=== PATIENT | female | born 1930 ===

== ENCOUNTER 2018-04-17 15:47 | Inpatient (IN) | payer MEDICARE ==
[2018-04-17] MEDS ORDERED: Sodium Chloride 0.9% 1,000 ML IV ONE ×2 (16:04→16:35)
[2018-04-17 16:25] LABS: BASO # 0.1 K/uL (0.0-0.2); BASO % 0.5 % (0.0-2.0); EOS # 0.1 K/uL (0.0-0.7); EOS % 0.5 % (0.0-4.0); HEMOGLOBIN 12.3 g/dL (11.0-16.0); LYMPH # 2.2 K/uL (1.0-4.3); LYMPH % 17.9 % (20.0-40.0); MEAN CELL VOLUME 86.3 fL (81.0-99.0); MEAN CORPUSCULAR HEMOGLOBIN 27.7 pg (27.0-31.0); MEAN CORPUSCULAR HGB CONC 32.1 g/dL (33.0-37.0); MEAN PLATELET VOLUME 8.7 fL (7.2-11.7); MONO # 1.4 K/uL (0.0-0.8); NEUT # 8.8 K/uL (1.8-7.0); NEUT % 70.1 % (50.0-75.0); RBC 4.45 Mil/uL (3.80-5.20); RED CELL DISTRIBUTION WIDTH 15.6 % (11.5-14.5); WHITE BLOOD COUNT 12.6 K/uL (4.8-10.8)
--- NOTE | 2018-04-17 16:26 | RAD ---
Date of service: 04/17/2018 HISTORY: SOB COMPARISON: None available. FINDINGS: LUNGS: No alveolar infiltrates bilaterally. Limited reticular pattern increase questioned bilaterally.. PLEURA: No significant pleural effusion identified, no pneumothorax apparent. CARDIOVASCULAR: Calcific atherosclerotic changes are seen related to the thoracic aorta. Cardiomegaly noted. No pulmonary vascular congestion. OSSEOUS STRUCTURES: No significant abnormalities. VISUALIZED UPPER ABDOMEN: Normal. OTHER FINDINGS: None. IMPRESSION: Questionable increased reticular markings may reflect atypical pneumonitis or bronchitis however no alveolitis bilaterally. No pulmonary congestion or cardiomegaly noted.
[2018-04-17 16:31] LABS: ALB/GLOB RATIO 1.1 (1.0-2.1); ALBUMIN 4.4 g/dL (3.5-5.0); ALT/SGPT 14 U/L (9-52); AST/SGOT 51 U/L (14-36); BLOOD UREA NITROGEN 22 mg/dL (7-17); CALCIUM 9.3 mg/dl (8.6-10.4); GFR NON-AFRICAN AMERICAN > 60
[2018-04-17 16:46] LABS: INR 1.2; PARTIAL THROMBOPLASTIN TIME 24 SECONDS (21-34); PROTHROMBIN TIME 13.1 SECONDS (9.7-12.2)
[2018-04-17 16:49] LABS: B-TYPE NATRIURETIC PEPTIDE 314 pg/mL (0-900)
[2018-04-17 16:58] LABS: D DIMER > 5250 ng/mlDDU (0-243)
[2018-04-17 17:23] LABS: SQUAMOUS EPITHIAL 3 /hpf (0-5); URINE BACTERIA RARE (<OCC); URINE BILIRUBIN NEGATIVE (NEGATIVE); URINE BLOOD NEGATIVE (NEGATIVE); URINE CLARITY Hazy (Clear); URINE COLOR Amber (YELLOW); URINE GLUCOSE (UA) NORMAL (Normal); URINE LEUKOCYTE ESTERASE 1+ Leu/uL (Negative); URINE PROTEIN 2+ mg/dL (NEGATIVE); URINE UROBILINOGEN NORMAL mg/dL (0.2-1.0)
[2018-04-17 17:29] LABS: BARBITURATES, UR NEGATIVE (NEGATIVE); BENZODIAZEPINES, UR NEGATIVE (NEGATIVE); OPIATES, UR NEGATIVE (NEGATIVE); PHENCYCLIDINE, UR NEGATIVE (NEGATIVE)
--- NOTE | 2018-04-17 17:32 | C.PDOC ---
History Of Present Illness 88 year old female is brought to the ED via ambulance from home for lethargy and SOB x 2 days. Patient was noticed to be in rapid V-fib and V-tach during transport but was not captured on EKG. Patient has history of TIAs. Her daughter at bedside states patient had a large bowel movement last night, which usually precedes a TIA. Patient denies fever, chills. Anticoagulated w Plavix for h/o TIA with ? med compliance. Time Seen by Provider: 04/17/18 15:53 Chief Complaint (Nursing): Chest Pain History Per: Patient, EMS, Family (daughter ) History/Exam Limitations: no limitations Onset/Duration Of Symptoms: Hrs Past Medical History Reviewed: Historical Data, Nursing Documentation, Vital Signs Vital Signs: Last Vital Signs Temp 98.7 F 04/17/18 15:49 Pulse 89 04/17/18 16:20 Resp 25 H 04/17/18 16:20 BP 103/67 04/17/18 16:20 Pulse Ox 97 04/17/18 16:20 - Medical History PMH: COPD, Dementia, HTN Surgical History: No Surg Hx Family History: States: Unknown Family Hx - Social History Hx Alcohol Use: No Hx Substance Use: No - Immunization History Hx Tetanus Toxoid Vaccination: No Hx Influenza Vaccination: No Hx Pneumococcal Vaccination: No Review Of Systems Constitutional: Positive for: Other (lethargy ). Negative for: Fever, Chills Physical Exam - Physical Exam Appears: Non-toxic, No Acute Distress, Other (acutely ill ) Skin: Warm, Dry, Pale Head: Atraumatic, Normacephalic Eye(s): bilateral: Normal Inspection Oral Mucosa: Moist Neck: Supple Chest: Symmetrical, No Deformity, No Tenderness Cardiovascular: No Murmur, Other (tachycardic and irregular ) Respiratory: Normal Breath Sounds, No Rales, No Rhonchi, No Wheezing Gastrointestinal/Abdominal: Soft, No Tenderness, No Guarding, No Rebound Extremity: Normal ROM, Capillary Refill (less than 2 seconds ), No Other (clubbing, cyanosis, or edema ) Neurological/Psych: Oriented x3, Normal Speech, Normal Cognition ED Course And Treatment - Laboratory Results Result Diagrams: 04/17/18 16:00 04/17/18 16:00 Lab Interpretation: Abnormal (D Dimer 5200, Troop 0.330, BNP neg. ua neg.) ECG: Interpreted By Me ECG Rhythm: Atrial Fibrillation, L BBB ECG Interpretation: Abnormal Rate From EC O2 Sat by Pulse Oximetry: 97 (on RA) Pulse Ox Interpretation: Normal - Radiology CXR: Interpreted by Me CXR Interpretation: Yes: No Acute Disease Progress Note: Bloodwork, urinalysis, CT Angio Chest, CT Head, EKG, CXR, and flu swab ordered and reviewed. Patient given aggressive IV Fluids for hypertension and tachycardia with improvement of symptoms. On re-evaluation, patient is plump, pink, neurologically intact, and with improvement of tachycardia. Reevaluation Time: 19:33 Reassessment Condition: Improved - Physician Consult Information Outcome Of Conversation: 1929: d/w Dr. Ragland- Hospitalist, ok to admit to Service. 1929: d/w Dr. Worthington, ICU, ok to ICU Critical Care Time - Critical Care Note Total Time (in mins): 90 Documented critical care: time excludes all time spent performing seperately billable procedures. Medical Decision Making Medical Decision Making: acute PE over past 1-2 days with intermittent tachyarrhythmias ROSENDA vs VT w ROSENDA in ED on arrival. Anticoagulated w Heparin bolus/drip consider non-emergent IR evaluation for theraputic options as VSS and oxygenation good without sig RV dilation noted on CTA 2000: repeat EKG, now stabilized NSR @ 87, persistent LBBB, no ectopy. Disposition Doctor Will See Patient In The: Hospital Counseled Patient/Family Regarding: Studies Performed, Diagnosis - Disposition Disposition: HOSPITALIZED Disposition Time: 19:35 Condition: GOOD - Clinical Impression Clinical Impression: NSTEMI (non-ST elevated myocardial infarction), Pulmonary embolism - Scribe Statement The provider has reviewed the documentation as recorded by the Scribe (Viry Clark) Provider Attestation: All medical record entries made by the Scribe were at my direction and personally dictated by me. I have reviewed the chart and agree that the record accurately reflects my personal performance of the history, physical exam, medical decision making, and the department course for this patient. I have also personally directed, reviewed, and agree with the discharge instructions and disposition.
[2018-04-17] MEDS ORDERED: Iodixanol 320 MG/ML 100 ML BOTTLE IV ONE (17:33)
[2018-04-17] MEDS ORDERED: Heparin25000 units/250ml 1/2NS 25,000 UNITS/250 ML BAG IV ONE (19:35)
--- NOTE | 2018-04-17 20:33 | CP.PCM.CON ---
History of Present Illness - History of Present Illness History of Present Illness: CCM 88 yo female with hx HTN/HLD /COPD /TIA's/Dementia BIBEMS after daughter noted shaking and change in MS. Pt with SOB x 2 days. Nausea in AM. Had VT and rapid AF in EMS. In ED low BP improved after 2 L IV fluid. Found with PE and started on heparin. Pt denied pain or sob when seen. No fever/urinary sx./nausea. ROS- as noted All- PCN Social- no tob/ etoh/d rugs Meds- reviewed FH- [place] PE T-98.2 P-88 R-25 BP129/81 Sat-97% on NC Alert responsive elderly female, nad Neck- no jvdlungs- bilat bs Heawrt-rr aBd- bengin Ext- bipedal edema, some LLE tenderness Neuro- nonfocal Labs, EKG,[id number] A&P Pulmonary Emboli Arrythmias- s/p VT & A-fib LBBB +Trop Hx HTN HLD Dementia COPD Hx TIA's Admit to ICU monitor for arrythmia's cont heparin/ OPtimize PTT supplemental O2 ECHO PUlmonary eval Maintain optimal lytes f/u labs critical care time spent with patient 40 min. Past Patient History - Past Social History Smoking Status: Never Smoked - CARDIAC Hx Hypertension: Yes - PULMONARY Hx Chronic Obstructive Pulmonary Disease (COPD): Yes - NEUROLOGICAL Hx Dementia: Yes - PSYCHIATRIC Hx Substance Use: No - SURGICAL HISTORY Hx Surgeries: No Meds Allergies/Adverse Reactions: Allergies Allergy/AdvReac Type Severity Reaction Status Date / Time Penicillins Allergy Verified 04/17/18 15:59 - Medications Medications: Current Medications Heparin Sodium/Sodium Chloride (Heparin 05620 Units/250ml 1/2 Normal Saline) 25,000 units in 250 mls @ 10.8 mls/hr IV .[id number] ONE; Protocol Stop: 04/18/18 18:43 Last Admin: 04/17/18 19:48 Dose: 18 units/kg/hr, 10.8 mls/hr Results - Vital Signs Recent Vital Signs: Last Vital Signs Temp 98.2 F 04/17/18 20:07 Pulse 88 04/17/18 20:07 Resp 25 H 04/17/18 20:07 BP 129/81 04/17/18 20:07 Pulse Ox 97 04/17/18 20:16 - Labs Result Diagrams: 04/17/18 16:00 04/17/18 16:00 Labs: Laboratory Results - last 24 hr 04/17/18 04/17/18 04/17/18 16:00 16:00 16:13 WBC 12.6 H RBC 4.45 Hgb 12.3 Hct 38.4 MCV 86.3 MCH 27.7 MCHC 32.1 L RDW 15.6 H Plt Count 228 MPV 8.7 Neut % (Auto) 70.1 Lymph % (Auto) 17.9 L [place] % (Auto) 11.0 H Eos % (Auto) 0.5 Baso % (Auto) 0.5 Neut # (Auto) 8.8 H Lymph # (Auto) 2.2 [place] # (Auto) 1.4 H Eos # (Auto) 0.1 Baso # (Auto) 0.1 PT INR APTT D-Dimer, Quantitative Sodium 141 Potassium 5.2 Chloride 104 Carbon Dioxide 22 Anion Gap 20 BUN 22 H Creatinine 0.7 Est GFR ( Amer) > 60 Est GFR (Non-Af Amer) > 60 Random Glucose 187 H Calcium 9.3 Total Bilirubin 1.3 AST 51 H ALT 14 Alkaline Phosphatase 79 Troponin I 0.3300 H* NT-Pro-B Natriuret Pep 314 Total Protein 8.5 H Albumin 4.4 Globulin 4.1 H Albumin/Globulin Ratio 1.1 Urine Color Urine Clarity Urine pH Ur Specific [place] Urine Protein Urine Glucose (UA) Urine Ketones Urine Blood Urine Nitrate Urine Bilirubin Urine Urobilinogen Ur Leukocyte Esterase Urine WBC (Auto) Urine RBC (Auto) Ur Squamous Epith Cells Urine Bacteria Hyaline Casts Stool Occult Blood Urine Opiates Screen Urine Methadone Screen Ur Barbiturates Screen Ur Phencyclidine Scrn Ur Amphetamines Screen U Benzodiazepines Scrn U Oth Cocaine Metabols U Cannabinoids Screen Influenza Typ A,B (EIA) Negative for flu a/b Blood Type Antibody Screen 04/17/18 04/17/18 04/17/18 16:19 16:19 16:39 WBC RBC Hgb Hct MCV MCH MCHC RDW Plt Count MPV Neut % (Auto) Lymph % (Auto) [place] % (Auto) Eos % (Auto) Baso % (Auto) Neut # (Auto) Lymph # (Auto) [place] # (Auto) Eos # (Auto) Baso # (Auto) PT 13.1 H INR 1.2 APTT 24 D-Dimer, Quantitative > 5250 H Sodium Potassium Chloride Carbon Dioxide Anion Gap BUN Creatinine Est GFR ( Amer) Est GFR (Non-Af Amer) Random Glucose Calcium Total Bilirubin AST ALT Alkaline Phosphatase Troponin I NT-Pro-B Natriuret Pep Total Protein Albumin Globulin Albumin/Globulin Ratio Urine Color Urine Clarity Urine pH Ur Specific [place] Urine Protein Urine Glucose (UA) Urine Ketones Urine Blood Urine Nitrate Urine Bilirubin Urine Urobilinogen Ur Leukocyte Esterase Urine WBC (Auto) Urine RBC (Auto) Ur Squamous Epith Cells Urine Bacteria Hyaline Casts Stool Occult Blood Negative Urine Opiates Screen Urine Methadone Screen Ur Barbiturates Screen Ur Phencyclidine Scrn Ur Amphetamines Screen U Benzodiazepines Scrn U Oth Cocaine Metabols U Cannabinoids Screen Influenza Typ A,B (EIA) Blood Type O POSITIVE Antibody Screen Negative 04/17/18 04/17/18 17:09 17:09 WBC RBC Hgb Hct MCV MCH MCHC RDW Plt Count MPV Neut % (Auto) Lymph % (Auto) [place] % (Auto) Eos % (Auto) Baso % (Auto) Neut # (Auto) Lymph # (Auto) [place] # (Auto) Eos # (Auto) Baso # (Auto) PT INR APTT D-Dimer, Quantitative Sodium Potassium Chloride Carbon Dioxide Anion Gap BUN Creatinine Est GFR ( Amer) Est GFR (Non-Af Amer) Random Glucose Calcium Total Bilirubin AST ALT Alkaline Phosphatase Troponin I NT-Pro-B Natriuret Pep Total Protein Albumin Globulin Albumin/Globulin Ratio Urine Color Su Urine Clarity Hazy Urine pH 5.0 Ur Specific [place] 1.023 Urine Protein 2+ H Urine Glucose (UA) Normal Urine Ketones Trace Urine Blood Negative Urine Nitrate Negative Urine Bilirubin Negative Urine Urobilinogen Normal Ur Leukocyte Esterase 1+ H Urine WBC (Auto) 13 H Urine RBC (Auto) 3 Ur Squamous Epith Cells 3 Urine Bacteria Rare Hyaline Casts 11-20 H Stool Occult Blood Urine Opiates Screen Negative Urine Methadone Screen Negative Ur Barbiturates Screen Negative Ur Phencyclidine Scrn Negative Ur Amphetamines Screen Negative U Benzodiazepines Scrn Negative U Oth Cocaine Metabols Negative U Cannabinoids Screen Negative Influenza Typ A,B (EIA) Blood Type Antibody Screen Assessment & Plan (1) Pulmonary embolism Status: Acute (2) NSTEMI (non-ST elevated myocardial infarction) Status: Acute (3) COPD (chronic obstructive pulmonary disease) Status: Chronic (4) HTN (hypertension) Status: Chronic (5) HLD (hyperlipidemia) Status: Chronic (6) Dementia Status: Chronic (7) TIA (transient ischemic attack) Status: Chronic
--- NOTE | 2018-04-18 01:54 | CP.PCM.HP ---
<Missy Nettles P - Last Filed: 04/18/18 03:22> History of Present Illness - History of Present Illness History of Present Illness: 88 year old female with PMHx of COPD, HTN, HLD, dementia and previous CVA with L sided weakness presents to ED with complaint of shortness of breath worsening for the last 2 days. SOB worsens with talking. Treatment with home nebulizer provided no improvement. Associated symptoms include diaphoresis and lower extremity swelling. Patient noted to be in rapid Afib and v tach en route to ED. On arrival to ED, patient was noted to be hypotensive, which improved with 2L IV fluid. Patient denies chest pain, nausea, vomiting, palpitations, cough, fever, and chills. PMHx: COPD, HTN, HLD, dementia and previous CVA PSHx: appendectomy Meds: Plavix 75mg daily, montelukast 10mg HS, amlodipine 2.5mg daily, Simvastatin 20mg Hs, Rivastigmine 9.5mg transdermal daily, Brovana 15mcg INH BID Allergy: PCN Social: denies alcohol and drugs. Lives with 92 year old . Walks with a walker Code Status: full code Present on Admission - Present on Admission Any Indicators Present on Admission: No Review of Systems - Constitutional Constitutional: Lethargy. absent: Chills, Fever, Frequent Falls, Headache - Cardiovascular Cardiovascular: Irregular Heart Rhythm, Leg Edema. absent: Chest Pain, Lightheadedness, Palpitations - Respiratory Respiratory: Dyspnea. absent: Cough, Hemoptysis - Gastrointestinal Gastrointestinal: absent: Constipation, Diarrhea, Hematochezia, Loose Stools, Melena, Nausea, Vomiting - Genitourinary Genitourinary: absent: Flank Pain, Hematuria, Urinary Frequency - Neurological Neurological: absent: Abnormal Speech, Dizziness, Numbness, Headaches, Loss of Vision, Paresthesias, Syncope, Tremor Past Patient History - Past Medical History & Family History Past Medical History?: Yes - Past Social History Smoking Status: Never Smoked - CARDIAC Hx Hypertension: Yes - PULMONARY Hx Chronic Obstructive Pulmonary Disease (COPD): Yes - NEUROLOGICAL Hx Dementia: Yes - HEENT Hx HEENT Problems: Yes Other/Comment: FOR READING - RENAL Hx Chronic Kidney Disease: No - ENDOCRINE/METABOLIC Hx Endocrine Disorders: No - HEMATOLOGICAL/ONCOLOGICAL Hx Blood Disorders: No - INTEGUMENTARY Hx Dermatological Problems: No - MUSCULOSKELETAL/RHEUMATOLOGICAL Hx Musculoskeletal Disorders: Yes Hx Falls: Yes - GASTROINTESTINAL Hx Gastrointestinal Disorders: No - GENITOURINARY/GYNECOLOGICAL Hx Genitourinary Disorders: No - PSYCHIATRIC Hx Substance Use: No - SURGICAL HISTORY Hx Surgeries: No - ANESTHESIA Hx Anesthesia: No Meds Allergies/Adverse Reactions: Allergies Allergy/AdvReac Type Severity Reaction Status Date / Time Penicillins Allergy Verified 04/17/18 15:59 Physical Exam - Constitutional Appears: No Acute Distress - Head Exam Head Exam: ATRAUMATIC, NORMOCEPHALIC - Eye Exam Eye Exam: EOMI, PERRL - ENT Exam ENT Exam: Mucous Membranes Moist - Respiratory Exam Respiratory Exam: Wheezes. absent: Clear to Auscultation Bilateral, Rales, Rhonchi - Cardiovascular Exam Cardiovascular Exam: REGULAR RHYTHM, +S1, +S2 - GI/Abdominal Exam GI & Abdominal Exam: Distended, Normal Bowel Sounds. absent: Guarding, Rebound - Extremities Exam Extremities exam: Positive for: pedal edema (pitting, L>R) - Neurological Exam Neurological exam: Alert, CN II-XII Intact, Motor Sensory Deficit (Residual L sided weakness from previous stroke) - Psychiatric Exam Psychiatric exam: Normal Affect Results - Vital Signs Recent Vital Signs: Last Vital Signs Temp 98.5 F 04/18/18 00:00 Pulse 72 04/18/18 01:30 Resp 27 H 04/18/18 01:30 BP 115/66 04/18/18 01:30 Pulse Ox 93 L 04/18/18 01:30 - Labs Result Diagrams: 04/17/18 16:00 04/17/18 16:00 Labs: Laboratory Results - last 24 hr 04/17/18 04/17/18 04/17/18 16:00 16:00 16:13 WBC 12.6 H RBC 4.45 Hgb 12.3 Hct 38.4 MCV 86.3 MCH 27.7 MCHC 32.1 L RDW 15.6 H Plt Count 228 MPV 8.7 Neut % (Auto) 70.1 Lymph % (Auto) 17.9 L Walton % (Auto) 11.0 H Eos % (Auto) 0.5 Baso % (Auto) 0.5 Neut # (Auto) 8.8 H Lymph # (Auto) 2.2 Walton # (Auto) 1.4 H Eos # (Auto) 0.1 Baso # (Auto) 0.1 PT INR APTT D-Dimer, Quantitative Sodium 141 Potassium 5.2 Chloride 104 Carbon Dioxide 22 Anion Gap 20 BUN 22 H Creatinine 0.7 Est GFR ( Amer) > 60 Est GFR (Non-Af Amer) > 60 Random Glucose 187 H Calcium 9.3 Total Bilirubin 1.3 AST 51 H ALT 14 Alkaline Phosphatase 79 Troponin I 0.3300 H* NT-Pro-B Natriuret Pep 314 Total Protein 8.5 H Albumin 4.4 Globulin 4.1 H Albumin/Globulin Ratio 1.1 Urine Color Urine Clarity Urine pH Ur Specific Granger Urine Protein Urine Glucose (UA) Urine Ketones Urine Blood Urine Nitrate Urine Bilirubin Urine Urobilinogen Ur Leukocyte Esterase Urine WBC (Auto) Urine RBC (Auto) Ur Squamous Epith Cells Urine Bacteria Hyaline Casts Stool Occult Blood Urine Opiates Screen Urine Methadone Screen Ur Barbiturates Screen Ur Phencyclidine Scrn Ur Amphetamines Screen U Benzodiazepines Scrn U Oth Cocaine Metabols U Cannabinoids Screen Influenza Typ A,B (EIA) Negative for flu a/b Blood Type Antibody Screen 04/17/18 04/17/18 04/17/18 16:19 16:19 16:39 WBC RBC Hgb Hct MCV MCH MCHC RDW Plt Count MPV Neut % (Auto) Lymph % (Auto) Walton % (Auto) Eos % (Auto) Baso % (Auto) Neut # (Auto) Lymph # (Auto) Walton # (Auto) Eos # (Auto) Baso # (Auto) PT 13.1 H INR 1.2 APTT 24 D-Dimer, Quantitative > 5250 H Sodium Potassium Chloride Carbon Dioxide Anion Gap BUN Creatinine Est GFR ( Amer) Est GFR (Non-Af Amer) Random Glucose Calcium Total Bilirubin AST ALT Alkaline Phosphatase Troponin I NT-Pro-B Natriuret Pep Total Protein Albumin Globulin Albumin/Globulin Ratio Urine Color Urine Clarity Urine pH Ur Specific Granger Urine Protein Urine Glucose (UA) Urine Ketones Urine Blood Urine Nitrate Urine Bilirubin Urine Urobilinogen Ur Leukocyte Esterase Urine WBC (Auto) Urine RBC (Auto) Ur Squamous Epith Cells Urine Bacteria Hyaline Casts Stool Occult Blood Negative Urine Opiates Screen Urine Methadone Screen Ur Barbiturates Screen Ur Phencyclidine Scrn Ur Amphetamines Screen U Benzodiazepines Scrn U Oth Cocaine Metabols U Cannabinoids Screen Influenza Typ A,B (EIA) Blood Type O POSITIVE Antibody Screen Negative 04/17/18 04/17/18 17:09 17:09 WBC RBC Hgb Hct MCV MCH MCHC RDW Plt Count MPV Neut % (Auto) Lymph % (Auto) Walton % (Auto) Eos % (Auto) Baso % (Auto) Neut # (Auto) Lymph # (Auto) Walton # (Auto) Eos # (Auto) Baso # (Auto) PT INR APTT D-Dimer, Quantitative Sodium Potassium Chloride Carbon Dioxide Anion Gap BUN Creatinine Est GFR ( Amer) Est GFR (Non-Af Amer) Random Glucose Calcium Total Bilirubin AST ALT Alkaline Phosphatase Troponin I NT-Pro-B Natriuret Pep Total Protein Albumin Globulin Albumin/Globulin Ratio Urine Color Su Urine Clarity Hazy Urine pH 5.0 Ur Specific Granger 1.023 Urine Protein 2+ H Urine Glucose (UA) Normal Urine Ketones Trace Urine Blood Negative Urine Nitrate Negative Urine Bilirubin Negative Urine Urobilinogen Normal Ur Leukocyte Esterase 1+ H Urine WBC (Auto) 13 H Urine RBC (Auto) 3 Ur Squamous Epith Cells 3 Urine Bacteria Rare Hyaline Casts 11-20 H Stool Occult Blood Urine Opiates Screen Negative Urine Methadone Screen Negative Ur Barbiturates Screen Negative Ur Phencyclidine Scrn Negative Ur Amphetamines Screen Negative U Benzodiazepines Scrn Negative U Oth Cocaine Metabols Negative U Cannabinoids Screen Negative Influenza Typ A,B (EIA) Blood Type Antibody Screen Assessment & Plan - Assessment and Plan (Free Text) Plan: 88 year old female with PMHx of Pulmonary embolism Heparin Drip COPD Duoneb BID Montelukast 10mg daily HTN Amlodepine 2.5mg Hx of CVA Prophylaxis Heart healthy diet <Thierry Ragland P - Last Filed: 04/18/18 07:53> Results - Vital Signs Recent Vital Signs: Last Vital Signs Temp 98.0 F 04/18/18 04:00 Pulse 63 04/18/18 06:30 Resp 27 H 04/18/18 06:30 BP 114/76 04/18/18 06:30 Pulse Ox 97 04/18/18 06:30 - Labs Result Diagrams: 04/18/18 06:26 04/18/18 06:27 Labs: Laboratory Results - last 24 hr 04/17/18 04/17/18 04/17/18 16:00 16:00 16:13 WBC 12.6 H RBC 4.45 Hgb 12.3 Hct 38.4 MCV 86.3 MCH 27.7 MCHC 32.1 L RDW 15.6 H Plt Count 228 MPV 8.7 Neut % (Auto) 70.1 Lymph % (Auto) 17.9 L Walton % (Auto) 11.0 H Eos % (Auto) 0.5 Baso % (Auto) 0.5 Neut # (Auto) 8.8 H Lymph # (Auto) 2.2 Walton # (Auto) 1.4 H Eos # (Auto) 0.1 Baso # (Auto) 0.1 PT INR APTT D-Dimer, Quantitative Sodium 141 Potassium 5.2 Chloride 104 Carbon Dioxide 22 Anion Gap 20 BUN 22 H Creatinine 0.7 Est GFR ( Amer) > 60 Est GFR (Non-Af Amer) > 60 Random Glucose 187 H Calcium 9.3 Total Bilirubin 1.3 AST 51 H ALT 14 Alkaline Phosphatase 79 Troponin I 0.3300 H* NT-Pro-B Natriuret Pep 314 Total Protein 8.5 H Albumin 4.4 Globulin 4.1 H Albumin/Globulin Ratio 1.1 Urine Color Urine Clarity Urine pH Ur Specific Granger Urine Protein Urine Glucose (UA) Urine Ketones Urine Blood Urine Nitrate Urine Bilirubin Urine Urobilinogen Ur Leukocyte Esterase Urine WBC (Auto) Urine RBC (Auto) Ur Squamous Epith Cells Urine Bacteria Hyaline Casts Stool Occult Blood Urine Opiates Screen Urine Methadone Screen Ur Barbiturates Screen Ur Phencyclidine Scrn Ur Amphetamines Screen U Benzodiazepines Scrn U Oth Cocaine Metabols U Cannabinoids Screen Influenza Typ A,B (EIA) Negative for flu a/b Blood Type Antibody Screen 04/17/18 04/17/18 04/17/18 16:19 16:19 16:39 WBC RBC Hgb Hct MCV MCH MCHC RDW Plt Count MPV Neut % (Auto) Lymph % (Auto) Walton % (Auto) Eos % (Auto) Baso % (Auto) Neut # (Auto) Lymph # (Auto) Walton # (Auto) Eos # (Auto) Baso # (Auto) PT 13.1 H INR 1.2 APTT 24 D-Dimer, Quantitative > 5250 H Sodium Potassium Chloride Carbon Dioxide Anion Gap BUN Creatinine Est GFR ( Amer) Est GFR (Non-Af Amer) Random Glucose Calcium Total Bilirubin AST ALT Alkaline Phosphatase Troponin I NT-Pro-B Natriuret Pep Total Protein Albumin Globulin Albumin/Globulin Ratio Urine Color Urine Clarity Urine pH Ur Specific Granger Urine Protein Urine Glucose (UA) Urine Ketones Urine Blood Urine Nitrate Urine Bilirubin Urine Urobilinogen Ur Leukocyte Esterase Urine WBC (Auto) Urine RBC (Auto) Ur Squamous Epith Cells Urine Bacteria Hyaline Casts Stool Occult Blood Negative Urine Opiates Screen Urine Methadone Screen Ur Barbiturates Screen Ur Phencyclidine Scrn Ur Amphetamines Screen U Benzodiazepines Scrn U Oth Cocaine Metabols U Cannabinoids Screen Influenza Typ A,B (EIA) Blood Type O POSITIVE Antibody Screen Negative 04/17/18 04/17/18 04/18/18 17:09 17:09 02:08 WBC RBC Hgb Hct MCV MCH MCHC RDW Plt Count MPV Neut % (Auto) Lymph % (Auto) Walton % (Auto) Eos % (Auto) Baso % (Auto) Neut # (Auto) Lymph # (Auto) Walton # (Auto) Eos # (Auto) Baso # (Auto) PT INR APTT 119 H* D D-Dimer, Quantitative Sodium Potassium Chloride Carbon Dioxide Anion Gap BUN Creatinine Est GFR ( Amer) Est GFR (Non-Af Amer) Random Glucose Calcium Total Bilirubin AST ALT Alkaline Phosphatase Troponin I NT-Pro-B Natriuret Pep Total Protein Albumin Globulin Albumin/Globulin Ratio Urine Color Su Urine Clarity Hazy Urine pH 5.0 Ur Specific Granger 1.023 Urine Protein 2+ H Urine Glucose (UA) Normal Urine Ketones Trace Urine Blood Negative Urine Nitrate Negative Urine Bilirubin Negative Urine Urobilinogen Normal Ur Leukocyte Esterase 1+ H Urine WBC (Auto) 13 H Urine RBC (Auto) 3 Ur Squamous Epith Cells 3 Urine Bacteria Rare Hyaline Casts 11-20 H Stool Occult Blood Urine Opiates Screen Negative Urine Methadone Screen Negative Ur Barbiturates Screen Negative Ur Phencyclidine Scrn Negative Ur Amphetamines Screen Negative U Benzodiazepines Scrn Negative U Oth Cocaine Metabols Negative U Cannabinoids Screen Negative Influenza Typ A,B (EIA) Blood Type Antibody Screen 04/18/18 04/18/18 06:26 06:27 WBC 11.1 H RBC 3.91 Hgb 11.1 Hct 33.3 L MCV 85.1 MCH 28.3 MCHC 33.2 RDW 15.8 H Plt Count 216 MPV 8.9 Neut % (Auto) 67.1 Lymph % (Auto) 19.0 L Walton % (Auto) 11.0 H Eos % (Auto) 2.1 Baso % (Auto) 0.8 Neut # (Auto) 7.5 H Lymph # (Auto) 2.1 Walton # (Auto) 1.2 H Eos # (Auto) 0.2 Baso # (Auto) 0.1 PT INR APTT D-Dimer, Quantitative Sodium 139 Potassium 4.0 Chloride 108 H Carbon Dioxide 22 Anion Gap 13 BUN 21 H Creatinine 0.7 Est GFR ( Amer) > 60 Est GFR (Non-Af Amer) > 60 Random Glucose 150 H Calcium 8.8 Total Bilirubin 0.7 AST 24 ALT 27 Alkaline Phosphatase 72 Troponin I NT-Pro-B Natriuret Pep Total Protein 6.8 Albumin 3.5 D Globulin 3.3 Albumin/Globulin Ratio 1.0 Urine Color Urine Clarity Urine pH Ur Specific Granger Urine Protein Urine Glucose (UA) Urine Ketones Urine Blood Urine Nitrate Urine Bilirubin Urine Urobilinogen Ur Leukocyte Esterase Urine WBC (Auto) Urine RBC (Auto) Ur Squamous Epith Cells Urine Bacteria Hyaline Casts Stool Occult Blood Urine Opiates Screen Urine Methadone Screen Ur Barbiturates Screen Ur Phencyclidine Scrn Ur Amphetamines Screen U Benzodiazepines Scrn U Oth Cocaine Metabols U Cannabinoids Screen Influenza Typ A,B (EIA) Blood Type Antibody Screen Attending/Attestation - Attestation I have personally seen and examined this patient.: Yes I have fully participated in the care of the patient.: Yes I have reviewed all pertinent clinical information: Yes Notes (Text): Assessment * B/l PE, right pulm trunk, left distal segmental with initial hypotension, + troponin suggesting RV strain, but then clinical improvement. * H/o prior tia, strokes patient is high risk of bleeding in the prior stroked areas with even catheter directed trombolysis, also clinically patient improving suggesting clot might have displaced * B/l leg swelling left > right * abdominal distension chronic as per the daughter * Left leg weakness from prior strokes * ? copd as per the daughter from second hand smoking * Full code Plan * Heparin drip * Echo * Venous doppler b/l * Abdominal USG due to distension * Home meds * See orders for detail.
[2018-04-18 06:35] LABS: BASO # 0.1 K/uL (0.0-0.2); BASO % 0.8 % (0.0-2.0); EOS # 0.2 K/uL (0.0-0.7); EOS % 2.1 % (0.0-4.0); HEMOGLOBIN 11.1 g/dL (11.0-16.0); LYMPH # 2.1 K/uL (1.0-4.3); MEAN CELL VOLUME 85.1 fL (81.0-99.0); MEAN CORPUSCULAR HEMOGLOBIN 28.3 pg (27.0-31.0); MEAN CORPUSCULAR HGB CONC 33.2 g/dL (33.0-37.0); MEAN PLATELET VOLUME 8.9 fL (7.2-11.7); MONO # 1.2 K/uL (0.0-0.8); NEUT # 7.5 K/uL (1.8-7.0); NEUT % 67.1 % (50.0-75.0); RBC 3.91 Mil/uL (3.80-5.20); RED CELL DISTRIBUTION WIDTH 15.8 % (11.5-14.5); WHITE BLOOD COUNT 11.1 K/uL (4.8-10.8)
[2018-04-18 06:53] LABS: ALBUMIN 3.5 g/dL (3.5-5.0); ALT/SGPT 27 U/L (9-52); AST/SGOT 24 U/L (14-36); BLOOD UREA NITROGEN 21 mg/dL (7-17); CALCIUM 8.8 mg/dl (8.6-10.4); GFR NON-AFRICAN AMERICAN > 60
--- NOTE | 2018-04-18 08:28 | CT ---
Date of service: 04/17/2018 PROCEDURE: CT HEAD WITHOUT CONTRAST. HISTORY: ? change of MS, h/o TIA COMPARISON: None available. TECHNIQUE: Axial computed tomography images were obtained through the head/brain without intravenous contrast. Radiation dose: Total exam DLP = 1067.89 mGy-cm. This CT exam was performed using one or more of the following dose reduction techniques: Automated exposure control, adjustment of the mA and/or kV according to patient size, and/or use of iterative reconstruction technique. FINDINGS: HEMORRHAGE: No intracranial hemorrhage. BRAIN: There are severe chronic microangiopathic changes. There is no mass, mass effect or abnormal extra-axial fluid collection. There is no territorial infarction. The midline sagittal structures are normal. VENTRICLES: There is mild age-related global parenchymal volume loss and proportionate enlargement of the ventricles and cortical sulci. CALVARIUM: There is no calvarial fracture or extracranial soft tissue swelling. PARANASAL SINUSES: There is a retention cyst/polyp in the left maxillary sinus. The remaining included paranasal sinuses are clear. MASTOID AIR CELLS: Predominantly clear. OTHER FINDINGS: None. IMPRESSION: No acute intracranial abnormality. Severe chronic microangiopathic changes and mild age-related global parenchymal volume loss. A preliminary report was provided by [employer].
[2018-04-18] MEDS ORDERED: Albuterol-Ipratrop 3 mg / 0.5 (3 ml) UD INH SCH ×2 (10:00→20:00)
--- NOTE | 2018-04-18 11:08 | US ---
HISTORY: abdominal distention COMPARISON: None available. TECHNIQUE: Sonographic evaluation of the abdomen. FINDINGS: LIVER: Measures 19.5 cm in sagittal dimension. Echogenic liver may be seen in setting of hepatic parenchymal disease or fatty infiltration. No focal hepatic mass identified. The main portal vein appears patent with normal directional flow. No intrahepatic bile duct dilatation. GALLBLADDER: No gallstones. No gallbladder wall thickening. Negative sonographic Leon's sign as assessed by the pricing director. COMMON BILE DUCT: Measures 2 mm. PANCREAS: Not well visualized. RIGHT KIDNEY: Measures 11.9 x 4.1 x 5.7cm. No obstructing calculus or hydronephrosis identified. LEFT KIDNEY: Measures 12.9 x 5.1 x 5.7cm. No obstructing calculus or hydronephrosis identified. 2.0 x 2.2 x 2.2 cm anechoic lesion appears consistent with cyst. SPLEEN: Not visualized. AORTA: Limited views appear unremarkable. IVC: Limited views appear unremarkable. OTHER FINDINGS: None. IMPRESSION: Hepatomegaly. Echogenic liver may be seen in setting of hepatic parenchymal disease or fatty infiltration. The spleen is not visualized. 2.2 cm left midpole renal anechoic lesion appears consistent with cyst.
--- NOTE | 2018-04-18 11:30 | CT ---
Date of service: 04/17/2018 PROCEDURE: CT Chest with contrast (Pulmonary Angiogram) HISTORY: Tachyarrthmia, d-dimer >5000 COMPARISON: Comparison made with chest radiograph 04/17/2018. TECHNIQUE: Axial computed tomography images were obtained of the chest in the pulmonary arterial phase of enhancement. Coronal and sagittal reformatted images were created and reviewed. Intravenous contrast dose: 100 cc Visipaque 320 contrast material. Radiation dose: Total exam DLP = 495.95 mGy-cm. This CT exam was performed using one or more of the following dose reduction techniques: Automated exposure control, adjustment of the mA and/or kV according to patient size, and/or use of iterative reconstruction technique. FINDINGS: PULMONARY ARTERIES: Significant pulmonary emboli seen within the distal right proximal. Pulmonary emboli extend distally into segmental and subsegmental branches of the right upper, upper middle and lower lobes.. In addition, there are small pulmonary emboli within proximal segmental and subsegmental branches upper and left lower lobe pulmonary arteries right greater than left. Pulmonary trunk measures approximately 2.9 cm. AORTA: No acute findings. No thoracic aortic aneurysm. Ascending thoracic aorta measures approximately 3.4 cm and descending thoracic aorta measures approximately 3.0 cm. Mild the aortic atherosclerotic calcification or mural plaque present. LUNGS: Mild bibasilar atelectasis left greater than right. Small calcified granuloma abutting the pleural surface right anterolateral upper lobe PLEURAL SPACES: Unremarkable. No effusion or pneumothorax. HEART: Mild cardiomegaly. No significant pericardial effusion. Suspect right heart strain . LYMPH NODES: There are a few small nonspecific mediastinal lymph nodes. Small hiatal hernia. BONES, CHEST WALL: Mild multilevel degenerative spondylosis of the thoracic spine. There are no acute compression fractures nor retropulsed fragments. OTHER FINDINGS: Questionable exophytic hyperdense cyst anterolateral aspect midpole left kidney IMPRESSION: Extensive bilateral upper and lower lobe pulmonary arteries right greater than left. Suspect right heart strain Mild cardiomegaly. Mild bibasilar atelectasis left greater than right. Small calcified granuloma right upper lobe Note that these report was placed in [facility] review folder for followup.
--- NOTE | 2018-04-18 14:08 | CP.CCUPN ---
<Doris Hdez - Last Filed: 04/18/18 18:18> CCU Subjective - Physician Review Events Since Last Encounter (Free Text): 04/18/18 14:03 No acute events overnight Subjective (Free Text): 04/18/18 14:04 Patient was seen and evaluated at bedside this morning. Patient has not Patient able to tolerate diet without issue. Patient denies chest pain, shortness of breath, abdominal pain, fever, chills, nausea, vomiting and/or headache. Critical Care Time Spent (in minutes): 35 CCU Objective - Vital Signs / Intake & Output Vital Signs (Last 4 hours): Vital Signs Temp Pulse Resp BP Pulse Ox 04/18/18 13:00 69 26 H 97 04/18/18 12:33 67 25 H 141/78 96 04/18/18 12:00 98.1 F 64 23 97 04/18/18 11:31 64 27 H 130/81 97 04/18/18 11:00 69 30 H 96 04/18/18 10:31 64 27 H 135/78 97 Intake and Output (Last 8hrs): Intake & Output 04/17/18 04/18/18 04/18/18 22:59 06:59 14:59 Intake Total 21.6 386.55 622 Output Total 200 350 Balance 21.6 186.55 272 Weight 132 lb 4.438 oz 135 lb 3.2 oz Intake: IV 75 Intake, IV Amount 21.6 71.55 72 Left Wrist 0 Right Antecubital 21.6 71.55 72 Oral 240 550 Output: Urine 200 350 Urine, Voided 200 350 Other: # Voids Urine, Voided 1 - Physical Exam Head: Positive for: Atraumatic, Normocephalic Pupils: Positive for: PERRL Extroacular Muscles: Positive for: EOMI Conjunctiva: Positive for: Normal Mouth: Positive for: Moist Mucous Membranes Neck: Positive for: Normal Range of Motion. Negative for: JVD, Lymphadenopathy Respiratory/Chest: Positive for: Good Air Exchange. Negative for: Respiratory Distress, Accessory Muscle Use, Wheezes Cardiovascular: Positive for: Regular Rate and Rhythm, Normal S1, S2 Abdomen: Positive for: Normal Bowel Sounds. Negative for: Tenderness, Distention, Peritoneal Signs Back: Positive for: Normal Inspection Upper Extremity: Positive for: Normal Inspection. Negative for: Cyanosis, Edema Lower Extremity: Positive for: Edema (left lower extremity +1 edema ), Tenderness (left lower extremity ) Neurological: Positive for: GCS=15, CN II-XII Intact, Speech Normal Skin: Positive for: Warm, Dry, Normal Color Psychiatric: Positive for: Alert, Oriented x 3, Normal Insight, Normal Concentration - Medications Active Medications: Active Medications Generic Name Dose Route Start Last Admin Trade Name Freq PRN Reason Stop Dose Admin Acetaminophen 650 mg 04/17/18 20:35 Tylenol 325mg Tab PO Q4 PRN Fever >100.4 F Albuterol/Ipratropium 3 ml 04/18/18 10:00 Duoneb 3 Mg/0.5 Mg (3 Ml) Ud INH BID LINUS Amlodipine Besylate 2.5 mg 04/18/18 10:00 Norvasc PO DAILY LINUS Clopidogrel Bisulfate 75 mg 04/18/18 10:00 04/18/18 09:37 Plavix PO 75 mg DAILY LINUS Administration Heparin Sodium/Sodium Chloride 25,000 units in 250 mls @ 10.8 mls/hr 04/17/18 19:35 04/18/18 03:45 Heparin 76924 Units/250ml 1/2 Normal Saline IV 04/18/18 18:43 15 units/kg/hr .[id number] ONE 9 mls/hr Titration Protocol 18 UNITS/KG/HR Rivastigmine 1 patch 04/18/18 10:00 04/18/18 09:37 Exelon 9.5 Mg/24 Hr Patch TD 1 patch DAILY LINUS Administration - Patient Studies Lab Studies: Lab Studies 04/18/18 04/18/18 04/18/18 Range/Units 08:25 08:25 06:27 WBC (4.8-10.8) K/uL RBC (3.80-5.20) Mil/uL Hgb (11.0-16.0) g/dL Hct (34.0-47.0) % MCV (81.0-99.0) fL MCH (27.0-31.0) pg MCHC (33.0-37.0) g/dL RDW (11.5-14.5) % Plt Count (130-400) K/uL MPV (7.2-11.7) fL Neut % (Auto) (50.0-75.0) % Lymph % (Auto) (20.0-40.0) % [place] % (Auto) (0.0-10.0) % Eos % (Auto) (0.0-4.0) % Baso % (Auto) (0.0-2.0) % Neut # (Auto) (1.8-7.0) K/uL Lymph # (Auto) (1.0-4.3) K/uL [place] # (Auto) (0.0-0.8) K/uL Eos # (Auto) (0.0-0.7) K/uL Baso # (Auto) (0.0-0.2) K/uL PT (9.7-12.2) SECONDS INR APTT 68 H D (21-34) SECONDS D-Dimer, Quantitative (0-243) ng/mlDDU Sodium 139 (132-148) mmol/L Potassium 4.0 (3.6-5.2) mmol/L Chloride 108 H (98-107) mmol/L Carbon Dioxide 22 (22-30) mmol/L Anion Gap 13 (10-20) BUN 21 H (7-17) mg/dL Creatinine 0.7 (0.7-1.2) mg/dL Est GFR ( Amer) > 60 Est GFR (Non-Af Amer) > 60 Random Glucose 150 H (65-105) mg/dL Calcium 8.8 (8.6-10.4) mg/dl Total Bilirubin 0.7 (0.2-1.3) mg/dL AST 24 (14-36) U/L ALT 27 (9-52) U/L Alkaline Phosphatase 72 (38-126) U/L Troponin I 0.2860 H* (0.00-0.120) ng/mL NT-Pro-B Natriuret Pep (0-900) pg/mL Total Protein 6.8 (6.3-8.3) g/dL Albumin 3.5 D (3.5-5.0) g/dL Globulin 3.3 (2.2-3.9) gm/dL Albumin/Globulin Ratio 1.0 (1.0-2.1) Urine Color (YELLOW) Urine Clarity (Clear) Urine pH (5.0-8.0) Ur Specific [place] (1.003-1.030) Urine Protein (NEGATIVE) mg/dL Urine Glucose (UA) (Normal) mg/dL Urine Ketones (NEGATIVE) mg/dL Urine Blood (NEGATIVE) Urine Nitrate (NEGATIVE) Urine Bilirubin (NEGATIVE) Urine Urobilinogen (0.2-1.0) mg/dL Ur Leukocyte Esterase (Negative) Evelina/uL Urine WBC (Auto) (0-5) /hpf Urine RBC (Auto) (0-3) /hpf Ur Squamous Epith Cells (0-5) /hpf Urine Bacteria (<OCC) Hyaline Casts (0-2) /lpf Stool Occult Blood (NEGATIVE) Urine Opiates Screen (NEGATIVE) Urine Methadone Screen (NEGATIVE) Ur Barbiturates Screen (NEGATIVE) Ur Phencyclidine Scrn (NEGATIVE) Ur Amphetamines Screen (NEGATIVE) U Benzodiazepines Scrn (NEGATIVE) U Oth Cocaine Metabols (NEGATIVE) U Cannabinoids Screen (NEGATIVE) Influenza Typ A,B (EIA) (NEGATIVE) Blood Type Antibody Screen 04/18/18 04/18/18 04/17/18 Range/Units 06:26 02:08 17:09 WBC 11.1 H (4.8-10.8) K/uL RBC 3.91 (3.80-5.20) Mil/uL Hgb 11.1 (11.0-16.0) g/dL Hct 33.3 L (34.0-47.0) % MCV 85.1 (81.0-99.0) fL MCH 28.3 (27.0-31.0) pg MCHC 33.2 (33.0-37.0) g/dL RDW 15.8 H (11.5-14.5) % Plt Count 216 (130-400) K/uL MPV 8.9 (7.2-11.7) fL Neut % (Auto) 67.1 (50.0-75.0) % Lymph % (Auto) 19.0 L (20.0-40.0) % Trinity % (Auto) 11.0 H (0.0-10.0) % Eos % (Auto) 2.1 (0.0-4.0) % Baso % (Auto) 0.8 (0.0-2.0) % Neut # (Auto) 7.5 H (1.8-7.0) K/uL Lymph # (Auto) 2.1 (1.0-4.3) K/uL [place] # (Auto) 1.2 H (0.0-0.8) K/uL Eos # (Auto) 0.2 (0.0-0.7) K/uL Baso # (Auto) 0.1 (0.0-0.2) K/uL PT (9.7-12.2) SECONDS INR APTT 119 H* D (21-34) SECONDS D-Dimer, Quantitative (0-243) ng/mlDDU Sodium (132-148) mmol/L Potassium (3.6-5.2) mmol/L Chloride (98-107) mmol/L Carbon Dioxide (22-30) mmol/L Anion Gap (10-20) BUN (7-17) mg/dL Creatinine (0.7-1.2) mg/dL Est GFR ( Amer) Est GFR (Non-Af Amer) Random Glucose (65-105) mg/dL Calcium (8.6-10.4) mg/dl Total Bilirubin (0.2-1.3) mg/dL AST (14-36) U/L ALT (9-52) U/L Alkaline Phosphatase (38-126) U/L Troponin I (0.00-0.120) ng/mL NT-Pro-B Natriuret Pep (0-900) pg/mL Total Protein (6.3-8.3) g/dL Albumin (3.5-5.0) g/dL Globulin (2.2-3.9) gm/dL Albumin/Globulin Ratio (1.0-2.1) Urine Color (YELLOW) Urine Clarity (Clear) Urine pH (5.0-8.0) Ur Specific [place] (1.003-1.030) Urine Protein (NEGATIVE) mg/dL Urine Glucose (UA) (Normal) mg/dL Urine Ketones (NEGATIVE) mg/dL Urine Blood (NEGATIVE) Urine Nitrate (NEGATIVE) Urine Bilirubin (NEGATIVE) Urine Urobilinogen (0.2-1.0) mg/dL Ur Leukocyte Esterase (Negative) Evelina/uL Urine WBC (Auto) (0-5) /hpf Urine RBC (Auto) (0-3) /hpf Ur Squamous Epith Cells (0-5) /hpf Urine Bacteria (<OCC) Hyaline Casts (0-2) /lpf Stool Occult Blood (NEGATIVE) Urine Opiates Screen Negative (NEGATIVE) Urine Methadone Screen Negative (NEGATIVE) Ur Barbiturates Screen Negative (NEGATIVE) Ur Phencyclidine Scrn Negative (NEGATIVE) Ur Amphetamines Screen Negative (NEGATIVE) U Benzodiazepines Scrn Negative (NEGATIVE) U Oth Cocaine Metabols Negative (NEGATIVE) U Cannabinoids Screen Negative (NEGATIVE) Influenza Typ A,B (EIA) (NEGATIVE) Blood Type Antibody Screen 04/17/18 04/17/18 04/17/18 Range/Units 17:09 16:39 16:19 WBC (4.8-10.8) K/uL RBC (3.80-5.20) Mil/uL Hgb (11.0-16.0) g/dL Hct (34.0-47.0) % MCV (81.0-99.0) fL MCH (27.0-31.0) pg MCHC (33.0-37.0) g/dL RDW (11.5-14.5) % Plt Count (130-400) K/uL MPV (7.2-11.7) fL Neut % (Auto) (50.0-75.0) % Lymph % (Auto) (20.0-40.0) % Trinity % (Auto) (0.0-10.0) % Eos % (Auto) (0.0-4.0) % Baso % (Auto) (0.0-2.0) % Neut # (Auto) (1.8-7.0) K/uL Lymph # (Auto) (1.0-4.3) K/uL [place] # (Auto) (0.0-0.8) K/uL Eos # (Auto) (0.0-0.7) K/uL Baso # (Auto) (0.0-0.2) K/uL PT 13.1 H (9.7-12.2) SECONDS INR 1.2 APTT 24 (21-34) SECONDS D-Dimer, Quantitative > 5250 H (0-243) ng/mlDDU Sodium (132-148) mmol/L Potassium (3.6-5.2) mmol/L Chloride (98-107) mmol/L Carbon Dioxide (22-30) mmol/L Anion Gap (10-20) BUN (7-17) mg/dL Creatinine (0.7-1.2) mg/dL Est GFR ( Amer) Est GFR (Non-Af Amer) Random Glucose (65-105) mg/dL Calcium (8.6-10.4) mg/dl Total Bilirubin (0.2-1.3) mg/dL AST (14-36) U/L ALT (9-52) U/L Alkaline Phosphatase (38-126) U/L Troponin I (0.00-0.120) ng/mL NT-Pro-B Natriuret Pep (0-900) pg/mL Total Protein (6.3-8.3) g/dL Albumin (3.5-5.0) g/dL Globulin (2.2-3.9) gm/dL Albumin/Globulin Ratio (1.0-2.1) Urine Color Su (YELLOW) Urine Clarity Hazy (Clear) Urine pH 5.0 (5.0-8.0) Ur Specific [place] 1.023 (1.003-1.030) Urine Protein 2+ H (NEGATIVE) mg/dL Urine Glucose (UA) Normal (Normal) mg/dL Urine Ketones Trace (NEGATIVE) mg/dL Urine Blood Negative (NEGATIVE) Urine Nitrate Negative (NEGATIVE) Urine Bilirubin Negative (NEGATIVE) Urine Urobilinogen Normal (0.2-1.0) mg/dL Ur Leukocyte Esterase 1+ H (Negative) Evelina/uL Urine WBC (Auto) 13 H (0-5) /hpf Urine RBC (Auto) 3 (0-3) /hpf Ur Squamous Epith Cells 3 (0-5) /hpf Urine Bacteria Rare (<OCC) Hyaline Casts 11-20 H (0-2) /lpf Stool Occult Blood Negative (NEGATIVE) Urine Opiates Screen (NEGATIVE) Urine Methadone Screen (NEGATIVE) Ur Barbiturates Screen (NEGATIVE) Ur Phencyclidine Scrn (NEGATIVE) Ur Amphetamines Screen (NEGATIVE) U Benzodiazepines Scrn (NEGATIVE) U Oth Cocaine Metabols (NEGATIVE) U Cannabinoids Screen (NEGATIVE) Influenza Typ A,B (EIA) (NEGATIVE) Blood Type Antibody Screen 04/17/18 04/17/18 04/17/18 Range/Units 16:19 16:13 16:00 WBC (4.8-10.8) K/uL RBC (3.80-5.20) Mil/uL Hgb (11.0-16.0) g/dL Hct (34.0-47.0) % MCV (81.0-99.0) fL MCH (27.0-31.0) pg MCHC (33.0-37.0) g/dL RDW (11.5-14.5) % Plt Count (130-400) K/uL MPV (7.2-11.7) fL Neut % (Auto) (50.0-75.0) % Lymph % (Auto) (20.0-40.0) % [place] % (Auto) (0.0-10.0) % Eos % (Auto) (0.0-4.0) % Baso % (Auto) (0.0-2.0) % Neut # (Auto) (1.8-7.0) K/uL Lymph # (Auto) (1.0-4.3) K/uL [place] # (Auto) (0.0-0.8) K/uL Eos # (Auto) (0.0-0.7) K/uL Baso # (Auto) (0.0-0.2) K/uL PT (9.7-12.2) SECONDS INR APTT (21-34) SECONDS D-Dimer, Quantitative (0-243) ng/mlDDU Sodium 141 (132-148) mmol/L Potassium 5.2 (3.6-5.2) mmol/L Chloride 104 (98-107) mmol/L Carbon Dioxide 22 (22-30) mmol/L Anion Gap 20 (10-20) BUN 22 H (7-17) mg/dL Creatinine 0.7 (0.7-1.2) mg/dL Est GFR ( Amer) > 60 Est GFR (Non-Af Amer) > 60 Random Glucose 187 H (65-105) mg/dL Calcium 9.3 (8.6-10.4) mg/dl Total Bilirubin 1.3 (0.2-1.3) mg/dL AST 51 H (14-36) U/L ALT 14 (9-52) U/L Alkaline Phosphatase 79 (38-126) U/L Troponin I 0.3300 H* (0.00-0.120) ng/mL NT-Pro-B Natriuret Pep 314 (0-900) pg/mL Total Protein 8.5 H (6.3-8.3) g/dL Albumin 4.4 (3.5-5.0) g/dL Globulin 4.1 H (2.2-3.9) gm/dL Albumin/Globulin Ratio 1.1 (1.0-2.1) Urine Color (YELLOW) Urine Clarity (Clear) Urine pH (5.0-8.0) Ur Specific [place] (1.003-1.030) Urine Protein (NEGATIVE) mg/dL Urine Glucose (UA) (Normal) mg/dL Urine Ketones (NEGATIVE) mg/dL Urine Blood (NEGATIVE) Urine Nitrate (NEGATIVE) Urine Bilirubin (NEGATIVE) Urine Urobilinogen (0.2-1.0) mg/dL Ur Leukocyte Esterase (Negative) Evelina/uL Urine WBC (Auto) (0-5) /hpf Urine RBC (Auto) (0-3) /hpf Ur Squamous Epith Cells (0-5) /hpf Urine Bacteria (<OCC) Hyaline Casts (0-2) /lpf Stool Occult Blood (NEGATIVE) Urine Opiates Screen (NEGATIVE) Urine Methadone Screen (NEGATIVE) Ur Barbiturates Screen (NEGATIVE) Ur Phencyclidine Scrn (NEGATIVE) Ur Amphetamines Screen (NEGATIVE) U Benzodiazepines Scrn (NEGATIVE) U Oth Cocaine Metabols (NEGATIVE) U Cannabinoids Screen (NEGATIVE) Influenza Typ A,B (EIA) Negative for flu a/b (NEGATIVE) Blood Type O POSITIVE Antibody Screen Negative 04/17/18 Range/Units 16:00 WBC 12.6 H (4.8-10.8) K/uL RBC 4.45 (3.80-5.20) Mil/uL Hgb 12.3 (11.0-16.0) g/dL Hct 38.4 (34.0-47.0) % MCV 86.3 (81.0-99.0) fL MCH 27.7 (27.0-31.0) pg MCHC 32.1 L (33.0-37.0) g/dL RDW 15.6 H (11.5-14.5) % Plt Count 228 (130-400) K/uL MPV 8.7 (7.2-11.7) fL Neut % (Auto) 70.1 (50.0-75.0) % Lymph % (Auto) 17.9 L (20.0-40.0) % Trinity % (Auto) 11.0 H (0.0-10.0) % Eos % (Auto) 0.5 (0.0-4.0) % Baso % (Auto) 0.5 (0.0-2.0) % Neut # (Auto) 8.8 H (1.8-7.0) K/uL Lymph # (Auto) 2.2 (1.0-4.3) K/uL [place] # (Auto) 1.4 H (0.0-0.8) K/uL Eos # (Auto) 0.1 (0.0-0.7) K/uL Baso # (Auto) 0.1 (0.0-0.2) K/uL PT (9.7-12.2) SECONDS INR APTT (21-34) SECONDS D-Dimer, Quantitative (0-243) ng/mlDDU Sodium (132-148) mmol/L Potassium (3.6-5.2) mmol/L Chloride (98-107) mmol/L Carbon Dioxide (22-30) mmol/L Anion Gap (10-20) BUN (7-17) mg/dL Creatinine (0.7-1.2) mg/dL Est GFR ( Amer) Est GFR (Non-Af Amer) Random Glucose (65-105) mg/dL Calcium (8.6-10.4) mg/dl Total Bilirubin (0.2-1.3) mg/dL AST (14-36) U/L ALT (9-52) U/L Alkaline Phosphatase (38-126) U/L Troponin I (0.00-0.120) ng/mL NT-Pro-B Natriuret Pep (0-900) pg/mL Total Protein (6.3-8.3) g/dL Albumin (3.5-5.0) g/dL Globulin (2.2-3.9) gm/dL Albumin/Globulin Ratio (1.0-2.1) Urine Color (YELLOW) Urine Clarity (Clear) Urine pH (5.0-8.0) Ur Specific [place] (1.003-1.030) Urine Protein (NEGATIVE) mg/dL Urine Glucose (UA) (Normal) mg/dL Urine Ketones (NEGATIVE) mg/dL Urine Blood (NEGATIVE) Urine Nitrate (NEGATIVE) Urine Bilirubin (NEGATIVE) Urine Urobilinogen (0.2-1.0) mg/dL Ur Leukocyte Esterase (Negative) Evelina/uL Urine WBC (Auto) (0-5) /hpf Urine RBC (Auto) (0-3) /hpf Ur Squamous Epith Cells (0-5) /hpf Urine Bacteria (<OCC) Hyaline Casts (0-2) /lpf Stool Occult Blood (NEGATIVE) Urine Opiates Screen (NEGATIVE) Urine Methadone Screen (NEGATIVE) Ur Barbiturates Screen (NEGATIVE) Ur Phencyclidine Scrn (NEGATIVE) Ur Amphetamines Screen (NEGATIVE) U Benzodiazepines Scrn (NEGATIVE) U Oth Cocaine Metabols (NEGATIVE) U Cannabinoids Screen (NEGATIVE) Influenza Typ A,B (EIA) (NEGATIVE) Blood Type Antibody Screen Laboratory Results - last 24 hr 04/17/18 04/17/18 04/17/18 16:00 16:00 16:13 WBC 12.6 H RBC 4.45 Hgb 12.3 Hct 38.4 MCV 86.3 MCH 27.7 MCHC 32.1 L RDW 15.6 H Plt Count 228 MPV 8.7 Neut % (Auto) 70.1 Lymph % (Auto) 17.9 L [place] % (Auto) 11.0 H Eos % (Auto) 0.5 Baso % (Auto) 0.5 Neut # (Auto) 8.8 H Lymph # (Auto) 2.2 [place] # (Auto) 1.4 H Eos # (Auto) 0.1 Baso # (Auto) 0.1 PT INR APTT D-Dimer, Quantitative Sodium 141 Potassium 5.2 Chloride 104 Carbon Dioxide 22 Anion Gap 20 BUN 22 H Creatinine 0.7 Est GFR ( Amer) > 60 Est GFR (Non-Af Amer) > 60 Random Glucose 187 H Calcium 9.3 Total Bilirubin 1.3 AST 51 H ALT 14 Alkaline Phosphatase 79 Troponin I 0.3300 H* NT-Pro-B Natriuret Pep 314 Total Protein 8.5 H Albumin 4.4 Globulin 4.1 H Albumin/Globulin Ratio 1.1 Urine Color Urine Clarity Urine pH Ur Specific [place] Urine Protein Urine Glucose (UA) Urine Ketones Urine Blood Urine Nitrate Urine Bilirubin Urine Urobilinogen Ur Leukocyte Esterase Urine WBC (Auto) Urine RBC (Auto) Ur Squamous Epith Cells Urine Bacteria Hyaline Casts Stool Occult Blood Urine Opiates Screen Urine Methadone Screen Ur Barbiturates Screen Ur Phencyclidine Scrn Ur Amphetamines Screen U Benzodiazepines Scrn U Oth Cocaine Metabols U Cannabinoids Screen Influenza Typ A,B (EIA) Negative for flu a/b Blood Type Antibody Screen 04/17/18 04/17/18 04/17/18 16:19 16:19 16:39 WBC RBC Hgb Hct MCV MCH MCHC RDW Plt Count MPV Neut % (Auto) Lymph % (Auto) [place] % (Auto) Eos % (Auto) Baso % (Auto) Neut # (Auto) Lymph # (Auto) [place] # (Auto) Eos # (Auto) Baso # (Auto) PT 13.1 H INR 1.2 APTT 24 D-Dimer, Quantitative > 5250 H Sodium Potassium Chloride Carbon Dioxide Anion Gap BUN Creatinine Est GFR ( Amer) Est GFR (Non-Af Amer) Random Glucose Calcium Total Bilirubin AST ALT Alkaline Phosphatase Troponin I NT-Pro-B Natriuret Pep Total Protein Albumin Globulin Albumin/Globulin Ratio Urine Color Urine Clarity Urine pH Ur Specific [place] Urine Protein Urine Glucose (UA) Urine Ketones Urine Blood Urine Nitrate Urine Bilirubin Urine Urobilinogen Ur Leukocyte Esterase Urine WBC (Auto) Urine RBC (Auto) Ur Squamous Epith Cells Urine Bacteria Hyaline Casts Stool Occult Blood Negative Urine Opiates Screen Urine Methadone Screen Ur Barbiturates Screen Ur Phencyclidine Scrn Ur Amphetamines Screen U Benzodiazepines Scrn U Oth Cocaine Metabols U Cannabinoids Screen Influenza Typ A,B (EIA) Blood Type O POSITIVE Antibody Screen Negative 04/17/18 04/17/18 04/18/18 17:09 17:09 02:08 WBC RBC Hgb Hct MCV MCH MCHC RDW Plt Count MPV Neut % (Auto) Lymph % (Auto) [place] % (Auto) Eos % (Auto) Baso % (Auto) Neut # (Auto) Lymph # (Auto) [place] # (Auto) Eos # (Auto) Baso # (Auto) PT INR APTT 119 H* D D-Dimer, Quantitative Sodium Potassium Chloride Carbon Dioxide Anion Gap BUN Creatinine Est GFR ( Amer) Est GFR (Non-Af Amer) Random Glucose Calcium Total Bilirubin AST ALT Alkaline Phosphatase Troponin I NT-Pro-B Natriuret Pep Total Protein Albumin Globulin Albumin/Globulin Ratio Urine Color Su Urine Clarity Hazy Urine pH 5.0 Ur Specific [place] 1.023 Urine Protein 2+ H Urine Glucose (UA) Normal Urine Ketones Trace Urine Blood Negative Urine Nitrate Negative Urine Bilirubin Negative Urine Urobilinogen Normal Ur Leukocyte Esterase 1+ H Urine WBC (Auto) 13 H Urine RBC (Auto) 3 Ur Squamous Epith Cells 3 Urine Bacteria Rare Hyaline Casts 11-20 H Stool Occult Blood Urine Opiates Screen Negative Urine Methadone Screen Negative Ur Barbiturates Screen Negative Ur Phencyclidine Scrn Negative Ur Amphetamines Screen Negative U Benzodiazepines Scrn Negative U Oth Cocaine Metabols Negative U Cannabinoids Screen Negative Influenza Typ A,B (EIA) Blood Type Antibody Screen 04/18/18 04/18/18 04/18/18 06:26 06:27 08:25 WBC 11.1 H RBC 3.91 Hgb 11.1 Hct 33.3 L MCV 85.1 MCH 28.3 MCHC 33.2 RDW 15.8 H Plt Count 216 MPV 8.9 Neut % (Auto) 67.1 Lymph % (Auto) 19.0 L [place] % (Auto) 11.0 H Eos % (Auto) 2.1 Baso % (Auto) 0.8 Neut # (Auto) 7.5 H Lymph # (Auto) 2.1 [place] # (Auto) 1.2 H Eos # (Auto) 0.2 Baso # (Auto) 0.1 PT INR APTT D-Dimer, Quantitative Sodium 139 Potassium 4.0 Chloride 108 H Carbon Dioxide 22 Anion Gap 13 BUN 21 H Creatinine 0.7 Est GFR ( Amer) > 60 Est GFR (Non-Af Amer) > 60 Random Glucose 150 H Calcium 8.8 Total Bilirubin 0.7 AST 24 ALT 27 Alkaline Phosphatase 72 Troponin I 0.2860 H* NT-Pro-B Natriuret Pep Total Protein 6.8 Albumin 3.5 D Globulin 3.3 Albumin/Globulin Ratio 1.0 Urine Color Urine Clarity Urine pH Ur Specific [place] Urine Protein Urine Glucose (UA) Urine Ketones Urine Blood Urine Nitrate Urine Bilirubin Urine Urobilinogen Ur Leukocyte Esterase Urine WBC (Auto) Urine RBC (Auto) Ur Squamous Epith Cells Urine Bacteria Hyaline Casts Stool Occult Blood Urine Opiates Screen Urine Methadone Screen Ur Barbiturates Screen Ur Phencyclidine Scrn Ur Amphetamines Screen U Benzodiazepines Scrn U Oth Cocaine Metabols U Cannabinoids Screen Influenza Typ A,B (EIA) Blood Type Antibody Screen 04/18/18 08:25 WBC RBC Hgb Hct MCV MCH MCHC RDW Plt Count MPV Neut % (Auto) Lymph % (Auto) [place] % (Auto) Eos % (Auto) Baso % (Auto) Neut # (Auto) Lymph # (Auto) [place] # (Auto) Eos # (Auto) Baso # (Auto) PT INR APTT 68 H D D-Dimer, Quantitative Sodium Potassium Chloride Carbon Dioxide Anion Gap BUN Creatinine Est GFR ( Amer) Est GFR (Non-Af Amer) Random Glucose Calcium Total Bilirubin AST ALT Alkaline Phosphatase Troponin I NT-Pro-B Natriuret Pep Total Protein Albumin Globulin Albumin/Globulin Ratio Urine Color Urine Clarity Urine pH Ur Specific [place] Urine Protein Urine Glucose (UA) Urine Ketones Urine Blood Urine Nitrate Urine Bilirubin Urine Urobilinogen Ur Leukocyte Esterase Urine WBC (Auto) Urine RBC (Auto) Ur Squamous Epith Cells Urine Bacteria Hyaline Casts Stool Occult Blood Urine Opiates Screen Urine Methadone Screen Ur Barbiturates Screen Ur Phencyclidine Scrn Ur Amphetamines Screen U Benzodiazepines Scrn U Oth Cocaine Metabols U Cannabinoids Screen Influenza Typ A,B (EIA) Blood Type Antibody Screen EKG/Cardiology Studies: Cardiology / EKG Studies 04/17/18 16:04 ELECTROCARDIOGRAM Stat Comment: Mode Of Transportation: BED Reason For Exam: SOB 04/17/18 19:44 EKG [ELECTROCARDIOGRAM] Stat Comment: ED 4 Mode Of Transportation: PORTABLE Reason For Exam: repeat 04/18/18 08:00 EKG [ELECTROCARDIOGRAM] DAILY Comment: Mode Of Transportation: Reason For Exam: f/u arrthymia 04/19/18 08:00 EKG [ELECTROCARDIOGRAM] DAILY Comment: Mode Of Transportation: Reason For Exam: f/u arrthymia 04/19/18 20:45 ELECTROCARDIOGRAM DAILY Comment: Mode Of Transportation: PORTABLE Reason For Exam: f/u arrythmia/ nstemi 04/20/18 20:45 ELECTROCARDIOGRAM DAILY Comment: Mode Of Transportation: PORTABLE Reason For Exam: f/u arrythmia/ nstemi Review of Systems - Review of Systems All systems: reviewed and no additional remarkable complaints except - EENT Eyes: As Per HPI Ears: As Per HPI Nose/Mouth/Throat: As Per HPI - Cardiovascular Cardiovascular: As Per HPI - Respiratory Respiratory: As Per HPI - Gastrointestinal Gastrointestinal: As Per HPI - Genitourinary Genitourinary: As Per HPI - Musculoskeletal Musculoskeletal: As Par HPI - Integumentary Integumentary: As Per HPI - Neurological Neurological: As Per HPI - Psychiatric Psychiatric: As Per HPI - Endocrine Endocrine: As Per HPI - Hematologic/Lymphatic Hematologic: As Per HPI Critical Care Progress Note - Nutrition Nutrition: Nutrition Category Date Time Status Heart Healthy Diet [DIET] Diets 04/18/18 Breakfast Active Assessment/Plan - Assessment and Plan (Free Text) Assessment: This is an 88 year old female with PMHx of COPD, HTN, HLD, dementia and previous CVA with L sided weakness presents to ED with complaint of shortness of breath worsening for the last [address] on the way to the ED, patient was noted to be in rapid atrial fibrillation and ventricular tachycardia, and upon arrival the patient was hypotensive. IVF (2L) was administered, and hypotension improved. CT angiogram was obtained and revealed PE. Patient was started on therapeutic heparin and was transferred to ICU for close monitoring. Neuro: - No acute issues - A&O x3 - Residual left lower extremity weakness - Patient walks with assistance of walker CV: - Elevated troponins possibly secondary to right-sided heart strain - Cardiology consulted (Dr. Chino) to evaluate for right heart strain and treatment with EKOS; recommendations appreciated - ECHO completed; pending read - Patient has HTN; however is normotensive - Hold: amlodipine (home med) - Monitor rhythm Pulm: - CT angiograph: revealed PE; see full report for details - Venous doppler: revealed DVT in left lower extremity; see full report for details - Therapeutic heparin started - Discontinue: Montelukast (home med) - Elevated troponin; Cardiology consulted for possible right heart strain (Dr. Chino) recommendations appreciated. - Monitor Coag, CBC, CMP, Trops - History of COPD; continue duoneb BID GI: - No acute issues - Tolerating diet - HHD Renal: - No acute issues - Monitor CMP Heme: - No acute issues - Monitor H/H ID: - No acute issues - Monitor CBC Endo: - No acute issues PPx: GI - Protonix (40mg PO daily) DVT - Therapeutic heparin; SCD CONTRAINDICATED Patient seen and case discussed in detail with Dr. Estephania Hdez PGY1 <Ree Best - Last Filed: 04/18/18 19:28> CCU Objective - Vital Signs / Intake & Output Vital Signs (Last 4 hours): Vital Signs Temp Pulse Resp BP Pulse Ox 04/18/18 19:00 68 20 97 04/18/18 18:30 71 26 H 134/73 95 04/18/18 18:00 74 27 H 96 04/18/18 17:30 71 26 H 133/74 95 04/18/18 17:00 71 29 H 97 04/18/18 16:31 80 23 149/84 96 04/18/18 16:00 97.3 F L 66 26 H 97 04/18/18 15:30 68 25 H 144/80 94 L Intake and Output (Last 8hrs): Intake & Output 04/18/18 04/18/18 04/18/18 06:59 14:59 22:59 Intake Total 386.55 631 45 Output Total 200 350 Balance 186.55 281 45 Weight 135 lb 3.2 oz Intake: IV 75 Intake, IV Amount 71.55 81 45 Left Wrist 0 Right Antecubital 71.55 81 45 Oral 240 550 Output: Urine 200 350 Urine, Voided 200 350 Other: # Voids Urine, Voided 1 - Medications Active Medications: Active Medications Generic Name Dose Route Start Last Admin Trade Name Freq PRN Reason Stop Dose Admin Acetaminophen 650 mg 04/17/18 20:35 Tylenol 325mg Tab PO Q4 PRN Fever >100.4 F Albuterol/Ipratropium 3 ml 04/18/18 20:00 Duoneb 3 Mg/0.5 Mg (3 Ml) Ud INH RBID LINUS Amlodipine Besylate 2.5 mg 04/18/18 10:00 Norvasc PO DAILY LINUS Clopidogrel Bisulfate 75 mg 04/18/18 10:00 04/18/18 09:37 Plavix PO 75 mg DAILY [facility]US Administration Heparin Sodium/Sodium Chloride 25,000 units in 250 mls @ 11.039 mls/hr 04/18/18 18:49 Heparin 62921 Units/250ml 1/2 Normal Saline IV .[id number] PRN PROTOCOL Protocol 18 UNITS/KG/HR Rivastigmine 1 patch 04/18/18 10:00 04/18/18 09:37 Exelon 9.5 Mg/24 Hr Patch TD 1 patch DAILY [facility]US Administration - Patient Studies Lab Studies: Lab Studies 04/18/18 04/18/18 04/18/18 Range/Units 15:34 15:34 08:25 WBC (4.8-10.8) K/uL RBC (3.80-5.20) Mil/uL Hgb (11.0-16.0) g/dL Hct (34.0-47.0) % MCV (81.0-99.0) fL MCH (27.0-31.0) pg MCHC (33.0-37.0) g/dL RDW (11.5-14.5) % Plt Count (130-400) K/uL MPV (7.2-11.7) fL Neut % (Auto) (50.0-75.0) % Lymph % (Auto) (20.0-40.0) % [place] % (Auto) (0.0-10.0) % Eos % (Auto) (0.0-4.0) % Baso % (Auto) (0.0-2.0) % Neut # (Auto) (1.8-7.0) K/uL Lymph # (Auto) (1.0-4.3) K/uL [place] # (Auto) (0.0-0.8) K/uL Eos # (Auto) (0.0-0.7) K/uL Baso # (Auto) (0.0-0.2) K/uL APTT 62 H D 68 H D (21-34) SECONDS Sodium (132-148) mmol/L Potassium (3.6-5.2) mmol/L Chloride (98-107) mmol/L Carbon Dioxide (22-30) mmol/L Anion Gap (10-20) BUN (7-17) mg/dL Creatinine (0.7-1.2) mg/dL Est GFR ( Amer) Est GFR (Non-Af Amer) Random Glucose (65-105) mg/dL Calcium (8.6-10.4) mg/dl Total Bilirubin (0.2-1.3) mg/dL AST (14-36) U/L ALT (9-52) U/L Alkaline Phosphatase (38-126) U/L Troponin I 0.2230 H* (0.00-0.120) ng/mL Total Protein (6.3-8.3) g/dL Albumin (3.5-5.0) g/dL Globulin (2.2-3.9) gm/dL Albumin/Globulin Ratio (1.0-2.1) 04/18/18 04/18/18 04/18/18 Range/Units 08:25 06:27 06:26 WBC 11.1 H (4.8-10.8) K/uL RBC 3.91 (3.80-5.20) Mil/uL Hgb 11.1 (11.0-16.0) g/dL Hct 33.3 L (34.0-47.0) % MCV 85.1 (81.0-99.0) fL MCH 28.3 (27.0-31.0) pg MCHC 33.2 (33.0-37.0) g/dL RDW 15.8 H (11.5-14.5) % Plt Count 216 (130-400) K/uL MPV 8.9 (7.2-11.7) fL Neut % (Auto) 67.1 (50.0-75.0) % Lymph % (Auto) 19.0 L (20.0-40.0) % [place] % (Auto) 11.0 H (0.0-10.0) % Eos % (Auto) 2.1 (0.0-4.0) % Baso % (Auto) 0.8 (0.0-2.0) % Neut # (Auto) 7.5 H (1.8-7.0) K/uL Lymph # (Auto) 2.1 (1.0-4.3) K/uL [place] # (Auto) 1.2 H (0.0-0.8) K/uL Eos # (Auto) 0.2 (0.0-0.7) K/uL Baso # (Auto) 0.1 (0.0-0.2) K/uL APTT (21-34) SECONDS Sodium 139 (132-148) mmol/L Potassium 4.0 (3.6-5.2) mmol/L Chloride 108 H (98-107) mmol/L Carbon Dioxide 22 (22-30) mmol/L Anion Gap 13 (10-20) BUN 21 H (7-17) mg/dL Creatinine 0.7 (0.7-1.2) mg/dL Est GFR ( Amer) > 60 Est GFR (Non-Af Amer) > 60 Random Glucose 150 H (65-105) mg/dL Calcium 8.8 (8.6-10.4) mg/dl Total Bilirubin 0.7 (0.2-1.3) mg/dL AST 24 (14-36) U/L ALT 27 (9-52) U/L Alkaline Phosphatase 72 (38-126) U/L Troponin I 0.2860 H* (0.00-0.120) ng/mL Total Protein 6.8 (6.3-8.3) g/dL Albumin 3.5 D (3.5-5.0) g/dL Globulin 3.3 (2.2-3.9) gm/dL Albumin/Globulin Ratio 1.0 (1.0-2.1) 04/18/18 Range/Units 02:08 WBC (4.8-10.8) K/uL RBC (3.80-5.20) Mil/uL Hgb (11.0-16.0) g/dL Hct (34.0-47.0) % MCV (81.0-99.0) fL MCH (27.0-31.0) pg MCHC (33.0-37.0) g/dL RDW (11.5-14.5) % Plt Count (130-400) K/uL MPV (7.2-11.7) fL Neut % (Auto) (50.0-75.0) % Lymph % (Auto) (20.0-40.0) % [place] % (Auto) (0.0-10.0) % Eos % (Auto) (0.0-4.0) % Baso % (Auto) (0.0-2.0) % Neut # (Auto) (1.8-7.0) K/uL Lymph # (Auto) (1.0-4.3) K/uL [place] # (Auto) (0.0-0.8) K/uL Eos # (Auto) (0.0-0.7) K/uL Baso # (Auto) (0.0-0.2) K/uL APTT 119 H* D (21-34) SECONDS Sodium (132-148) mmol/L Potassium (3.6-5.2) mmol/L Chloride (98-107) mmol/L Carbon Dioxide (22-30) mmol/L Anion Gap (10-20) BUN (7-17) mg/dL Creatinine (0.7-1.2) mg/dL Est GFR ( Amer) Est GFR (Non-Af Amer) Random Glucose (65-105) mg/dL Calcium (8.6-10.4) mg/dl Total Bilirubin (0.2-1.3) mg/dL AST (14-36) U/L ALT (9-52) U/L Alkaline Phosphatase (38-126) U/L Troponin I (0.00-0.120) ng/mL Total Protein (6.3-8.3) g/dL Albumin (3.5-5.0) g/dL Globulin (2.2-3.9) gm/dL Albumin/Globulin Ratio (1.0-2.1) Laboratory Results - last 24 hr 04/18/18 04/18/18 04/18/18 02:08 06:26 06:27 WBC 11.1 H RBC 3.91 Hgb 11.1 Hct 33.3 L MCV 85.1 MCH 28.3 MCHC 33.2 RDW 15.8 H Plt Count 216 MPV 8.9 Neut % (Auto) 67.1 Lymph % (Auto) 19.0 L [place] % (Auto) 11.0 H Eos % (Auto) 2.1 Baso % (Auto) 0.8 Neut # (Auto) 7.5 H Lymph # (Auto) 2.1 [place] # (Auto) 1.2 H Eos # (Auto) 0.2 Baso # (Auto) 0.1 APTT 119 H* D Sodium 139 Potassium 4.0 Chloride 108 H Carbon Dioxide 22 Anion Gap 13 BUN 21 H Creatinine 0.7 Est GFR ( Amer) > 60 Est GFR (Non-Af Amer) > 60 Random Glucose 150 H Calcium 8.8 Total Bilirubin 0.7 AST 24 ALT 27 Alkaline Phosphatase 72 Troponin I Total Protein 6.8 Albumin 3.5 D Globulin 3.3 Albumin/Globulin Ratio 1.0 04/18/18 04/18/18 04/18/18 08:25 08:25 15:34 WBC RBC Hgb Hct MCV MCH MCHC RDW Plt Count MPV Neut % (Auto) Lymph % (Auto) [place] % (Auto) Eos % (Auto) Baso % (Auto) Neut # (Auto) Lymph # (Auto) [place] # (Auto) Eos # (Auto) Baso # (Auto) APTT 68 H D Sodium Potassium Chloride Carbon Dioxide Anion Gap BUN Creatinine Est GFR ( Amer) Est GFR (Non-Af Amer) Random Glucose Calcium Total Bilirubin AST ALT Alkaline Phosphatase Troponin I 0.2860 H* 0.2230 H* Total Protein Albumin Globulin Albumin/Globulin Ratio 04/18/18 15:34 WBC RBC Hgb Hct MCV MCH MCHC RDW Plt Count MPV Neut % (Auto) Lymph % (Auto) [place] % (Auto) Eos % (Auto) Baso % (Auto) Neut # (Auto) Lymph # (Auto) [place] # (Auto) Eos # (Auto) Baso # (Auto) APTT 62 H D Sodium Potassium Chloride Carbon Dioxide Anion Gap BUN Creatinine Est GFR ( Amer) Est GFR (Non-Af Amer) Random Glucose Calcium Total Bilirubin AST ALT Alkaline Phosphatase Troponin I Total Protein Albumin Globulin Albumin/Globulin Ratio EKG/Cardiology Studies: Cardiology / EKG Studies 04/17/18 19:44 EKG [ELECTROCARDIOGRAM] Stat Comment: ED 4 Mode Of Transportation: PORTABLE Reason For Exam: repeat 04/18/18 08:00 EKG [ELECTROCARDIOGRAM] DAILY Comment: Mode Of Transportation: Reason For Exam: f/u arrthymia 04/19/18 08:00 EKG [ELECTROCARDIOGRAM] DAILY Comment: Mode Of Transportation: Reason For Exam: f/u arrthymia 04/19/18 20:45 ELECTROCARDIOGRAM DAILY Comment: Mode Of Transportation: PORTABLE Reason For Exam: f/u arrythmia/ nstemi 04/20/18 20:45 ELECTROCARDIOGRAM DAILY Comment: Mode Of Transportation: PORTABLE Reason For Exam: f/u arrythmia/ nstemi Critical Care Progress Note - Nutrition Nutrition: Nutrition Category Date Time Status Heart Healthy Diet [DIET] Diets 04/18/18 Breakfast Active Attending/Attestation - Attestation I have personally seen and examined this patient.: Yes I have fully participated in the care of the patient.: Yes I have reviewed all pertinent clinical information: Yes Notes (Text): 04/18/18 19:28 cardio eval
--- NOTE | 2018-04-18 14:11 | RAD ---
HISTORY: SOB COMPARISON: Chest x-ray performed 04/17/18, CT chest with contrast performed 04/17/18 TECHNIQUE: Chest, one view. FINDINGS: External wires and leads obscure evaluation of the underlying parenchyma. LUNGS: No focal consolidation. Mild reticular nodular opacities. Please note that chest x-ray has limited sensitivity for the detection of pulmonary masses. PLEURA: No significant pleural effusion identified. No definite pneumothorax . CARDIOVASCULAR: Cardiomegaly. Dense atherosclerotic calcification present. OSSEOUS STRUCTURES: Osseous demineralization. Degenerative changes. VISUALIZED UPPER ABDOMEN: Unremarkable. OTHER FINDINGS: None. IMPRESSION: Cardiomegaly. Mild reticular nodular opacities.
--- NOTE | 2018-04-18 18:33 | CARD ---
APPROVED REPORT Date of service: 04/18/2018 EXAM: Two-dimensional and M-mode echocardiogram with Doppler and color Doppler. Other Information Quality : GoodRhythm : INDICATION CVA/TIA Dyspnea Pulmonary Embolism COPD TROP RISK FACTORS Hypertension 2D DIMENSIONS LA [id number] (18-58mL)LVEF (%)80.0 (>50%) LVEF (Amato's)81.38 %IVC0.00 cm M-Mode DIMENSIONS Left Atrium (MM)3.48 (2.5-4.0cm)Aortic Root2.83 (2.2-3.7cm) Aortic Cusp Exc.1.77 (1.5-2.0cm)TAPSE14.87 cm LVEF (%)80 (>50%) Aortic Valve AI P 1/2 [id number] Mitral Valve MV E Emswuezs29.8cm/sMV A Faybyojg45.6cm/sE/A ratio0.6 TDI Lateral E' Peak V6.48cm/sMedial E' Peak V5.77cm/sE/Lateral E'8.0 E/Medial E'9.0 Tricuspid Valve TR Peak Vzmjlwpo971jr/sTR Peak Gr.70cfLcZZVW39mjTx LEFT VENTRICLE The left ventricle is normal size. There is normal left ventricular wall thickness. The left ventricular function is normal. The left ventricular ejection fraction is within the normal range. There is normal LV segmental wall motion. Transmitral Doppler flow pattern is abnormal. RIGHT VENTRICLE The right ventricle is normal size. ATRIA The left atrium size is normal. The right atrium size is normal. AORTIC VALVE There is mild aortic regurgitation. MITRAL VALVE Mitral regurgitation is trace to mild. TRICUSPID VALVE There is mild to moderate tricuspid regurgitation. <Conclusion> Normal LV systolic function. Diastolic dysfunction. Mild AR. Trace to mild MR. Mild to moderate TR.
--- NOTE | 2018-04-18 20:48 | CP.PCM.PN ---
Subjective - Date & Time of Evaluation Date of Evaluation: 04/18/18 Time of Evaluation: 18:00 - Subjective Subjective: Medical Attending Note: Patient seen and examined at bedside with son. Patient noted for nearsyncopal episode this morning, observed by daughter, patient is sedentary, uses assistive device at home, patient had stroke about 10-15 years ago. No history of cardiac arrhythmia, nor blood thinner use. denies headache denies chest pain, denies palpitaitons, denies abdominal pain, denies diarrhea, denies change in urination. No smoking history. Objective - Vital Signs/Intake and Output Vital Signs (last 24 hours): Temp Pulse Resp BP Pulse Ox 99.4 F 72 25 H 140/70 96 04/18/18 20:00 04/18/18 20:00 04/18/18 20:00 04/18/18 19:53 04/18/18 20:00 Intake and Output: 04/18/18 04/19/18 18:59 06:59 Intake Total 667 18 Output Total 350 Balance 317 18 - Medications Medications: Current Medications Acetaminophen (Tylenol 325mg Tab) 650 mg PO Q4 PRN PRN Reason: Fever >100.4 F Albuterol/Ipratropium (Duoneb 3 Mg/0.5 Mg (3 Ml) Ud) 3 ml INH RBID [facility] Last Admin: 04/18/18 19:29 Dose: 3 ml Amlodipine Besylate (Norvasc) 2.5 mg PO DAILY [facility] Clopidogrel Bisulfate (Plavix) 75 mg PO DAILY [facility] Last Admin: 04/18/18 09:37 Dose: 75 mg Heparin Sodium/Sodium Chloride (Heparin 41957 Units/250ml 1/2 Normal Saline) 25,000 units in 250 mls @ 11.039 mls/hr IV .[id number] PRN; Protocol PRN Reason: PROTOCOL Rivastigmine (Exelon 9.5 Mg/24 Hr Patch) 1 patch TD DAILY [facility] Last Admin: 04/18/18 09:37 Dose: 1 patch - Labs Labs: 04/18/18 06:26 04/18/18 06:27 PT 13.1 SECONDS (9.7-12.2) H 04/17/18 16:39 INR 1.2 04/17/18 16:39 APTT 62 SECONDS (21-34) H D 04/18/18 15:34 - Constitutional Appears: Non-toxic, No Acute Distress - Head Exam Head Exam: NORMAL INSPECTION - Eye Exam Eye Exam: EOMI - ENT Exam ENT Exam: Mucous Membranes Moist - Respiratory Exam Respiratory Exam: Decreased Breath Sounds, NORMAL BREATHING PATTERN. absent: Rales, Rhonchi - Cardiovascular Exam Cardiovascular Exam: REGULAR RHYTHM, +S1, +S2 - GI/Abdominal Exam GI & Abdominal Exam: Soft, Normal Bowel Sounds. absent: Distended, Firm, Guarding, Rigid, Tenderness, Rebound - Extremities Exam Extremities Exam: Pedal Edema, Tenderness - Neurological Exam Neurological Exam: Alert, Awake, Oriented x3 - Psychiatric Exam Psychiatric exam: Normal Affect, Normal Mood - Skin Skin Exam: Dry, Intact, Normal Color, Warm Assessment and Plan (1) Pulmonary embolism Status: Acute (2) NSTEMI (non-ST elevated myocardial infarction) Status: Acute (3) Dementia Status: Chronic (4) HLD (hyperlipidemia) Status: Chronic (5) HTN (hypertension) Status: Chronic (6) TIA (transient ischemic attack) Status: Chronic (7) Prophylactic measure Status: Acute Attending/Attestation - Attestation I have personally seen and examined this patient.: Yes I have fully participated in the care of the patient.: Yes I have reviewed all pertinent clinical information, including history, physical exam and plan: Yes Notes (Text): 1. Pulmonary Embolus Assessment/Plan * CT Chest (04/18/18): extensive bilateral upper and lower lobe pulmonary arteries right greater than left. Suspect right heart strain. Mild cardiomegaly. Mild bibasilar atelectasis left greater than right. Small calcified granuloma right upper lobe. * Chest xray (04/17/18): questionable increased reticular markings may reflect atypical pneumonitis or bronchitis however no alveolitis bilaterally. No pulmonary congestion or cardiomegaly noted. * Chest xray (04/18/18): cardiomegaly. mild reticular nodular opacities. * Echocardiogram (04/18/18): normal LV systolic function, diastolic dysfunction, mild AR, trace to mild MR, mild to moderate TR * Awaiting official report of venous doppler--> DVT on LLE * Patient is on heparin drip * Awaiting cardio evaluation regarding heart strain; not noted in official report 2. NonStemi Assessment/Plan * Heparin Drip * Echocardiogram (04/18/18): normal LV systolic function, diastolic dysfunction, mild AR, trace to mild MR, mild to moderate TR * pending cardio eval 3. History of CVA Assessment/Plan * discussion with son, about 15 years ago * CT Head (04/18/18): no acute intracranial abnormality. Severe chronic microangiopathic changes and mild age-related global parenchymal volume loss. * Check lipid panel, a1c * Unclear why not on statin * Plavix 75mg PO daily 4. Lipid Disorder Assessment/Plan * check lipid panel * will start stain pending results 5. History of COPD Assessment/Plan * Duoneb INH Q6H PRN shortness of breathe * Start Breo Elliptia inhaled diskus * Chest xray (04/17/18): questionable increased reticular markings may reflect atypical pneumonitis or bronchitis however no alveolitis bilaterally. No pulmonary congestion or cardiomegaly noted. * Chest xray (04/18/18): cardiomegaly. mild reticular nodular opacities. 6. History of Dementia Assessment/Plan * Rivastigime 1 patch TD daily 7. Hypertension Assessment/Plan * Norvasc 2.5mg PO daily 8. Possible DVT Assessment/Plan * awaiting official report of venous dopplers 9. leukocytosis Assessment/Plan * pending Urine culture * likely reactive 10. Prophylactic measure * Heparin drip Disposition: pending cardiology evaluation for right heart strain and possible ekos intervention warranted?
[2018-04-18] MEDS ORDERED: Albuterol-Ipratrop 3 mg / 0.5 (3 ml) UD INH PRN (20:59)
--- NOTE | 2018-04-18 21:39 | CARD ---
APPROVED REPORT Date of service: 04/17/2018 EKG Measurement Heart [id number] <Conclusion> Sinus rhythm with 1st degree AV block Left bundle branch block Abnormal ECG
[2018-04-18] MEDS: Heparin25000 units/250ml 1/2NS 25,000 UNITS/250 ML BAG IV PRN (21:41)
--- NOTE | 2018-04-18 21:41 | CARD ---
APPROVED REPORT Date of service: 04/17/2018 EKG Measurement Heart [id number] <Conclusion> Sinus rhythm with 1st degree AV block with premature supraventricular complexes Left bundle branch block Abnormal ECG
--- NOTE | 2018-04-18 22:31 | CP.PCM.CON ---
History of Present Illness - History of Present Illness History of Present Illness: 88 F admitted for PE, consulted for elevated Troponin Past Patient History - Past Medical History & Family History Past Medical History?: Yes - Past Social History Smoking Status: Never Smoked - CARDIAC Hx Hypertension: Yes - PULMONARY Hx Chronic Obstructive Pulmonary Disease (COPD): Yes - NEUROLOGICAL Hx Dementia: Yes - HEENT Hx HEENT Problems: Yes Other/Comment: FOR READING - RENAL Hx Chronic Kidney Disease: No - ENDOCRINE/METABOLIC Hx Endocrine Disorders: No - HEMATOLOGICAL/ONCOLOGICAL Hx Blood Disorders: No - INTEGUMENTARY Hx Dermatological Problems: No - MUSCULOSKELETAL/RHEUMATOLOGICAL Hx Musculoskeletal Disorders: Yes Hx Falls: Yes - GASTROINTESTINAL Hx Gastrointestinal Disorders: No - GENITOURINARY/GYNECOLOGICAL Hx Genitourinary Disorders: No - PSYCHIATRIC Hx Substance Use: No - SURGICAL HISTORY Hx Surgeries: No - ANESTHESIA Hx Anesthesia: No Meds Allergies/Adverse Reactions: Allergies Allergy/AdvReac Type Severity Reaction Status Date / Time Penicillins Allergy Verified 04/17/18 15:59 - Medications Medications: Current Medications Acetaminophen (Tylenol 325mg Tab) 650 mg PO Q4 PRN PRN Reason: Fever >100.4 F Albuterol/Ipratropium (Duoneb 3 Mg/0.5 Mg (3 Ml) Ud) 3 ml INH RQ6 PRN PRN Reason: Shortness of Breath Amlodipine Besylate (Norvasc) 2.5 mg PO DAILY [facility] Clopidogrel Bisulfate (Plavix) 75 mg PO DAILY [facility] Last Admin: 04/18/18 09:37 Dose: 75 mg Fluticasone/Vilanterol (Breo Ellipta 100-25 Mcg Inh) 1 puff INH RQD [facility] Heparin Sodium/Sodium Chloride (Heparin 98068 Units/250ml 1/2 Normal Saline) 25,000 units in 250 mls @ 11.039 mls/hr IV .[id number] PRN; Protocol PRN Reason: PROTOCOL Last Admin: 04/18/18 21:41 Dose: 15 units/kg/hr, 9.199 mls/hr Rivastigmine (Exelon 9.5 Mg/24 Hr Patch) 1 patch TD DAILY [facility] Last Admin: 04/18/18 09:37 Dose: 1 patch Results - Vital Signs Recent Vital Signs: Last Vital Signs Temp 99.4 F 04/18/18 20:00 Pulse 77 04/18/18 22:00 Resp 19 04/18/18 22:00 BP 136/71 04/18/18 21:55 Pulse Ox 96 04/18/18 22:00 - Labs Result Diagrams: 04/18/18 06:26 04/18/18 06:27 Labs: Laboratory Results - last 24 hr 04/18/18 04/18/18 04/18/18 02:08 06:26 06:27 WBC 11.1 H RBC 3.91 Hgb 11.1 Hct 33.3 L MCV 85.1 MCH 28.3 MCHC 33.2 RDW 15.8 H Plt Count 216 MPV 8.9 Neut % (Auto) 67.1 Lymph % (Auto) 19.0 L [place] % (Auto) 11.0 H Eos % (Auto) 2.1 Baso % (Auto) 0.8 Neut # (Auto) 7.5 H Lymph # (Auto) 2.1 [place] # (Auto) 1.2 H Eos # (Auto) 0.2 Baso # (Auto) 0.1 APTT 119 H* D Sodium 139 Potassium 4.0 Chloride 108 H Carbon Dioxide 22 Anion Gap 13 BUN 21 H Creatinine 0.7 Est GFR ( Amer) > 60 Est GFR (Non-Af Amer) > 60 Random Glucose 150 H Calcium 8.8 Total Bilirubin 0.7 AST 24 ALT 27 Alkaline Phosphatase 72 Troponin I Total Protein 6.8 Albumin 3.5 D Globulin 3.3 Albumin/Globulin Ratio 1.0 04/18/18 04/18/18 04/18/18 08:25 08:25 15:34 WBC RBC Hgb Hct MCV MCH MCHC RDW Plt Count MPV Neut % (Auto) Lymph % (Auto) [place] % (Auto) Eos % (Auto) Baso % (Auto) Neut # (Auto) Lymph # (Auto) [place] # (Auto) Eos # (Auto) Baso # (Auto) APTT 68 H D Sodium Potassium Chloride Carbon Dioxide Anion Gap BUN Creatinine Est GFR ( Amer) Est GFR (Non-Af Amer) Random Glucose Calcium Total Bilirubin AST ALT Alkaline Phosphatase Troponin I 0.2860 H* 0.2230 H* Total Protein Albumin Globulin Albumin/Globulin Ratio 04/18/18 15:34 WBC RBC Hgb Hct MCV MCH MCHC RDW Plt Count MPV Neut % (Auto) Lymph % (Auto) [place] % (Auto) Eos % (Auto) Baso % (Auto) Neut # (Auto) Lymph # (Auto) [place] # (Auto) Eos # (Auto) Baso # (Auto) APTT 62 H D Sodium Potassium Chloride Carbon Dioxide Anion Gap BUN Creatinine Est GFR ( Amer) Est GFR (Non-Af Amer) Random Glucose Calcium Total Bilirubin AST ALT Alkaline Phosphatase Troponin I Total Protein Albumin Globulin Albumin/Globulin Ratio
[2018-04-19 06:16] LABS: BASO # 0.1 K/uL (0.0-0.2); BASO % 0.8 % (0.0-2.0); EOS # 0.4 K/uL (0.0-0.7); HEMOGLOBIN 10.6 g/dL (11.0-16.0); LYMPH # 2.2 K/uL (1.0-4.3); LYMPH % 17.1 % (20.0-40.0); MEAN CELL VOLUME 85.5 fL (81.0-99.0); MEAN CORPUSCULAR HEMOGLOBIN 28.3 pg (27.0-31.0); MEAN CORPUSCULAR HGB CONC 33.1 g/dL (33.0-37.0); MEAN PLATELET VOLUME 8.7 fL (7.2-11.7); MONO # 1.6 K/uL (0.0-0.8); MONO % 12.5 % (0.0-10.0); NEUT # 8.7 K/uL (1.8-7.0); NEUT % 66.6 % (50.0-75.0); NRBC % 0.1 % (0.0-2.0); RBC 3.74 Mil/uL (3.80-5.20); RED CELL DISTRIBUTION WIDTH 16.1 % (11.5-14.5)
[2018-04-19 06:45] LABS: LDL CHOLESTEROL 90 mg/dL (0-129)
[2018-04-19 06:54] LABS: ALBUMIN 3.5 g/dL (3.5-5.0); ALT/SGPT 24 U/L (9-52); AST/SGOT 35 U/L (14-36); BLOOD UREA NITROGEN 21 mg/dL (7-17); CALCIUM 8.3 mg/dl (8.6-10.4); GFR NON-AFRICAN AMERICAN > 60; HDL CHOLESTEROL 30 mg/dL (30-70)
--- NOTE | 2018-04-19 09:02 | CP.PCM.PN ---
Subjective - Date & Time of Evaluation Date of Evaluation: 04/19/18 Time of Evaluation: 08:55 - Subjective Subjective: Medical Attending Note: Patient seen and examined this morning. No family present at bedside. Patient eating breakfast at bedside. Patient denies headache, denies chest pain, reports shortness of breathe, reports dry cough, denies abdominal pain, denies nausea, denies vomitting, denies constipation, reports leg pains. unclear what type of stroke (ischemic vs hemorrhagic; will need clarified with patient's daughter) Objective - Vital Signs/Intake and Output Vital Signs (last 24 hours): Temp Pulse Resp BP Pulse Ox 98.6 F 65 19 119/63 98 04/19/18 04:00 04/19/18 07:00 04/19/18 07:00 04/19/18 06:55 04/19/18 07:00 Intake and Output: 04/19/18 04/19/18 06:59 18:59 Intake Total 108 9 Output Total 300 Balance -192 9 - Medications Medications: Current Medications Acetaminophen (Tylenol 325mg Tab) 650 mg PO Q4 PRN PRN Reason: Fever >100.4 F Albuterol/Ipratropium (Duoneb 3 Mg/0.5 Mg (3 Ml) Ud) 3 ml INH RQ6 PRN PRN Reason: Shortness of Breath Amlodipine Besylate (Norvasc) 2.5 mg PO DAILY [facility] Clopidogrel Bisulfate (Plavix) 75 mg PO DAILY [facility] Last Admin: 04/18/18 09:37 Dose: 75 mg Fluticasone/Vilanterol (Breo Ellipta 100-25 Mcg Inh) 1 puff INH RQD [facility] Heparin Sodium/Sodium Chloride (Heparin 79477 Units/250ml 1/2 Normal Saline) 25,000 units in 250 mls @ 11.039 mls/hr IV .[id number] PRN; Protocol PRN Reason: PROTOCOL Last Admin: 04/18/18 21:41 Dose: 15 units/kg/hr, 9.199 mls/hr Ciprofloxacin (Cipro 400mg/200ml Dsw) 400 mg in 200 mls @ 133 mls/hr IVPB Q12H [facility]; Protocol Rivastigmine (Exelon 9.5 Mg/24 Hr Patch) 1 patch TD DAILY [facility] Last Admin: 04/18/18 09:37 Dose: 1 patch - Labs Labs: 04/19/18 06:08 04/19/18 06:08 PT 13.1 SECONDS (9.7-12.2) H 04/17/18 16:39 INR 1.2 04/17/18 16:39 APTT 59 SECONDS (21-34) H 04/19/18 06:08 - Constitutional Appears: Non-toxic, No Acute Distress - Head Exam Head Exam: NORMAL INSPECTION - Eye Exam Eye Exam: EOMI - ENT Exam ENT Exam: Mucous Membranes Moist - Respiratory Exam Respiratory Exam: Decreased Breath Sounds, NORMAL BREATHING PATTERN. absent: Rales, Rhonchi - Cardiovascular Exam Cardiovascular Exam: REGULAR RHYTHM, +S1, +S2 - GI/Abdominal Exam GI & Abdominal Exam: Distended, Soft, Normal Bowel Sounds. absent: Firm, Guarding, Rigid, Tenderness, Rebound - Extremities Exam Extremities Exam: Pedal Edema, Tenderness - Back Exam Back Exam: absent: CVA tenderness (L), CVA tenderness (R) - Neurological Exam Neurological Exam: Alert, Awake - Skin Skin Exam: Dry, Intact, Normal Color, Warm Assessment and Plan (1) Pulmonary embolism Status: Acute (2) NSTEMI (non-ST elevated myocardial infarction) Status: Acute (3) Dementia Status: Chronic (4) HLD (hyperlipidemia) Status: Chronic (5) HTN (hypertension) Status: Chronic (6) TIA (transient ischemic attack) Status: Chronic (7) Prophylactic measure Status: Acute Attending/Attestation - Attestation I have personally seen and examined this patient.: Yes I have fully participated in the care of the patient.: Yes I have reviewed all pertinent clinical information, including history, physical exam and plan: Yes Notes (Text): 1. Pulmonary Embolus Left Lower Extremity DVT+ Assessment/Plan * CT Chest (04/18/18): extensive bilateral upper and lower lobe pulmonary arteries right greater than left. Suspect right heart strain. Mild cardiomegaly. Mild bibasilar atelectasis left greater than right. Small calcified granuloma right upper lobe. * Chest xray (04/17/18): questionable increased reticular markings may reflect atypical pneumonitis or bronchitis however no alveolitis bilaterally. No pulmonary congestion or cardiomegaly noted. * Chest xray (04/18/18): cardiomegaly. mild reticular nodular opacities. * Echocardiogram (04/18/18): normal LV systolic function, diastolic dysfunction, mild AR, trace to mild MR, mild to moderate TR * Awaiting official report of venous doppler--> DVT on LLE * Patient is on heparin drip * Awaiting cardio evaluation regarding heart strain; not noted in official report 2. NonStemi Assessment/Plan * Heparin Drip * Echocardiogram (04/18/18): normal LV systolic function, diastolic dysfunction, mild AR, trace to mild MR, mild to moderate TR * pending cardio eval 3. History of CVA Assessment/Plan * discussion with son, about 15 years ago * CT Head (04/18/18): no acute intracranial abnormality. Severe chronic microangiopathic changes and mild age-related global parenchymal volume loss. * Check lipid panel, a1c * Unclear why not on statin * Plavix 75mg PO daily 4. Lipid Disorder Assessment/Plan * check lipid panel * will start stain pending results 5. History of COPD Assessment/Plan * Duoneb INH Q6H PRN shortness of breathe * Start Breo Elliptia inhaled diskus * Chest xray (04/17/18): questionable increased reticular markings may reflect atypical pneumonitis or bronchitis however no alveolitis bilaterally. No pulmonary congestion or cardiomegaly noted. * Chest xray (04/18/18): cardiomegaly. mild reticular nodular opacities. * Order for chest xray today 6. History of Dementia Assessment/Plan * Rivastigime 1 patch TD daily 7. Hypertension Assessment/Plan * Norvasc 2.5mg PO daily 8. Possible DVT Assessment/Plan * Venous doppler: Acute DVT in the left lower extremiity (femoral, popliteral, and peroneal veins) * on heparin drip * SCDS contraindicated 9. leukocytosis Assessment/Plan * pending Urine culture and blood cultures * check Strep pneumoniae, legionella urine, mycoplasma IgM * likely reactive 10. Prophylactic measure * Heparin drip * SCDS contraindication for acute left Lower DVT+ * Florastor 250mg PO BID * Pallative care for creation of POLST Disposition: pending cardiology evaluation for right heart strain and possible ekos intervention warranted? unclear what type of stroke patient has had 15 years ago f/u daughter
--- NOTE | 2018-04-19 10:01 | RAD ---
Date of service: 04/19/2018 HISTORY: shortness of breathe COMPARISON: 04/18/2018 FINDINGS: LUNGS: No active pulmonary disease. PLEURA: No significant pleural effusion identified, no pneumothorax apparent. CARDIOVASCULAR: No aortic atherosclerotic calcification present. Normal cardiac size. No pulmonary vascular congestion. OSSEOUS STRUCTURES: No significant abnormalities. VISUALIZED UPPER ABDOMEN: Normal. OTHER FINDINGS: None. IMPRESSION: No active disease.
--- NOTE | 2018-04-19 10:08 | CP.PCM.CON ---
History of Present Illness - History of Present Illness History of Present Illness: Palliative consult requested by Doctor Morales for goals of care and Code status discussion Patient is a 88 yo female admitted from home with SOB and lethargy X 2 days. During the transportation by EMS patient found to be with v Tach and A Fib. In ED patient was hypotensive and received 2 l of IVF with good results. her troponinlevels were positive X 2. Doctor Matti called on consult. Heparin and Plavix on board. CT chest was significant for extensive enlargements of B/L upper and lower pulmonary arteries indicating right heart strain. patient also hd an edema of LE, R>L . Abdominal distention is chronic as per daughter. last BM was night before admission. PMH: TIA, on Plavix, ? compliance, CVA with left sided weakness, COPD, Dementia, HTN Soc. Hx: Lives at home with daughter, came fro [place] years ago, maried Fam. Hx: father with COPD Review of Systems - Constitutional Constitutional: Chills, Fever - EENT Eyes: absent: As Per HPI, Blind Spots, Blurred Vision, Change in Vision, Decreased Night Vision, Diplopia, Discharge, Dry Eye, Exophthalmos, Floaters, Irritation, Itchy Eyes, Loss of Peripheral Vision, Pain, Photophobia, Requires Corrective Lenses, Sees Flashes, Spots in Vision, Tunnel Vision, Other Visual Disturbances, Loss of Vision, Other Ears: absent: As Per HPI, Decreased Hearing, Ear Discharge, Ear Pain, Tinnitus, Abnormal Hearing, Disequilibrium, Dizziness, Other Nose/Mouth/Throat: absent: As Per HPI, Epistaxis, Nasal Congestion, Nasal Discharge, Nasal Obstruction, Nasal Trauma, Nose Pain, Post Nasal Drip, Sinus Pain, Sinus Pressure, Bleeding Gums, Change in Voice, Dental Pain, Dry Mouth, Dysphagia, Halitosis, Hoarsness, Lip Swelling, Mouth Lesions, Mouth Pain, Odynophagia, Sore Throat, Throat Swelling, Tongue Swelling, Facial Pain, Neck Pain, Neck Mass, Other - Breasts Breasts: absent: As Per HPI, Change in Shape, Mass, Pain, Nipple Discharge, Nipple Inversion, Skin Changes, Swelling, Other - Cardiovascular Cardiovascular: absent: As Per HPI, Acrocyanosis, Chest Pain, Chest Pain at Rest, Chest Pain with Activity, Claudication, Diaphoresis, Dyspnea, Dyspnea on Exertion, Edema, Irregular Heart Rhythm, Pain Radiating to Arm/Neck/Jaw, Leg Edema, Leg Ulcers, Lightheadedness, Orthopnea, Palpitations, Paroxysmal Nocturnal Dyspnea, Pedal Edema, Radiating Pain, Rapid Heart Rate, Slow Heart Rate, Syncope, Other - Respiratory Respiratory: Wheezing - Gastrointestinal Gastrointestinal: absent: As Per HPI, Abdominal Pain, Belching, Bloating, Change in Bowel Habits, Change in Stool Character, Coffee Ground Emesis, Constipation, Cramping, Diarrhea, Dyspepsia, Dysphagia, Early Satiety, Excessive Flatus, Fecal Incontinence, Heartburn, Hematemesis, Hematochezia, Loose Stools, Melena, Nausea, Odynophagia, Temesmus, Vomiting, Other - Genitourinary Genitourinary: absent: As Per HPI, Change in Urinary Stream, Difficulty Urinating, Dysuria, Flank Pain, Hematuria, Pyuria, Nocturia, Urinary Incontinence, Urinary Frequency, Urinary Hesitance, Urinary Urgency, Voiding Freq/Small Amts, Freq UTI, Hx Renal/Bladder Calculi, Hx /Renal Surgery, Bl adder Distension, Other - Reproductive: Female Reproductive:Female: Post Menopausal - Menstruation Menstruation: Post Menopausal - Integumentary Integumentary: absent: As Per HPI, Acne, Alopecia, Bleeding Lesions, Change in Hair, Change in Nails, Change in Pigmentation, Changing Lesions, Dry Skin, Erythema, Furuncle, Hirsutism, Lesions, New Lesions, Non-Healing Lesions, Photosensitivity, Pruritus, Rash, Skin Pain, Skin Ulcer, Sores, Striae, Swelling, Unusual Bruising, Wounds, Jaundice, Other - Neurological Neurological: Confusion - Psychiatric Psychiatric: Confusion, Difficulty Concentrating, Hopelessness - Endocrine Endocrine: absent: As Per HPI, Change in Body Appearance, Change in Libido, Cold Intolorance, Deepening of Voice, Excessive Sweating, Fatigue, Flushing, Heat Intolorance, Increase in Ring/Shoe/Hat Size, Palpitations, Polydipsia, Polyphagia, Polyuria, Other - Hematologic/Lymphatic Hematologic: absent: As Per HPI, Easy Bleeding, Easy Bruising, Lymphadenopathy, Other Past Patient History - Past Medical History & Family History Past Medical History?: Yes - Past Social History Smoking Status: Never Smoked - CARDIAC Hx Hypertension: Yes - PULMONARY Hx Chronic Obstructive Pulmonary Disease (COPD): Yes - NEUROLOGICAL Hx Dementia: Yes - HEENT Hx HEENT Problems: Yes Other/Comment: FOR READING - RENAL Hx Chronic Kidney Disease: No - ENDOCRINE/METABOLIC Hx Endocrine Disorders: No - HEMATOLOGICAL/ONCOLOGICAL Hx Blood Disorders: No - INTEGUMENTARY Hx Dermatological Problems: No - MUSCULOSKELETAL/RHEUMATOLOGICAL Hx Musculoskeletal Disorders: Yes Hx Falls: Yes - GASTROINTESTINAL Hx Gastrointestinal Disorders: No - GENITOURINARY/GYNECOLOGICAL Hx Genitourinary Disorders: No - PSYCHIATRIC Hx Substance Use: No - SURGICAL HISTORY Hx Surgeries: No - ANESTHESIA Hx Anesthesia: No Meds Allergies/Adverse Reactions: Allergies Allergy/AdvReac Type Severity Reaction Status Date / Time Penicillins Allergy Verified 04/17/18 15:59 - Medications Medications: Current Medications Acetaminophen (Tylenol 325mg Tab) 650 mg PO Q4 PRN PRN Reason: Fever >100.4 F Albuterol/Ipratropium (Duoneb 3 Mg/0.5 Mg (3 Ml) Ud) 3 ml INH RQ6 PRN PRN Reason: Shortness of Breath Amlodipine Besylate (Norvasc) 2.5 mg PO DAILY [facility] Clopidogrel Bisulfate (Plavix) 75 mg PO DAILY [facility] Last Admin: 04/18/18 09:37 Dose: 75 mg Fluticasone/Vilanterol (Breo Ellipta 100-25 Mcg Inh) 1 puff INH RQD [facility] Heparin Sodium/Sodium Chloride (Heparin 51449 Units/250ml 1/2 Normal Saline) 25,000 units in 250 mls @ 11.039 mls/hr IV .[id number] PRN; Protocol PRN Reason: PROTOCOL Last Admin: 04/18/18 21:41 Dose: 15 units/kg/hr, 9.199 mls/hr Ciprofloxacin (Cipro 400mg/200ml Dsw) 400 mg in 200 mls @ 133 mls/hr IVPB Q12H [facility]; Protocol Rivastigmine (Exelon 9.5 Mg/24 Hr Patch) 1 patch TD DAILY [facility] Last Admin: 04/18/18 09:37 Dose: 1 patch Saccharomyces Boulardii (Florastor) 250 mg PO BID [facility] Physical Exam - Constitutional Appears: Chronically Ill - Head Exam Head Exam: ATRAUMATIC, NORMAL INSPECTION, NORMOCEPHALIC - Eye Exam Eye Exam: EOMI, Normal appearance, PERRL Pupil Exam: NORMAL ACCOMODATION, PERRL - ENT Exam ENT Exam: Mucous Membranes Moist, Normal Exam - Neck Exam Neck exam: Positive for: Normal Inspection - Respiratory Exam Respiratory Exam: Decreased Breath Sounds, Prolonged Expiratory Phase - Cardiovascular Exam Cardiovascular Exam: Tachycardia - GI/Abdominal Exam GI & Abdominal Exam: Distended, Normal Bowel Sounds, Soft - Rectal Exam Rectal Exam: Deferred - Extremities Exam Extremities exam: Positive for: normal capillary refill Additional comments: left leg swelling - Back Exam Back exam: NORMAL INSPECTION - Neurological Exam Neurological exam: Alert, Altered - Psychiatric Exam Psychiatric exam: Anxious, Normal Affect, Normal Mood - Skin Skin Exam: Dry, Intact, Normal Color, Warm Results - Vital Signs Recent Vital Signs: Last Vital Signs Temp 98.6 F 04/19/18 04:00 Pulse 65 04/19/18 07:00 Resp 19 04/19/18 07:00 BP 119/63 04/19/18 06:55 Pulse Ox 98 04/19/18 07:00 - Labs Result Diagrams: 04/19/18 06:08 04/19/18 06:08 Labs: Laboratory Results - last 24 hr 04/18/18 04/18/18 04/19/18 15:34 15:34 06:08 WBC RBC Hgb Hct MCV MCH MCHC RDW Plt Count MPV Neut % (Auto) Lymph % (Auto) [place] % (Auto) Eos % (Auto) Baso % (Auto) Neut # (Auto) Lymph # (Auto) [place] # (Auto) Eos # (Auto) Baso # (Auto) APTT 62 H D Sodium 138 Potassium 4.0 Chloride 108 H Carbon Dioxide 21 L Anion Gap 13 BUN 21 H Creatinine 0.6 L Est GFR ( Amer) > 60 Est GFR (Non-Af Amer) > 60 Random Glucose 125 H Hemoglobin A1c Calcium 8.3 L Phosphorus 3.7 Magnesium 2.2 Total Bilirubin 0.7 AST 35 ALT 24 Alkaline Phosphatase 81 Troponin I 0.2230 H* Total Protein 6.9 Albumin 3.5 Globulin 3.4 Albumin/Globulin Ratio 1.0 Triglycerides 119 Cholesterol 148 LDL Cholesterol Direct 90 HDL Cholesterol 30 04/19/18 04/19/18 04/19/18 06:08 06:08 06:08 WBC 13.0 H RBC 3.74 L Hgb 10.6 L Hct 32.0 L MCV 85.5 MCH 28.3 MCHC 33.1 RDW 16.1 H Plt Count 220 MPV 8.7 Neut % (Auto) 66.6 Lymph % (Auto) 17.1 L [place] % (Auto) 12.5 H Eos % (Auto) 3.0 Baso % (Auto) 0.8 Neut # (Auto) 8.7 H Lymph # (Auto) 2.2 [place] # (Auto) 1.6 H Eos # (Auto) 0.4 Baso # (Auto) 0.1 APTT 59 H Sodium Potassium Chloride Carbon Dioxide Anion Gap BUN Creatinine Est GFR ( Amer) Est GFR (Non-Af Amer) Random Glucose Hemoglobin A1c 6.7 H Calcium Phosphorus Magnesium Total Bilirubin AST ALT Alkaline Phosphatase Troponin I Total Protein Albumin Globulin Albumin/Globulin Ratio Triglycerides Cholesterol LDL Cholesterol Direct HDL Cholesterol Assessment & Plan - Assessment and Plan (Free Text) Assessment: Palliative consul Full Code, there is no Advance directive on chart, PPS 30% I reviewed Medical records, all diagnostic studies, examined and interviewed patient in the bed Patient is alert, appears mildly confused. Skin is warm to touch, patient complains of feeling chilly. I asked the nurse to check patient's temperature. Patient asked me if I was going " to protect her". In further discussion I discovered that patient was not sure where she was and was afraid of unfamiliar surrounding. I reorient her X 3 and reassured of her safety. Breathing is regular with expiratory wheezing. o2Sat 98 % RA. HR 65. Abdomen is softly distended, very strong bowel sounds. There is weakness to Left side. patient able to partially lift up her left arm. left leg edema larger than right leg edema. BP 144/79, HR 65, looks febrile WBC 13.0, Hb 10.6 I spoke to patient's daughter over the phone. She will come today at noon at 12 pm for family meeting. Family meeting attended by patient's daughter Karin. I reviewed patient's clin ical presentation and elicited her understanding. Doctor Matti came in and explained planned cardiac cath as diagnostic study. Daughter agreed The daughter is main taker of her parents. Patient and her live alone in one bedroom apartment and daughter is concerned about their safety. She realizes that over the last year her parent's condition has declined and is not safe anymore for them to stay home alone. Patient used to paid for private care at home but is not able to continue to do so any longer. She does not like option of NH. The daughter had discussion with SW here at [facility] about home care. As of now patient does not qualify for home care. Daughter will apply for Medicaid. Code status discussed with daughter. ERICK introduced. Daughter admitted valuing quality of life and would not want her mother's life to be prolonged by aggressive measures if meaningful recovery was not expected. However, at this time she is not ready to make any decision about DNR/DNI. First, she would want to discuss it with her 2 brothers. And second, she feels she should act according to situation instead of making decision ahead of time. Foe present she would like all interventions to be applied to support her mother's life including aggressive interventions. Impression * Chronically ill lady with acute SOB 2nd to thromb formation * Expiratory wheezing * Mild confusion * Weakness * Patient unable to participate in plan of care due to confusion * Patient does not have Living Will and her wishes for end of life care are not known * Patient's daughter Karin advocates for patient and is requesting a Full Code Suggestions * Bed rest * Continue Neb Tx * promote safety, reorient patient and reassure her of her safety * Assist with ADLs * Daughter agreed with Cardiac cath with Doctor Chino * FULL CODE per daughter's request Palliative care will continue to fallow with patient and family as needed. Advance Care planing time min
[2018-04-19] MEDS: Ciprofloxacin 400mg/200ml D5W 400 MG/200 ML BAG IVPB SCH ×2 (10:21→22:25)
[2018-04-19] MEDS: Saccharomyces Boulardi 250 mg Cap PO SCH ×2 (10:24→19:16)
--- NOTE | 2018-04-19 11:46 | CP.CCUPN ---
<Doris Hdez - Last Filed: 04/19/18 14:22> CCU Subjective - Physician Review Events Since Last Encounter (Free Text): 04/19/18 11:42 No acute events overnight Subjective (Free Text): 04/19/18 11:42 Patient was seen and evaluated at bedside this morning. Patient has not Patient able to tolerate diet without issue. Patient denies chest pain, shortness of breath, abdominal pain, fever, chills, nausea, vomiting and/or headache. Critical Care Time Spent (in minutes): 35 CCU Objective - Vital Signs / Intake & Output Vital Signs (Last 4 hours): Vital Signs Temp Pulse Resp BP Pulse Ox 04/19/18 11:00 71 25 H 95 04/19/18 10:55 72 28 H 148/70 95 04/19/18 10:00 72 28 H 97 04/19/18 09:55 72 26 H 155/61 H 98 04/19/18 09:00 77 18 97 04/19/18 08:56 73 29 H 165/91 H 96 04/19/18 08:00 98.5 F 64 20 97 04/19/18 07:54 66 20 117/65 97 Intake and Output (Last 8hrs): Intake & Output 04/18/18 04/19/18 04/19/18 22:59 06:59 14:59 Intake Total 72 72 245 Output Total 300 380 Balance 72 -228 -135 Weight 136 lb Intake: Intake, IV Amount 72 72 245 Left wrist 200 Right Antecubital 72 72 45 Output: Urine 300 380 Urine, Voided 300 380 - Physical Exam Head: Positive for: Atraumatic, Normocephalic Pupils: Positive for: PERRL Extroacular Muscles: Positive for: EOMI Conjunctiva: Positive for: Normal Mouth: Positive for: Moist Mucous Membranes Neck: Positive for: Normal Range of Motion. Negative for: JVD, Lymphadenopathy Respiratory/Chest: Positive for: Good Air Exchange. Negative for: Respiratory Distress, Accessory Muscle Use, Wheezes Cardiovascular: Positive for: Regular Rate and Rhythm, Normal S1, S2 Abdomen: Positive for: Normal Bowel Sounds. Negative for: Tenderness, Distention, Peritoneal Signs Back: Positive for: Normal Inspection Upper Extremity: Positive for: Normal Inspection. Negative for: Cyanosis, Edema Lower Extremity: Positive for: Edema (left lower extremity +1 edema ), Tendernes s (left lower extremity ) Neurological: Positive for: GCS=15, CN II-XII Intact, Speech Normal Skin: Positive for: Warm, Dry, Normal Color Psychiatric: Positive for: Alert, Oriented x 3, Normal Insight, Normal Concentration - Medications Active Medications: Active Medications Generic Name Dose Route Start Last Admin Trade Name Freq PRN Reason Stop Dose Admin Acetaminophen 650 mg 04/17/18 20:35 Tylenol 325mg Tab PO Q4 PRN Fever >100.4 F Albuterol/Ipratropium 3 ml 04/18/18 20:59 Duoneb 3 Mg/0.5 Mg (3 Ml) Ud INH RQ6 PRN Shortness of Breath Amlodipine Besylate 2.5 mg 04/18/18 10:00 Norvasc PO DAILY LINUS Clopidogrel Bisulfate 75 mg 04/18/18 10:00 04/19/18 10:22 Plavix PO 75 mg DAILY LINUS Administration Fluticasone/Vilanterol 1 puff 04/19/18 08:00 Breo Ellipta 100-25 Mcg Inh INH RQD LINUS Heparin Sodium/Sodium Chloride 25,000 units in 250 mls @ 11.039 mls/hr 04/18/18 18:49 04/18/18 21:41 Heparin 37248 Units/250ml 1/2 Normal Saline IV 15 units/kg/hr .[id number] PRN 9.199 mls/hr PROTOCOL Administration Protocol 18 UNITS/KG/HR Ciprofloxacin 400 mg in 200 mls @ 133 mls/hr 04/19/18 10:00 04/19/18 10:21 Cipro 400mg/200ml Dsw IVPB 133 mls/hr Q12H LINUS Administration Protocol Rivastigmine 1 patch 04/18/18 10:00 04/19/18 10:22 Exelon 9.5 Mg/24 Hr Patch TD 1 patch DAILY LINUS Administration Saccharomyces Boulardii 250 mg 04/19/18 10:00 04/19/18 10:24 Florastor PO 250 mg BID LINUS Administration - Patient Studies Lab Studies: Microbiology Studies 04/17/18 21:16 Urine Culture - Final Urine,Catheterized No Growth (<1,000 CFU/ML) Lab Studies 04/19/18 04/19/18 04/19/18 Range/Units 06:08 06:08 06:08 WBC 13.0 H (4.8-10.8) K/uL RBC 3.74 L (3.80-5.20) Mil/uL Hgb 10.6 L (11.0-16.0) g/dL Hct 32.0 L (34.0-47.0) % MCV 85.5 (81.0-99.0) fL MCH 28.3 (27.0-31.0) pg MCHC 33.1 (33.0-37.0) g/dL RDW 16.1 H (11.5-14.5) % Plt Count 220 (130-400) K/uL MPV 8.7 (7.2-11.7) fL Neut % (Auto) 66.6 (50.0-75.0) % Lymph % (Auto) 17.1 L (20.0-40.0) % Phelps % (Auto) 12.5 H (0.0-10.0) % Eos % (Auto) 3.0 (0.0-4.0) % Baso % (Auto) 0.8 (0.0-2.0) % Neut # (Auto) 8.7 H (1.8-7.0) K/uL Lymph # (Auto) 2.2 (1.0-4.3) K/uL Phelps # (Auto) 1.6 H (0.0-0.8) K/uL Eos # (Auto) 0.4 (0.0-0.7) K/uL Baso # (Auto) 0.1 (0.0-0.2) K/uL APTT 59 H (21-34) SECONDS Sodium (132-148) mmol/L Potassium (3.6-5.2) mmol/L Chloride (98-107) mmol/L Carbon Dioxide (22-30) mmol/L Anion Gap (10-20) BUN (7-17) mg/dL Creatinine (0.7-1.2) mg/dL Est GFR ( Amer) Est GFR (Non-Af Amer) Random Glucose (65-105) mg/dL Hemoglobin A1c 6.7 H (4.2-6.5) % Calcium (8.6-10.4) mg/dl Phosphorus (2.5-4.5) mg/dL Magnesium (1.6-2.3) mg/dL Total Bilirubin (0.2-1.3) mg/dL AST (14-36) U/L ALT (9-52) U/L Alkaline Phosphatase (38-126) U/L Troponin I (0.00-0.120) ng/mL Total Protein (6.3-8.3) g/dL Albumin (3.5-5.0) g/dL Globulin (2.2-3.9) gm/dL Albumin/Globulin Ratio (1.0-2.1) Triglycerides (0-149) mg/dL Cholesterol (0-199) mg/dL LDL Cholesterol Direct (0-129) mg/dL HDL Cholesterol (30-70) mg/dL 04/19/18 04/18/18 04/18/18 Range/Units 06:08 15:34 15:34 WBC (4.8-10.8) K/uL RBC (3.80-5.20) Mil/uL Hgb (11.0-16.0) g/dL Hct (34.0-47.0) % MCV (81.0-99.0) fL MCH (27.0-31.0) pg MCHC (33.0-37.0) g/dL RDW (11.5-14.5) % Plt Count (130-400) K/uL MPV (7.2-11.7) fL Neut % (Auto) (50.0-75.0) % Lymph % (Auto) (20.0-40.0) % Phelps % (Auto) (0.0-10.0) % Eos % (Auto) (0.0-4.0) % Baso % (Auto) (0.0-2.0) % Neut # (Auto) (1.8-7.0) K/uL Lymph # (Auto) (1.0-4.3) K/uL Phelps # (Auto) (0.0-0.8) K/uL Eos # (Auto) (0.0-0.7) K/uL Baso # (Auto) (0.0-0.2) K/uL APTT 62 H D (21-34) SECONDS Sodium 138 (132-148) mmol/L Potassium 4.0 (3.6-5.2) mmol/L Chloride 108 H (98-107) mmol/L Carbon Dioxide 21 L (22-30) mmol/L Anion Gap 13 (10-20) BUN 21 H (7-17) mg/dL Creatinine 0.6 L (0.7-1.2) mg/dL Est GFR ( Amer) > 60 Est GFR (Non-Af Amer) > 60 Random Glucose 125 H (65-105) mg/dL Hemoglobin A1c (4.2-6.5) % Calcium 8.3 L (8.6-10.4) mg/dl Phosphorus 3.7 (2.5-4.5) mg/dL Magnesium 2.2 (1.6-2.3) mg/dL Total Bilirubin 0.7 (0.2-1.3) mg/dL AST 35 (14-36) U/L ALT 24 (9-52) U/L Alkaline Phosphatase 81 (38-126) U/L Troponin I 0.2230 H* (0.00-0.120) ng/mL Total Protein 6.9 (6.3-8.3) g/dL Albumin 3.5 (3.5-5.0) g/dL Globulin 3.4 (2.2-3.9) gm/dL Albumin/Globulin Ratio 1.0 (1.0-2.1) Triglycerides 119 (0-149) mg/dL Cholesterol 148 (0-199) mg/dL LDL Cholesterol Direct 90 (0-129) mg/dL HDL Cholesterol 30 (30-70) mg/dL Laboratory Results - last 24 hr 04/18/18 04/18/18 04/19/18 15:34 15:34 06:08 WBC RBC Hgb Hct MCV MCH MCHC RDW Plt Count MPV Neut % (Auto) Lymph % (Auto) Phelps % (Auto) Eos % (Auto) Baso % (Auto) Neut # (Auto) Lymph # (Auto) Phelps # (Auto) Eos # (Auto) Baso # (Auto) APTT 62 H D Sodium 138 Potassium 4.0 Chloride 108 H Carbon Dioxide 21 L Anion Gap 13 BUN 21 H Creatinine 0.6 L Est GFR ( Amer) > 60 Est GFR (Non-Af Amer) > 60 Random Glucose 125 H Hemoglobin A1c Calcium 8.3 L Phosphorus 3.7 Magnesium 2.2 Total Bilirubin 0.7 AST 35 ALT 24 Alkaline Phosphatase 81 Troponin I 0.2230 H* Total Protein 6.9 Albumin 3.5 Globulin 3.4 Albumin/Globulin Ratio 1.0 Triglycerides 119 Cholesterol 148 LDL Cholesterol Direct 90 HDL Cholesterol 30 04/19/18 04/19/18 04/19/18 06:08 06:08 06:08 WBC 13.0 H RBC 3.74 L Hgb 10.6 L Hct 32.0 L MCV 85.5 MCH 28.3 MCHC 33.1 RDW 16.1 H Plt Count 220 MPV 8.7 Neut % (Auto) 66.6 Lymph % (Auto) 17.1 L Phelps % (Auto) 12.5 H Eos % (Auto) 3.0 Baso % (Auto) 0.8 Neut # (Auto) 8.7 H Lymph # (Auto) 2.2 Phelps # (Auto) 1.6 H Eos # (Auto) 0.4 Baso # (Auto) 0.1 APTT 59 H Sodium Potassium Chloride Carbon Dioxide Anion Gap BUN Creatinine Est GFR ( Amer) Est GFR (Non-Af Amer) Random Glucose Hemoglobin A1c 6.7 H Calcium Phosphorus Magnesium Total Bilirubin AST ALT Alkaline Phosphatase Troponin I Total Protein Albumin Globulin Albumin/Globulin Ratio Triglycerides Cholesterol LDL Cholesterol Direct HDL Cholesterol EKG/Cardiology Studies: Cardiology / EKG Studies 04/19/18 08:00 EKG [ELECTROCARDIOGRAM] DAILY Comment: Mode Of Transportation: Reason For Exam: f/u arrthymia 04/19/18 20:45 ELECTROCARDIOGRAM DAILY Comment: Mode Of Transportation: PORTABLE Reason For Exam: f/u arrythmia/ nstemi 04/20/18 20:45 ELECTROCARDIOGRAM DAILY Comment: Mode Of Transportation: PORTABLE Reason For Exam: f/u arrythmia/ nstemi Review of Systems - Review of Systems All systems: reviewed and no additional remarkable complaints except Critical Care Progress Note - Nutrition Nutrition: Nutrition Category Date Time Status Heart Healthy Diet [DIET] Diets 04/18/18 Breakfast Active Assessment/Plan - Assessment and Plan (Free Text) Assessment: This is an 88 year old female with PMHx of COPD, HTN, HLD, dementia and previous CVA with L sided weakness presents to ED with complaint of shortness of breath worsening for the last 2 days. While on the way to the ED, patient was noted to be in rapid atrial fibrillation and ventricular tachycardia, and upon arrival the patient was hypotensive. IVF (2L) was administered, and hypotension improved. CT angiogram was obtained and revealed PE. Patient was started on therapeutic heparin and was transferred to ICU for close monitoring. Neuro: - No acute issues - A&O x3 - Residual left lower extremity weakness - Patient walks with assistance of walker CV: - Elevated troponins possibly secondary to right-sided heart strain - Cardiology consulted (Dr. Chino) to evaluate: * Patient hemodynamically stable * Patient is saturating well * Due to the above and due to patient's advanced age, catheter directed thrombolysis would be high risk procedure for this patient - ECHO completed; see report for details - Patient has HTN; however is normotensive - Hold: amlodipine (home med) - Monitor rhythm Pulm: - CT angiograph: revealed PE; see full report for details - Venous doppler: revealed DVT in left lower extremity; see full report for details - Therapeutic heparin started - Discontinue: Montelukast (home med) - Elevated troponin; Cardiology consulted for possible right heart strain (Dr. Chino) recommendations appreciated. - Monitor Coag, CBC, CMP, Trops - History of COPD; continue duoneb BID GI: - No acute issues - Tolerating diet - HHD Renal: - No acute issues - Monitor CMP Heme: - No acute issues - Monitor H/H ID: - No acute issues - Monitor CBC Endo: - No acute issues PPx: GI - Protonix (40mg PO daily) DVT - Therapeutic heparin; SCD CONTRAINDICATED Patient seen and case discussed in detail with Dr. Oz Hdez PGY1 <Elias Clinton S - Last Filed: 04/19/18 17:23> CCU Objective - Vital Signs / Intake & Output Vital Signs (Last 4 hours): Vital Signs Pulse Resp BP Pulse Ox 04/19/18 15:00 75 28 H 97 04/19/18 14:55 72 31 H 154/67 H 99 04/19/18 14:00 70 26 H 97 04/19/18 13:55 74 25 H 171/69 H 97 Intake and Output (Last 8hrs): Intake & Output 04/19/18 04/19/18 04/19/18 06:59 14:59 22:59 Intake Total 72 492 9 Output Total 300 375 Balance -228 117 9 Weight 136 lb Intake: Intake, IV Amount 72 272 9 Left wrist 200 Right Antecubital 72 72 9 Oral 220 Output: Urine 300 375 Urine, Voided 300 375 Other: # Voids Urine, Voided 1 - Medications Active Medications: Active Medications Generic Name Dose Route Start Last Admin Trade Name Freq PRN Reason Stop Dose Admin Acetaminophen 650 mg 04/17/18 20:35 Tylenol 325mg Tab PO Q4 PRN Fever >100.4 F Albuterol/Ipratropium 3 ml 04/18/18 20:59 Duoneb 3 Mg/0.5 Mg (3 Ml) Ud INH RQ6 PRN Shortness of Breath Amlodipine Besylate 2.5 mg 04/18/18 10:00 Norvasc PO DAILY LINUS Clopidogrel Bisulfate 75 mg 04/18/18 10:00 04/19/18 10:22 Plavix PO 75 mg DAILY LINUS Administration Fluticasone/Vilanterol 1 puff 04/19/18 08:00 04/19/18 11:54 Breo Ellipta 100-25 Mcg Inh INH Not Given RQD LINUS Heparin Sodium/Sodium Chloride 25,000 units in 250 mls @ 11.039 mls/hr 04/18/18 18:49 04/18/18 21:41 Heparin 54490 Units/250ml 1/2 Normal Saline IV 15 units/kg/hr .[id number] PRN 9.199 mls/hr PROTOCOL Administration Protocol 18 UNITS/KG/HR Ciprofloxacin 400 mg in 200 mls @ 133 mls/hr 04/19/18 10:00 04/19/18 10:21 Cipro 400mg/200ml Dsw IVPB 133 mls/hr Q12H LINUS Administration Protocol Rivastigmine 1 patch 04/18/18 10:00 04/19/18 10:22 Exelon 9.5 Mg/24 Hr Patch TD 1 patch DAILY LINUS Administration Saccharomyces Boulardii 250 mg 04/19/18 10:00 04/19/18 10:24 Florastor PO 250 mg BID LINUS Administration - Patient Studies Lab Studies: Microbiology Studies 04/17/18 21:16 Urine Culture - Final Urine,Catheterized No Growth (<1,000 CFU/ML) Lab Studies 04/19/18 04/19/18 04/19/18 Range/Units 06:08 06:08 06:08 WBC 13.0 H (4.8-10.8) K/uL RBC 3.74 L (3.80-5.20) Mil/uL Hgb 10.6 L (11.0-16.0) g/dL Hct 32.0 L (34.0-47.0) % MCV 85.5 (81.0-99.0) fL MCH 28.3 (27.0-31.0) pg MCHC 33.1 (33.0-37.0) g/dL RDW 16.1 H (11.5-14.5) % Plt Count 220 (130-400) K/uL MPV 8.7 (7.2-11.7) fL Neut % (Auto) 66.6 (50.0-75.0) % Lymph % (Auto) 17.1 L (20.0-40.0) % Phelps % (Auto) 12.5 H (0.0-10.0) % Eos % (Auto) 3.0 (0.0-4.0) % Baso % (Auto) 0.8 (0.0-2.0) % Neut # (Auto) 8.7 H (1.8-7.0) K/uL Lymph # (Auto) 2.2 (1.0-4.3) K/uL Phelps # (Auto) 1.6 H (0.0-0.8) K/uL Eos # (Auto) 0.4 (0.0-0.7) K/uL Baso # (Auto) 0.1 (0.0-0.2) K/uL APTT 59 H (21-34) SECONDS Sodium (132-148) mmol/L Potassium (3.6-5.2) mmol/L Chloride (98-107) mmol/L Carbon Dioxide (22-30) mmol/L Anion Gap (10-20) BUN (7-17) mg/dL Creatinine (0.7-1.2) mg/dL Est GFR ( Amer) Est GFR (Non-Af Amer) Random Glucose (65-105) mg/dL Hemoglobin A1c 6.7 H (4.2-6.5) % Calcium (8.6-10.4) mg/dl Phosphorus (2.5-4.5) mg/dL Magnesium (1.6-2.3) mg/dL Total Bilirubin (0.2-1.3) mg/dL AST (14-36) U/L ALT (9-52) U/L Alkaline Phosphatase (38-126) U/L Total Protein (6.3-8.3) g/dL Albumin (3.5-5.0) g/dL Globulin (2.2-3.9) gm/dL Albumin/Globulin Ratio (1.0-2.1) Triglycerides (0-149) mg/dL Cholesterol (0-199) mg/dL LDL Cholesterol Direct (0-129) mg/dL HDL Cholesterol (30-70) mg/dL 04/19/18 Range/Units 06:08 WBC (4.8-10.8) K/uL RBC (3.80-5.20) Mil/uL Hgb (11.0-16.0) g/dL Hct (34.0-47.0) % MCV (81.0-99.0) fL MCH (27.0-31.0) pg MCHC (33.0-37.0) g/dL RDW (11.5-14.5) % Plt Count (130-400) K/uL MPV (7.2-11.7) fL Neut % (Auto) (50.0-75.0) % Lymph % (Auto) (20.0-40.0) % Phelps % (Auto) (0.0-10.0) % Eos % (Auto) (0.0-4.0) % Baso % (Auto) (0.0-2.0) % Neut # (Auto) (1.8-7.0) K/uL Lymph # (Auto) (1.0-4.3) K/uL Phelps # (Auto) (0.0-0.8) K/uL Eos # (Auto) (0.0-0.7) K/uL Baso # (Auto) (0.0-0.2) K/uL APTT (21-34) SECONDS Sodium 138 (132-148) mmol/L Potassium 4.0 (3.6-5.2) mmol/L Chloride 108 H (98-107) mmol/L Carbon Dioxide 21 L (22-30) mmol/L Anion Gap 13 (10-20) BUN 21 H (7-17) mg/dL Creatinine 0.6 L (0.7-1.2) mg/dL Est GFR ( Amer) > 60 Est GFR (Non-Af Amer) > 60 Random Glucose 125 H (65-105) mg/dL Hemoglobin A1c (4.2-6.5) % Calcium 8.3 L (8.6-10.4) mg/dl Phosphorus 3.7 (2.5-4.5) mg/dL Magnesium 2.2 (1.6-2.3) mg/dL Total Bilirubin 0.7 (0.2-1.3) mg/dL AST 35 (14-36) U/L ALT 24 (9-52) U/L Alkaline Phosphatase 81 (38-126) U/L Total Protein 6.9 (6.3-8.3) g/dL Albumin 3.5 (3.5-5.0) g/dL Globulin 3.4 (2.2-3.9) gm/dL Albumin/Globulin Ratio 1.0 (1.0-2.1) Triglycerides 119 (0-149) mg/dL Cholesterol 148 (0-199) mg/dL LDL Cholesterol Direct 90 (0-129) mg/dL HDL Cholesterol 30 (30-70) mg/dL Laboratory Results - last 24 hr 04/19/18 04/19/18 04/19/18 06:08 06:08 06:08 WBC 13.0 H RBC 3.74 L Hgb 10.6 L Hct 32.0 L MCV 85.5 MCH 28.3 MCHC 33.1 RDW 16.1 H Plt Count 220 MPV 8.7 Neut % (Auto) 66.6 Lymph % (Auto) 17.1 L Phelps % (Auto) 12.5 H Eos % (Auto) 3.0 Baso % (Auto) 0.8 Neut # (Auto) 8.7 H Lymph # (Auto) 2.2 Phelps # (Auto) 1.6 H Eos # (Auto) 0.4 Baso # (Auto) 0.1 APTT Sodium 138 Potassium 4.0 Chloride 108 H Carbon Dioxide 21 L Anion Gap 13 BUN 21 H Creatinine 0.6 L Est GFR ( Amer) > 60 Est GFR (Non-Af Amer) > 60 Random Glucose 125 H Hemoglobin A1c 6.7 H Calcium 8.3 L Phosphorus 3.7 Magnesium 2.2 Total Bilirubin 0.7 AST 35 ALT 24 Alkaline Phosphatase 81 Total Protein 6.9 Albumin 3.5 Globulin 3.4 Albumin/Globulin Ratio 1.0 Triglycerides 119 Cholesterol 148 LDL Cholesterol Direct 90 HDL Cholesterol 30 04/19/18 06:08 WBC RBC Hgb Hct MCV MCH MCHC RDW Plt Count MPV Neut % (Auto) Lymph % (Auto) Phelps % (Auto) Eos % (Auto) Baso % (Auto) Neut # (Auto) Lymph # (Auto) Phelps # (Auto) Eos # (Auto) Baso # (Auto) APTT 59 H Sodium Potassium Chloride Carbon Dioxide Anion Gap BUN Creatinine Est GFR ( Amer) Est GFR (Non-Af Amer) Random Glucose Hemoglobin A1c Calcium Phosphorus Magnesium Total Bilirubin AST ALT Alkaline Phosphatase Total Protein Albumin Globulin Albumin/Globulin Ratio Triglycerides Cholesterol LDL Cholesterol Direct HDL Cholesterol EKG/Cardiology Studies: Cardiology / EKG Studies 04/19/18 08:00 EKG [ELECTROCARDIOGRAM] DAILY Comment: Mode Of Transportation: Reason For Exam: f/u arrthymia 04/19/18 20:45 ELECTROCARDIOGRAM DAILY Comment: Mode Of Transportation: PORTABLE Reason For Exam: f/u arrythmia/ nstemi 04/20/18 20:45 ELECTROCARDIOGRAM DAILY Comment: Mode Of Transportation: PORTABLE Reason For Exam: f/u arrythmia/ nstemi Critical Care Progress Note - Nutrition Nutrition: Nutrition Category Date Time Status Heart Healthy Diet [DIET] Diets 04/18/18 Breakfast Active Attending/Attestation - Attestation I have personally seen and examined this patient.: Yes I have fully participated in the care of the patient.: Yes I have reviewed all pertinent clinical information: Yes Notes (Text): 04/19/18 17:22 patient seen and examined in the intensive care unit continue IV heparin Cardiology evaluation Patient is high risk for thrombolytic therapy and is hemodynamically stable
[2018-04-19] MEDS: Fluticasone-Vilanterol 100/25mcg Diskus INH SCH (11:54)
--- NOTE | 2018-04-19 17:13 | CARD ---
APPROVED REPORT Date of service: 04/18/2018 EKG Measurement Heart [id number] <Conclusion> Sinus rhythm with marked sinus arrhythmia with 1st degree AV block Left bundle branch block Abnormal ECG
[2018-04-19 18:01] LABS: LEGIONELLA AG URINE NEGATIVE (NEGATIVE)
[2018-04-19 18:07] LABS: MYCOPLASMA PNEUMONIAE IGM NEGATIVE (NEGATIVE)
[2018-04-20] MEDS: Heparin25000 units/250ml 1/2NS 25,000 UNITS/250 ML BAG IV PRN (03:00)
[2018-04-20] MEDS ORDERED: DiphenhydrAMINE 50 mg/ml Inj IVP STA (05:21)
[2018-04-20 06:10] LABS: BASO # 0.1 K/uL (0.0-0.2); BASO % 0.7 % (0.0-2.0); EOS # 0.3 K/uL (0.0-0.7); EOS % 1.6 % (0.0-4.0); HEMOGLOBIN 11.2 g/dL (11.0-16.0); LYMPH # 2.6 K/uL (1.0-4.3); LYMPH % 16.5 % (20.0-40.0); MEAN CELL VOLUME 82.7 fL (81.0-99.0); MEAN CORPUSCULAR HEMOGLOBIN 27.3 pg (27.0-31.0); MONO % 12.5 % (0.0-10.0); NEUT % 68.7 % (50.0-75.0); RBC 4.11 Mil/uL (3.80-5.20); RED CELL DISTRIBUTION WIDTH 15.7 % (11.5-14.5)
[2018-04-20 06:39] LABS: ALB/GLOB RATIO 1.1 (1.0-2.1); ALBUMIN 3.9 g/dL (3.5-5.0); ALT/SGPT 23 U/L (9-52); AST/SGOT 34 U/L (14-36); BLOOD UREA NITROGEN 13 mg/dL (7-17); CALCIUM 8.6 mg/dl (8.6-10.4); GFR NON-AFRICAN AMERICAN > 60
--- NOTE | 2018-04-20 07:33 | CP.PCM.PN ---
Subjective - Date & Time of Evaluation Date of Evaluation: 04/19/18 Time of Evaluation: 17:20 - Subjective Subjective: Patient seen and evaluated Still has some dyspnea Denies chest pain Physical examination - Constitutional Appears: Non-toxic, No Acute Distress - Head Exam Head Exam: NORMAL INSPECTION - Eye Exam Eye Exam: EOMI - ENT Exam ENT Exam: Mucous Membranes Moist - Respiratory Exam Respiratory Exam: Decreased Breath Sounds, NORMAL BREATHING PATTERN. absent: Rales, Rhonchi - Cardiovascular Exam Cardiovascular Exam: REGULAR RHYTHM, +S1, +S2 - GI/Abdominal Exam GI & Abdominal Exam: Distended, Soft, Normal Bowel Sounds. absent: Firm, Guard ing, Rigid, Tenderness, Rebound - Extremities Exam Extremities Exam: Pedal Edema, Tenderness - Back Exam Back Exam: absent: CVA tenderness (L), CVA tenderness (R) - Neurological Exam Neurological Exam: Alert, Awake - Skin Skin Exam: Dry, Intact, Normal Color, Warm Assessment and Plan (1) Pulmonary embolism Status: Acute (2) NSTEMI (non-ST elevated myocardial infarction) Status: Acute (3) Dementia Status: Chronic (4) HLD (hyperlipidemia) Status: Chronic (5) HTN (hypertension) Status: Chronic (6) TIA (transient ischemic attack) Status: Chronic (7) Prophylactic measure Status: Acute 1. Pulmonary Embolus Left Lower Extremity DVT+ Assessment/Plan * CT Chest (04/18/18): extensive bilateral upper and lower lobe pulmonary arteries right greater than left. Suspect right heart strain. Mild c ardiomegaly. Mild bibasilar atelectasis left greater than right. Small calcified granuloma right upper lobe. * Chest xray (04/17/18): questionable increased reticular markings may reflect atypical pneumonitis or bronchitis however no alveolitis bilaterally. No pulmonary congestion or cardiomegaly noted. * Chest xray (04/18/18): cardiomegaly. mild reticular nodular opacities. * Echocardiogram (04/18/18): normal LV systolic function, diastolic dysfunction, mild AR, trace to mild MR, mild to moderate TR * Awaiting official report of venous doppler--> DVT on LLE * Patient is on heparin drip * Awaiting cardio evaluation regarding heart strain; not noted in official report 2. NonStemi Assessment/Plan * Heparin Drip * Echocardiogram (04/18/18): normal LV systolic function, diastolic dysfunction, mild AR, trace to mild MR, mild to moderate TR * pending cardio eval 3. History of CVA Assessment/Plan * discussion with son, about 15 years ago * CT Head (04/18/18): no acute intracranial abnormality. Severe chronic microangiopathic changes and mild age-related global parenchymal volume loss. * Check lipid panel, a1c * Unclear why not on statin * Plavix 75mg PO daily 4. Lipid Disorder Assessment/Plan * check lipid panel * will start stain pending results 5. History of COPD Assessment/Plan * Duoneb INH Q6H PRN shortness of breathe * Start Breo Elliptia inhaled diskus * Chest xray (04/17/18): questionable increased reticular markings may reflect atypical pneumonitis or bronchitis however no alveolitis bilaterally. No pulmonary congestion or cardiomegaly noted. * Chest xray (04/18/18): cardiomegaly. mild reticular nodular opacities. * Order for chest xray today 6. History of Dementia Assessment/Plan * Rivastigime 1 patch TD daily 7. Hypertension Assessment/Plan * Norvasc 2.5mg PO daily 8. Possible DVT Assessment/Plan * Venous doppler: Acute DVT in the left lower extremiity (femoral, popliteral, and peroneal veins) * on heparin drip * SCDS contraindicated 9. leukocytosis Assessment/Plan * pending Urine culture and blood cultures * check Strep pneumoniae, legionella urine, mycoplasma IgM * likely reactive 10. Prophylactic measure * Heparin drip * SCDS contraindication for acute left Lower DVT+ * Florastor 250mg PO BID * Pallative care for creation of POLST * * * * * Not a candidate for EKOS lytic therapy due to high risk of bleeding * Recommend traditiona anticoagulation with IV Heparin for now Objective - Vital Signs/Intake and Output Vital Signs (last 24 hours): Temp Pulse Resp BP Pulse Ox 98.1 F 105 H 28 H 141/78 92 L 04/20/18 04:00 04/20/18 07:00 04/20/18 07:00 04/20/18 06:55 04/20/18 06:00 Intake and Output: 04/20/18 04/20/18 06:59 18:59 Intake Total 558 9 Output Total 1250 Balance -692 9 - Medications Medications: Current Medications Acetaminophen (Tylenol 325mg Tab) 650 mg PO Q4 PRN PRN Reason: Fever >100.4 F Albuterol/Ipratropium (Duoneb 3 Mg/0.5 Mg (3 Ml) Ud) 3 ml INH RQ6 PRN PRN Reason: Shortness of Breath Amlodipine Besylate (Norvasc) 2.5 mg PO DAILY [facility] Clopidogrel Bisulfate (Plavix) 75 mg PO DAILY [facility] Last Admin: 04/19/18 10:22 Dose: 75 mg Fluticasone/Vilanterol (Breo Ellipta 100-25 Mcg Inh) 1 puff INH RQD [facility] Last Admin: 04/19/18 11:54 Dose: Not Given Heparin Sodium/Sodium Chloride (Heparin 92728 Units/250ml 1/2 Normal Saline) 25,000 units in 250 mls @ 11.039 mls/hr IV .[id number] PRN; Protocol PRN Reason: PROTOCOL Last Admin: 04/20/18 03:00 Dose: 15 units/kg/hr, 9.199 mls/hr Ciprofloxacin (Cipro 400mg/200ml Dsw) 400 mg in 200 mls @ 133 mls/hr IVPB Q12H LINUS; Protocol Last Admin: 04/19/18 22:25 Dose: 133 mls/hr Rivastigmine (Exelon 9.5 Mg/24 Hr Patch) 1 patch TD DAILY [facility] Last Admin: 04/19/18 10:22 Dose: 1 patch Saccharomyces Boulardii (Florastor) 250 mg PO BID [facility] Last Admin: 04/19/18 19:16 Dose: 250 mg - Labs Labs: 04/20/18 06:01 04/20/18 06:01 PT 13.1 SECONDS (9.7-12.2) H 04/17/18 16:39 INR 1.2 04/17/18 16:39 APTT 49 SECONDS (21-34) H D 04/20/18 06:01
[2018-04-20 08:25] LABS: STREP PNEUMONIAE NEGATIVE (NEGATIVE)
--- NOTE | 2018-04-20 09:23 | RAD ---
Date of service: 04/20/2018 HISTORY: shortness of breath COMPARISON: 04/19/2018 FINDINGS: LUNGS: No active pulmonary disease. PLEURA: No significant pleural effusion identified, no pneumothorax apparent. CARDIOVASCULAR: No aortic atherosclerotic calcification present. Normal cardiac size. No pulmonary vascular congestion. OSSEOUS STRUCTURES: No significant abnormalities. VISUALIZED UPPER ABDOMEN: Normal. OTHER FINDINGS: None. IMPRESSION: No active disease.
[2018-04-20] MEDS: Ciprofloxacin 400mg/200ml D5W 400 MG/200 ML BAG IVPB SCH (10:14)
[2018-04-20] MEDS: Saccharomyces Boulardi 250 mg Cap PO SCH ×2 (10:14→17:28)
--- NOTE | 2018-04-20 11:11 | CP.PCM.PN ---
Subjective - Date & Time of Evaluation Date of Evaluation: 04/20/18 Time of Evaluation: 10:00 - Subjective Subjective: Medical Attending Note: Patient seen and examined. Patient has dementia; patient was agitated this morning; ripped his IV line, had episode of rapid atrial fibrillation overnight. Patient is tachycardic this mo rning, No family present at bedside. ROS secondary to dementia. Objective - Vital Signs/Intake and Output Vital Signs (last 24 hours): Temp Pulse Resp BP Pulse Ox 97.8 F 118 H 28 H 133/94 H 96 04/20/18 08:00 04/20/18 08:54 04/20/18 08:54 04/20/18 08:55 04/20/18 08:54 Intake and Output: 04/20/18 04/20/18 06:59 18:59 Intake Total 558 18.2 Output Total 1250 Balance -692 18.2 - Medications Medications: Current Medications Acetaminophen (Tylenol 325mg Tab) 650 mg PO Q4 PRN PRN Reason: Fever >100.4 F Albuterol/Ipratropium (Duoneb 3 Mg/0.5 Mg (3 Ml) Ud) 3 ml INH RQ6 PRN PRN Reason: Shortness of Breath Amlodipine Besylate (Norvasc) 2.5 mg PO DAILY [facility]US Apixaban (Eliquis) 10 mg PO BID [facility] Clopidogrel Bisulfate (Plavix) 75 mg PO DAILY [facility] Last Admin: 04/20/18 10:14 Dose: 75 mg Fluticasone/Vilanterol (Breo Ellipta 100-25 Mcg Inh) 1 puff INH RQD [facility]US Last Admin: 04/19/18 11:54 Dose: Not Given Heparin Sodium/Sodium Chloride (Heparin 92541 Units/250ml 1/2 Normal Saline) 25,000 units in 250 mls @ 11.039 mls/hr IV .[id number] PRN; Protocol PRN Reason: PROTOCOL Last Admin: 04/20/18 03:00 Dose: 15 units/kg/hr, 9.199 mls/hr Ciprofloxacin (Cipro 400mg/200ml Dsw) 400 mg in 200 mls @ 133 mls/hr IVPB Q12H LINUS; Protocol Last Admin: 04/20/18 10:14 Dose: 133 mls/hr Rivastigmine (Exelon 9.5 Mg/24 Hr Patch) 1 patch TD DAILY [facility]US Last Admin: 04/20/18 10:14 Dose: 1 patch Saccharomyces Sarahdii (Florastor) 250 mg PO BID [facility]US Last Admin: 04/20/18 10:14 Dose: 250 mg - Labs Labs: 04/20/18 06:01 04/20/18 06:01 PT 13.1 SECONDS (9.7-12.2) H 04/17/18 16:39 INR 1.2 04/17/18 16:39 APTT 49 SECONDS (21-34) H D 04/20/18 06:01 - Constitutional Appears: Non-toxic, Unkempt, Confused, Chronically Ill - Head Exam Head Exam: NORMAL INSPECTION - Eye Exam Eye Exam: EOMI - ENT Exam ENT Exam: Mucous Membranes Dry - Respiratory Exam Respiratory Exam: Decreased Breath Sounds, Rales, Rhonchi, NORMAL BREATHING PATTERN Additional comments: + rhonchi +congestion - Cardiovascular Exam Cardiovascular Exam: Tachycardia, +S1, +S2 - GI/Abdominal Exam GI & Abdominal Exam: Soft, Normal Bowel Sounds. absent: Distended, Guarding, Rigid, Rebound - Extremities Exam Extremities Exam: Pedal Edema, Tenderness - Neurological Exam Neurological Exam: Awake - Psychiatric Exam Psychiatric exam: Normal Mood - Skin Skin Exam: Dry, Intact, Normal Color, Warm Assessment and Plan (1) Pulmonary embolism Status: Acute (2) NSTEMI (non-ST elevated myocardial infarction) Status: Acute (3) Dementia Status: Chronic (4) HLD (hyperlipidemia) Status: Chronic (5) HTN (hypertension) Status: Chronic (6) TIA (transient ischemic attack) Status: Chronic (7) Prophylactic measure Status: Acute Attending/Attestation - Attestation I have personally seen and examined this patient.: Yes I have fully participated in the care of the patient.: Yes I have reviewed all pertinent clinical information, including history, physical exam and plan: Yes Notes (Text): 04/20/18 10:29 1. Pulmonary Embolus Left Lower Extremity DVT+ Assessment/Plan * CT Chest (04/18/18): extensive bilateral upper and lower lobe pulmonary arteries right greater than left. Suspect right heart strain. Mild c ardiomegaly. Mild bibasilar atelectasis left greater than right. Small calcified granuloma right upper lobe. * Chest xray (04/17/18): questionable increased reticular markings may reflect atypical pneumonitis or bronchitis however no alveolitis bilaterally. No pulmonary congestion or cardiomegaly noted. * Chest xray (04/18/18): cardiomegaly. mild reticular nodular opacities. * Echocardiogram (04/18/18): normal LV systolic function, diastolic dysfunction, mild AR, trace to mild MR, mild to moderate TR * Awaiting official report of venous doppler--> DVT on LLE * Patient is on heparin drip * Awaiting cardio evaluation regarding heart strain; not noted in official report 2. NonStemi Assessment/Plan * Heparin Drip * Echocardiogram (04/18/18): normal LV systolic function, diastolic dysfunction, mild AR, trace to mild MR, mild to moderate TR * pending cardio eval 3. History of CVA Assessment/Plan * discussion with son, about 15 years ago * CT Head (04/18/18): no acute intracranial abnormality. Severe chronic microangiopathic changes and mild age-related global parenchymal volume loss. * Check lipid panel, a1c * Unclear why not on statin * Plavix 75mg PO daily 4. Lipid Disorder Assessment/Plan * check lipid panel * will start stain pending results 5. History of COPD Assessment/Plan * Duoneb INH Q6H PRN shortness of breathe * Start Breo Elliptia inhaled diskus * Chest xray (04/17/18): questionable increased reticular markings may reflect atypical pneumonitis or bronchitis however no alveolitis bilaterally. No pulmonary congestion or cardiomegaly noted. * Chest xray (04/18/18): cardiomegaly. mild reticular nodular opacities. * Order for chest xray today 6. History of Dementia Assessment/Plan * Rivastigime 1 patch TD daily 7. Hypertension Assessment/Plan * Norvasc 2.5mg PO daily 8. Possible DVT Assessment/Plan * Venous doppler: Acute DVT in the left lower extremiity (femoral, popliteral, and peroneal veins) * on heparin drip * SCDS contraindicated 9. leukocytosis Assessment/Plan * pending Urine culture and blood cultures * check Strep pneumoniae, legionella urine, mycoplasma IgM * likely reactive 10. Prophylactic measure * Heparin drip * SCDS contraindication for acute left Lower DVT+ * Florastor 250mg PO BID * Pallative care for creation of POLST Disposition: IR eval for possible TPA catheter thrombolysis? Add diuretic and steroids to relieve congestion
[2018-04-20] MEDS ORDERED: Heparin25000 units/250ml 1/2NS 25,000 UNITS/250 ML BAG IV PRN (11:23)
[2018-04-20] MEDS: MethylPREDNISolone 40 mg Vial IV SCH ×2 (14:19→22:17)
--- NOTE | 2018-04-20 16:19 | CP.CCUPN ---
<Doris Hdez - Last Filed: 04/20/18 16:15> CCU Subjective - Physician Review Events Since Last Encounter (Free Text): 04/20/18 16:16 No acute events overnight. Subjective (Free Text): 04/20/18 16:15 PGY1 Critical Care Progress Note for Dr. Clinton Patient was seen and evaluated at bedside this morning. Patient able to tolerate diet without issue. Of note, patient was agitated and confused and the patient subsequently removed patient's IV access, per Nurse. Patient denies chest pain, shortness of breath, abdominal pain, fever, chills, nausea, vomiting and/or headache. Critical Care Time Spent (in minutes): 35 CCU Objective - Vital Signs / Intake & Output Vital Signs (Last 4 hours): Vital Signs Pulse Resp BP Pulse Ox 04/20/18 13:55 115/90 04/20/18 13:00 128 H 25 H 97 04/20/18 12:55 107 H 20 122/66 96 Intake and Output (Last 8hrs): Intake & Output 04/20/18 04/20/18 04/20/18 06:59 14:59 22:59 Intake Total 322 188.2 Output Total 800 Balance -478 188.2 Weight 135 lb 3.2 oz Intake: IV 250 Intake, IV Amount 72 18.2 Right Antecubital 72 18.2 Oral 170 Output: Urine 800 Urine, Voided 800 Stool 0 - Physical Exam Head: Positive for: Atraumatic, Normocephalic Pupils: Positive for: PERRL Extroacular Muscles: Positive for: EOMI Conjunctiva: Positive for: Normal Mouth: Positive for: Moist Mucous Membranes Neck: Positive for: Normal Range of Motion. Negative for: JVD, Lymphadenopathy Respiratory/Chest: Positive for: Good Air Exchange. Negative for: Respiratory Distress, Accessory Muscle Use, Wheezes Cardiovascular: Positive for: Regular Rate and Rhythm, Normal S1, S2 Abdomen: Positive for: Normal Bowel Sounds. Negative for: Tenderness, Distention, Peritoneal Signs Back: Positive for: Normal Inspection Upper Extremity: Positive for: Normal Inspection. Negative for: Cyanosis, Edema Lower Extremity: Positive for: Edema (left lower extremity +1 edema ), Tenderness (left lower extremity ) Neurological: Positive for: GCS=15, CN II-XII Intact, Speech Normal Skin: Positive for: Warm, Dry, Normal Color Psychiatric: Positive for: Alert, Oriented x 3, Normal Insight, Normal Concentration - Medications Active Medications: Active Medications Generic Name Dose Route Start Last Admin Trade Name Freq PRN Reason Stop Dose Admin Acetaminophen 650 mg 04/17/18 20:35 Tylenol 325mg Tab PO Q4 PRN Fever >100.4 F Amlodipine Besylate 2.5 mg 04/18/18 10:00 Norvasc PO DAILY [facility] Apixaban 10 mg 04/20/18 12:00 04/20/18 11:30 Eliquis PO 10 mg BID LINUS Administration Clopidogrel Bisulfate 75 mg 04/18/18 10:00 04/20/18 10:14 Plavix PO 75 mg DAILY [facility] Administration Fluticasone/Vilanterol 1 puff 04/19/18 08:00 04/19/18 11:54 Breo Ellipta 100-25 Mcg Inh INH Not Given RQD [facility]US Ciprofloxacin 400 mg in 200 mls @ 133 mls/hr 04/19/18 10:00 04/20/18 10:14 Cipro 400mg/200ml Dsw IVPB 133 mls/hr Q12H LINUS Administration Protocol Ipratropium [place] 0.5 mg 04/20/18 14:30 Atrovent IH RQ6 LINUS Methylprednisolone 40 mg 04/20/18 14:00 04/20/18 14:19 Solu-Medrol IV 40 mg Q8 LINUS Administration Rivastigmine 1 patch 04/18/18 10:00 04/20/18 10:14 Exelon 9.5 Mg/24 Hr Patch TD 1 patch DAILY [facility] Administration Saccharomyces Boulardii 250 mg 04/19/18 10:00 04/20/18 10:14 Florastor PO 250 mg BID LINUS Administration - Patient Studies Lab Studies: Microbiology Studies 04/18/18 06:35 MRSA Culture (Admit) - Final Nose MRSA NOT DETECTED Lab Studies 04/20/18 04/20/18 04/20/18 Range/Units 06:01 06:01 06:01 WBC 16.0 H (4.8-10.8) K/uL RBC 4.11 (3.80-5.20) Mil/uL Hgb 11.2 (11.0-16.0) g/dL Hct 34.0 (34.0-47.0) % MCV 82.7 D (81.0-99.0) fL MCH 27.3 (27.0-31.0) pg MCHC 33.0 (33.0-37.0) g/dL RDW 15.7 H (11.5-14.5) % Plt Count 266 (130-400) K/uL MPV 9.0 (7.2-11.7) fL Neut % (Auto) 68.7 (50.0-75.0) % Lymph % (Auto) 16.5 L (20.0-40.0) % Scott % (Auto) 12.5 H (0.0-10.0) % Eos % (Auto) 1.6 (0.0-4.0) % Baso % (Auto) 0.7 (0.0-2.0) % Neut # (Auto) 11.0 H (1.8-7.0) K/uL Lymph # (Auto) 2.6 (1.0-4.3) K/uL Scott # (Auto) 2.0 H (0.0-0.8) K/uL Eos # (Auto) 0.3 (0.0-0.7) K/uL Baso # (Auto) 0.1 (0.0-0.2) K/uL APTT 49 H D (21-34) SECONDS Sodium 136 (132-148) mmol/L Potassium 4.2 (3.6-5.2) mmol/L Chloride 101 (98-107) mmol/L Carbon Dioxide 24 (22-30) mmol/L Anion Gap 15 (10-20) BUN 13 (7-17) mg/dL Creatinine 0.6 L (0.7-1.2) mg/dL Est GFR ( Amer) > 60 Est GFR (Non-Af Amer) > 60 Random Glucose 153 H (65-105) mg/dL Calcium 8.6 (8.6-10.4) mg/dl Phosphorus 3.0 (2.5-4.5) mg/dL Magnesium 2.0 (1.6-2.3) mg/dL Total Bilirubin 1.0 (0.2-1.3) mg/dL AST 34 (14-36) U/L ALT 23 (9-52) U/L Alkaline Phosphatase 74 (38-126) U/L Total Protein 7.6 (6.3-8.3) g/dL Albumin 3.9 (3.5-5.0) g/dL Globulin 3.7 (2.2-3.9) gm/dL Albumin/Globulin Ratio 1.1 (1.0-2.1) H.influenzae Type B Ag Ur L.pneumophila Ag (NEGATIVE) Mycoplasma pneumon IgM (NEGATIVE) N.meningitidis ACY/W135 N.meningi B/E.coli K1 Ag Group B Strep Antigen S. pneumoniae Antigen (NEGATIVE) 04/19/18 04/19/18 Range/Units 13:59 13:59 WBC (4.8-10.8) K/uL RBC (3.80-5.20) Mil/uL Hgb (11.0-16.0) g/dL Hct (34.0-47.0) % MCV (81.0-99.0) fL MCH (27.0-31.0) pg MCHC (33.0-37.0) g/dL RDW (11.5-14.5) % Plt Count (130-400) K/uL MPV (7.2-11.7) fL Neut % (Auto) (50.0-75.0) % Lymph % (Auto) (20.0-40.0) % Scott % (Auto) (0.0-10.0) % Eos % (Auto) (0.0-4.0) % Baso % (Auto) (0.0-2.0) % Neut # (Auto) (1.8-7.0) K/uL Lymph # (Auto) (1.0-4.3) K/uL Scott # (Auto) (0.0-0.8) K/uL Eos # (Auto) (0.0-0.7) K/uL Baso # (Auto) (0.0-0.2) K/uL APTT (21-34) SECONDS Sodium (132-148) mmol/L Potassium (3.6-5.2) mmol/L Chloride (98-107) mmol/L Carbon Dioxide (22-30) mmol/L Anion Gap (10-20) BUN (7-17) mg/dL Creatinine (0.7-1.2) mg/dL Est GFR ( Amer) Est GFR (Non-Af Amer) Random Glucose (65-105) mg/dL Calcium (8.6-10.4) mg/dl Phosphorus (2.5-4.5) mg/dL Magnesium (1.6-2.3) mg/dL Total Bilirubin (0.2-1.3) mg/dL AST (14-36) U/L ALT (9-52) U/L Alkaline Phosphatase (38-126) U/L Total Protein (6.3-8.3) g/dL Albumin (3.5-5.0) g/dL Globulin (2.2-3.9) gm/dL Albumin/Globulin Ratio (1.0-2.1) H.influenzae Type B Ag [employer] Ur L.pneumophila Ag Negative (NEGATIVE) Mycoplasma pneumon IgM Negative (NEGATIVE) N.meningitidis ACY/W135 [employer] N.meningi B/E.coli K1 Ag [employer] Group B Strep Antigen [employer] S. pneumoniae Antigen Negative (NEGATIVE) Laboratory Results - last 24 hr 04/19/18 04/19/18 04/20/18 13:59 13:59 06:01 WBC 16.0 H RBC 4.11 Hgb 11.2 Hct 34.0 MCV 82.7 D MCH 27.3 MCHC 33.0 RDW 15.7 H Plt Count 266 MPV 9.0 Neut % (Auto) 68.7 Lymph % (Auto) 16.5 L Scott % (Auto) 12.5 H Eos % (Auto) 1.6 Baso % (Auto) 0.7 Neut # (Auto) 11.0 H Lymph # (Auto) 2.6 Scott # (Auto) 2.0 H Eos # (Auto) 0.3 Baso # (Auto) 0.1 APTT Sodium Potassium Chloride Carbon Dioxide Anion Gap BUN Creatinine Est GFR ( Amer) Est GFR (Non-Af Amer) Random Glucose Calcium Phosphorus Magnesium Total Bilirubin AST ALT Alkaline Phosphatase Total Protein Albumin Globulin Albumin/Globulin Ratio H.influenzae Type B Ag [employer] In[employer] Ur L.pneumophila Ag Negative Mycoplasma pneumon IgM Negative N.meningitidis ACY/W135 [employer] N.meningi B/E.coli K1 Ag [employer] Group B Strep Antigen [employer] In[employer] S. pneumoniae Antigen Negative 04/20/18 04/20/18 06:01 06:01 WBC RBC Hgb Hct MCV MCH MCHC RDW Plt Count MPV Neut % (Auto) Lymph % (Auto) Scott % (Auto) Eos % (Auto) Baso % (Auto) Neut # (Auto) Lymph # (Auto) Scott # (Auto) Eos # (Auto) Baso # (Auto) APTT 49 H D Sodium 136 Potassium 4.2 Chloride 101 Carbon Dioxide 24 Anion Gap 15 BUN 13 Creatinine 0.6 L Est GFR ( Amer) > 60 Est GFR (Non-Af Amer) > 60 Random Glucose 153 H Calcium 8.6 Phosphorus 3.0 Magnesium 2.0 Total Bilirubin 1.0 AST 34 ALT 23 Alkaline Phosphatase 74 Total Protein 7.6 Albumin 3.9 Globulin 3.7 Albumin/Globulin Ratio 1.1 H.influenzae Type B Ag Ur L.pneumophila Ag Mycoplasma pneumon IgM N.meningitidis ACY/W135 N.meningi B/E.coli K1 Ag Group B Strep Antigen S. pneumoniae Antigen EKG/Cardiology Studies: Cardiology / EKG Studies 04/19/18 20:45 ELECTROCARDIOGRAM DAILY Comment: Mode Of Transportation: PORTABLE Reason For Exam: f/u arrythmia/ nstemi 04/20/18 20:45 ELECTROCARDIOGRAM DAILY Comment: Mode Of Transportation: PORTABLE Reason For Exam: f/u arrythmia/ nstemi Review of Systems - Review of Systems All systems: reviewed and no additional remarkable complaints except Critical Care Progress Note - Nutrition Nutrition: Nutrition Category Date Time Status Heart Healthy Diet [DIET] Diets 04/18/18 Breakfast Active Assessment/Plan - Assessment and Plan (Free Text) Assessment: This is an 88 year old female with PMHx of COPD, HTN, HLD, dementia and previous CVA with L sided weakness presents to ED with complaint of shortness of breath worsening for the last 2 days. While on the way to the ED, patient was noted to be in rapid atrial fibrillation and ventricular tachycardia, and upon arrival the patient was hypotensive. IVF (2L) was administered, and hypotension improved. CT angiogram was obtained and revealed PE. Patient was started on therapeutic heparin and was transferred to ICU for close monitoring. Neuro: - No acute issues - A&O x3 - Residual left lower extremity weakness - Patient walks with assistance of walker CV: - Elevated troponins possibly secondary to right-sided heart strain - Cardiology consulted (Dr. Chino) to evaluate: * Patient hemodynamically stable * Patient is saturating well * Due to the above and due to patient's advanced age, catheter directed throm bolysis would be high risk procedure for this patient - ECHO completed; see report for details - Patient has HTN; however is normotensive - Hold: amlodipine (home med) - Monitor rhythm Pulm: - CT angiograph: revealed PE; see full report for details - Venous doppler: revealed DVT in left lower extremity; see full report for details - Therapeutic heparin started - Discontinue: Montelukast (home med) - Elevated troponin; Cardiology consulted for possible right heart strain (Dr. Chino) recommendations appreciated. - Monitor Coag, CBC, CMP, Trops - History of COPD; continue duoneb BID GI: - No acute issues - Tolerating diet - HHD Renal: - No acute issues - Monitor CMP Heme: - No acute issues - Monitor H/H ID: - No acute issues - Monitor CBC Endo: - No acute issues PPx: GI - Protonix (40mg PO daily) DVT - Therapeutic heparin; SCD CONTRAINDICATED Patient seen and case discussed in detail with Dr. Oz Hdez PGY1 <Elias Clinton S - Last Filed: 04/20/18 17:24> CCU Objective - Vital Signs / Intake & Output Vital Signs (Last 4 hours): Vital Signs Temp Pulse Resp BP Pulse Ox 04/20/18 16:00 100.3 F H 110 H 26 H 94 L 04/20/18 15:55 114 H 30 H 118/81 93 L 04/20/18 15:00 113 H 28 H 97 04/20/18 14:56 106 H 28 H 129/62 99 04/20/18 14:00 105 H 20 97 04/20/18 13:55 104 H 20 115/90 95 Intake and Output (Last 8hrs): Intake & Output 04/20/18 04/20/18 04/20/18 06:59 14:59 22:59 Intake Total 322 188.2 Output Total 800 Balance -478 188.2 Weight 135 lb 3.2 oz Intake: IV 250 Intake, IV Amount 72 18.2 Right Antecubital 72 18.2 Oral 170 Output: Urine 800 Urine, Voided 800 Stool 0 - Medications Active Medications: Active Medications Generic Name Dose Route Start Last Admin Trade Name Freq PRN Reason Stop Dose Admin Acetaminophen 650 mg 04/17/18 20:35 Tylenol 325mg Tab PO Q4 PRN Fever >100.4 F Amlodipine Besylate 2.5 mg 04/18/18 10:00 Norvasc PO DAILY [facility] Apixaban 10 mg 04/20/18 12:00 04/20/18 11:30 Eliquis PO 10 mg BID LINUS Administration Clopidogrel Bisulfate 75 mg 04/18/18 10:00 04/20/18 10:14 Plavix PO 75 mg DAILY [facility] Administration Fluticasone/Vilanterol 1 puff 04/19/18 08:00 04/19/18 11:54 Breo Ellipta 100-25 Mcg Inh INH Not Given RQD [facility] Ciprofloxacin 400 mg in 200 mls @ 133 mls/hr 04/19/18 10:00 04/20/18 10:14 Cipro 400mg/200ml Dsw IVPB 133 mls/hr Q12H [facility] Administration Protocol Vancomycin HCl 1 gm/ Sodium 250 mls @ 166.7 mls/hr 04/20/18 16:23 04/20/18 16:50 Chloride IVPB 04/20/18 17:52 166.7 mls/hr STAT STA Administration Protocol Diltiazem HCl 125 mg/ Dextrose 125 mls @ 10 mls/hr 04/20/18 16:45 IV .[id number] LINUS Protocol 10 MG/HR Ipratropium [place] 0.5 mg 04/20/18 14:30 Atrovent IH RQ6 LINUS Methylprednisolone 40 mg 04/20/18 14:00 04/20/18 14:19 Solu-Medrol IV 40 mg Q8 LINUS Administration Pantoprazole Sodium 40 mg 04/20/18 16:45 04/20/18 16:50 Protonix Inj IVP 40 mg DAILY [facility]US Administration Rivastigmine 1 patch 04/18/18 10:00 04/20/18 10:14 Exelon 9.5 Mg/24 Hr Patch TD 1 patch DAILY [facility] Administration Saccharomyces Boulardii 250 mg 04/19/18 10:00 04/20/18 10:14 Florastor PO 250 mg BID LINUS Administration - Patient Studies Lab Studies: Microbiology Studies 04/18/18 06:35 MRSA Culture (Admit) - Final Nose MRSA NOT DETECTED Lab Studies 04/20/18 04/20/18 04/20/18 Range/Units 06:01 06:01 06:01 WBC 16.0 H (4.8-10.8) K/uL RBC 4.11 (3.80-5.20) Mil/uL Hgb 11.2 (11.0-16.0) g/dL Hct 34.0 (34.0-47.0) % MCV 82.7 D (81.0-99.0) fL MCH 27.3 (27.0-31.0) pg MCHC 33.0 (33.0-37.0) g/dL RDW 15.7 H (11.5-14.5) % Plt Count 266 (130-400) K/uL MPV 9.0 (7.2-11.7) fL Neut % (Auto) 68.7 (50.0-75.0) % Lymph % (Auto) 16.5 L (20.0-40.0) % Scott % (Auto) 12.5 H (0.0-10.0) % Eos % (Auto) 1.6 (0.0-4.0) % Baso % (Auto) 0.7 (0.0-2.0) % Neut # (Auto) 11.0 H (1.8-7.0) K/uL Lymph # (Auto) 2.6 (1.0-4.3) K/uL Scott # (Auto) 2.0 H (0.0-0.8) K/uL Eos # (Auto) 0.3 (0.0-0.7) K/uL Baso # (Auto) 0.1 (0.0-0.2) K/uL APTT 49 H D (21-34) SECONDS Sodium 136 (132-148) mmol/L Potassium 4.2 (3.6-5.2) mmol/L Chloride 101 (98-107) mmol/L Carbon Dioxide 24 (22-30) mmol/L Anion Gap 15 (10-20) BUN 13 (7-17) mg/dL Creatinine 0.6 L (0.7-1.2) mg/dL Est GFR ( Amer) > 60 Est GFR (Non-Af Amer) > 60 Random Glucose 153 H (65-105) mg/dL Calcium 8.6 (8.6-10.4) mg/dl Phosphorus 3.0 (2.5-4.5) mg/dL Magnesium 2.0 (1.6-2.3) mg/dL Total Bilirubin 1.0 (0.2-1.3) mg/dL AST 34 (14-36) U/L ALT 23 (9-52) U/L Alkaline Phosphatase 74 (38-126) U/L Total Protein 7.6 (6.3-8.3) g/dL Albumin 3.9 (3.5-5.0) g/dL Globulin 3.7 (2.2-3.9) gm/dL Albumin/Globulin Ratio 1.1 (1.0-2.1) H.influenzae Type B Ag Ur L.pneumophila Ag (NEGATIVE) Mycoplasma pneumon IgM (NEGATIVE) N.meningitidis ACY/W135 N.meningi B/E.coli K1 Ag Group B Strep Antigen S. pneumoniae Antigen (NEGATIVE) 04/19/18 04/19/18 Range/Units 13:59 13:59 WBC (4.8-10.8) K/uL RBC (3.80-5.20) Mil/uL Hgb (11.0-16.0) g/dL Hct (34.0-47.0) % MCV (81.0-99.0) fL MCH (27.0-31.0) pg MCHC (33.0-37.0) g/dL RDW (11.5-14.5) % Plt Count (130-400) K/uL MPV (7.2-11.7) fL Neut % (Auto) (50.0-75.0) % Lymph % (Auto) (20.0-40.0) % Scott % (Auto) (0.0-10.0) % Eos % (Auto) (0.0-4.0) % Baso % (Auto) (0.0-2.0) % Neut # (Auto) (1.8-7.0) K/uL Lymph # (Auto) (1.0-4.3) K/uL Scott # (Auto) (0.0-0.8) K/uL Eos # (Auto) (0.0-0.7) K/uL Baso # (Auto) (0.0-0.2) K/uL APTT (21-34) SECONDS Sodium (132-148) mmol/L Potassium (3.6-5.2) mmol/L Chloride (98-107) mmol/L Carbon Dioxide (22-30) mmol/L Anion Gap (10-20) BUN (7-17) mg/dL Creatinine (0.7-1.2) mg/dL Est GFR ( Amer) Est GFR (Non-Af Amer) Random Glucose (65-105) mg/dL Calcium (8.6-10.4) mg/dl Phosphorus (2.5-4.5) mg/dL Magnesium (1.6-2.3) mg/dL Total Bilirubin (0.2-1.3) mg/dL AST (14-36) U/L ALT (9-52) U/L Alkaline Phosphatase (38-126) U/L Total Protein (6.3-8.3) g/dL Albumin (3.5-5.0) g/dL Globulin (2.2-3.9) gm/dL Albumin/Globulin Ratio (1.0-2.1) H.influenzae Type B Ag [employer] Ur L.pneumophila Ag Negative (NEGATIVE) Mycoplasma pneumon IgM Negative (NEGATIVE) N.meningitidis ACY/W135 [employer] In[employer] N.meningi B/E.coli K1 Ag [employer] Instructor Group B Strep Antigen [employer] Instructor S. pneumoniae Antigen Negative (NEGATIVE) Laboratory Results - last 24 hr 04/19/18 04/19/18 04/20/18 13:59 13:59 06:01 WBC 16.0 H RBC 4.11 Hgb 11.2 Hct 34.0 MCV 82.7 D MCH 27.3 MCHC 33.0 RDW 15.7 H Plt Count 266 MPV 9.0 Neut % (Auto) 68.7 Lymph % (Auto) 16.5 L Scott % (Auto) 12.5 H Eos % (Auto) 1.6 Baso % (Auto) 0.7 Neut # (Auto) 11.0 H Lymph # (Auto) 2.6 Scott # (Auto) 2.0 H Eos # (Auto) 0.3 Baso # (Auto) 0.1 APTT Sodium Potassium Chloride Carbon Dioxide Anion Gap BUN Creatinine Est GFR ( Amer) Est GFR (Non-Af Amer) Random Glucose Calcium Phosphorus Magnesium Total Bilirubin AST ALT Alkaline Phosphatase Total Protein Albumin Globulin Albumin/Globulin Ratio H.influenzae Type B Ag [employer] Instructor Ur L.pneumophila Ag Negative Mycoplasma pneumon IgM Negative N.meningitidis ACY/W135 [employer] Instructor N.meningi B/E.coli K1 Ag [employer] Instructor Group B Strep Antigen [employer] Instructor S. pneumoniae Antigen Negative 04/20/18 04/20/18 06:01 06:01 WBC RBC Hgb Hct MCV MCH MCHC RDW Plt Count MPV Neut % (Auto) Lymph % (Auto) Scott % (Auto) Eos % (Auto) Baso % (Auto) Neut # (Auto) Lymph # (Auto) Scott # (Auto) Eos # (Auto) Baso # (Auto) APTT 49 H D Sodium 136 Potassium 4.2 Chloride 101 Carbon Dioxide 24 Anion Gap 15 BUN 13 Creatinine 0.6 L Est GFR ( Amer) > 60 Est GFR (Non-Af Amer) > 60 Random Glucose 153 H Calcium 8.6 Phosphorus 3.0 Magnesium 2.0 Total Bilirubin 1.0 AST 34 ALT 23 Alkaline Phosphatase 74 Total Protein 7.6 Albumin 3.9 Globulin 3.7 Albumin/Globulin Ratio 1.1 H.influenzae Type B Ag Ur L.pneumophila Ag Mycoplasma pneumon IgM N.meningitidis ACY/W135 N.meningi B/E.coli K1 Ag Group B Strep Antigen S. pneumoniae Antigen EKG/Cardiology Studies: Cardiology / EKG Studies 04/19/18 20:45 ELECTROCARDIOGRAM DAILY Comment: Mode Of Transportation: PORTABLE Reason For Exam: f/u arrythmia/ nstemi 04/20/18 20:45 ELECTROCARDIOGRAM DAILY Comment: Mode Of Transportation: PORTABLE Reason For Exam: f/u arrythmia/ nstemi Critical Care Progress Note - Nutrition Nutrition: Nutrition Category Date Time Status Heart Healthy Diet [DIET] Diets 04/18/18 Breakfast Active Attending/Attestation - Attestation I have personally seen and examined this patient.: Yes I have fully participated in the care of the patient.: Yes I have reviewed all pertinent clinical information: Yes Notes (Text): 04/20/18 17:23 patient seen and examined in the intensive care unit. Continue IV heparin Started on Cardizem drip for A. fib with rapid rate Case discussed with cardiology and IR for catheter directed thrombolysis Continue present treatment for now continue ICU observation
[2018-04-20] MEDS ORDERED: Aztreonam 2 GM in Sodium Chloride 0.9% 100 ML IVPB SCH ×2 (16:30→18:00)
--- NOTE | 2018-04-20 19:42 | CARD ---
APPROVED REPORT Date of service: 04/19/2018 EKG Measurement Heart [id number] <Conclusion> Sinus rhythm with 1st degree AV block Left bundle branch block Abnormal ECG
[2018-04-20] MEDS: Ipratropium 0.02% Inhal Soln (0.5 mg/2.5 ml) UD IH SCH (20:06)
--- NOTE | 2018-04-20 20:10 | CP.PCM.CON ---
History of Present Illness - History of Present Illness History of Present Illness: admitted with DVT and PE rising WBC and fever cultures sent allergy to PCN noted given stat Vanco and started Cipro switched to avelox will follow cultures Review of Systems - Review of Systems All systems: reviewed and no additional remarkable complaints except Past Patient History - Past Medical History & Family History Past Medical History?: Yes - Past Social History Smoking Status: Never Smoked - CARDIAC Hx Hypertension: Yes - PULMONARY Hx Chronic Obstructive Pulmonary Disease (COPD): Yes - NEUROLOGICAL Hx Dementia: Yes - HEENT Hx HEENT Problems: Yes Other/Comment: FOR READING - RENAL Hx Chronic Kidney Disease: No - ENDOCRINE/METABOLIC Hx Endocrine Disorders: No - HEMATOLOGICAL/ONCOLOGICAL Hx Blood Disorders: No - INTEGUMENTARY Hx Dermatological Problems: No - MUSCULOSKELETAL/RHEUMATOLOGICAL Hx Musculoskeletal Disorders: Yes Hx Falls: Yes - GASTROINTESTINAL Hx Gastrointestinal Disorders: No - GENITOURINARY/GYNECOLOGICAL Hx Genitourinary Disorders: No - PSYCHIATRIC Hx Substance Use: No - SURGICAL HISTORY Hx Surgeries: No - ANESTHESIA Hx Anesthesia: No Meds Allergies/Adverse Reactions: Allergies Allergy/AdvReac Type Severity Reaction Status Date / Time Penicillins Allergy Verified 04/17/18 15:59 - Medications Medications: Current Medications Acetaminophen (Tylenol 325mg Tab) 650 mg PO Q4 PRN PRN Reason: Fever >100.4 F Amlodipine Besylate (Norvasc) 2.5 mg PO DAILY [facility] Apixaban (Eliquis) 10 mg PO BID [facility] Last Admin: 04/20/18 17:28 Dose: 10 mg Clopidogrel Bisulfate (Plavix) 75 mg PO DAILY [facility] Last Admin: 04/20/18 10:14 Dose: 75 mg Fluticasone/Vilanterol (Breo Ellipta 100-25 Mcg Inh) 1 puff INH RQD [facility] Last Admin: 04/19/18 11:54 Dose: Not Given Diltiazem HCl 125 mg/ Dextrose 125 mls @ 10 mls/hr IV .[id number] [facility]; Protocol Last Admin: 04/20/18 17:28 Dose: 10 mg/hr, 10 mls/hr Moxifloxacin HCl (Avelox Iv 400mg/250ml Ns) 400 mg in 250 mls @ 167 mls/hr IVPB Q24H [facility]; Protocol Ipratropium [place] (Atrovent) 0.5 mg IH RQ6 [facility] Last Admin: 04/20/18 20:06 Dose: 0.5 mg Methylprednisolone (Solu-Medrol) 40 mg IV Q8 [facility] Last Admin: 04/20/18 14:19 Dose: 40 mg Pantoprazole Sodium (Protonix Inj) 40 mg IVP DAILY [facility] Last Admin: 04/20/18 16:50 Dose: 40 mg Rivastigmine (Exelon 9.5 Mg/24 Hr Patch) 1 patch TD DAILY [facility] Last Admin: 04/20/18 10:14 Dose: 1 patch Saccharomyces Boulardii (Florastor) 250 mg PO BID [facility] Last Admin: 04/20/18 17:28 Dose: 250 mg Physical Exam - Constitutional Appears: Cachectic, Chronically Ill - Head Exam Head Exam: ATRAUMATIC - Eye Exam Eye Exam: absent: Scleral icterus - ENT Exam ENT Exam: Mucous Membranes Dry - Neck Exam Neck exam: Negative for: Thyromegaly - Respiratory Exam Respiratory Exam: Decreased Breath Sounds - Cardiovascular Exam Cardiovascular Exam: REGULAR RHYTHM - GI/Abdominal Exam GI & Abdominal Exam: Diminished Bowel Sounds, Soft. absent: Tenderness - Rectal Exam Rectal Exam: Deferred - Exam Exam: NORMAL INSPECTION - Extremities Exam Extremities exam: Positive for: pedal edema - Back Exam Back exam: absent: CVA tenderness (L), CVA tenderness (R) - Neurological Exam Neurological exam: Alert, CN II-XII Intact, Oriented x3, Reflexes Normal - Psychiatric Exam Psychiatric exam: Depressed - Skin Skin Exam: Dry Results - Vital Signs Recent Vital Signs: Last Vital Signs Temp 100.3 F H 04/20/18 16:00 Pulse 99 H 04/20/18 19:00 Resp 25 H 04/20/18 19:00 BP 110/74 04/20/18 18:54 Pulse Ox 96 04/20/18 19:00 - Labs Result Diagrams: 04/22/18 06:09 04/22/18 06:09 Labs: Laboratory Results - last 24 hr 04/19/18 04/20/18 04/20/18 13:59 06:01 06:01 WBC 16.0 H RBC 4.11 Hgb 11.2 Hct 34.0 MCV 82.7 D MCH 27.3 MCHC 33.0 RDW 15.7 H Plt Count 266 MPV 9.0 Neut % (Auto) 68.7 Lymph % (Auto) 16.5 L [place] % (Auto) 12.5 H Eos % (Auto) 1.6 Baso % (Auto) 0.7 Neut # (Auto) 11.0 H Lymph # (Auto) 2.6 [place] # (Auto) 2.0 H Eos # (Auto) 0.3 Baso # (Auto) 0.1 APTT Sodium 136 Potassium 4.2 Chloride 101 Carbon Dioxide 24 Anion Gap 15 BUN 13 Creatinine 0.6 L Est GFR ( Amer) > 60 Est GFR (Non-Af Amer) > 60 Random Glucose 153 H Calcium 8.6 Phosphorus 3.0 Magnesium 2.0 Total Bilirubin 1.0 AST 34 ALT 23 Alkaline Phosphatase 74 Total Protein 7.6 Albumin 3.9 Globulin 3.7 Albumin/Globulin Ratio 1.1 Procalcitonin H.influenzae Type B Ag Retention Manager N.meningitidis ACY/[id number] Retention Manager N.meningi B/E.coli K1 Ag Retention Manager Group B Strep Antigen Retention Manager S. pneumoniae Antigen Negative 04/20/18 04/20/18 06:01 17:23 WBC RBC Hgb Hct MCV MCH MCHC RDW Plt Count MPV Neut % (Auto) Lymph % (Auto) [place] % (Auto) Eos % (Auto) Baso % (Auto) Neut # (Auto) Lymph # (Auto) [place] # (Auto) Eos # (Auto) Baso # (Auto) APTT 49 H D Sodium Potassium Chloride Carbon Dioxide Anion Gap BUN Creatinine Est GFR ( Amer) Est GFR (Non-Af Amer) Random Glucose Calcium Phosphorus Magnesium Total Bilirubin AST ALT Alkaline Phosphatase Total Protein Albumin Globulin Albumin/Globulin Ratio Procalcitonin 0.09 L H.influenzae Type B Ag N.meningitidis ACY/W135 N.meningi B/E.coli K1 Ag Group B Strep Antigen S. pneumoniae Antigen Assessment & Plan (1) NSTEMI (non-ST elevated myocardial infarction) Status: Acute (2) Pulmonary embolism Status: Acute (3) COPD (chronic obstructive pulmonary disease) Status: Chronic (4) Dementia Status: Chronic - Assessment and Plan (Free Text) Assessment: cultures sent IV rx started will review films and discuss
[2018-04-20] MEDS: Moxifloxacin IV 400mg/250ml NS 400 MG/250 ML BAG IVPB SCH (21:07)
--- NOTE | 2018-04-20 23:33 | CP.PCM.PN ---
Subjective - Date & Time of Evaluation Date of Evaluation: 04/20/18 Time of Evaluation: 15:05 - Subjective Subjective: Patient was seen and evaluated at bedside Denies chest pain and dyspnea Physical Examination - Physical Exam Head: Positive for: Atraumatic, Normocephalic Pupils: Positive for: PERRL Extroacular Muscles: Positive for: EOMI Conjunctiva: Positive for: Normal Mouth: Positive for: Moist Mucous Membranes Neck: Positive for: Normal Range of Motion. Negative for: JVD, Lymphadenopathy Respiratory/Chest: Positive for: Good Air Exchange. Negative for: Respiratory Distress, Accessory Muscle Use, Wheezes Cardiovascular: Positive for: Regular Rate and Rhythm, Normal S1, S2 Abdomen: Positive for: Normal Bowel Sounds. Negative for: Tenderness, Distention, Peritoneal Signs Back: Positive for: Normal Inspection Upper Extremity: Positive for: Normal Inspection. Negative for: Cyanosis, Edema Lower Extremity: Positive for: Edema (left lower extremity +1 edema ), Tenderness (left lower extremity ) Neurological: Positive for: GCS=15, CN II-XII Intact, Speech Normal Skin: Positive for: Warm, Dry, Normal Color Psychiatric: Positive for: Alert, Oriented x 3, Normal Insight, Normal Concentration Assessment/Plan - Assessment and Plan (Free Text) Assessment: This is an 88 year old female with PMHx of COPD, HTN, HLD, dementia and previous CVA with L sided weakness presents to ED with complaint of shortness of breath worsening for the last 2 days. While on the way to the ED, patient was noted to be in rapid atrial fibrillation and ventricular tachycardia, and upon arrival the patient was hypotensive. IVF (2L) was administered, and hypotension improve d. CT angiogram was obtained and revealed PE. Patient was started on therapeutic heparin and was transferred to ICU for close monitoring. Neuro: - No acute issues - A&O x3 - Residual left lower extremity weakness - Patient walks with assistance of walker CV: - Elevated troponins possibly secondary to right-sided heart strain - Cardiology consulted (Dr. Chino) to evaluate: * Patient hemodynamically stable * Patient is saturating well * Due to the above and due to patient's advanced age, catheter directed thrombolysis would be high risk procedure for this patient - ECHO completed; see report for details - Patient has HTN; however is normotensive - Hold: amlodipine (home med) - Monitor rhythm Pulm: - CT angiograph: revealed PE; see full report for details - Venous doppler: revealed DVT in left lower extremity; see full report for details - Therapeutic heparin started - Discontinue: Montelukast (home med) - Elevated troponin; Cardiology consulted for possible right heart strain (Dr. Chino) recommendations appreciated. - Monitor Coag, CBC, CMP, Trops - History of COPD; continue duoneb BID GI: - No acute issues - Tolerating diet - HHD Renal: - No acute issues - Monitor CMP Heme: - No acute issues - Monitor H/H ID: - No acute issues - Monitor CBC Endo: - No acute issues PPx: GI - Protonix (40mg PO daily) DVT - Therapeutic heparin; SCD CONTRAINDICATED Objective - Vital Signs/Intake and Output Vital Signs (last 24 hours): Temp Pulse Resp BP Pulse Ox 97.8 F 66 17 91/54 L 97 04/20/18 20:00 04/20/18 23:00 04/20/18 23:00 04/20/18 22:54 04/20/18 23:00 Intake and Output: 04/20/18 04/21/18 18:59 06:59 Intake Total 1178 345 Output Total 750 Balance 428 345 - Medications Medications: Current Medications Acetaminophen (Tylenol 325mg Tab) 650 mg PO Q4 PRN PRN Reason: Fever >100.4 F Amlodipine Besylate (Norvasc) 2.5 mg PO DAILY [facility] Apixaban (Eliquis) 10 mg PO BID [facility] Last Admin: 04/20/18 17:28 Dose: 10 mg Clopidogrel Bisulfate (Plavix) 75 mg PO DAILY [facility] Last Admin: 04/20/18 10:14 Dose: 75 mg Fluticasone/Vilanterol (Breo Ellipta 100-25 Mcg Inh) 1 puff INH RQD [facility] Last Admin: 04/19/18 11:54 Dose: Not Given Diltiazem HCl 125 mg/ Dextrose 125 mls @ 10 mls/hr IV .[id number] [facility]; Protocol Last Titration: 04/20/18 22:00 Dose: 0 mg/hr, 0 mls/hr Moxifloxacin HCl (Avelox Iv 400mg/250ml Ns) 400 mg in 250 mls @ 167 mls/hr IVPB Q24H [facility]; Protocol Last Admin: 04/20/18 21:07 Dose: 167 mls/hr Ipratropium Busy (Atrovent) 0.5 mg IH RQ6 [facility] Last Admin: 04/20/18 20:06 Dose: 0.5 mg Methylprednisolone (Solu-Medrol) 40 mg IV Q8 [facility] Last Admin: 04/20/18 22:17 Dose: 40 mg Pantoprazole Sodium (Protonix Inj) 40 mg IVP DAILY [facility] Last Admin: 04/20/18 16:50 Dose: 40 mg Rivastigmine (Exelon 9.5 Mg/24 Hr Patch) 1 patch TD DAILY [facility] Last Admin: 04/20/18 10:14 Dose: 1 patch Saccharomyces Boulardii (Florastor) 250 mg PO BID [facility] Last Admin: 04/20/18 17:28 Dose: 250 mg - Labs Labs: 04/20/18 06:01 04/20/18 06:01 PT 13.1 SECONDS (9.7-12.2) H 04/17/18 16:39 INR 1.2 04/17/18 16:39 APTT 49 SECONDS (21-34) H D 04/20/18 06:01
[2018-04-21] MEDS: Ipratropium 0.02% Inhal Soln (0.5 mg/2.5 ml) UD IH SCH ×4 (01:07→19:34)
[2018-04-21 06:04] LABS: BASO % 0.2 % (0.0-2.0); HEMOGLOBIN 11.4 g/dL (11.0-16.0); LYMPH # 0.8 K/uL (1.0-4.3); LYMPH % 4.7 % (20.0-40.0); MEAN CELL VOLUME 84.3 fL (81.0-99.0); MEAN CORPUSCULAR HEMOGLOBIN 28.5 pg (27.0-31.0); MEAN CORPUSCULAR HGB CONC 33.7 g/dL (33.0-37.0); MEAN PLATELET VOLUME 8.5 fL (7.2-11.7); MONO # 0.9 K/uL (0.0-0.8); NEUT # 15.9 K/uL (1.8-7.0); NEUT % 90.1 % (50.0-75.0); PLATELET COUNT 277 K/uL (130-400); RBC 4.02 Mil/uL (3.80-5.20); RED CELL DISTRIBUTION WIDTH 15.6 % (11.5-14.5); WHITE BLOOD COUNT 17.6 K/uL (4.8-10.8)
[2018-04-21] MEDS: MethylPREDNISolone 40 mg Vial IV SCH ×3 (06:14→21:48)
[2018-04-21 06:34] LABS: ALB/GLOB RATIO 1.1 (1.0-2.1); ALBUMIN 3.8 g/dL (3.5-5.0); ALT/SGPT 15 U/L (9-52); AST/SGOT 32 U/L (14-36); BLOOD UREA NITROGEN 25 mg/dL (7-17); CALCIUM 8.6 mg/dl (8.6-10.4); GFR NON-AFRICAN AMERICAN > 60
[2018-04-21] MEDS: Fluticasone-Vilanterol 100/25mcg Diskus INH SCH (07:05)
[2018-04-21 08:40] LABS: LYMPHOCYTE 5 % (20-40); MONOCYTE 5 % (0-10); NEUTROPHIL 90 % (50-75); PLATELET ESTIMATE NORMAL (NORMAL); TOTAL CELLS COUNTED 100
[2018-04-21] MEDS: Saccharomyces Boulardi 250 mg Cap PO SCH ×2 (09:17→17:19)
--- NOTE | 2018-04-21 09:18 | CP.PCM.PN ---
Subjective - Date & Time of Evaluation Date of Evaluation: 04/21/18 Time of Evaluation: 09:15 - Subjective Subjective: Medical Attending Note: Patient seen and examined this morning. Patient is of Cardizem drip. Congestion less. breathing is better. Denies chest pain, daughter present at bedside. Patient is having bowel movements. Objective - Vital Signs/Intake and Output Vital Signs (last 24 hours): Temp Pulse Resp BP Pulse Ox 97.7 F 79 20 87/52 L 95 04/21/18 08:00 04/21/18 09:00 04/21/18 09:00 04/21/18 08:54 04/21/18 09:00 Intake and Output: 04/21/18 04/21/18 06:59 18:59 Intake Total 445 250 Output Total 500 Balance -55 250 - Medications Medications: Current Medications Acetaminophen (Tylenol 325mg Tab) 650 mg PO Q4 PRN PRN Reason: Fever >100.4 F Amlodipine Besylate (Norvasc) 2.5 mg PO DAILY [facility] Apixaban (Eliquis) 10 mg PO BID [facility] Last Admin: 04/20/18 17:28 Dose: 10 mg Clopidogrel Bisulfate (Plavix) 75 mg PO DAILY [facility] Last Admin: 04/20/18 10:14 Dose: 75 mg Fluticasone/Vilanterol (Breo Ellipta 100-25 Mcg Inh) 1 puff INH RQD [facility] Last Admin: 04/21/18 07:05 Dose: 1 puff Diltiazem HCl 125 mg/ Dextrose 125 mls @ 10 mls/hr IV .[id number] [facility]; Protocol Last Admin: 04/21/18 05:58 Dose: Not Given Moxifloxacin HCl (Avelox Iv 400mg/250ml Ns) 400 mg in 250 mls @ 167 mls/hr IVPB Q24H [facility]; Protocol Last Admin: 04/20/18 21:07 Dose: 167 mls/hr Ipratropium [place] (Atrovent) 0.5 mg IH RQ6 [facility] Last Admin: 04/21/18 07:05 Dose: 0.5 mg Methylprednisolone (Solu-Medrol) 40 mg IV Q8 [facility] Last Admin: 04/21/18 06:14 Dose: 40 mg Pantoprazole Sodium (Protonix Inj) 40 mg IVP DAILY [facility] Last Admin: 04/20/18 16:50 Dose: 40 mg Rivastigmine (Exelon 9.5 Mg/24 Hr Patch) 1 patch TD DAILY [facility] Last Admin: 04/20/18 10:14 Dose: 1 patch Saccharomyces Boulardii (Florastor) 250 mg PO BID [facility] Last Admin: 04/20/18 17:28 Dose: 250 mg - Labs Labs: 04/21/18 05:56 04/21/18 05:56 PT 13.1 SECONDS (9.7-12.2) H 04/17/18 16:39 INR 1.2 04/17/18 16:39 APTT 49 SECONDS (21-34) H D 04/20/18 06:01 - Constitutional Appears: Non-toxic, No Acute Distress - Head Exam Head Exam: NORMAL INSPECTION - Eye Exam Eye Exam: EOMI - ENT Exam ENT Exam: Mucous Membranes Dry - Respiratory Exam Respiratory Exam: Decreased Breath Sounds, NORMAL BREATHING PATTERN. absent: Rales, Rhonchi - Cardiovascular Exam Cardiovascular Exam: REGULAR RHYTHM, +S1, +S2 - GI/Abdominal Exam GI & Abdominal Exam: Distended (body habits), Soft, Normal Bowel Sounds. absent: Firm, Guarding, Rigid, Tenderness - Extremities Exam Extremities Exam: Tenderness. absent: Pedal Edema - Neurological Exam Neurological Exam: Alert, Awake - Psychiatric Exam Psychiatric exam: Normal Affect, Normal Mood - Skin Skin Exam: Dry, Intact, Normal Color, Warm Assessment and Plan (1) Pulmonary embolism Status: Acute (2) NSTEMI (non-ST elevated myocardial infarction) Status: Acute (3) Dementia Status: Chronic (4) HLD (hyperlipidemia) Status: Chronic (5) HTN (hypertension) Status: Chronic (6) TIA (transient ischemic attack) Status: Chronic (7) Prophylactic measure Status: Acute Attending/Attestation - Attestation I have personally seen and examined this patient.: Yes I have fully participated in the care of the patient.: Yes I have reviewed all pertinent clinical information, including history, physical exam and plan: Yes Notes (Text): Patient is off Cardizem drip this morning. It was started yesterday for atrial fibrillation. Patient started on Avelox to cover in light of fever, white count. procalcitonin is low. Awaiting blood cultures and sputum culture 1. Pulmonary Embolus Left Lower Extremity DVT+ Assessment/Plan * CT Chest (04/18/18): extensive bilateral upper and lower lobe pulmonary arteries right greater than left. Suspect right heart strain. Mild cardiomegaly. Mild bibasilar atelectasis left greater than right. Small calcified granuloma right upper lobe. * Chest xray (04/17/18): questionable increased reticular markings may reflect atypical pneumonitis or bronchitis however no alveolitis bilaterally. No pulmonary congestion or cardiomegaly noted. * Chest xray (04/18/18): cardiomegaly. mild reticular nodular opacities. * Echocardiogram (04/18/18): normal LV systolic function, diastolic dysfunction, mild AR, trace to mild MR, mild to moderate TR * Awaiting official report of venous doppler--> DVT on LLE * Eliquis 10mg PO BID 2. NonStemi Assessment/Plan * Cardiology (Dr. mcallister) on consult help appreciated * Elqiuis 10mg PO BID * Echocardiogram (04/18/18): normal LV systolic function, diastolic dysfunction, mild AR, trace to mild MR, mild to moderate TR * Troponin secondary to right heart strain secondary to PE 3. History of CVA Assessment/Plan * discussion with son, about 15 years ago * CT Head (04/18/18): no acute intracranial abnormality. Severe chronic microangiopathic changes and mild age-related global parenchymal volume loss. * Plavix 75mg PO daily 4. Lipid Disorder Assessment/Plan * Start crestor 2.5mg PO qHS 5. History of COPD Assessment/Plan * Pulmonary (Dr. Clinton) help appreciated * Atrovent PRN * Start Breo Elliptia inhaled diskus * Chest xray (04/17/18): questionable increased reticular markings may reflect atypical pneumonitis or bronchitis however no alveolitis bilaterally. No pulmonary congestion or cardiomegaly noted. * Chest xray (04/18/18): cardiomegaly. mild reticular nodular opacities. 6. History of Dementia Assessment/Plan * Rivastigime 1 patch TD daily 7. History of Hypertension Hypotension Assessment/Plan * hold Norvasc 2.5mg PO daily 8. Possible DVT Assessment/Plan * Venous doppler: Acute DVT in the left lower extremiity (femoral, popliteral, and peroneal veins) * Eliquis 10mg PO BID * SCDS contraindicated 9. leukocytosis Assessment/Plan * pending Urine culture and blood cultures * procalcitonin low * ON avelox * likely reactive 10. Diabetes * a1c: 6.7 * Hypoglycemic cprotocol * Lipid panel result noted 11. Prophylactic measure * Eliquis 10mg PO BID for PE/DVT * SCDS contraindication for acute left Lower DVT+ * Florastor 250mg PO BID * Pallative care for creation of POLST * Full code
[2018-04-21] MEDS ORDERED: Dextrose 50% SYRINGE Inj (50 ml) IVP PRN (09:24)
[2018-04-21] MEDS ORDERED: Glucagon Recombinant 1 mg Inj IM PRN ×2 (09:24→11:29)
[2018-04-21] MEDS: Pantoprazole 40 mg EC Tab PO SCH (09:35)
--- NOTE | 2018-04-21 10:41 | CP.CCUPN ---
<Doris Hdez - Last Filed: 04/21/18 10:38> CCU Subjective - Physician Review Events Since Last Encounter (Free Text): 04/21/18 10:42 No acute events overnight Subjective (Free Text): 04/21/18 10:38 PGY1 Critical Care Progress Note for Dr. Clark Patient was seen and evaluated at bedside this morning. Patient able to tolerate diet without issue. Patient's daughter is at bedside. Patient tolerating eliquis without issue: Patient denies bloody bowel movement, black stool, and/or bruising. Patient denies chest pain, shortness of breath, abdominal pain, fever, chills, nausea, vomiting and/or headache. Critical Care Time Spent (in minutes): 35 CCU Objective - Vital Signs / Intake & Output Vital Signs (Last 4 hours): Vital Signs Temp Pulse Resp BP Pulse Ox 04/21/18 10:00 74 22 97 04/21/18 09:55 75 21 95/49 L 97 04/21/18 09:00 79 20 95 04/21/18 08:54 80 19 87/52 L 94 L 04/21/18 08:00 97.7 F 66 22 100 04/21/18 07:54 67 20 91/48 L 93 L 04/21/18 07:15 67 20 90/50 L Intake and Output (Last 8hrs): Intake & Output 04/20/18 04/21/18 04/21/18 22:59 06:59 14:59 Intake Total 600 350 250 Output Total 750 500 Balance -150 -150 250 Weight 138 lb Intake: IV 50 Intake, IV Amount 310 250 0 Left Forearm 250 250 0 Left wrist 60 0 Oral 240 100 250 Output: Urine 750 500 Urine, Voided 750 500 Other: # Voids Urine, Voided 0 # Bowel Movements 0 - Physical Exam Head: Positive for: Atraumatic, Normocephalic Pupils: Positive for: PERRL Extroacular Muscles: Positive for: EOMI Conjunctiva: Positive for: Normal Mouth: Positive for: Moist Mucous Membranes Neck: Positive for: Normal Range of Motion. Negative for: JVD, Lymphadenopathy Respiratory/Chest: Positive for: Good Air Exchange. Negative for: Respiratory Distress, Accessory Muscle Use, Wheezes Cardiovascular: Positive for: Regular Rate and Rhythm, Normal S1, S2 Abdomen: Positive for: Normal Bowel Sounds. Negative for: Tenderness, Distention, Peritoneal Signs Back: Positive for: Normal Inspection Upper Extremity: Positive for: Normal Inspection. Negative for: Cyanosis, Edema Lower Extremity: Positive for: Edema (left lower extremity +1 edema ), Tenderness (left lower extremity ) Neurological: Positive for: GCS=15, CN II-XII Intact, Speech Normal Skin: Positive for: Warm, Dry, Normal Color Psychiatric: Positive for: Alert, Oriented x 3, Normal Insight, Normal Concentration - Medications Active Medications: Active Medications Generic Name Dose Route Start Last Admin Trade Name Freq PRN Reason Stop Dose Admin Acetaminophen 650 mg 04/17/18 20:35 Tylenol 325mg Tab PO Q4 PRN Fever >100.4 F Amlodipine Besylate 2.5 mg 04/18/18 10:00 Norvasc PO DAILY LINUS Apixaban 10 mg 04/20/18 12:00 04/21/18 09:17 Eliquis PO 10 mg BID LINUS Administration Clopidogrel Bisulfate 75 mg 04/18/18 10:00 04/21/18 09:17 Plavix PO 75 mg DAILY LINUS Administration Dextrose 0 ml 04/21/18 09:24 Dextrose 50% Inj IVP .STAT PRN Hypoglycemia Protocol Protocol Dextrose 0 gm 04/21/18 09:24 Glutose 15 PO .ONCE PRN Hypoglycemia Protocol Protocol Docusate Sodium 100 mg 04/21/18 10:00 04/21/18 09:51 Colace PO Not Given BID LINUS Fluticasone/Vilanterol 1 puff 04/19/18 08:00 04/21/18 07:05 Breo Ellipta 100-25 Mcg Inh INH 1 puff RQD LINUS Administration Glucagon 0 mg 04/21/18 09:24 Glucagen Diagnostic Kit IM .STAT PRN Hypoglycemia Protocol Protocol Diltiazem HCl 125 mg/ Dextrose 125 mls @ 10 mls/hr 04/20/18 16:45 04/21/18 05:58 IV Not Given .[id number] LINUS Protocol 10 MG/HR Moxifloxacin HCl 400 mg in 250 mls @ 167 mls/hr 04/20/18 20:30 04/20/18 21:07 Avelox Iv 400mg/250ml Ns IVPB 167 mls/hr Q24H LINUS Administration Protocol Dextrose 1,000 mls @ 0 mls/hr 04/21/18 09:24 Dextrose 5% In Water 1000 Ml IV .Q0M PRN Hypoglycemia Protocol Protocol Per Protocol Ipratropium [place] 0.5 mg 04/20/18 14:30 04/21/18 07:05 Atrovent IH 0.5 mg RQ6 LINUS Administration Methylprednisolone 40 mg 04/20/18 14:00 04/21/18 06:14 Solu-Medrol IV 40 mg Q8 LINUS Administration Pantoprazole Sodium 40 mg 04/21/18 10:00 04/21/18 09:35 Protonix Ec Tab PO Not Given DAILY LINUS Rivastigmine 1 patch 04/18/18 10:00 04/21/18 09:17 Exelon 9.5 Mg/24 Hr Patch TD 1 patch DAILY LINUS Administration Rosuvastatin Calcium 2.5 mg 04/21/18 22:00 Crestor PO HS LINUS Saccharomyces Boulardii 250 mg 04/19/18 10:00 04/21/18 09:17 Florastor PO 250 mg BID LINUS Administration - Patient Studies Lab Studies: Lab Studies 04/21/18 04/21/18 04/20/18 Range/Units 05:56 05:56 17:23 WBC 17.6 H (4.8-10.8) K/uL RBC 4.02 (3.80-5.20) Mil/uL Hgb 11.4 (11.0-16.0) g/dL Hct 33.9 L (34.0-47.0) % MCV 84.3 (81.0-99.0) fL MCH 28.5 (27.0-31.0) pg MCHC 33.7 (33.0-37.0) g/dL RDW 15.6 H (11.5-14.5) % Plt Count 277 (130-400) K/uL MPV 8.5 (7.2-11.7) fL Neut % (Auto) 90.1 H (50.0-75.0) % Lymph % (Auto) 4.7 L (20.0-40.0) % [place] % (Auto) 5.0 (0.0-10.0) % Eos % (Auto) 0.0 (0.0-4.0) % Baso % (Auto) 0.2 (0.0-2.0) % Neut # (Auto) 15.9 H (1.8-7.0) K/uL Lymph # (Auto) 0.8 L (1.0-4.3) K/uL [place] # (Auto) 0.9 H (0.0-0.8) K/uL Eos # (Auto) 0.0 (0.0-0.7) K/uL Baso # (Auto) 0.0 (0.0-0.2) K/uL Neutrophils % (Manual) 90 H (50-75) % Lymphocytes % (Manual) 5 L (20-40) % Monocytes % (Manual) 5 (0-10) % Platelet Estimate Normal (NORMAL) RBC Morphology Normal Sodium 136 (132-148) mmol/L Potassium 4.0 (3.6-5.2) mmol/L Chloride 102 (98-107) mmol/L Carbon Dioxide 24 (22-30) mmol/L Anion Gap 14 (10-20) BUN 25 H (7-17) mg/dL Creatinine 0.6 L (0.7-1.2) mg/dL Est GFR ( Amer) > 60 Est GFR (Non-Af Amer) > 60 Random Glucose 199 H (65-105) mg/dL Calcium 8.6 (8.6-10.4) mg/dl Phosphorus 4.1 (2.5-4.5) mg/dL Magnesium 2.3 (1.6-2.3) mg/dL Total Bilirubin 0.8 (0.2-1.3) mg/dL AST 32 (14-36) U/L ALT 15 (9-52) U/L Alkaline Phosphatase 66 (38-126) U/L Total Protein 7.3 (6.3-8.3) g/dL Albumin 3.8 (3.5-5.0) g/dL Globulin 3.5 (2.2-3.9) gm/dL Albumin/Globulin Ratio 1.1 (1.0-2.1) Procalcitonin 0.09 L (0.19-0.49) NG/ML Laboratory Results - last 24 hr 04/20/18 04/21/18 04/21/18 17:23 05:56 05:56 WBC 17.6 H RBC 4.02 Hgb 11.4 Hct 33.9 L MCV 84.3 MCH 28.5 MCHC 33.7 RDW 15.6 H Plt Count 277 MPV 8.5 Neut % (Auto) 90.1 H Lymph % (Auto) 4.7 L [place] % (Auto) 5.0 Eos % (Auto) 0.0 Baso % (Auto) 0.2 Neut # (Auto) 15.9 H Lymph # (Auto) 0.8 L [place] # (Auto) 0.9 H Eos # (Auto) 0.0 Baso # (Auto) 0.0 Neutrophils % (Manual) 90 H Lymphocytes % (Manual) 5 L Monocytes % (Manual) 5 Platelet Estimate Normal RBC Morphology Normal Sodium 136 Potassium 4.0 Chloride 102 Carbon Dioxide 24 Anion Gap 14 BUN 25 H Creatinine 0.6 L Est GFR ( Amer) > 60 Est GFR (Non-Af Amer) > 60 Random Glucose 199 H Calcium 8.6 Phosphorus 4.1 Magnesium 2.3 Total Bilirubin 0.8 AST 32 ALT 15 Alkaline Phosphatase 66 Total Protein 7.3 Albumin 3.8 Globulin 3.5 Albumin/Globulin Ratio 1.1 Procalcitonin 0.09 L EKG/Cardiology Studies: Cardiology / EKG Studies 04/20/18 20:45 ELECTROCARDIOGRAM DAILY Comment: Mode Of Transportation: PORTABLE Reason For Exam: f/u arrythmia/ nstemi Review of Systems - Review of Systems All systems: reviewed and no additional remarkable complaints except Critical Care Progress Note - Nutrition Nutrition: Nutrition Category Date Time Status Heart Healthy Diet [DIET] Diets 04/18/18 Breakfast Active Assessment/Plan - Assessment and Plan (Free Text) Assessment: This is an 88 year old female with PMHx of COPD, HTN, HLD, dementia and previous CVA with L sided weakness presents to ED with complaint of shortness of breath worsening for the last 2 days. While on the way to the ED, patient was noted to be in rapid atrial fibrillation and ventricular tachycardia, and upon arrival the patient was hypotensive. IVF (2L) was administered, and hypotension improved. CT angiogram was obtained and revealed PE. Patient was started on therapeutic heparin and was transferred to ICU for close monitoring. Patient is now off therapeutic heparin and Eliquis was started. Patient is hemodynamically stable. Patient may be transferred to telemetry. Neuro: - No acute issues - A&O x3 - Residual left lower extremity weakness - Patient walks with assistance of walker CV: - Elevated troponins possibly secondary to right-sided heart strain - Cardiology consulted (Dr. Chino) to evaluate: * Patient hemodynamically stable * Patient is saturating well * Due to the above and due to patient's advanced age, catheter directed thrombolysis would be high risk procedure for this patient - ECHO completed; see report for details - Patient has HTN; however is normotensive - Hold: amlodipine (home med) - Monitor rhythm Pulm: - CT angiograph: revealed PE; see full report for details - Venous doppler: revealed DVT in left lower extremity; see full report for details - Therapeutic heparin started - Discontinue: Montelukast (home med) - Elevated troponin; Cardiology consulted for possible right heart strain (Dr. Chino) recommendations appreciated. - Monitor Coag, CBC, CMP, Trops - History of COPD; continue duoneb BID GI: - No acute issues - Tolerating diet - HHD Renal: - No acute issues - Monitor CMP Heme: - No acute issues - Monitor H/H ID: - No acute issues - Monitor CBC Endo: - No acute issues PPx: GI - Protonix (40mg PO daily) DVT -Eliquis; SCD CONTRAINDICATED Patient seen and case discussed in detail with Dr. Eduardo Hdez PGY1 <Jazmyne Clark - Last Filed: 04/22/18 18:01> CCU Objective - Vital Signs / Intake & Output Vital Signs (Last 4 hours): Vital Signs Temp Pulse Resp BP Pulse Ox 04/22/18 16:00 98.3 F 66 16 98 04/22/18 15:42 66 14 118/62 96 04/22/18 15:00 71 23 94 L 04/22/18 14:00 74 20 96 Intake and Output (Last 8hrs): Intake & Output 04/22/18 04/22/18 04/22/18 06:59 14:59 22:59 Intake Total 490 Output Total 900 Balance -410 Intake: Intake, IV Amount 250 Left Wrist 250 Oral 240 Output: Urine 900 Urine, Voided 900 - Medications Active Medications: Active Medications Generic Name Dose Route Start Last Admin Trade Name Freq PRN Reason Stop Dose Admin Acetaminophen 650 mg 04/17/18 20:35 Tylenol 325mg Tab PO Q4 PRN Fever >100.4 F Amlodipine Besylate 2.5 mg 04/18/18 10:00 Norvasc PO DAILY LINUS Apixaban 10 mg 04/20/18 12:00 04/22/18 17:02 Eliquis PO 10 mg BID LINUS Administration Clopidogrel Bisulfate 75 mg 04/18/18 10:00 04/22/18 09:32 Plavix PO 75 mg DAILY LINUS Administration Dextrose 0 ml 04/21/18 09:24 Dextrose 50% Inj IVP .STAT PRN Hypoglycemia Protocol Protocol Dextrose 0 gm 04/21/18 09:24 Glutose 15 PO .ONCE PRN Hypoglycemia Protocol Protocol Docusate Sodium 100 mg 04/21/18 10:00 04/22/18 17:02 Colace PO 100 mg BID LINUS Administration Fluticasone/Vilanterol 1 puff 04/19/18 08:00 04/22/18 08:52 Breo Ellipta 100-25 Mcg Inh INH 1 puff RQD LINUS Administration Furosemide 40 mg 04/22/18 22:00 Lasix IVP Q12 LINUS Glucagon 0 mg 04/21/18 09:24 Glucagen Diagnostic Kit IM .STAT PRN Hypoglycemia Protocol Protocol Diltiazem HCl 125 mg/ Dextrose 125 mls @ 10 mls/hr 04/20/18 16:45 04/21/18 05:58 IV Not Given .[id number] LINUS Protocol 10 MG/HR Moxifloxacin HCl 400 mg in 250 mls @ 167 mls/hr 04/20/18 20:30 04/21/18 19:58 Avelox Iv 400mg/250ml Ns IVPB 167 mls/hr Q24H LINUS Administration Protocol Dextrose 1,000 mls @ 0 mls/hr 04/21/18 09:24 Dextrose 5% In Water 1000 Ml IV .Q0M PRN Hypoglycemia Protocol Protocol Per Protocol Insulin Human Regular 0 unit 04/21/18 12:00 04/22/18 16:33 Novolin R SC 2 u ACHS LINUS Administration Protocol Ipratropium [place] 0.5 mg 04/22/18 12:30 04/22/18 14:08 Atrovent IH Not Given RQ6 LINUS Methylprednisolone 40 mg 04/20/18 14:00 04/22/18 14:45 Solu-Medrol IV 40 mg Q8 LINUS Administration Pantoprazole Sodium 40 mg 04/21/18 10:00 04/22/18 09:32 Protonix Ec Tab PO 40 mg DAILY LINUS Administration Rivastigmine 1 patch 04/18/18 10:00 04/22/18 09:33 Exelon 9.5 Mg/24 Hr Patch TD 1 patch DAILY LINUS Administration Rosuvastatin Calcium 2.5 mg 04/21/18 22:00 04/21/18 22:00 Crestor PO 2.5 mg HS LINUS Administration Saccharomyces Boulardii 250 mg 04/19/18 10:00 04/22/18 17:02 Florastor PO 250 mg BID LINUS Administration - Patient Studies Lab Studies: Microbiology Studies 04/20/18 13:19 Blood Culture - Preliminary Blood NO GROWTH AFTER 48 HOURS 04/20/18 12:27 Blood Culture - Preliminary Blood NO GROWTH AFTER 48 HOURS Lab Studies 04/22/18 04/22/18 04/22/18 Range/Units 16:24 13:05 11:35 WBC (4.8-10.8) K/uL RBC (3.80-5.20) Mil/uL Hgb (11.0-16.0) g/dL Hct (34.0-47.0) % MCV (81.0-99.0) fL MCH (27.0-31.0) pg MCHC (33.0-37.0) g/dL RDW (11.5-14.5) % Plt Count (130-400) K/uL MPV (7.2-11.7) fL Neut % (Auto) (50.0-75.0) % Lymph % (Auto) (20.0-40.0) % [place] % (Auto) (0.0-10.0) % Eos % (Auto) (0.0-4.0) % Baso % (Auto) (0.0-2.0) % Neut # (Auto) (1.8-7.0) K/uL Lymph # (Auto) (1.0-4.3) K/uL [place] # (Auto) (0.0-0.8) K/uL Eos # (Auto) (0.0-0.7) K/uL Baso # (Auto) (0.0-0.2) K/uL Neutrophils % (Manual) (50-75) % Lymphocytes % (Manual) (20-40) % Monocytes % (Manual) (0-10) % Platelet Estimate (NORMAL) Polychromasia Hypochromasia (manual) Anisocytosis (manual) Sodium (132-148) mmol/L Potassium (3.6-5.2) mmol/L Chloride (98-107) mmol/L Carbon Dioxide (22-30) mmol/L Anion Gap (10-20) BUN (7-17) mg/dL Creatinine (0.7-1.2) mg/dL Est GFR ( Amer) Est GFR (Non-Af Amer) POC Glucose (mg/dL) 209 H 271 H (65-110) mg/dL Random Glucose (65-105) mg/dL Calcium (8.6-10.4) mg/dl Phosphorus (2.5-4.5) mg/dL Magnesium (1.6-2.3) mg/dL Total Bilirubin (0.2-1.3) mg/dL AST (14-36) U/L ALT (9-52) U/L Alkaline Phosphatase (38-126) U/L Total Protein (6.3-8.3) g/dL Albumin (3.5-5.0) g/dL Globulin (2.2-3.9) gm/dL Albumin/Globulin Ratio (1.0-2.1) Procalcitonin 0.13 L (0.19-0.49) NG/ML 04/22/18 04/22/18 04/22/18 Range/Units 07:31 06:09 06:09 WBC 24.2 H (4.8-10.8) K/uL RBC 3.84 (3.80-5.20) Mil/uL Hgb 10.8 L (11.0-16.0) g/dL Hct 32.2 L (34.0-47.0) % MCV 83.8 (81.0-99.0) fL MCH 28.1 (27.0-31.0) pg MCHC 33.5 (33.0-37.0) g/dL RDW 15.7 H (11.5-14.5) % Plt Count 346 (130-400) K/uL MPV 8.7 (7.2-11.7) fL Neut % (Auto) 91.9 H (50.0-75.0) % Lymph % (Auto) 3.1 L (20.0-40.0) % [place] % (Auto) 4.8 (0.0-10.0) % Eos % (Auto) 0.0 (0.0-4.0) % Baso % (Auto) 0.2 (0.0-2.0) % Neut # (Auto) 22.3 H (1.8-7.0) K/uL Lymph # (Auto) 0.7 L (1.0-4.3) K/uL [place] # (Auto) 1.2 H (0.0-0.8) K/uL Eos # (Auto) 0.0 (0.0-0.7) K/uL Baso # (Auto) 0.0 (0.0-0.2) K/uL Neutrophils % (Manual) 94 H (50-75) % Lymphocytes % (Manual) 2 L (20-40) % Monocytes % (Manual) 4 (0-10) % Platelet Estimate Normal (NORMAL) Polychromasia Slight Hypochromasia (manual) Slight Anisocytosis (manual) Slight Sodium 137 (132-148) mmol/L Potassium 4.2 (3.6-5.2) mmol/L Chloride 103 (98-107) mmol/L Carbon Dioxide 24 (22-30) mmol/L Anion Gap 15 (10-20) BUN 42 H (7-17) mg/dL Creatinine 0.7 (0.7-1.2) mg/dL Est GFR ( Amer) > 60 Est GFR (Non-Af Amer) > 60 POC Glucose (mg/dL) 199 H (65-110) mg/dL Random Glucose 199 H (65-105) mg/dL Calcium 8.7 (8.6-10.4) mg/dl Phosphorus 3.5 (2.5-4.5) mg/dL Magnesium 2.4 H (1.6-2.3) mg/dL Total Bilirubin 0.5 (0.2-1.3) mg/dL AST 28 (14-36) U/L ALT 17 (9-52) U/L Alkaline Phosphatase 87 (38-126) U/L Total Protein 7.0 (6.3-8.3) g/dL Albumin 3.7 (3.5-5.0) g/dL Globulin 3.4 (2.2-3.9) gm/dL Albumin/Globulin Ratio 1.1 (1.0-2.1) Procalcitonin (0.19-0.49) NG/ML 04/21/18 Range/Units 20:54 WBC (4.8-10.8) K/uL RBC (3.80-5.20) Mil/uL Hgb (11.0-16.0) g/dL Hct (34.0-47.0) % MCV (81.0-99.0) fL MCH (27.0-31.0) pg MCHC (33.0-37.0) g/dL RDW (11.5-14.5) % Plt Count (130-400) K/uL MPV (7.2-11.7) fL Neut % (Auto) (50.0-75.0) % Lymph % (Auto) (20.0-40.0) % [place] % (Auto) (0.0-10.0) % Eos % (Auto) (0.0-4.0) % Baso % (Auto) (0.0-2.0) % Neut # (Auto) (1.8-7.0) K/uL Lymph # (Auto) (1.0-4.3) K/uL [place] # (Auto) (0.0-0.8) K/uL Eos # (Auto) (0.0-0.7) K/uL Baso # (Auto) (0.0-0.2) K/uL Neutrophils % (Manual) (50-75) % Lymphocytes % (Manual) (20-40) % Monocytes % (Manual) (0-10) % Platelet Estimate (NORMAL) Polychromasia Hypochromasia (manual) Anisocytosis (manual) Sodium (132-148) mmol/L Potassium (3.6-5.2) mmol/L Chloride (98-107) mmol/L Carbon Dioxide (22-30) mmol/L Anion Gap (10-20) BUN (7-17) mg/dL Creatinine (0.7-1.2) mg/dL Est GFR ( Amer) Est GFR (Non-Af Amer) POC Glucose (mg/dL) 227 H (65-110) mg/dL Random Glucose (65-105) mg/dL Calcium (8.6-10.4) mg/dl Phosphorus (2.5-4.5) mg/dL Magnesium (1.6-2.3) mg/dL Total Bilirubin (0.2-1.3) mg/dL AST (14-36) U/L ALT (9-52) U/L Alkaline Phosphatase (38-126) U/L Total Protein (6.3-8.3) g/dL Albumin (3.5-5.0) g/dL Globulin (2.2-3.9) gm/dL Albumin/Globulin Ratio (1.0-2.1) Procalcitonin (0.19-0.49) NG/ML Laboratory Results - last 24 hr 04/21/18 04/22/18 04/22/18 20:54 06:09 06:09 WBC 24.2 H RBC 3.84 Hgb 10.8 L Hct 32.2 L MCV 83.8 MCH 28.1 MCHC 33.5 RDW 15.7 H Plt Count 346 MPV 8.7 Neut % (Auto) 91.9 H Lymph % (Auto) 3.1 L [place] % (Auto) 4.8 Eos % (Auto) 0.0 Baso % (Auto) 0.2 Neut # (Auto) 22.3 H Lymph # (Auto) 0.7 L [place] # (Auto) 1.2 H Eos # (Auto) 0.0 Baso # (Auto) 0.0 Neutrophils % (Manual) 94 H Lymphocytes % (Manual) 2 L Monocytes % (Manual) 4 Platelet Estimate Normal Polychromasia Slight Hypochromasia (manual) Slight Anisocytosis (manual) Slight Sodium 137 Potassium 4.2 Chloride 103 Carbon Dioxide 24 Anion Gap 15 BUN 42 H Creatinine 0.7 Est GFR ( Amer) > 60 Est GFR (Non-Af Amer) > 60 POC Glucose (mg/dL) 227 H Random Glucose 199 H Calcium 8.7 Phosphorus 3.5 Magnesium 2.4 H Total Bilirubin 0.5 AST 28 ALT 17 Alkaline Phosphatase 87 Total Protein 7.0 Albumin 3.7 Globulin 3.4 Albumin/Globulin Ratio 1.1 Procalcitonin 04/22/18 04/22/18 04/22/18 07:31 11:35 13:05 WBC RBC Hgb Hct MCV MCH MCHC RDW Plt Count MPV Neut % (Auto) Lymph % (Auto) [place] % (Auto) Eos % (Auto) Baso % (Auto) Neut # (Auto) Lymph # (Auto) [place] # (Auto) Eos # (Auto) Baso # (Auto) Neutrophils % (Manual) Lymphocytes % (Manual) Monocytes % (Manual) Platelet Estimate Polychromasia Hypochromasia (manual) Anisocytosis (manual) Sodium Potassium Chloride Carbon Dioxide Anion Gap BUN Creatinine Est GFR ( Amer) Est GFR (Non-Af Amer) POC Glucose (mg/dL) 199 H 271 H Random Glucose Calcium Phosphorus Magnesium Total Bilirubin AST ALT Alkaline Phosphatase Total Protein Albumin Globulin Albumin/Globulin Ratio Procalcitonin 0.13 L 04/22/18 16:24 WBC RBC Hgb Hct MCV MCH MCHC RDW Plt Count MPV Neut % (Auto) Lymph % (Auto) [place] % (Auto) Eos % (Auto) Baso % (Auto) Neut # (Auto) Lymph # (Auto) [place] # (Auto) Eos # (Auto) Baso # (Auto) Neutrophils % (Manual) Lymphocytes % (Manual) Monocytes % (Manual) Platelet Estimate Polychromasia Hypochromasia (manual) Anisocytosis (manual) Sodium Potassium Chloride Carbon Dioxide Anion Gap BUN Creatinine Est GFR ( Amer) Est GFR (Non-Af Amer) POC Glucose (mg/dL) 209 H Random Glucose Calcium Phosphorus Magnesium Total Bilirubin AST ALT Alkaline Phosphatase Total Protein Albumin Globulin Albumin/Globulin Ratio Procalcitonin Critical Care Progress Note - Nutrition Nutrition: Nutrition Category Date Time Status Heart Healthy Diet [DIET] Diets 04/18/18 Breakfast Active Assessment/Plan - Assessment and Plan (Free Text) Plan: Patient seen and examined at bedside. Patient dx with b/l PE -PE: oxygen requirement 2 liter NC -toelrating oral NOAC -PAtient encouraged to ambulate -Daughter at bedside informed of the importance of Ambulation and compliance with medications -please offer age appropritate cancer screening. Patient remains hemodynamically stable. - Date & Time Date: 04/21/18 Time: 17:00
[2018-04-21] MEDS ORDERED: Dextrose 50% SYRINGE Inj (50 ml) IV PRN (11:29)
[2018-04-21] MEDS: (Novolin R) Insulin Human Regular 100 units/ml vial SC SCH ×3 (11:47→22:05)
--- NOTE | 2018-04-21 12:34 | VASCLAB ---
Date of service: 04/18/2018 PROCEDURE: Lower Extremity Venous Duplex Exam. HISTORY: Pain in limb. PRIORS: None. TECHNIQUE: Bilateral common femoral, femoral, popliteal and posterior tibial, peroneal and great saphenous veins were evaluated. Flow was assessed with color Doppler, compressibility, assessment of phasic flow and augmentation response. Report prepared by STEVO Mcqueen FINDINGS: RIGHT: 1. Common Femoral Vein: 1.1. Compressibility - Fully compressible: Thrombus - None : Flow - Phasic: Augmentation -Normal: Reflux - None. 2. Femoral Vein: 2.1. Compressibility - Fully compressible: Thrombus - None : Flow - Phasic: Augmentation -Normal: Reflux - None. 3. Popliteal Vein: 3.1. Compressibility - Fully compressible: Thrombus - None : Flow - Phasic: Augmentation -Normal: Reflux - None. 4. Posterior Tibial Vein: 4.1. Compressibility - Fully compressible: Thrombus - None: Flow - Phasic: Augmentation -Normal: Reflux - None. 5. Peroneal Vein: 5.1. Compressibility - Fully compressible: Thrombus - None: Flow - Phasic: Augmentation -Normal: Reflux - None. 6. Great Saphenous Vein: 6.1. Compressibility - Fully compressible: Thrombus - None: Flow - Phasic: Augmentation - Normal: Reflux - None. LEFT: 1. Common Femoral Vein: 1.1. Compressibility - Fully compressible: Thrombus - None: Flow - Phasic: Augmentation -Normal: Reflux - None. 2. Femoral Vein: 2.1. Compressibility - Partial: Thrombus - Acute: Flow - Reduced 3. Popliteal Vein: 3.1. Compressibility - Incompressible: Thrombus - Acute : Flow - Absent 4. Posterior Tibial Vein: 4.1. Compressibility - Fully compressible: Thrombus - None: Flow - Phasic: Augmentation -Normal: Reflux - None. 5. Peroneal Vein: 5.1. Compressibility - Incompressible: Thrombus - Acute: Flow - Reduced 6. Great Saphenous Vein: 6.1. Compressibility - Fully compressible: Thrombus - None: Flow - Phasic: Augmentation - Normal: Reflux - None. OTHER FINDINGS: Right: None significant. Left: None significant. IMPRESSION: Right: No evidence of deep or superficial vein thrombosis of the right lower extremity. Normal valve function noted of the right side. Left: Acute deep vein thrombosis of the left mid-distal femoral, popliteal and peroneal veins. Findings were reported to ICU nurse Irene at 10:50 am.
--- NOTE | 2018-04-21 16:21 | CT ---
Date of service: 04/21/2018 PROCEDURE: CT HEAD WITHOUT CONTRAST. HISTORY: Numbness/tingling hands COMPARISON: Comparison made with CT scan brain 04/17/18 TECHNIQUE: Axial computed tomography images were obtained through the head/brain without intravenous contrast. Radiation dose: Total exam DLP = 999.05 mGy-cm. This CT exam was performed using one or more of the following dose reduction techniques: Automated exposure control, adjustment of the mA and/or kV according to patient size, and/or use of iterative reconstruction technique. FINDINGS: HEMORRHAGE: No acute parenchymal, subarachnoid or extra-axial hemorrhage. BRAIN: Significant diffuse confluent chronic periventricular white matter ischemic changes again seen extending peripherally into the deep and subcortical white matter both cerebral hemispheres. There is extension of these changes into the white matter tracts of both basal nuclei with more discrete chronic appearing bilateral basal nuclei lacunar type infarcts. Note the possibility of a small hyperacute infarct not excluded. Moderate to fairly significant central volume loss evidenced by disproportion enlargement of the ventricles compared sulci. No obvious parenchymal nor extra-axial mass or collection seen on this noncontrast exam. Mild vascular calcifications both carotid siphons VENTRICLES: No obstructive hydrocephalus. CALVARIUM: There are no acute calvarial fractures. PARANASAL SINUSES: Unremarkable as visualized. No significant inflammatory changes. MASTOID AIR CELLS: Unremarkable as visualized. No inflammatory changes. OTHER FINDINGS: None. IMPRESSION: Significant diffuse confluent chronic periventricular white matter ischemic changes again seen extending peripherally into the deep and subcortical white matter both cerebral hemispheres. There is extension of these changes into the white matter tracts of both basal nuclei with more discrete chronic appearing bilateral basal nuclei lacunar type infarcts. Note the possibility of a small hyperacute infarct not excluded. Moderate to fairly significant central volume loss evidenced by disproportion enlargement of the ventricles compared sulci.
--- NOTE | 2018-04-21 17:48 | CP.PCM.CON ---
History of Present Illness - History of Present Illness History of Present Illness: Reason for consultation: shortness of breath//pulmonary embolism/COPD 88 year old female with PMHx of COPD, HTN, HLD, dementia and previous CVA with L sided weakness presented to ED with complaint of shortness of breath worsening Over 2 days. While on the way to the ED, patient was noted to be in rapid atrial fibrillation and ventricular tachycardia, and upon arrival the patient was hypotensive. IVF (2L) was administered, and hypotension improved. CT angiogram was obtained and revealed PE. Patient was started on therapeutic heparin and was transferred to ICU for close monitoring. venous Doppler positive for DVT. Cardiology and interventional radiology consult obtained for possible catheter directed thrombolysis. Patient later started on ELIQUIS. Patient breathing much better and off Cardizem drip. Review of Systems - Review of Systems All systems: reviewed and no additional remarkable complaints except (shortness of breath) Past Patient History - Past Medical History & Family History Past Medical History?: Yes - Past Social History Smoking Status: Never Smoked - CARDIAC Hx Hypertension: Yes - PULMONARY Hx Chronic Obstructive Pulmonary Disease (COPD): Yes - NEUROLOGICAL Hx Dementia: Yes - HEENT Hx HEENT Problems: Yes Other/Comment: FOR READING - RENAL Hx Chronic Kidney Disease: No - ENDOCRINE/METABOLIC Hx Endocrine Disorders: No - HEMATOLOGICAL/ONCOLOGICAL Hx Blood Disorders: No - INTEGUMENTARY Hx Dermatological Problems: No - MUSCULOSKELETAL/RHEUMATOLOGICAL Hx Musculoskeletal Disorders: Yes Hx Falls: Yes - GASTROINTESTINAL Hx Gastrointestinal Disorders: No - GENITOURINARY/GYNECOLOGICAL Hx Genitourinary Disorders: No - PSYCHIATRIC Hx Substance Use: No - SURGICAL HISTORY Hx Surgeries: No - ANESTHESIA Hx Anesthesia: No Meds Allergies/Adverse Reactions: Allergies Allergy/AdvReac Type Severity Reaction Status Date / Time Penicillins Allergy Verified 04/17/18 15:59 - Medications Medications: Current Medications Acetaminophen (Tylenol 325mg Tab) 650 mg PO Q4 PRN PRN Reason: Fever >100.4 F Amlodipine Besylate (Norvasc) 2.5 mg PO DAILY [facility] Apixaban (Eliquis) 10 mg PO BID [facility] Last Admin: 04/21/18 17:18 Dose: 10 mg Clopidogrel Bisulfate (Plavix) 75 mg PO DAILY [facility] Last Admin: 04/21/18 09:17 Dose: 75 mg Dextrose (Dextrose 50% Inj) 0 ml IVP .STAT PRN; Protocol PRN Reason: Hypoglycemia Protocol Dextrose (Glutose 15) 0 gm PO .ONCE PRN; Protocol PRN Reason: Hypoglycemia Protocol Docusate Sodium (Colace) 100 mg PO BID [facility] Last Admin: 04/21/18 17:19 Dose: Not Given Fluticasone/Vilanterol (Breo Ellipta 100-25 Mcg Inh) 1 puff INH RQD [facility] Last Admin: 04/21/18 07:05 Dose: 1 puff Glucagon (Glucagen Diagnostic Kit) 0 mg IM .STAT PRN; Protocol PRN Reason: Hypoglycemia Protocol Diltiazem HCl 125 mg/ Dextrose 125 mls @ 10 mls/hr IV .[id number] [facility]; Protocol Last Admin: 04/21/18 05:58 Dose: Not Given Moxifloxacin HCl (Avelox Iv 400mg/250ml Ns) 400 mg in 250 mls @ 167 mls/hr IVPB Q24H [facility]; Protocol Last Admin: 04/20/18 21:07 Dose: 167 mls/hr Dextrose (Dextrose 5% In Water 1000 Ml) 1,000 mls @ 0 mls/hr IV .Q0M PRN; Protocol PRN Reason: Hypoglycemia Protocol Insulin Human Regular (Novolin R) 0 unit SC ACHS [facility]; Protocol Last Admin: 04/21/18 17:18 Dose: 2 u Ipratropium [place] (Atrovent) 0.5 mg IH RQ6 [facility] Last Admin: 04/21/18 14:18 Dose: 0.5 mg Methylprednisolone (Solu-Medrol) 40 mg IV Q8 [facility] Last Admin: 04/21/18 14:48 Dose: 40 mg Pantoprazole Sodium (Protonix Ec Tab) 40 mg PO DAILY [facility] Last Admin: 04/21/18 09:35 Dose: Not Given Rivastigmine (Exelon 9.5 Mg/24 Hr Patch) 1 patch TD DAILY [facility] Last Admin: 04/21/18 09:17 Dose: 1 patch Rosuvastatin Calcium (Crestor) 2.5 mg PO HS [facility] Saccharomyces Boulardii (Florastor) 250 mg PO BID [facility] Last Admin: 04/21/18 17:19 Dose: 250 mg Physical Exam - Head Exam Head Exam: ATRAUMATIC, NORMOCEPHALIC - ENT Exam ENT Exam: Mucous Membranes Moist - Neck Exam Neck exam: Positive for: Normal Inspection - Respiratory Exam Respiratory Exam: Rales, Rhonchi - Cardiovascular Exam Cardiovascular Exam: Irregular Rhythm - GI/Abdominal Exam GI & Abdominal Exam: Normal Bowel Sounds, Soft - Extremities Exam Extremities exam: Positive for: normal inspection Results - Vital Signs Recent Vital Signs: Last Vital Signs Temp 98.1 F 04/21/18 16:00 Pulse 76 04/21/18 16:00 Resp 26 H 04/21/18 16:00 BP 107/59 L 04/21/18 15:56 Pulse Ox 94 L 04/21/18 16:00 - Labs Result Diagrams: 04/21/18 05:56 04/21/18 05:56 Labs: Laboratory Results - last 24 hr 04/20/18 04/21/18 04/21/18 17:23 05:56 05:56 WBC 17.6 H RBC 4.02 Hgb 11.4 Hct 33.9 L MCV 84.3 MCH 28.5 MCHC 33.7 RDW 15.6 H Plt Count 277 MPV 8.5 Neut % (Auto) 90.1 H Lymph % (Auto) 4.7 L Carbon % (Auto) 5.0 Eos % (Auto) 0.0 Baso % (Auto) 0.2 Neut # (Auto) 15.9 H Lymph # (Auto) 0.8 L Carbon # (Auto) 0.9 H Eos # (Auto) 0.0 Baso # (Auto) 0.0 Neutrophils % (Manual) 90 H Lymphocytes % (Manual) 5 L Monocytes % (Manual) 5 Platelet Estimate Normal RBC Morphology Normal Sodium 136 Potassium 4.0 Chloride 102 Carbon Dioxide 24 Anion Gap 14 BUN 25 H Creatinine 0.6 L Est GFR ( Amer) > 60 Est GFR (Non-Af Amer) > 60 POC Glucose (mg/dL) Random Glucose 199 H Calcium 8.6 Phosphorus 4.1 Magnesium 2.3 Total Bilirubin 0.8 AST 32 ALT 15 Alkaline Phosphatase 66 Total Protein 7.3 Albumin 3.8 Globulin 3.5 Albumin/Globulin Ratio 1.1 Procalcitonin 0.09 L 04/21/18 04/21/18 11:15 16:00 WBC RBC Hgb Hct MCV MCH MCHC RDW Plt Count MPV Neut % (Auto) Lymph % (Auto) Carbon % (Auto) Eos % (Auto) Baso % (Auto) Neut # (Auto) Lymph # (Auto) Carbon # (Auto) Eos # (Auto) Baso # (Auto) Neutrophils % (Manual) Lymphocytes % (Manual) Monocytes % (Manual) Platelet Estimate RBC Morphology Sodium Potassium Chloride Carbon Dioxide Anion Gap BUN Creatinine Est GFR ( Amer) Est GFR (Non-Af Amer) POC Glucose (mg/dL) 293 H 234 H Random Glucose Calcium Phosphorus Magnesium Total Bilirubin AST ALT Alkaline Phosphatase Total Protein Albumin Globulin Albumin/Globulin Ratio Procalcitonin Assessment & Plan (1) Pulmonary embolism Assessment and Plan: cont ELIQUIS thrombolytics not given because of age and increased risk of bleeding Continue nebulizer treatment For transfer to floor Status: Acute (2) COPD (chronic obstructive pulmonary disease) Status: Chronic
--- NOTE | 2018-04-21 19:36 | CP.PCM.PN ---
Subjective - Date & Time of Evaluation Date of Evaluation: 04/21/18 Time of Evaluation: 08:00 - Subjective Subjective: Congestion less. breathing is better. Denies chest pain, daughter present at bedside. Objective - Vital Signs/Intake and Output Vital Signs (last 24 hours): Temp Pulse Resp BP Pulse Ox 98.1 F 82 22 111/61 95 04/21/18 16:00 04/21/18 19:00 04/21/18 19:00 04/21/18 18:55 04/21/18 19:00 Intake and Output: 04/21/18 04/22/18 18:59 06:59 Intake Total 600 Output Total 200 Balance 400 - Medications Medications: Current Medications Acetaminophen (Tylenol 325mg Tab) 650 mg PO Q4 PRN PRN Reason: Fever >100.4 F Amlodipine Besylate (Norvasc) 2.5 mg PO DAILY [facility] Apixaban (Eliquis) 10 mg PO BID [facility] Last Admin: 04/21/18 17:18 Dose: 10 mg Clopidogrel Bisulfate (Plavix) 75 mg PO DAILY [facility] Last Admin: 04/21/18 09:17 Dose: 75 mg Dextrose (Dextrose 50% Inj) 0 ml IVP .STAT PRN; Protocol PRN Reason: Hypoglycemia Protocol Dextrose (Glutose 15) 0 gm PO .ONCE PRN; Protocol PRN Reason: Hypoglycemia Protocol Docusate Sodium (Colace) 100 mg PO BID [facility] Last Admin: 04/21/18 17:19 Dose: Not Given Fluticasone/Vilanterol (Breo Ellipta 100-25 Mcg Inh) 1 puff INH RQD [facility] Last Admin: 04/21/18 07:05 Dose: 1 puff Glucagon (Glucagen Diagnostic Kit) 0 mg IM .STAT PRN; Protocol PRN Reason: Hypoglycemia Protocol Diltiazem HCl 125 mg/ Dextrose 125 mls @ 10 mls/hr IV .[id number] [facility]; Protocol Last Admin: 04/21/18 05:58 Dose: Not Given Moxifloxacin HCl (Avelox Iv 400mg/250ml Ns) 400 mg in 250 mls @ 167 mls/hr IVPB Q24H [facility]; Protocol Last Admin: 04/20/18 21:07 Dose: 167 mls/hr Dextrose (Dextrose 5% In Water 1000 Ml) 1,000 mls @ 0 mls/hr IV .Q0M PRN; P rotocol PRN Reason: Hypoglycemia Protocol Insulin Human Regular (Novolin R) 0 unit SC ACHS [facility]; Protocol Last Admin: 04/21/18 17:18 Dose: 2 u Ipratropium [place] (Atrovent) 0.5 mg IH RQ6 [facility] Last Admin: 04/21/18 19:34 Dose: 0.5 mg Methylprednisolone (Solu-Medrol) 40 mg IV Q8 [facility] Last Admin: 04/21/18 14:48 Dose: 40 mg Pantoprazole Sodium (Protonix Ec Tab) 40 mg PO DAILY [facility] Last Admin: 04/21/18 09:35 Dose: Not Given Rivastigmine (Exelon 9.5 Mg/24 Hr Patch) 1 patch TD DAILY [facility] Last Admin: 04/21/18 09:17 Dose: 1 patch Rosuvastatin Calcium (Crestor) 2.5 mg PO HS [facility] Saccharomyces Boulardii (Florastor) 250 mg PO BID [facility] Last Admin: 04/21/18 17:19 Dose: 250 mg - Labs Labs: 04/21/18 05:56 04/21/18 05:56 PT 13.1 SECONDS (9.7-12.2) H 04/17/18 16:39 INR 1.2 04/17/18 16:39 APTT 49 SECONDS (21-34) H D 04/20/18 06:01 - Constitutional Appears: Non-toxic, Chronically Ill - Head Exam Head Exam: NORMOCEPHALIC - Eye Exam Eye Exam: absent: Scleral icterus - ENT Exam ENT Exam: Mucous Membranes Dry - Neck Exam Neck Exam: absent: Lymphadenopathy - Respiratory Exam Respiratory Exam: Decreased Breath Sounds - Cardiovascular Exam Cardiovascular Exam: REGULAR RHYTHM - GI/Abdominal Exam GI & Abdominal Exam: Distended, Soft - Rectal Exam Rectal Exam: Deferred - Exam Exam: NORMAL INSPECTION - Extremities Exam Extremities Exam: absent: Pedal Edema - Back Exam Back Exam: absent: CVA tenderness (L), CVA tenderness (R) Assessment and Plan (1) NSTEMI (non-ST elevated myocardial infarction) Status: Acute (2) Pulmonary embolism Status: Acute (3) COPD (chronic obstructive pulmonary disease) Status: Chronic (4) Dementia Status: Chronic (5) HTN (hypertension) Status: Chronic - Assessment and Plan (Free Text) Assessment: cont iv antibiotics as ordered
[2018-04-21] MEDS: Moxifloxacin IV 400mg/250ml NS 400 MG/250 ML BAG IVPB SCH (19:58)
[2018-04-21] MEDS: Rosuvastatin Calcium 2.5 mg Tab PO SCH (22:00)
[2018-04-22] MEDS: Ipratropium 0.02% Inhal Soln (0.5 mg/2.5 ml) UD IH SCH ×5 (01:20→19:22)
[2018-04-22] MEDS: MethylPREDNISolone 40 mg Vial IV SCH ×3 (05:43→21:42)
[2018-04-22 06:14] LABS: BASO % 0.2 % (0.0-2.0); HEMOGLOBIN 10.8 g/dL (11.0-16.0); LYMPH # 0.7 K/uL (1.0-4.3); LYMPH % 3.1 % (20.0-40.0); MEAN CELL VOLUME 83.8 fL (81.0-99.0); MEAN CORPUSCULAR HEMOGLOBIN 28.1 pg (27.0-31.0); MEAN CORPUSCULAR HGB CONC 33.5 g/dL (33.0-37.0); MEAN PLATELET VOLUME 8.7 fL (7.2-11.7); MONO # 1.2 K/uL (0.0-0.8); MONO % 4.8 % (0.0-10.0); NEUT # 22.3 K/uL (1.8-7.0); NEUT % 91.9 % (50.0-75.0); NRBC % 0.1 % (0.0-2.0); PLATELET COUNT 346 K/uL (130-400); RBC 3.84 Mil/uL (3.80-5.20); RED CELL DISTRIBUTION WIDTH 15.7 % (11.5-14.5); WHITE BLOOD COUNT 24.2 K/uL (4.8-10.8)
[2018-04-22 06:39] LABS: ALB/GLOB RATIO 1.1 (1.0-2.1); ALBUMIN 3.7 g/dL (3.5-5.0); ALT/SGPT 17 U/L (9-52); AST/SGOT 28 U/L (14-36); BLOOD UREA NITROGEN 42 mg/dL (7-17); CALCIUM 8.7 mg/dl (8.6-10.4); GFR NON-AFRICAN AMERICAN > 60
--- NOTE | 2018-04-22 07:17 | CP.PCM.PN ---
Subjective - Date & Time of Evaluation Date of Evaluation: 04/21/18 Time of Evaluation: 17:15 - Subjective Subjective: 88 year old female with PMHx of COPD, HTN, HLD, dementia and previous CVA with L sided weakness presented to ED with complaint of shortness of breath worsening Over 2 days. While on the way to the ED, patient was noted to be in rapid atrial fibrillation and ventricular tachycardia, and upon arrival the patient was hypotensive. IVF (2L) was administered, and hypotension improved. CT angiogram was obtained and revealed PE. Patient was started on therapeutic heparin and was transferred to ICU for close monitoring. venous Doppler positive for DVT. Interventional radiology consult obtained for possible catheter directed thrombolysis. Patient later started on ELIQUIS. Patient breathing much better and off Cardizem drip. Review of Systems - Review of Systems All systems: reviewed and no additional remarkable complaints except (shortness of breath) Physical Exam - Head Exam Head Exam: ATRAUMATIC, NORMOCEPHALIC - ENT Exam ENT Exam: Mucous Membranes Moist - Neck Exam Neck exam: Positive for: Normal Inspection - Respiratory Exam Respiratory Exam: Rales, Rhonchi - Cardiovascular Exam Cardiovascular Exam: Irregular Rhythm - GI/Abdominal Exam GI & Abdominal Exam: Normal Bowel Sounds, Soft - Extremities Exam Extremities exam: Positive for: normal inspection Assessment & Plan (1) Pulmonary embolism Assessment and Plan: cont ELIQUIS thrombolytics not given because of age and increased risk of bleeding Continue nebulizer treatment For transfer to floor Status: Acute (2) COPD (chronic obstructive pulmonary disease) Status: Chronic Objective - Vital Signs/Intake and Output Vital Signs (last 24 hours): Temp Pulse Resp BP Pulse Ox 97.5 F L 65 14 123/63 95 04/22/18 04:00 04/22/18 04:00 04/22/18 04:00 04/22/18 03:42 04/22/18 04:00 Intake and Output: 04/22/18 04/22/18 06:59 18:59 Intake Total 490 Output Total 900 Balance -410 - Medications Medications: Current Medications Acetaminophen (Tylenol 325mg Tab) 650 mg PO Q4 PRN PRN Reason: Fever >100.4 F Amlodipine Besylate (Norvasc) 2.5 mg PO DAILY [facility] Apixaban (Eliquis) 10 mg PO BID [facility] Last Admin: 04/21/18 17:18 Dose: 10 mg Clopidogrel Bisulfate (Plavix) 75 mg PO DAILY [facility] Last Admin: 04/21/18 09:17 Dose: 75 mg Dextrose (Dextrose 50% Inj) 0 ml IVP .STAT PRN; Protocol PRN Reason: Hypoglycemia Protocol Dextrose (Glutose 15) 0 gm PO .ONCE PRN; Protocol PRN Reason: Hypoglycemia Protocol Docusate Sodium (Colace) 100 mg PO BID [facility] Last Admin: 04/21/18 17:19 Dose: Not Given Fluticasone/Vilanterol (Breo Ellipta 100-25 Mcg Inh) 1 puff INH RQD [facility] Last Admin: 04/21/18 07:05 Dose: 1 puff Glucagon (Glucagen Diagnostic Kit) 0 mg IM .STAT PRN; Protocol PRN Reason: Hypoglycemia Protocol Diltiazem HCl 125 mg/ Dextrose 125 mls @ 10 mls/hr IV .[id number] [facility]; Protocol Last Admin: 04/21/18 05:58 Dose: Not Given Moxifloxacin HCl (Avelox Iv 400mg/250ml Ns) 400 mg in 250 mls @ 167 mls/hr IVPB Q24H [facility]; Protocol Last Admin: 04/21/18 19:58 Dose: 167 mls/hr Dextrose (Dextrose 5% In Water 1000 Ml) 1,000 mls @ 0 mls/hr IV .Q0M [facility]; Protocol PRN Reason: Hypoglycemia Protocol Insulin Human Regular (Novolin R) 0 unit SC ACHS [facility]; Protocol Last Admin: 04/21/18 22:05 Dose: Not Given Ipratropium [place] (Atrovent) 0.5 mg IH RQ6 [facility] Last Admin: 04/22/18 01:20 Dose: 0.5 mg Methylprednisolone (Solu-Medrol) 40 mg IV Q8 [facility] Last Admin: 04/22/18 05:43 Dose: 40 mg Pantoprazole Sodium (Protonix Ec Tab) 40 mg PO DAILY [facility] Last Admin: 04/21/18 09:35 Dose: Not Given Rivastigmine (Exelon 9.5 Mg/24 Hr Patch) 1 patch TD DAILY [facility] Last Admin: 04/21/18 09:17 Dose: 1 patch Rosuvastatin Calcium (Crestor) 2.5 mg PO HS [facility] Last Admin: 04/21/18 22:00 Dose: 2.5 mg Saccharomyces Boulardii (Florastor) 250 mg PO BID [facility] Last Admin: 04/21/18 17:19 Dose: 250 mg - Labs Labs: 04/22/18 06:09 04/22/18 06:09 PT 13.1 SECONDS (9.7-12.2) H 04/17/18 16:39 INR 1.2 04/17/18 16:39 APTT 49 SECONDS (21-34) H D 04/20/18 06:01 Assessment and Plan - Assessment and Plan (Free Text) Assessment: This is an 88 year old female with PMHx of COPD, HTN, HLD, dementia and previous CVA with L sided weakness presents to ED with complaint of shortness of breath worsening for the last 2 days. While on the way to the ED, patient was noted to be in rapid atrial fibrillation and ventricular tachycardia, and upon arrival the patient was hypotensive. IVF (2L) was administered, and hypotension improved. CT angiogram was obtained and revealed PE. Patient was started on therapeutic heparin and was transferred to ICU for close monitoring. Neuro: - No acute issues - A&O x3 - Residual left lower extremity weakness - Patient walks with assistance of walker CV: - Elevated troponins possibly secondary to right-sided heart strain - Cardiology consulted (Dr. Chino) to evaluate: * Patient hemodynamically stable * Patient is saturating well * Due to the above and due to patient's advanced age, catheter directed thrombolysis would be high risk procedure for this patient - ECHO completed; see report for details - Patient has HTN; however is normotensive - Hold: amlodipine (home med) - Monitor rhythm Pulm: - CT angiograph: revealed PE; see full report for details - Venous doppler: revealed DVT in left lower extremity; see full report for details - Therapeutic heparin started - Discontinue: Montelukast (home med) - Elevated troponin; Cardiology consulted for possible right heart strain (Dr. Chino) recommendations appreciated. - Monitor Coag, CBC, CMP, Trops - History of COPD; continue duoneb BID GI: - No acute issues - Tolerating diet - HHD Renal: - No acute issues - Monitor CMP Heme: - No acute issues - Monitor H/H ID: - No acute issues - Monitor CBC Endo: - No acute issues PPx: GI - Protonix (40mg PO daily) DVT - Therapeutic heparin; SCD CONTRAINDICATED
[2018-04-22] MEDS: (Novolin R) Insulin Human Regular 100 units/ml vial SC SCH ×4 (07:52→21:34)
[2018-04-22 08:27] LABS: LYMPHOCYTE 2 % (20-40); MONOCYTE 4 % (0-10); NEUTROPHIL 94 % (50-75); TOTAL CELLS COUNTED 100
[2018-04-22 08:28] LABS: PLATELET ESTIMATE NORMAL (NORMAL)
[2018-04-22 08:29] LABS: ANISOCYTOSIS SLIGHT; HYPOCHROMIC SLIGHT; POLYCHROMIC SLIGHT
[2018-04-22] MEDS: Fluticasone-Vilanterol 100/25mcg Diskus INH SCH (08:52)
--- NOTE | 2018-04-22 09:07 | RAD ---
Date of service: 04/22/2018 HISTORY: hypoxia COMPARISON: 04/20/2018. FINDINGS: LUNGS: The lungs are well inflated and clear. There is mild pulmonary venous congestion. PLEURA: No pleural effusions or pneumothorax. CARDIOVASCULAR: There is moderate cardiomegaly. There is unfolding of the aorta. No aortic atherosclerotic calcification present. OSSEOUS STRUCTURES: Within normal limits for the patient's age. VISUALIZED UPPER ABDOMEN: Normal. OTHER FINDINGS: None. IMPRESSION: No active pulmonary disease. No significant interval change.
[2018-04-22] MEDS: Pantoprazole 40 mg EC Tab PO SCH (09:32)
[2018-04-22] MEDS: Saccharomyces Boulardi 250 mg Cap PO SCH ×2 (09:32→17:02)
--- NOTE | 2018-04-22 12:29 | CP.PCM.PN ---
Subjective - Date & Time of Evaluation Date of Evaluation: 04/22/18 Time of Evaluation: 12:25 - Subjective Subjective: Medical Attending Note: Patient seen and examined this morning. Patient is on the chair. Patient denies headache, denies chest pain, denies cough, denies abdominal pain, denies nausea, denies vomitting, denies constipation. Patient's daughter, Karin is at bedside. Karin does not want rehab for the patient; would ultimately like her to come home when she is ready. Objective - Vital Signs/Intake and Output Vital Signs (last 24 hours): Temp Pulse Resp BP Pulse Ox 97.3 F L 90 21 132/65 100 04/22/18 08:00 04/22/18 09:00 04/22/18 09:00 04/22/18 08:23 04/22/18 09:00 Intake and Output: 04/22/18 04/22/18 06:59 18:59 Intake Total 490 Output Total 900 Balance -410 - Medications Medications: Current Medications Acetaminophen (Tylenol 325mg Tab) 650 mg PO Q4 PRN PRN Reason: Fever >100.4 F Amlodipine Besylate (Norvasc) 2.5 mg PO DAILY [facility] Apixaban (Eliquis) 10 mg PO BID [facility] Last Admin: 04/22/18 09:32 Dose: 10 mg Clopidogrel Bisulfate (Plavix) 75 mg PO DAILY [facility] Last Admin: 04/22/18 09:32 Dose: 75 mg Dextrose (Dextrose 50% Inj) 0 ml IVP .STAT PRN; Protocol PRN Reason: Hypoglycemia Protocol Dextrose (Glutose 15) 0 gm PO .ONCE PRN; Protocol PRN Reason: Hypoglycemia Protocol Docusate Sodium (Colace) 100 mg PO BID [facility] Last Admin: 04/22/18 09:32 Dose: 100 mg Fluticasone/Vilanterol (Breo Ellipta 100-25 Mcg Inh) 1 puff INH RQD [facility] Last Admin: 04/22/18 08:52 Dose: 1 puff Furosemide (Lasix) 40 mg IVP Q12 [facility] Glucagon (Glucagen Diagnostic Kit) 0 mg IM .STAT PRN; Protocol PRN Reason: Hypoglycemia Protocol Diltiazem HCl 125 mg/ Dextrose 125 mls @ 10 mls/hr IV .[id number] [facility]; Protocol Last Admin: 04/21/18 05:58 Dose: Not Given Moxifloxacin HCl (Avelox Iv 400mg/250ml Ns) 400 mg in 250 mls @ 167 mls/hr IVPB Q24H [facility]; Protocol Last Admin: 04/21/18 19:58 Dose: 167 mls/hr Dextrose (Dextrose 5% In Water 1000 Ml) 1,000 mls @ 0 mls/hr IV .Q0M PRN; Protocol PRN Reason: Hypoglycemia Protocol Insulin Human Regular (Novolin R) 0 unit SC ACHS [facility]; Protocol Last Admin: 04/22/18 11:58 Dose: 3 u Ipratropium [place] (Atrovent) 0.5 mg IH RQ6 [facility] Methylprednisolone (Solu-Medrol) 40 mg IV Q8 [facility] Last Admin: 04/22/18 05:43 Dose: 40 mg Pantoprazole Sodium (Protonix Ec Tab) 40 mg PO DAILY [facility] Last Admin: 04/22/18 09:32 Dose: 40 mg Rivastigmine (Exelon 9.5 Mg/24 Hr Patch) 1 patch TD DAILY [facility] Last Admin: 04/22/18 09:33 Dose: 1 patch Rosuvastatin Calcium (Crestor) 2.5 mg PO HS [facility] Last Admin: 04/21/18 22:00 Dose: 2.5 mg Saccharomyces Boulardii (Florastor) 250 mg PO BID [facility] Last Admin: 04/22/18 09:32 Dose: 250 mg - Labs Labs: 04/22/18 06:09 04/22/18 06:09 PT 13.1 SECONDS (9.7-12.2) H 04/17/18 16:39 INR 1.2 04/17/18 16:39 APTT 49 SECONDS (21-34) H D 04/20/18 06:01 - Constitutional Appears: Non-toxic, No Acute Distress - Head Exam Head Exam: NORMAL INSPECTION - Eye Exam Eye Exam: EOMI - ENT Exam ENT Exam: Mucous Membranes Moist - Respiratory Exam Respiratory Exam: Decreased Breath Sounds, Rales, Rhonchi, NORMAL BREATHING PATTERN - Cardiovascular Exam Cardiovascular Exam: REGULAR RHYTHM, +S1, +S2 - GI/Abdominal Exam GI & Abdominal Exam: Soft, Normal Bowel Sounds. absent: Distended, Firm, Gu arding, Rigid, Tenderness, Rebound - Extremities Exam Extremities Exam: Pedal Edema. absent: Tenderness - Neurological Exam Neurological Exam: Alert, Awake, Oriented x3 - Psychiatric Exam Psychiatric exam: Normal Affect, Normal Mood - Skin Skin Exam: Intact, Normal Color, Petechiae, Warm Assessment and Plan (1) Pulmonary embolism Status: Acute (2) NSTEMI (non-ST elevated myocardial infarction) Status: Acute (3) Dementia Status: Chronic (4) HLD (hyperlipidemia) Status: Chronic (5) HTN (hypertension) Status: Chronic (6) TIA (transient ischemic attack) Status: Chronic (7) Prophylactic measure Status: Acute Attending/Attestation - Attestation I have personally seen and examined this patient.: Yes I have fully participated in the care of the patient.: Yes I have reviewed all pertinent clinical information, including history, physical exam and plan: Yes Notes (Text): 1. Pulmonary Embolus Right Sided Heart Failure Left Lower Extremity DVT+ Assessment/Plan * Pulmonary (Dr. Clinton) on case--> help appreciated * Cardiology (Dr. Mcallister) on case-->help appreciated * CT Chest (04/18/18): extensive bilateral upper and lower lobe pulmonary arteries right greater than left. Suspect right heart strain. Mild cardiomegaly. Mild bibasilar atelectasis left greater than right. Small calcified granuloma right upper lobe. * Chest xray (04/17/18): questionable increased reticular markings may reflect atypical pneumonitis or bronchitis however no alveolitis bilaterally. No pulmonary congestion or cardiomegaly noted. * Chest xray (04/18/18): cardiomegaly. mild reticular nodular opacities. * Echocardiogram (04/18/18): normal LV systolic function, diastolic dysfunction, mild AR, trace to mild MR, mild to moderate TR * Eliquis 10mg PO BID * Start Lasix 40mg IV BID 2. Elevated Troponin Assessment/Plan * Cardiology (Dr. mcallister) on consult help appreciated * Elqiuis 10mg PO BID * Echocardiogram (04/18/18): normal LV systolic function, diastolic dysfunction, mild AR, trace to mild MR, mild to moderate TR * Troponin secondary to right heart strain secondary to PE 3. History of CVA Assessment/Plan * discussion with son, about 15 years ago * CT Head (04/18/18): no acute intracranial abnormality. Severe chronic microangiopathic changes and mild age-related global parenchymal volume loss. * Plavix 75mg PO daily * CT Head (04/21/18): significant diffuse confluent chronic periventricular white matter ischemic changes again seen extending peripherally into the deep and subcortical changes whilte matter both cerebral hemispheres. Extension of these changes into the white matter tracts of both basal nuclei with more discrete chronic appearing bilateral basal nuclei lacunar type infarcts. 4. Lipid Disorder Assessment/Plan * Start crestor 2.5mg PO qHS 5. History of COPD Assessment/Plan * Pulmonary (Dr. Clinton) help appreciated * Atrovent PRN * Breo Elliptia inhaled diskus * Chest xray (04/17/18): questionable increased reticular markings may reflect atypical pneumonitis or bronchitis however no alveolitis bilaterally. No pulmonary congestion or cardiomegaly noted. * Chest xray (04/18/18): cardiomegaly. mild reticular nodular opacities. * Solumedrol 40mg IV Q8H (active since 04/20/18) * patient recommended for home oxygen at 3Liters Nasal Cannula * Per PT note: pt wa desaturating to 73% on sitting up, supp O 2 3L was given, O2 went up to 93%, O2 sat kept fluctuating up and down w/ mobility, sit-stand x3, standing tolerance maitained for more than 5 mins, pt was then transferred to the recliner chair w/ max a, b/l LE elevated. * Will start BIPAP PRN for positive pressure support 6. History of Dementia Assessment/Plan * Rivastigime 1 patch TD daily 7. History of Hypertension Hypotension Assessment/Plan * hold Norvasc 2.5mg PO daily 8. Possible DVT Assessment/Plan * Venous doppler: Acute DVT in the left lower extremiity (femoral, popliteral, and peroneal veins) * Eliquis 10mg PO BID * SCDS contraindicated 9. leukocytosis Assessment/Plan * Infectious Diease (Dr. Guerrero) on case-->help appreciated * Urine culture: No growth (04/17) * Blood culture: no growth after 48 hours (04/20) * Blood culture: no growth after 24hours (04/20) * MRSA not detected * procalcitonin low * Avelox 400mg IV Q24H (active since 04/20/18) 10. Diabetes * a1c: 6.7 * Hypoglycemic cprotocol * Lipid panel result noted 11. Prophylactic measure * Eliquis 10mg PO BID for PE/DVT * SCDS contraindication for acute left Lower DVT+ * Florastor 250mg PO BID * Pallative care for creation of POLST * Full code Disposition: Patient's family refuses rehab. Patient is congested since to right heart strain secondary to PE. Patient will to optimize with physical therapy and is recommended home oxygen by pulmonary. We will need to f/u case management to setup patient for home oxygen.
--- NOTE | 2018-04-22 17:44 | CP.PCM.PN ---
Subjective - Date & Time of Evaluation Date of Evaluation: 04/22/18 Time of Evaluation: 09:00 - Subjective Subjective: awake alert afebrile wbc 24 K on solumedrol blood c/s neg Objective - Vital Signs/Intake and Output Vital Signs (last 24 hours): Temp Pulse Resp BP Pulse Ox 98.3 F 66 16 118/62 98 04/22/18 16:00 04/22/18 16:00 04/22/18 16:00 04/22/18 15:42 04/22/18 16:00 Intake and Output: 04/22/18 04/22/18 06:59 18:59 Intake Total 490 Output Total 900 Balance -410 - Medications Medications: Current Medications Acetaminophen (Tylenol 325mg Tab) 650 mg PO Q4 PRN PRN Reason: Fever >100.4 F Amlodipine Besylate (Norvasc) 2.5 mg PO DAILY [facility] Apixaban (Eliquis) 10 mg PO BID [facility] Last Admin: 04/22/18 17:02 Dose: 10 mg Clopidogrel Bisulfate (Plavix) 75 mg PO DAILY [facility] Last Admin: 04/22/18 09:32 Dose: 75 mg Dextrose (Dextrose 50% Inj) 0 ml IVP .STAT PRN; Protocol PRN Reason: Hypoglycemia Protocol Dextrose (Glutose 15) 0 gm PO .ONCE PRN; Protocol PRN Reason: Hypoglycemia Protocol Docusate Sodium (Colace) 100 mg PO BID [facility] Last Admin: 04/22/18 17:02 Dose: 100 mg Fluticasone/Vilanterol (Breo Ellipta 100-25 Mcg Inh) 1 puff INH RQD [facility] Last Admin: 04/22/18 08:52 Dose: 1 puff Furosemide (Lasix) 40 mg IVP Q12 [facility] Glucagon (Glucagen Diagnostic Kit) 0 mg IM .STAT PRN; Protocol PRN Reason: Hypoglycemia Protocol Diltiazem HCl 125 mg/ Dextrose 125 mls @ 10 mls/hr IV .[id number] [facility]; Protocol Last Admin: 04/21/18 05:58 Dose: Not Given Moxifloxacin HCl (Avelox Iv 400mg/250ml Ns) 400 mg in 250 mls @ 167 mls/hr IVPB Q24H [facility]; Protocol Last Admin: 04/21/18 19:58 Dose: 167 mls/hr Dextrose (Dextrose 5% In Water 1000 Ml) 1,000 mls @ 0 mls/hr IV .Q0M PRN; Protocol PRN Reason: Hypoglycemia Protocol Insulin Human Regular (Novolin R) 0 unit SC ACHS [facility]; Protocol Last Admin: 04/22/18 16:33 Dose: 2 u Ipratropium [place] (Atrovent) 0.5 mg IH RQ6 [facility] Last Admin: 04/22/18 14:08 Dose: Not Given Methylprednisolone (Solu-Medrol) 40 mg IV Q8 [facility] Last Admin: 04/22/18 14:45 Dose: 40 mg Pantoprazole Sodium (Protonix Ec Tab) 40 mg PO DAILY [facility] Last Admin: 04/22/18 09:32 Dose: 40 mg Rivastigmine (Exelon 9.5 Mg/24 Hr Patch) 1 patch TD DAILY [facility] Last Admin: 04/22/18 09:33 Dose: 1 patch Rosuvastatin Calcium (Crestor) 2.5 mg PO HS [facility] Last Admin: 04/21/18 22:00 Dose: 2.5 mg Saccharomyces Boulardii (Florastor) 250 mg PO BID [facility] Last Admin: 04/22/18 17:02 Dose: 250 mg - Labs Labs: 04/22/18 06:09 04/22/18 06:09 PT 13.1 SECONDS (9.7-12.2) H 04/17/18 16:39 INR 1.2 04/17/18 16:39 APTT 49 SECONDS (21-34) H D 04/20/18 06:01 - Constitutional Appears: Non-toxic, Confused, Chronically Ill - Head Exam Head Exam: NORMOCEPHALIC - Eye Exam Eye Exam: absent: Scleral icterus - ENT Exam ENT Exam: Mucous Membranes Dry - Neck Exam Neck Exam: absent: Lymphadenopathy - Respiratory Exam Respiratory Exam: Decreased Breath Sounds, Prolonged Expiratory Phase, Rhonchi - Cardiovascular Exam Cardiovascular Exam: REGULAR RHYTHM, +S1, +S2 - GI/Abdominal Exam GI & Abdominal Exam: Distended, Soft - Rectal Exam Rectal Exam: Deferred - Exam Exam: NORMAL INSPECTION - Extremities Exam Extremities Exam: Pedal Edema - Back Exam Back Exam: absent: CVA tenderness (L), CVA tenderness (R) Assessment and Plan (1) NSTEMI (non-ST elevated myocardial infarction) Status: Acute (2) Pulmonary embolism Status: Acute (3) COPD (chronic obstructive pulmonary disease) Status: Chronic (4) Dementia Status: Chronic - Assessment and Plan (Free Text) Assessment: cont present plan of care ok to d/c antibiotic after 7 days if cultures neg
[2018-04-22] MEDS: Moxifloxacin IV 400mg/250ml NS 400 MG/250 ML BAG IVPB SCH (20:32)
[2018-04-22] MEDS: Rosuvastatin Calcium 2.5 mg Tab PO SCH (21:41)
[2018-04-23] MEDS: Ipratropium 0.02% Inhal Soln (0.5 mg/2.5 ml) UD IH SCH ×3 (01:16→13:35)
[2018-04-23] MEDS: MethylPREDNISolone 40 mg Vial IV SCH ×2 (05:59→13:51)
[2018-04-23 06:13] LABS: BASO % 0.1 % (0.0-2.0); HEMOGLOBIN 11.5 g/dL (11.0-16.0); LYMPH # 0.7 K/uL (1.0-4.3); LYMPH % 3.5 % (20.0-40.0); MEAN CELL VOLUME 84.7 fL (81.0-99.0); MEAN CORPUSCULAR HEMOGLOBIN 28.2 pg (27.0-31.0); MEAN CORPUSCULAR HGB CONC 33.3 g/dL (33.0-37.0); MEAN PLATELET VOLUME 8.2 fL (7.2-11.7); MONO % 5.4 % (0.0-10.0); NEUT # 17.2 K/uL (1.8-7.0); NRBC % 0.2 % (0.0-2.0); PLATELET COUNT 404 K/uL (130-400); RBC 4.07 Mil/uL (3.80-5.20); RED CELL DISTRIBUTION WIDTH 16.1 % (11.5-14.5); WHITE BLOOD COUNT 18.9 K/uL (4.8-10.8)
[2018-04-23 06:32] LABS: ALBUMIN 3.6 g/dL (3.5-5.0); ALT/SGPT 21 U/L (9-52); AST/SGOT 26 U/L (14-36); BLOOD UREA NITROGEN 48 mg/dL (7-17); CALCIUM 8.4 mg/dl (8.6-10.4); GFR NON-AFRICAN AMERICAN 59
[2018-04-23] MEDS ORDERED: Simethicone 80 mg Chewtab PO PRN (08:27)
--- NOTE | 2018-04-23 08:32 | CP.PCM.PN ---
Subjective - Date & Time of Evaluation Date of Evaluation: 04/23/18 Time of Evaluation: 08:25 - Subjective Subjective: Medical Attending Note: Patient seen and examined this morning. Patient's daughter not present at bedside. Patient reports she is feeling ok. Patient reports last bowel movement was last night. Patient reports she feels dry and mild pain over the left lower extremity. unable to ROS secondary to mild dementia. Objective - Vital Signs/Intake and Output Vital Signs (last 24 hours): Temp Pulse Resp BP Pulse Ox 97.5 F L 57 L 17 105/66 96 04/23/18 08:00 04/23/18 07:37 04/23/18 07:37 04/23/18 07:37 04/23/18 07:37 Intake and Output: 04/23/18 04/23/18 06:59 18:59 Intake Total 250 Output Total 800 Balance -550 - Medications Medications: Current Medications Acetaminophen (Tylenol 325mg Tab) 650 mg PO Q4 PRN PRN Reason: Fever >100.4 F Amlodipine Besylate (Norvasc) 2.5 mg PO DAILY [facility] Apixaban (Eliquis) 10 mg PO BID [facility] Last Admin: 04/22/18 17:02 Dose: 10 mg Clopidogrel Bisulfate (Plavix) 75 mg PO DAILY [facility] Last Admin: 04/22/18 09:32 Dose: 75 mg Dextrose (Dextrose 50% Inj) 0 ml IVP .STAT PRN; Protocol PRN Reason: Hypoglycemia Protocol Dextrose (Glutose 15) 0 gm PO .ONCE PRN; Protocol PRN Reason: Hypoglycemia Protocol Docusate Sodium (Colace) 100 mg PO BID [facility] Last Admin: 04/22/18 17:02 Dose: 100 mg Fluticasone/Vilanterol (Breo Ellipta 100-25 Mcg Inh) 1 puff INH RQD [facility] Last Admin: 04/22/18 08:52 Dose: 1 puff Furosemide (Lasix) 20 mg IVP Q12 [facility] Glucagon (Glucagen Diagnostic Kit) 0 mg IM .STAT PRN; Protocol PRN Reason: Hypoglycemia Protocol Diltiazem HCl 125 mg/ Dextrose 125 mls @ 10 mls/hr IV .[id number] [facility]; Protocol Last Admin: 04/21/18 05:58 Dose: Not Given Moxifloxacin HCl (Avelox Iv 400mg/250ml Ns) 400 mg in 250 mls @ 167 mls/hr IVPB Q24H [facility]; Protocol Stop: 04/27/18 20:31 Last Admin: 04/22/18 20:32 Dose: 167 mls/hr Dextrose (Dextrose 5% In Water 1000 Ml) 1,000 mls @ 0 mls/hr IV .Q0M PRN; Protocol PRN Reason: Hypoglycemia Protocol Insulin Human Regular (Novolin R) 0 unit SC ACHS [facility]; Protocol Last Admin: 04/22/18 21:34 Dose: Not Given Ipratropium [place] (Atrovent) 0.5 mg IH RQ6 [facility] Last Admin: 04/23/18 08:04 Dose: Not Given Methylprednisolone (Solu-Medrol) 40 mg IV Q8 [facility] Last Admin: 04/23/18 05:59 Dose: 40 mg Pantoprazole Sodium (Protonix Ec Tab) 40 mg PO DAILY [facility] Last Admin: 04/22/18 09:32 Dose: 40 mg Rivastigmine (Exelon 9.5 Mg/24 Hr Patch) 1 patch TD DAILY [facility] Last Admin: 04/22/18 09:33 Dose: 1 patch Rosuvastatin Calcium (Crestor) 2.5 mg PO HS [facility] Last Admin: 04/22/18 21:41 Dose: 2.5 mg Saccharomyces Boulardii (Florastor) 250 mg PO BID [facility] Last Admin: 04/22/18 17:02 Dose: 250 mg Simethicone (Mylicon Chew Tab) 80 mg PO QID PRN PRN Reason: GI distress - Labs Labs: 04/23/18 05:59 04/23/18 05:59 PT 13.1 SECONDS (9.7-12.2) H 04/17/18 16:39 INR 1.2 04/17/18 16:39 APTT 49 SECONDS (21-34) H D 04/20/18 06:01 - Constitutional Appears: Non-toxic, No Acute Distress - Head Exam Head Exam: NORMAL INSPECTION - Eye Exam Eye Exam: EOMI - ENT Exam ENT Exam: Mucous Membranes Dry - Respiratory Exam Respiratory Exam: Decreased Breath Sounds, Rales (improved), NORMAL BREATHING PATTERN - Cardiovascular Exam Cardiovascular Exam: REGULAR RHYTHM, +S1 - GI/Abdominal Exam GI & Abdominal Exam: Soft, Normal Bowel Sounds. absent: Distended, Firm, Guarding, Rigid, Tenderness, Rebound - Extremities Exam Extremities Exam: Tenderness (left lower extremity). absent: Pedal Edema - Neurological Exam Neurological Exam: Alert, Awake - Psychiatric Exam Psychiatric exam: Normal Affect, Normal Mood - Skin Skin Exam: Dry, Intact, Normal Color, Warm Assessment and Plan (1) Pulmonary embolism Status: Acute (2) NSTEMI (non-ST elevated myocardial infarction) Status: Acute (3) Dementia Status: Chronic (4) HLD (hyperlipidemia) Status: Chronic (5) HTN (hypertension) Status: Chronic (6) TIA (transient ischemic attack) Status: Chronic (7) Prophylactic measure Status: Acute Attending/Attestation - Attestation I have personally seen and examined this patient.: Yes I have fully participated in the care of the patient.: Yes I have reviewed all pertinent clinical information, including history, physical exam and plan: Yes Notes (Text): Assessment/Plan 1. Pulmonary Embolus Right Sided Heart Failure Left Lower Extremity DVT+ Assessment/Plan * Pulmonary (Dr. Clinton) on case--> help appreciated * Cardiology (Dr. Mcallister) on case-->help appreciated * CT Chest (04/18/18): extensive bilateral upper and lower lobe pulmonary arteries right greater than left. Suspect right heart strain. Mild cardiomegaly. Mild bibasilar atelectasis left greater than right. Small calcified granuloma right upper lobe. * Chest xray (04/17/18): questionable increased reticular markings may reflect atypical pneumonitis or bronchitis however no alveolitis bilaterally. No pulmonary congestion or cardiomegaly noted. * Chest xray (04/18/18): cardiomegaly. mild reticular nodular opacities. * Echocardiogram (04/18/18): normal LV systolic function, diastolic dysfunction, mild AR, trace to mild MR, mild to moderate TR * Eliquis 10mg PO BID * Lower Lasix 20mg IV BID 2. Elevated Troponin Assessment/Plan * Cardiology (Dr. mcallister) on consult help appreciated * Elqiuis 10mg PO BID * Echocardiogram (04/18/18): normal LV systolic function, diastolic dysfunction, mild AR, trace to mild MR, mild to moderate TR * Troponin secondary to right heart strain secondary to PE 3. History of CVA Assessment/Plan * discussion with son, about 15 [address] * CT Head (04/18/18): no acute intracranial abnormality. Severe chronic microangiopathic changes and mild age-related global parenchymal volume loss. * Plavix 75mg PO daily * CT Head (04/21/18): significant diffuse confluent chronic periventricular white matter ischemic changes again seen extending peripherally into the deep and subcortical changes whilte matter both cerebral hemispheres. Extension of these changes into the white matter tracts of both basal nuclei with more discrete chronic appearing bilateral basal nuclei lacunar type infarcts. 4. Lipid Disorder Assessment/Plan * Start crestor 2.5mg PO qHS 5. History of COPD Assessment/Plan * Pulmonary (Dr. Clinton) help appreciated * Atrovent PRN * Breo Elliptia inhaled diskus * Chest xray (04/17/18): questionable increased reticular markings may reflect atypical pneumonitis or bronchitis however no alveolitis bilaterally. No pulmonary congestion or cardiomegaly noted. * Chest xray (04/18/18): cardiomegaly. mild reticular nodular opacities. * Solumedrol 40mg IV Q8H (active since 04/20/18) * patient recommended for home oxygen at 3Liters Nasal Cannula by pulmonary * Per PT note: pt wa desaturating to 73% on sitting up, supp O 2 3L was given, O2 went up to 93%, O2 sat kept fluctuating up and down w/ mobility, sit-stand x3, standing tolerance maitained for more than 5 mins, pt was then transferred to the recliner chair w/ max a, b/l LE elevated. * Will start BIPAP PRN for positive pressure support 6. History of Dementia Assessment/Plan * Rivastigime 1 patch TD daily 7. History of Hypertension Hypotension Assessment/Plan * hold Norvasc 2.5mg PO daily 8. LLE DVT Assessment/Plan * Venous doppler: Acute DVT in the left lower extremiity (femoral, popliteral, and peroneal veins) * Eliquis 10mg PO BID * SCDS contraindicated 9. leukocytosis Assessment/Plan * Infectious Diease (Dr. Guerrero) on case-->help appreciated * Urine culture: No growth (04/17) * Blood culture: no growth after 48 hours (04/20) * Blood culture: no growth after 48 hours (04/20) * MRSA not detected * procalcitonin low * Avelox 400mg IV Q24H (active since 04/20/18) advised for 7 days to end 04/27/18 per ID 10. Diabetes * a1c: 6.7 * Hypoglycemic cprotocol * Lipid panel result noted 11. Prophylactic measure * Eliquis 10mg PO BID for PE/DVT * SCDS contraindication for acute left Lower DVT+ * Florastor 250mg PO BID * Pallative care for creation of POLST * Full code Disposition: Patient's family refuses rehab. Patient is congested since to right heart strain secondary to PE. Patient will to optimize with physical therapy and is recommended home oxygen by pulmonary. We will need to f/u case management to setup patient for home oxygen for discharge planning. Patient recommended for Avelox to continue until 04/17/18. Lasix lowered to Lasix 20mg IV BID patient is little bit dry on exam.
--- NOTE | 2018-04-23 08:39 | CP.PCM.PN ---
Subjective - Date & Time of Evaluation Date of Evaluation: 04/22/18 Time of Evaluation: 20:00 - Subjective Subjective: 88 year old female with PMHx of COPD, HTN, HLD, dementia and previous CVA with L sided weakness presented to ED with complaint of shortness of breath worsening Over [address] days. While on the way to the ED, patient was noted to be in rapid atrial fibrillation and ventricular tachycardia, and upon arrival the patient was hypotensive. IVF (2L) was administered, and hypotension improved. CT angiogram was obtained and revealed PE. Patient was started on therapeutic heparin and was transferred to ICU for close monitoring. venous Doppler positive for DVT. Interventional radiology consult obtained for possible catheter directed thrombolysis. Patient later started on ELIQUIS. Patient breathing much better and off Cardizem drip. Review of Systems - Review of Systems All systems: reviewed and no additional remarkable complaints except (shortness of breath) Physical Exam - Head Exam Head Exam: ATRAUMATIC, NORMOCEPHALIC - ENT Exam ENT Exam: Mucous Membranes Moist - Neck Exam Neck exam: Positive for: Normal Inspection - Respiratory Exam Respiratory Exam: Rales, Rhonchi - Cardiovascular Exam Cardiovascular Exam: Irregular Rhythm - GI/Abdominal Exam GI & Abdominal Exam: Normal Bowel Sounds, Soft - Extremities Exam Extremities exam: Positive for: normal inspection Assessment & Plan (1) Pulmonary embolism Assessment and Plan: cont ELIQUIS thrombolytics not given because of age and increased risk of bleeding Continue nebulizer treatment For transfer to floor Status: Acute (2) COPD (chronic obstructive pulmonary disease) Status: Chronic Objective - Vital Signs/Intake and Output Vital Signs (last 24 hours): Temp Pulse Resp BP Pulse Ox 97.5 F L 65 14 123/63 95 04/22/18 04:00 04/22/18 04:00 04/22/18 04:00 04/22/18 03:42 04/22/18 04:00 Intake and Output: 04/22/18 04/22/18 06:59 18:59 Intake Total 490 Output Total 900 Balance -410 - Medications Medications: Current Medications Acetaminophen (Tylenol 325mg Tab) 650 mg PO Q4 PRN PRN Reason: Fever >100.4 F Amlodipine Besylate (Norvasc) 2.5 mg PO DAILY [facility] Apixaban (Eliquis) 10 mg PO BID [facility] Last Admin: 04/21/18 17:18 Dose: 10 mg Clopidogrel Bisulfate (Plavix) 75 mg PO DAILY [facility] Last Admin: 04/21/18 09:17 Dose: 75 mg Dextrose (Dextrose 50% Inj) 0 ml IVP .STAT PRN; Protocol PRN Reason: Hypoglycemia Protocol Dextrose (Glutose 15) 0 gm PO .ONCE PRN; Protocol PRN Reason: Hypoglycemia Protocol Docusate Sodium (Colace) 100 mg PO BID [facility] Last Admin: 04/21/18 17:19 Dose: Not Given Fluticasone/Vilanterol (Breo Ellipta 100-25 Mcg Inh) 1 puff INH RQD [facility] Last Admin: 04/21/18 07:05 Dose: 1 puff Glucagon (Glucagen Diagnostic Kit) 0 mg IM .STAT PRN; Protocol PRN Reason: Hypoglycemia Protocol Diltiazem HCl 125 mg/ Dextrose 125 mls @ 10 mls/hr IV .[id number] [facility]; Protocol Last Admin: 04/21/18 05:58 Dose: Not Given Moxifloxacin HCl (Avelox Iv 400mg/250ml Ns) 400 mg in 250 mls @ 167 mls/hr IVPB Q24H [facility]; Protocol Last Admin: 04/21/18 19:58 Dose: 167 mls/hr Dextrose (Dextrose 5% In Water 1000 Ml) 1,000 mls @ 0 mls/hr IV .Q0M PRN; Protocol PRN Reason: Hypoglycemia Protocol Insulin Human Regular (Novolin R) 0 unit SC ACHS [facility]; Protocol Last Admin: 04/21/18 22:05 Dose: Not Given Ipratropium [place] (Atrovent) 0.5 mg IH RQ6 [facility] Last Admin: 04/22/18 01:20 Dose: 0.5 mg Methylprednisolone (Solu-Medrol) 40 mg IV Q8 [facility] Last Admin: 04/22/18 05:43 Dose: 40 mg Pantoprazole Sodium (Protonix Ec Tab) 40 mg PO DAILY [facility] Last Admin: 04/21/18 09:35 Dose: Not Given Rivastigmine (Exelon 9.5 Mg/24 Hr Patch) 1 patch TD DAILY [facility] Last Admin: 04/21/18 09:17 Dose: 1 patch Rosuvastatin Calcium (Crestor) 2.5 mg PO HS [facility] Last Admin: 04/21/18 22:00 Dose: 2.5 mg Saccharomyces Boulardii (Florastor) 250 mg PO BID [facility] Last Admin: 04/21/18 17:19 Dose: 250 mg - Labs Labs: 04/22/18 06:09 04/22/18 06:09 PT 13.1 SECONDS (9.7-12.2) H 04/17/18 16:39 INR 1.2 04/17/18 16:39 APTT 49 SECONDS (21-34) H D 04/20/18 06:01 Assessment and Plan - Assessment and Plan (Free Text) Assessment: This is an 88 year old female with PMHx of COPD, HTN, HLD, dementia and previous CVA with L sided weakness presents to ED with complaint of shortness of breath worsening for the last 2 days. While on the way to the ED, patient was noted to be in rapid atrial fibrillation and ventricular tachycardia, and upon arrival the patient was hypotensive. IVF (2L) was administered, and hypotension improved. CT angiogram was obtained and revealed PE. Patient was started on therapeutic heparin and was transferred to ICU for close monitoring. Neuro: - No acute issues - A&O x3 - Residual left lower extremity weakness - Patient walks with assistance of walker CV: - Elevated troponins possibly secondary to right-sided heart strain - Cardiology consulted (Dr. Chino) to evaluate: * Patient hemodynamically stable * Patient is saturating well * Due to the above and due to patient's advanced age, catheter directed thrombolysis would be high risk procedure for this patient - ECHO completed; see report for details - Patient has HTN; however is normotensive - Hold: amlodipine (home med) - Monitor rhythm Pulm: - CT angiograph: revealed PE; see full report for details - Venous doppler: revealed DVT in left lower extremity; see full report for details - Therapeutic heparin started - Discontinue: Montelukast (home med) - Elevated troponin; Cardiology consulted for possible right heart strain (Dr. Chino) recommendations appreciated. - Monitor Coag, CBC, CMP, Trops - History of COPD; continue duoneb BID GI: - No acute issues - Tolerating diet - HHD Renal: - No acute issues - Monitor CMP Heme: - No acute issues - Monitor H/H ID: - No acute issues - Monitor CBC Endo: - No acute issues PPx: GI - Protonix (40mg PO daily) DVT - Therapeutic heparin; SCD CONTRAINDICATED Objective - Vital Signs/Intake and Output Vital Signs (last 24 hours): Temp Pulse Resp BP Pulse Ox 97.5 F L 57 L 17 105/66 96 04/23/18 08:00 04/23/18 07:37 04/23/18 07:37 04/23/18 07:37 04/23/18 07:37 Intake and Output: 04/23/18 04/23/18 06:59 18:59 Intake Total 250 Output Total 800 Balance -550 - Medications Medications: Current Medications Acetaminophen (Tylenol 325mg Tab) 650 mg PO Q4 PRN PRN Reason: Fever >100.4 F Amlodipine Besylate (Norvasc) 2.5 mg PO DAILY [facility] Apixaban (Eliquis) 10 mg PO BID [facility] Last Admin: 04/22/18 17:02 Dose: 10 mg Clopidogrel Bisulfate (Plavix) 75 mg PO DAILY [facility] Last Admin: 04/22/18 09:32 Dose: 75 mg Dextrose (Dextrose 50% Inj) 0 ml IVP .STAT PRN; Protocol PRN Reason: Hypoglycemia Protocol Dextrose (Glutose 15) 0 gm PO .ONCE PRN; Protocol PRN Reason: Hypoglycemia Protocol Docusate Sodium (Colace) 100 mg PO BID [facility] Last Admin: 04/22/18 17:02 Dose: 100 mg Fluticasone/Vilanterol (Breo Ellipta 100-25 Mcg Inh) 1 puff INH RQD [facility] Last Admin: 04/22/18 08:52 Dose: 1 puff Furosemide (Lasix) 20 mg IVP Q12 [facility] Glucagon (Glucagen Diagnostic Kit) 0 mg IM .STAT PRN; Protocol PRN Reason: Hypoglycemia Protocol Diltiazem HCl 125 mg/ Dextrose 125 mls @ 10 mls/hr IV .[id number] [facility]; Protocol Last Admin: 04/21/18 05:58 Dose: Not Given Moxifloxacin HCl (Avelox Iv 400mg/250ml Ns) 400 mg in 250 mls @ 167 mls/hr IVPB Q24H [facility]; Protocol Stop: 04/27/18 20:31 Last Admin: 04/22/18 20:32 Dose: 167 mls/hr Dextrose (Dextrose 5% In Water 1000 Ml) 1,000 mls @ 0 mls/hr IV .Q0M PRN; Protocol PRN Reason: Hypoglycemia Protocol Insulin Human Regular (Novolin R) 0 unit SC ACHS [facility]; Protocol Last Admin: 04/22/18 21:34 Dose: Not Given Ipratropium [place] (Atrovent) 0.5 mg IH RQ6 [facility] Last Admin: 04/23/18 08:04 Dose: Not Given Methylprednisolone (Solu-Medrol) 40 mg IV Q8 [facility] Last Admin: 04/23/18 05:59 Dose: 40 mg Pantoprazole Sodium (Protonix Ec Tab) 40 mg PO DAILY [facility] Last Admin: 04/22/18 09:32 Dose: 40 mg Rivastigmine (Exelon 9.5 Mg/24 Hr Patch) 1 patch TD DAILY [facility] Last Admin: 04/22/18 09:33 Dose: 1 patch Rosuvastatin Calcium (Crestor) 2.5 mg PO HS [facility] Last Admin: 04/22/18 21:41 Dose: 2.5 mg Saccharomyces Boulardii (Florastor) 250 mg PO BID [facility] Last Admin: 04/22/18 17:02 Dose: 250 mg Simethicone (Mylicon Chew Tab) 80 mg PO QID PRN PRN Reason: GI distress - Labs Labs: 04/23/18 05:59 04/23/18 05:59 PT 13.1 SECONDS (9.7-12.2) H 04/17/18 16:39 INR 1.2 04/17/18 16:39 APTT 49 SECONDS (21-34) H D 04/20/18 06:01
[2018-04-23] MEDS: (Novolin R) Insulin Human Regular 100 units/ml vial SC SCH ×4 (08:55→22:52)
[2018-04-23] MEDS: Pantoprazole 40 mg EC Tab PO SCH (09:00)
[2018-04-23] MEDS: Saccharomyces Boulardi 250 mg Cap PO SCH ×2 (09:00→18:16)
[2018-04-23 09:19] LABS: BANDS 1 % (0-2); LYMPHOCYTE 4 % (20-40); MONOCYTE 4 % (0-10); NEUTROPHIL 91 % (50-75); TOTAL CELLS COUNTED 100
[2018-04-23 09:20] LABS: ANISOCYTOSIS SLIGHT; HYPOCHROMIC SLIGHT; PLATELET ESTIMATE SLIGHTLY INCREASED (NORMAL); POIKILOCYTOSIS SLIGHT; POLYCHROMIC SLIGHT
[2018-04-23 09:21] LABS: LARGE PLATELETS PRESENT; OVALOCYTES SLIGHT; TOXIC GRANULATION PRESENT
[2018-04-23 09:23] LABS: GIANT PLATELETS PRESENT
[2018-04-23 09:24] LABS: SCHISTOCYTES SLIGHT
--- NOTE | 2018-04-23 09:33 | CP.PCM.PN ---
Subjective - Date & Time of Evaluation Date of Evaluation: 04/23/18 - Subjective Subjective: Patient seen and examined, Afebrile and in no acute distress. Denies any chest pain, cough, congestion, or wheezing. Started on Lasix yesterday Continue anticoagulation Continue nebulizer treatment Home oxygen Objective - Vital Signs/Intake and Output Vital Signs (last 24 hours): Temp Pulse Resp BP Pulse Ox 97.5 F L 57 L 17 95/68 L 96 04/23/18 08:00 04/23/18 07:37 04/23/18 07:37 04/23/18 08:58 04/23/18 07:37 Intake and Output: 04/23/18 04/23/18 06:59 18:59 Intake Total 250 Output Total 800 Balance -550 - Medications Medications: Current Medications Acetaminophen (Tylenol 325mg Tab) 650 mg PO Q4 PRN PRN Reason: Fever >100.4 F Apixaban (Eliquis) 10 mg PO BID [facility] Last Admin: 04/23/18 09:00 Dose: 10 mg Clopidogrel Bisulfate (Plavix) 75 mg PO DAILY [facility] Last Admin: 04/23/18 09:00 Dose: 75 mg Dextrose (Dextrose 50% Inj) 0 ml IVP .STAT PRN; Protocol PRN Reason: Hypoglycemia Protocol Dextrose (Glutose 15) 0 gm PO .ONCE PRN; Protocol PRN Reason: Hypoglycemia Protocol Docusate Sodium (Colace) 100 mg PO BID [facility] Last Admin: 04/23/18 09:00 Dose: 100 mg Fluticasone/Vilanterol (Breo Ellipta 100-25 Mcg Inh) 1 puff INH RQD [facility] Last Admin: 04/22/18 08:52 Dose: 1 puff Furosemide (Lasix) 20 mg IVP Q12 [facility] Last Admin: 04/23/18 09:30 Dose: Not Given Glucagon (Glucagen Diagnostic Kit) 0 mg IM .STAT PRN; Protocol PRN Reason: Hypoglycemia Protocol Moxifloxacin HCl (Avelox Iv 400mg/250ml Ns) 400 mg in 250 mls @ 167 mls/hr IVPB Q24H [facility]; Protocol Stop: 04/27/18 20:31 Last Admin: 04/22/18 20:32 Dose: 167 mls/hr Dextrose (Dextrose 5% In Water 1000 Ml) 1,000 mls @ 0 mls/hr IV .Q0M PRN; Protocol PRN Reason: Hypoglycemia Protocol Insulin Human Regular (Novolin R) 0 unit SC ACHS [facility]; Protocol Last Admin: 04/23/18 08:55 Dose: 2 u Ipratropium [place] (Atrovent) 0.5 mg IH RQ6 [facility] Last Admin: 04/23/18 08:04 Dose: Not Given Methylprednisolone (Solu-Medrol) 40 mg IV Q8 [facility] Last Admin: 04/23/18 05:59 Dose: 40 mg Pantoprazole Sodium (Protonix Ec Tab) 40 mg PO DAILY [facility] Last Admin: 04/23/18 09:00 Dose: 40 mg Rivastigmine (Exelon 9.5 Mg/24 Hr Patch) 1 patch TD DAILY [facility] Last Admin: 04/23/18 08:59 Dose: 1 patch Rosuvastatin Calcium (Crestor) 2.5 mg PO HS [facility] Last Admin: 04/22/18 21:41 Dose: 2.5 mg Saccharomyces Boulardii (Florastor) 250 mg PO BID [facility] Last Admin: 04/23/18 09:00 Dose: 250 mg Simethicone (Mylicon Chew Tab) 80 mg PO QID PRN PRN Reason: GI distress Last Admin: 04/23/18 08:58 Dose: 80 mg - Labs Labs: 04/23/18 05:59 04/23/18 05:59 PT 13.1 SECONDS (9.7-12.2) H 04/17/18 16:39 INR 1.2 04/17/18 16:39 APTT 49 SECONDS (21-34) H D 04/20/18 06:01 Assessment and Plan (1) Pulmonary embolism Status: Acute (2) COPD (chronic obstructive pulmonary disease) Status: Chronic
[2018-04-23] MEDS: Fluticasone-Vilanterol 100/25mcg Diskus INH SCH (11:01)
--- NOTE | 2018-04-23 14:36 | RAD ---
Date of service: 04/23/2018 HISTORY: shortness of breath COMPARISON: Comparison chest 04/22/2018 FINDINGS: LUNGS: Mild pulmonary venous congestion with bibasilar atelectasis. Questionable small right-sided effusion PLEURA: As above. No pneumothorax apparent. CARDIOVASCULAR: Mild aortic atherosclerotic calcification present. . Marked cardiomegaly. No pulmonary vascular congestion. OSSEOUS STRUCTURES: No significant abnormalities. VISUALIZED UPPER ABDOMEN: Normal. OTHER FINDINGS: None. IMPRESSION: Mild pulmonary venous congestion with bibasilar atelectasis. Questionable small right-sided effusion
[2018-04-23] MEDS ORDERED: methylPREDNISolone 40 MG in Sodium Chloride 0.9% 100 ML IVPB ONE (18:00)
--- NOTE | 2018-04-23 19:43 | CP.PCM.PN ---
Subjective - Date & Time of Evaluation Date of Evaluation: 04/23/18 Time of Evaluation: 14:10 - Subjective Subjective: Patient seen and examined Looks comfortable Denies chest pain and dyspnea Objective - Vital Signs/Intake and Output Vital Signs (last 24 hours): Temp Pulse Resp BP Pulse Ox 97.5 F L 57 L 17 105/66 96 04/23/18 08:00 04/23/18 07:37 04/23/18 07:37 04/23/18 07:37 04/23/18 07:37 Intake and Output: 04/23/18 04/23/18 06:59 18:59 Intake Total 250 Output Total 800 Balance -550 - Medications Medications: Current Medications Acetaminophen (Tylenol 325mg Tab) 650 mg PO Q4 PRN PRN Reason: Fever >100.4 F Amlodipine Besylate (Norvasc) 2.5 mg PO DAILY [facility] Apixaban (Eliquis) 10 mg PO BID [facility] Last Admin: 04/22/18 17:02 Dose: 10 mg Clopidogrel Bisulfate (Plavix) 75 mg PO DAILY [facility] Last Admin: 04/22/18 09:32 Dose: 75 mg Dextrose (Dextrose 50% Inj) 0 ml IVP .STAT PRN; Protocol PRN Reason: Hypoglycemia Protocol Dextrose (Glutose 15) 0 gm PO .ONCE PRN; Protocol PRN Reason: Hypoglycemia Protocol Docusate Sodium (Colace) 100 mg PO BID [facility] Last Admin: 04/22/18 17:02 Dose: 100 mg Fluticasone/Vilanterol (Breo Ellipta 100-25 Mcg Inh) 1 puff INH RQD [facility] Last Admin: 04/22/18 08:52 Dose: 1 puff Furosemide (Lasix) 20 mg IVP Q12 [facility] Glucagon (Glucagen Diagnostic Kit) 0 mg IM .STAT PRN; Protocol PRN Reason: Hypoglycemia Protocol Diltiazem HCl 125 mg/ Dextrose 125 mls @ 10 mls/hr IV .[id number] [facility]; Protocol Last Admin: 04/21/18 05:58 Dose: Not Given Moxifloxacin HCl (Avelox Iv 400mg/250ml Ns) 400 mg in 250 mls @ 167 mls/hr IVPB Q24H [facility]; Protocol Stop: 04/27/18 20:31 Last Admin: 04/22/18 20:32 Dose: 167 mls/hr Dextrose (Dextrose 5% In Water 1000 Ml) 1,000 mls @ 0 mls/hr IV .Q0M PRN; Protocol PRN Reason: Hypoglycemia Protocol Insulin Human Regular (Novolin R) 0 unit SC ACHS [facility]; Protocol Last Admin: 04/22/18 21:34 Dose: Not Given Ipratropium [place] (Atrovent) 0.5 mg IH RQ6 [facility] Last Admin: 04/23/18 08:04 Dose: Not Given Methylprednisolone (Solu-Medrol) 40 mg IV Q8 [facility] Last Admin: 04/23/18 05:59 Dose: 40 mg Pantoprazole Sodium (Protonix Ec Tab) 40 mg PO DAILY [facility] Last Admin: 04/22/18 09:32 Dose: 40 mg Rivastigmine (Exelon 9.5 Mg/24 Hr Patch) 1 patch TD DAILY [facility] Last Admin: 04/22/18 09:33 Dose: 1 patch Rosuvastatin Calcium (Crestor) 2.5 mg PO HS [facility] Last Admin: 04/22/18 21:41 Dose: 2.5 mg Saccharomyces Boulardii (Florastor) 250 mg PO BID [facility] Last Admin: 04/22/18 17:02 Dose: 250 mg Simethicone (Mylicon Chew Tab) 80 mg PO QID PRN PRN Reason: GI distress - Labs Labs: 04/23/18 05:59 04/23/18 05:59 PT 13.1 SECONDS (9.7-12.2) H 04/17/18 16:39 INR 1.2 04/17/18 16:39 APTT 49 SECONDS (21-34) H D 04/20/18 06:01 - Constitutional Appears: Non-toxic, No Acute Distress - Head Exam Head Exam: NORMAL INSPECTION - Eye Exam Eye Exam: EOMI - ENT Exam ENT Exam: Mucous Membranes Dry - Respiratory Exam Respiratory Exam: Decreased Breath Sounds, Rales (improved), NORMAL BREATHING PATTERN - Cardiovascular Exam Cardiovascular Exam: REGULAR RHYTHM, +S1 - GI/Abdominal Exam GI & Abdominal Exam: Soft, Normal Bowel Sounds. absent: Distended, Firm, Guarding, Rigid, Tenderness, Rebound - Extremities Exam Extremities Exam: Tenderness (left lower extremity). absent: Pedal Edema - Neurological Exam Neurological Exam: Alert, Awake - Psychiatric Exam Psychiatric exam: Normal Affect, Normal Mood - Skin Skin Exam: Dry, Intact, Normal Color, Warm Assessment and Plan (1) Pulmonary embolism Status: Acute (2) NSTEMI (non-ST elevated myocardial infarction) Status: Acute (3) Dementia Status: Chronic (4) HLD (hyperlipidemia) Status: Chronic (5) HTN (hypertension) Status: Chronic (6) TIA (transient ischemic attack) Status: Chronic (7) Prophylactic measure Status: Acute Assessment and Plan * Pulmonary (Dr. Clinton) on case--> help appreciated * CT Chest (04/18/18): extensive bilateral upper and lower lobe pulmonary arteries right greater than left. Suspect right heart strain. Mild cardiomegaly. Mild bibasilar atelectasis left greater than right. Small calcified granuloma right upper lobe. * Chest xray (04/17/18): questionable increased reticular markings may reflect atypical pneumonitis or bronchitis however no alveolitis bilaterally. No pulmonary congestion or cardiomegaly noted. * Chest xray (04/18/18): cardiomegaly. mild reticular nodular opacities. * Echocardiogram (04/18/18): normal LV systolic function, diastolic dysfunction, mild AR, trace to mild MR, mild to moderate TR * Eliquis 10mg PO BID * Lower Lasix 20mg IV BID 2. Elevated Troponin Assessment/Plan * Cardiology (Dr. mcallister) on consult help appreciated * Elqiuis 10mg PO BID * Echocardiogram (04/18/18): normal LV systolic function, diastolic dysfunction, mild AR, trace to mild MR, mild to moderate TR * Troponin secondary to right heart strain secondary to PE 3. History of CVA Assessment/Plan * discussion with son, about 15 years ago * CT Head (04/18/18): no acute intracranial abnormality. Severe chronic microangiopathic changes and mild age-related global parenchymal volume loss. * Plavix 75mg PO daily * CT Head (04/21/18): significant diffuse confluent chronic periventricular white matter ischemic changes again seen extending peripherally into the deep and subcortical changes whilte matter both cerebral hemispheres. Extension of these changes into the white matter tracts of both basal nuclei with more discrete chronic appearing bilateral basal nuclei lacunar type infarcts. 4. Lipid Disorder Assessment/Plan * Start crestor 2.5mg PO qHS 5. History of COPD Assessment/Plan * Pulmonary (Dr. Clinton) help appreciated * Atrovent PRN * Breo Elliptia inhaled diskus * Chest xray (04/17/18): questionable increased reticular markings may reflect atypical pneumonitis or bronchitis however no alveolitis bilaterally. No pulmonary congestion or cardiomegaly noted. * Chest xray (04/18/18): cardiomegaly. mild reticular nodular opacities. * Solumedrol 40mg IV Q8H (active since 04/20/18) * patient recommended for home oxygen at 3Liters Nasal Cannula by pulmonary * Per PT note: pt wa desaturating to 73% on sitting up, supp O 2 3L was given, O2 went up to 93%, O2 sat kept fluctuating up and down w/ mobility, sit-stand x3, standing tolerance maitained for more than 5 mins, pt was then transferred to the recliner chair w/ max a, b/l LE elevated. * Will start BIPAP PRN for positive pressure support 6. History of Dementia Assessment/Plan * Rivastigime 1 patch TD daily 7. History of Hypertension Hypotension Assessment/Plan * hold Norvasc 2.5mg PO daily 8. LLE DVT Assessment/Plan * Venous doppler: Acute DVT in the left lower extremiity (femoral, popliteral, a nd peroneal veins) * Eliquis 10mg PO BID * SCDS contraindicated 9. leukocytosis Assessment/Plan * Infectious Diease (Dr. Guerrero) on case-->help appreciated * Urine culture: No growth (04/17) * Blood culture: no growth after 48 hours (04/20) * Blood culture: no growth after 48 hours (04/20) * MRSA not detected * procalcitonin low * Avelox 400mg IV Q24H (active since 04/20/18) advised for 7 days to end 04/27/18 per ID 10. Diabetes * a1c: 6.7 * Hypoglycemic cprotocol * Lipid panel result noted 11. Prophylactic measure * Eliquis 10mg PO BID for PE/DVT * SCDS contraindication for acute left Lower DVT+ * Florastor 250mg PO BID * Pallative care for creation of POLST * Full code Objective - Vital Signs/Intake and Output Vital Signs (last 24 hours): Temp Pulse Resp BP Pulse Ox 97.1 F L 73 20 135/67 97 04/23/18 17:38 04/23/18 17:38 04/23/18 17:38 04/23/18 17:38 04/23/18 17:38 Intake and Output: 04/23/18 04/24/18 18:59 06:59 Intake Total 540 Output Total 500 Balance 40 - Medications Medications: Current Medications Acetaminophen (Tylenol 325mg Tab) 650 mg PO Q4 PRN PRN Reason: Fever >100.4 F Apixaban (Eliquis) 10 mg PO BID [facility] Last Admin: 04/23/18 18:16 Dose: 10 mg Clopidogrel Bisulfate (Plavix) 75 mg PO DAILY [facility] Last Admin: 04/23/18 09:00 Dose: 75 mg Dextrose (Dextrose 50% Inj) 0 ml IVP .STAT PRN; Protocol PRN Reason: Hypoglycemia Protocol Dextrose (Glutose 15) 0 gm PO .ONCE PRN; Protocol PRN Reason: Hypoglycemia Protocol Docusate Sodium (Colace) 100 mg PO BID [facility] Last Admin: 04/23/18 18:16 Dose: 100 mg Fluticasone/Vilanterol (Breo Ellipta 100-25 Mcg Inh) 1 puff INH RQD [facility] Last Admin: 04/23/18 11:01 Dose: 1 puff Furosemide (Lasix) 20 mg IVP Q12 [facility] Last Admin: 04/23/18 09:30 Dose: Not Given Glucagon (Glucagen Diagnostic Kit) 0 mg IM .STAT PRN; Protocol PRN Reason: Hypoglycemia Protocol Moxifloxacin HCl (Avelox Iv 400mg/250ml Ns) 400 mg in 250 mls @ 167 mls/hr IVPB Q24H [facility]; Protocol Stop: 04/27/18 20:31 Last Admin: 04/22/18 20:32 Dose: 167 mls/hr Dextrose (Dextrose 5% In Water 1000 Ml) 1,000 mls @ 0 mls/hr IV .Q0M PRN; Protocol PRN Reason: Hypoglycemia Protocol Insulin Human Regular (Novolin R) 0 unit SC ACHS [facility]; Protocol Last Admin: 04/23/18 16:30 Dose: 3 u Ipratropium [place] (Atrovent) 0.5 mg IH RQ6 [facility] Last Admin: 04/23/18 13:35 Dose: Not Given Methylprednisolone (Solu-Medrol) 40 mg IV Q12H [facility] Last Admin: 04/23/18 13:51 Dose: 40 mg Pantoprazole Sodium (Protonix Ec Tab) 40 mg PO DAILY [facility] Last Admin: 04/23/18 09:00 Dose: 40 mg Rivastigmine (Exelon 9.5 Mg/24 Hr Patch) 1 patch TD DAILY [facility] Last Admin: 04/23/18 08:59 Dose: 1 patch Rosuvastatin Calcium (Crestor) 2.5 mg PO HS [facility] Last Admin: 04/22/18 21:41 Dose: 2.5 mg Saccharomyces Boulardii (Florastor) 250 mg PO BID [facility] Last Admin: 04/23/18 18:16 Dose: 250 mg Simethicone (Mylicon Chew Tab) 80 mg PO QID PRN PRN Reason: GI distress Last Admin: 04/23/18 08:58 Dose: 80 mg - Labs Labs: 04/23/18 05:59 04/23/18 05:59 PT 13.1 SECONDS (9.7-12.2) H 04/17/18 16:39 INR 1.2 04/17/18 16:39 APTT 49 SECONDS (21-34) H D 04/20/18 06:01
[2018-04-23] MEDS: Moxifloxacin IV 400mg/250ml NS 400 MG/250 ML BAG IVPB SCH (21:11)
[2018-04-23] MEDS: Rosuvastatin Calcium 2.5 mg Tab PO SCH (22:51)
[2018-04-24] MEDS: MethylPREDNISolone 40 mg Vial IV SCH (02:11)
[2018-04-24] MEDS: Ipratropium 0.02% Inhal Soln (0.5 mg/2.5 ml) UD IH SCH ×3 (08:00→19:18)
[2018-04-24] MEDS: Fluticasone-Vilanterol 100/25mcg Diskus INH SCH (08:00)
[2018-04-24] MEDS: (Novolin R) Insulin Human Regular 100 units/ml vial SC SCH ×4 (08:30→21:12)
--- NOTE | 2018-04-24 08:47 | CP.PCM.PN ---
<KamranbrunildaArpit - Last Filed: 04/24/18 13:15> Subjective - Date & Time of Evaluation Date of Evaluation: 04/24/18 Time of Evaluation: 08:45 - Subjective Subjective: Crytsalcassandranenita Doherty PGY1 Progress note Pt was examined at bedside this morning. She was sleeping, and difficult to arouse. Once woken, she was able to respond to commands, however was not responding to direct questions. She did say she felt "better." As per RN, pt more alert, less confused after breakfast. Objective - Vital Signs/Intake and Output Vital Signs (last 24 hours): Temp Pulse Resp BP Pulse Ox 97.7 F 55 L 20 142/69 97 04/24/18 08:23 04/24/18 08:23 04/24/18 08:23 04/24/18 08:23 04/24/18 08:23 Intake and Output: 04/24/18 04/24/18 06:59 18:59 Intake Total 730 Output Total 200 Balance 530 - Medications Medications: Current Medications Acetaminophen (Tylenol 325mg Tab) 650 mg PO Q4 PRN PRN Reason: Fever >100.4 F Apixaban (Eliquis) 10 mg PO BID [facility] Last Admin: 04/23/18 18:16 Dose: 10 mg Clopidogrel Bisulfate (Plavix) 75 mg PO DAILY [facility] Last Admin: 04/23/18 09:00 Dose: 75 mg Dextrose (Dextrose 50% Inj) 0 ml IVP .STAT PRN; Protocol PRN Reason: Hypoglycemia Protocol Dextrose (Glutose 15) 0 gm PO .ONCE PRN; Protocol PRN Reason: Hypoglycemia Protocol Docusate Sodium (Colace) 100 mg PO BID [facility] Last Admin: 04/23/18 18:16 Dose: 100 mg Fluticasone/Vilanterol (Breo Ellipta 100-25 Mcg Inh) 1 puff INH RQD [facility] Last Admin: 04/23/18 11:01 Dose: 1 puff Furosemide (Lasix) 20 mg IVP Q12 [facility] Last Admin: 04/23/18 22:51 Dose: 20 mg Glucagon (Glucagen Diagnostic Kit) 0 mg IM .STAT PRN; Protocol PRN Reason: Hypoglycemia Protocol Moxifloxacin HCl (Avelox Iv 400mg/250ml Ns) 400 mg in 250 mls @ 167 mls/hr IVPB Q24H [facility]; Protocol Stop: 04/27/18 20:31 Last Admin: 04/23/18 21:11 Dose: 167 mls/hr Dextrose (Dextrose 5% In Water 1000 Ml) 1,000 mls @ 0 mls/hr IV .Q0M PRN; Protocol PRN Reason: Hypoglycemia Protocol Insulin Human Regular (Novolin R) 0 unit SC ACHS [facility]; Protocol Last Admin: 04/23/18 22:52 Dose: Not Given Ipratropium [place] (Atrovent) 0.5 mg IH RQ6 [facility] Last Admin: 04/23/18 13:35 Dose: Not Given Methylprednisolone (Solu-Medrol) 40 mg IV Q12H [facility] Last Admin: 04/24/18 02:11 Dose: 40 mg Pantoprazole Sodium (Protonix Ec Tab) 40 mg PO DAILY [facility] Last Admin: 04/23/18 09:00 Dose: 40 mg Rivastigmine (Exelon 9.5 Mg/24 Hr Patch) 1 patch TD DAILY [facility] Last Admin: 04/23/18 08:59 Dose: 1 patch Rosuvastatin Calcium (Crestor) 2.5 mg PO HS [facility] Last Admin: 04/23/18 22:51 Dose: 2.5 mg Saccharomyces Boulardii (Florastor) 250 mg PO BID [facility] Last Admin: 04/23/18 18:16 Dose: 250 mg Simethicone (Mylicon Chew Tab) 80 mg PO QID PRN PRN Reason: GI distress Last Admin: 04/23/18 08:58 Dose: 80 mg - Labs Labs: 04/23/18 05:59 04/23/18 05:59 PT 13.1 SECONDS (9.7-12.2) H 04/17/18 16:39 INR 1.2 04/17/18 16:39 APTT 49 SECONDS (21-34) H D 04/20/18 06:01 - Constitutional Appears: No Acute Distress, Chronically Ill - Head Exam Head Exam: ATRAUMATIC, NORMOCEPHALIC - Eye Exam Eye Exam: EOMI, Normal appearance - ENT Exam ENT Exam: Mucous Membranes Moist - Respiratory Exam Respiratory Exam: Decreased Breath Sounds, NORMAL BREATHING PATTERN. absent: Rales, Rhonchi, Wheezes - Cardiovascular Exam Cardiovascular Exam: Bradycardia, REGULAR RHYTHM, +S1, +S2 - GI/Abdominal Exam GI & Abdominal Exam: Soft, Normal Bowel Sounds. absent: Distended, Tenderness - Extremities Exam Extremities Exam: Pedal Edema - Neurological Exam Neurological Exam: Awake. absent: Alert, Oriented x3 Assessment and Plan - Assessment and Plan (Free Text) Assessment: 88 year old female with PMHx of COPD, HTN, HLD, dementia and previous CVA presents to ED with complaint of shortness of breath, admitted for treatment of PE. Plan: PE - w/ R sided HF - CT Chest 04/18: b/l upper and lower lobe pulm a. R>L. R heart strain. cardiomegaly. bibasilar atelectasis (mild) - CXR 04/18: cardiomegaly, mild reticular nodular opacities - Venous doppler: Acute DVT in LLE - eliquis 10mg PO BID - lasix 20mg IV BID - Pulmonary consulted, Dr. Clinton - Cardio consulted, Dr. Chino Elevated Troponin - likely secondary to R heart strain, PE - eliquis 10mg PO BID - ECHO 04/18: nl LV systolic function, diastolic dysfunction, mild AR, MR, TR - Cardio consulted, Dr. Chino H/o CVA - CT head 04/21: diffuse confluent chronic periventricular white matter ischemic changes extending peripherally into deep and subcortical changes. Extension into white matter tracts of both basal nuclei. chronic bilateral basal nuclei lacunar type infarcts. - Plavix 75mg PO daily HLD - crestor 2.5mg PO qHS COPD - Chest xray (04/18/18): cardiomegaly. mild reticular nodular opacities. - d/c Solumedrol 40mg IV Q8 - Breo Elliptia inhaled diskus - Atrovent PRN - Bipap PRN - Pulm consulted, Dr. Clinton- recommends 3L NC for home O2 - noted to desat to 73% upon sitting up as per PT, fluctuating with mobility Dementia - pt more confused this morning - Rivastigime 1 patch TD daily History of Hypertension - hold norvasc 2.5mg PO daily Leukocytosis - UCx: No growth 04/17 - BCx: no growth 04/20 - d/c Avelox 400mg IV Q24H (04/20) - ID consulted, Dr. Guerrero, recs appreciated DM - Hba1c 6.7 - Hypoglycemia protocol PPX: DVT: Eliquis 10mg PO BID GI: protonix Case reviewed with Dr. Wharton <Umesh Wharton - Last Filed: 04/24/18 14:43> Objective - Vital Signs/Intake and Output Vital Signs (last 24 hours): Temp Pulse Resp BP Pulse Ox 97.7 F 55 L 20 133/63 97 04/24/18 08:23 04/24/18 08:23 04/24/18 08:23 04/24/18 10:01 04/24/18 08:23 Intake and Output: 04/24/18 04/24/18 06:59 18:59 Intake Total 730 Output Total 200 Balance 530 - Medications Medications: Current Medications Acetaminophen (Tylenol 325mg Tab) 650 mg PO Q4 PRN PRN Reason: Fever >100.4 F Apixaban (Eliquis) 10 mg PO BID [facility] Last Admin: 04/24/18 10:00 Dose: 10 mg Clopidogrel Bisulfate (Plavix) 75 mg PO DAILY [facility] Last Admin: 04/24/18 10:00 Dose: 75 mg Dextrose (Dextrose 50% Inj) 0 ml IVP .STAT PRN; Protocol PRN Reason: Hypoglycemia Protocol Dextrose (Glutose 15) 0 gm PO .ONCE PRN; Protocol PRN Reason: Hypoglycemia Protocol Docusate Sodium (Colace) 100 mg PO BID [facility] Last Admin: 04/24/18 10:00 Dose: 100 mg Fluticasone/Vilanterol (Breo Ellipta 100-25 Mcg Inh) 1 puff INH RQD [facility] Last Admin: 04/24/18 08:00 Dose: Not Given Furosemide (Lasix) 20 mg IVP Q12 [facility] Last Admin: 04/24/18 10:01 Dose: 20 mg Glucagon (Glucagen Diagnostic Kit) 0 mg IM .STAT PRN; Protocol PRN Reason: Hypoglycemia Protocol Dextrose (Dextrose 5% In Water 1000 Ml) 1,000 mls @ 0 mls/hr IV .Q0M PRN; Pro tocol PRN Reason: Hypoglycemia Protocol Insulin Human Regular (Novolin R) 0 unit SC ACHS [facility]; Protocol Last Admin: 04/24/18 12:27 Dose: 1 u Ipratropium [place] (Atrovent) 0.5 mg IH RQ6 [facility] Last Admin: 04/24/18 08:00 Dose: Not Given Pantoprazole Sodium (Protonix Ec Tab) 40 mg PO DAILY [facility] Last Admin: 04/24/18 10:00 Dose: 40 mg Rivastigmine (Exelon 9.5 Mg/24 Hr Patch) 1 patch TD DAILY [facility] Last Admin: 04/24/18 10:00 Dose: 1 patch Rosuvastatin Calcium (Crestor) 2.5 mg PO HS [facility] Last Admin: 04/23/18 22:51 Dose: 2.5 mg Saccharomyces Boulardii (Florastor) 250 mg PO BID [facility] Last Admin: 04/24/18 10:00 Dose: 250 mg Simethicone (Mylicon Chew Tab) 80 mg PO QID PRN PRN Reason: GI distress Last Admin: 04/23/18 08:58 Dose: 80 mg - Labs Labs: 04/24/18 09:00 04/24/18 09:00 PT 13.1 SECONDS (9.7-12.2) H 04/17/18 16:39 INR 1.2 04/17/18 16:39 APTT 49 SECONDS (21-34) H D 04/20/18 06:01 Attending/Attestation - Attestation I have personally seen and examined this patient.: Yes I have fully participated in the care of the patient.: Yes I have reviewed all pertinent clinical information, including history, physical exam and plan: Yes Notes (Text): Patient seen and examined, daughter at bedside will need PT/OT and out of bed to chair. Patient deconditioned
[2018-04-24 09:10] LABS: BASO % 0.2 % (0.0-2.0); HEMOGLOBIN 10.8 g/dL (11.0-16.0); LYMPH # 0.7 K/uL (1.0-4.3); LYMPH % 4.6 % (20.0-40.0); MEAN CELL VOLUME 82.8 fL (81.0-99.0); MEAN CORPUSCULAR HEMOGLOBIN 28.1 pg (27.0-31.0); MEAN CORPUSCULAR HGB CONC 33.9 g/dL (33.0-37.0); MEAN PLATELET VOLUME 8.3 fL (7.2-11.7); MONO # 0.9 K/uL (0.0-0.8); MONO % 6.7 % (0.0-10.0); NEUT # 12.5 K/uL (1.8-7.0); NEUT % 88.5 % (50.0-75.0); NRBC % 0.1 % (0.0-2.0); PLATELET COUNT 381 K/uL (130-400); RBC 3.86 Mil/uL (3.80-5.20); RED CELL DISTRIBUTION WIDTH 15.6 % (11.5-14.5); WHITE BLOOD COUNT 14.2 K/uL (4.8-10.8)
[2018-04-24 09:36] LABS: ALB/GLOB RATIO 1.2 (1.0-2.1); ALBUMIN 3.3 g/dL (3.5-5.0); ALT/SGPT 24 U/L (9-52); AST/SGOT 19 U/L (14-36); BLOOD UREA NITROGEN 49 mg/dL (7-17); CALCIUM 8.2 mg/dl (8.6-10.4); GFR NON-AFRICAN AMERICAN > 60
[2018-04-24] MEDS: Pantoprazole 40 mg EC Tab PO SCH (10:00)
[2018-04-24] MEDS: Saccharomyces Boulardi 250 mg Cap PO SCH ×2 (10:00→17:38)
[2018-04-24 10:03] LABS: ANISOCYTOSIS SLIGHT; LYMPHOCYTE 7 % (20-40); MONOCYTE 8 % (0-10); NEUTROPHIL 85 % (50-75); OVALOCYTES SLIGHT; PLATELET ESTIMATE NORMAL (NORMAL); POIKILOCYTOSIS SLIGHT; TOTAL CELLS COUNTED 100
[2018-04-24 10:05] LABS: ACANTHOCYTES SLIGHT; BURR CELLS SLIGHT
--- NOTE | 2018-04-24 18:02 | CP.PCM.PN ---
Subjective - Date & Time of Evaluation Date of Evaluation: 04/24/18 Time of Evaluation: 08:00 - Subjective Subjective: improving cultures negative iv antibiotics n hold Objective - Vital Signs/Intake and Output Vital Signs (last 24 hours): Temp Pulse Resp BP Pulse Ox 98 F 55 L 20 120/63 95 04/24/18 15:27 04/24/18 15:27 04/24/18 15:27 04/24/18 15:27 04/24/18 15:27 Intake and Output: 04/24/18 04/24/18 06:59 18:59 Intake Total 730 Output Total 200 Balance 530 - Medications Medications: Current Medications Acetaminophen (Tylenol 325mg Tab) 650 mg PO Q4 PRN PRN Reason: Fever >100.4 F Apixaban (Eliquis) 10 mg PO BID [facility] Last Admin: 04/24/18 17:37 Dose: 10 mg Clopidogrel Bisulfate (Plavix) 75 mg PO DAILY [facility] Last Admin: 04/24/18 10:00 Dose: 75 mg Dextrose (Dextrose 50% Inj) 0 ml IVP .STAT PRN; Protocol PRN Reason: Hypoglycemia Protocol Dextrose (Glutose 15) 0 gm PO .ONCE PRN; Protocol PRN Reason: Hypoglycemia Protocol Docusate Sodium (Colace) 100 mg PO BID [facility] Last Admin: 04/24/18 17:38 Dose: 100 mg Fluticasone/Vilanterol (Breo Ellipta 100-25 Mcg Inh) 1 puff INH RQD [facility] Last Admin: 04/24/18 08:00 Dose: Not Given Furosemide (Lasix) 20 mg IVP Q12 [facility] Last Admin: 04/24/18 10:01 Dose: 20 mg Glucagon (Glucagen Diagnostic Kit) 0 mg IM .STAT PRN; Protocol PRN Reason: Hypoglycemia Protocol Dextrose (Dextrose 5% In Water 1000 Ml) 1,000 mls @ 0 mls/hr IV .Q0M PRN; Protocol PRN Reason: Hypoglycemia Protocol Insulin Human Regular (Novolin R) 0 unit SC ACHS [facility]; Protocol Last Admin: 04/24/18 17:47 Dose: 1 u Ipratropium [place] (Atrovent) 0.5 mg IH RQ6 [facility] Last Admin: 04/24/18 13:40 Dose: 0.5 mg Pantoprazole Sodium (Protonix Ec Tab) 40 mg PO DAILY [facility] Last Admin: 04/24/18 10:00 Dose: 40 mg Rivastigmine (Exelon 9.5 Mg/24 Hr Patch) 1 patch TD DAILY [facility] Last Admin: 04/24/18 10:00 Dose: 1 patch Rosuvastatin Calcium (Crestor) 2.5 mg PO HS [facility] Last Admin: 04/23/18 22:51 Dose: 2.5 mg Saccharomyces Boulardii (Florastor) 250 mg PO BID [facility] Last Admin: 04/24/18 17:38 Dose: 250 mg Simethicone (Mylicon Chew Tab) 80 mg PO QID PRN PRN Reason: GI distress Last Admin: 04/23/18 08:58 Dose: 80 mg - Labs Labs: 04/24/18 09:00 04/24/18 09:00 PT 13.1 SECONDS (9.7-12.2) H 04/17/18 16:39 INR 1.2 04/17/18 16:39 APTT 49 SECONDS (21-34) H D 04/20/18 06:01 - Constitutional Appears: Non-toxic, Cachectic, Chronically Ill - Head Exam Head Exam: NORMOCEPHALIC - Eye Exam Eye Exam: absent: Scleral icterus Pupil Exam: absent: NORMAL ACCOMODATION - ENT Exam ENT Exam: Mucous Membranes Dry - Neck Exam Neck Exam: absent: Lymphadenopathy - Respiratory Exam Respiratory Exam: Decreased Breath Sounds - Cardiovascular Exam Cardiovascular Exam: REGULAR RHYTHM - GI/Abdominal Exam GI & Abdominal Exam: Distended Assessment and Plan (1) NSTEMI (non-ST elevated myocardial infarction) Status: Acute (2) Pulmonary embolism Status: Acute (3) COPD (chronic obstructive pulmonary disease) Status: Chronic (4) Dementia Status: Chronic
[2018-04-24] MEDS: Rosuvastatin Calcium 2.5 mg Tab PO SCH (21:07)
--- NOTE | 2018-04-24 21:45 | CP.PCM.PN ---
Subjective - Date & Time of Evaluation Date of Evaluation: 04/24/18 Time of Evaluation: 09:10 - Subjective Subjective: Patient seen and examined Looks comfortable Denies chest pain and dyspnea Objective - Vital Signs/Intake and Output Vital Signs (last 24 hours): Temp Pulse Resp BP Pulse Ox 97.5 F L 57 L 17 105/66 96 04/23/18 08:00 04/23/18 07:37 04/23/18 07:37 04/23/18 07:37 04/23/18 07:37 Intake and Output: 04/23/18 04/23/18 06:59 18:59 Intake Total 250 Output Total 800 Balance -550 - Medications Medications: Current Medications Acetaminophen (Tylenol 325mg Tab) 650 mg PO Q4 PRN PRN Reason: Fever >100.4 F Amlodipine Besylate (Norvasc) 2.5 mg PO DAILY [facility] Apixaban (Eliquis) 10 mg PO BID [facility] Last Admin: 04/22/18 17:02 Dose: 10 mg Clopidogrel Bisulfate (Plavix) 75 mg PO DAILY [facility] Last Admin: 04/22/18 09:32 Dose: 75 mg Dextrose (Dextrose 50% Inj) 0 ml IVP .STAT PRN; Protocol PRN Reason: Hypoglycemia Protocol Dextrose (Glutose 15) 0 gm PO .ONCE PRN; Protocol PRN Reason: Hypoglycemia Protocol Docusate Sodium (Colace) 100 mg PO BID [facility] Last Admin: 04/22/18 17:02 Dose: 100 mg Fluticasone/Vilanterol (Breo Ellipta 100-25 Mcg Inh) 1 puff INH RQD [facility] Last Admin: 04/22/18 08:52 Dose: 1 puff Furosemide (Lasix) 20 mg IVP Q12 [facility] Glucagon (Glucagen Diagnostic Kit) 0 mg IM .STAT PRN; Protocol PRN Reason: Hypoglycemia Protocol Diltiazem HCl 125 mg/ Dextrose 125 mls @ 10 mls/hr IV .[id number] [facility]; Protocol Last Admin: 04/21/18 05:58 Dose: Not Given Moxifloxacin HCl (Avelox Iv 400mg/250ml Ns) 400 mg in 250 mls @ 167 mls/hr IVPB Q24H [facility]; Protocol Stop: 04/27/18 20:31 Last Admin: 04/22/18 20:32 Dose: 167 mls/hr Dextrose (Dextrose 5% In Water 1000 Ml) 1,000 mls @ 0 mls/hr IV .Q0M PRN; Protocol PRN Reason: Hypoglycemia Protocol Insulin Human Regular (Novolin R) 0 unit SC ACHS [facility]; Protocol Last Admin: 04/22/18 21:34 Dose: Not Given Ipratropium [place] (Atrovent) 0.5 mg IH RQ6 [facility] Last Admin: 04/23/18 08:04 Dose: Not Given Methylprednisolone (Solu-Medrol) 40 mg IV Q8 [facility] Last Admin: 04/23/18 05:59 Dose: 40 mg Pantoprazole Sodium (Protonix Ec Tab) 40 mg PO DAILY [facility] Last Admin: 04/22/18 09:32 Dose: 40 mg Rivastigmine (Exelon 9.5 Mg/24 Hr Patch) 1 patch TD DAILY [facility] Last Admin: 04/22/18 09:33 Dose: 1 patch Rosuvastatin Calcium (Crestor) 2.5 mg PO HS [facility] Last Admin: 04/22/18 21:41 Dose: 2.5 mg Saccharomyces Boulardii (Florastor) 250 mg PO BID [facility] Last Admin: 04/22/18 17:02 Dose: 250 mg Simethicone (Mylicon Chew Tab) 80 mg PO QID PRN PRN Reason: GI distress - Labs Labs: 04/23/18 05:59 04/23/18 05:59 PT 13.1 SECONDS (9.7-12.2) H 04/17/18 16:39 INR 1.2 04/17/18 16:39 APTT 49 SECONDS (21-34) H D 04/20/18 06:01 - Constitutional Appears: Non-toxic, No Acute Distress - Head Exam Head Exam: NORMAL INSPECTION - Eye Exam Eye Exam: EOMI - ENT Exam ENT Exam: Mucous Membranes Dry - Respiratory Exam Respiratory Exam: Decreased Breath Sounds, Rales (improved), NORMAL BREATHING PATTERN - Cardiovascular Exam Cardiovascular Exam: REGULAR RHYTHM, +S1 - GI/Abdominal Exam GI & Abdominal Exam: Soft, Normal Bowel Sounds. absent: Distended, Firm, Guarding, Rigid, Tenderness, Rebound - Extremities Exam Extremities Exam: Tenderness (left lower extremity). absent: Pedal Edema - Neurological Exam Neurological Exam: Alert, Awake - Psychiatric Exam Psychiatric exam: Normal Affect, Normal Mood - Skin Skin Exam: Dry, Intact, Normal Color, Warm Assessment and Plan (1) Pulmonary embolism Status: Acute (2) NSTEMI (non-ST elevated myocardial infarction) Status: Acute (3) Dementia Status: Chronic (4) HLD (hyperlipidemia) Status: Chronic (5) HTN (hypertension) Status: Chronic (6) TIA (transient ischemic attack) Status: Chronic (7) Prophylactic measure Status: Acute Assessment and Plan * Pulmonary (Dr. Clinton) on case--> help appreciated * CT Chest (04/18/18): extensive bilateral upper and lower lobe pulmonary arteries right greater than left. Suspect right heart strain. Mild cardiomegaly. Mild bibasilar atelectasis left greater than right. Small calcified granuloma right upper lobe. * Chest xray (04/17/18): questionable increased reticular markings may reflect atypical pneumonitis or bronchitis however no alveolitis bilaterally. No pulmonary congestion or cardiomegaly noted. * Chest xray (04/18/18): cardiomegaly. mild reticular nodular opacities. * Echocardiogram (04/18/18): normal LV systolic function, diastolic dysfunction, mild AR, trace to mild MR, mild to moderate TR * Eliquis 10mg PO BID * Lower Lasix 20mg IV BID 2. Elevated Troponin Assessment/Plan * Cardiology (Dr. mcallister) on consult help appreciated * Elqiuis 10mg PO BID * Echocardiogram (04/18/18): normal LV systolic function, diastolic dysfunction, mild AR, trace to mild MR, mild to moderate TR * Troponin secondary to right heart strain secondary to PE 3. History of CVA Assessment/Plan * discussion with son, about 15 years ago * CT Head (04/18/18): no acute intracranial abnormality. Severe chronic microangiopathic changes and mild age-related global parenchymal volume loss. * Plavix 75mg PO daily * CT Head (04/21/18): significant diffuse confluent chronic periventricular white matter ischemic changes again seen extending peripherally into the deep and subcortical changes whilte matter both cerebral hemispheres. Extension of these changes into the white matter tracts of both basal nuclei with more discrete chronic appearing bilateral basal nuclei lacunar type infarcts. 4. Lipid Disorder Assessment/Plan * Start crestor 2.5mg PO qHS 5. History of COPD Assessment/Plan * Pulmonary (Dr. Clinton) help appreciated * Atrovent PRN * Breo Elliptia inhaled diskus * Chest xray (04/17/18): questionable increased reticular markings may reflect atypical pneumonitis or bronchitis however no alveolitis bilaterally. No pulmonary congestion or cardiomegaly noted. * Chest xray (04/18/18): cardiomegaly. mild reticular nodular opacities. * Solumedrol 40mg IV Q8H (active since 04/20/18) * patient recommended for home oxygen at 3Liters Nasal Cannula by pulmonary * Per PT note: pt wa desaturating to 73% on sitting up, supp O 2 3L was given, O2 went up to 93%, O2 sat kept fluctuating up and down w/ mobility, sit-stand x3, standing tolerance maitained for more than 5 mins, pt was then transferred to the recliner chair w/ max a, b/l LE elevated. * Will start BIPAP PRN for positive pressure support 6. History of Dementia Assessment/Plan * Rivastigime 1 patch TD daily 7. History of Hypertension Hypotension Assessment/Plan * hold Norvasc 2.5mg PO daily 8. LLE DVT Assessment/Plan * Venous doppler: Acute DVT in the left lower extremiity (femoral, popliteral, a nd peroneal veins) * Eliquis 10mg PO BID * SCDS contraindicated 9. leukocytosis Assessment/Plan * Infectious Diease (Dr. Guerrero) on case-->help appreciated * Urine culture: No growth (04/17) * Blood culture: no growth after 48 hours (04/20) * Blood culture: no growth after 48 hours (04/20) * MRSA not detected * procalcitonin low * Avelox 400mg IV Q24H (active since 04/20/18) advised for 7 days to end 04/27/18 per ID 10. Diabetes * a1c: 6.7 * Hypoglycemic cprotocol * Lipid panel result noted 11. Prophylactic measure * Eliquis 10mg PO BID for PE/DVT * SCDS contraindication for acute left Lower DVT+ * Florastor 250mg PO BID * Pallative care for creation of POLST * Full code Objective - Vital Signs/Intake and Output Vital Signs (last 24 hours): Temp Pulse Resp BP Pulse Ox 98 F 55 L 20 123/72 95 04/24/18 15:27 04/24/18 15:27 04/24/18 15:27 04/24/18 21:07 04/24/18 15:27 Intake and Output: 04/24/18 04/25/18 18:59 06:59 Output Total 700 Balance -700 - Medications Medications: Current Medications Acetaminophen (Tylenol 325mg Tab) 650 mg PO Q4 PRN PRN Reason: Fever >100.4 F Apixaban (Eliquis) 10 mg PO BID [facility] Last Admin: 04/24/18 17:37 Dose: 10 mg Clopidogrel Bisulfate (Plavix) 75 mg PO DAILY [facility] Last Admin: 04/24/18 10:00 Dose: 75 mg Dextrose (Dextrose 50% Inj) 0 ml IVP .STAT PRN; Protocol PRN Reason: Hypoglycemia Protocol Dextrose (Glutose 15) 0 gm PO .ONCE PRN; Protocol PRN Reason: Hypoglycemia Protocol Docusate Sodium (Colace) 100 mg PO BID [facility] Last Admin: 04/24/18 17:38 Dose: 100 mg Fluticasone/Vilanterol (Breo Ellipta 100-25 Mcg Inh) 1 puff INH RQD [facility] Last Admin: 04/24/18 08:00 Dose: Not Given Furosemide (Lasix) 20 mg IVP Q12 [facility] Last Admin: 04/24/18 21:07 Dose: 20 mg Glucagon (Glucagen Diagnostic Kit) 0 mg IM .STAT PRN; Protocol PRN Reason: Hypoglycemia Protocol Dextrose (Dextrose 5% In Water 1000 Ml) 1,000 mls @ 0 mls/hr IV .Q0M PRN; Protocol PRN Reason: Hypoglycemia Protocol Insulin Human Regular (Novolin R) 0 unit SC ACHS [facility]; Protocol Last Admin: 04/24/18 21:12 Dose: Not Given Ipratropium [place] (Atrovent) 0.5 mg IH RQ6 [facility] Last Admin: 04/24/18 19:18 Dose: 0.5 mg Pantoprazole Sodium (Protonix Ec Tab) 40 mg PO DAILY [facility] Last Admin: 04/24/18 10:00 Dose: 40 mg Rivastigmine (Exelon 9.5 Mg/24 Hr Patch) 1 patch TD DAILY [facility] Last Admin: 04/24/18 10:00 Dose: 1 patch Rosuvastatin Calcium (Crestor) 2.5 mg PO HS [facility] Last Admin: 04/24/18 21:07 Dose: 2.5 mg Saccharomyces Boulardii (Florastor) 250 mg PO BID [facility] Last Admin: 04/24/18 17:38 Dose: 250 mg Simethicone (Mylicon Chew Tab) 80 mg PO QID PRN PRN Reason: GI distress Last Admin: 04/23/18 08:58 Dose: 80 mg - Labs Labs: 04/24/18 09:00 04/24/18 09:00 PT 13.1 SECONDS (9.7-12.2) H 04/17/18 16:39 INR 1.2 04/17/18 16:39 APTT 49 SECONDS (21-34) H D 04/20/18 06:01
[2018-04-25] MEDS: Ipratropium 0.02% Inhal Soln (0.5 mg/2.5 ml) UD IH SCH ×4 (01:07→19:24)
[2018-04-25] MEDS: (Novolin R) Insulin Human Regular 100 units/ml vial SC SCH ×4 (07:45→22:26)
[2018-04-25] MEDS: Fluticasone-Vilanterol 100/25mcg Diskus INH SCH (07:45)
--- NOTE | 2018-04-25 08:22 | VASCLAB ---
Date of service: 04/22/2018 PROCEDURE: Lower Extremity Venous Duplex Exam. HISTORY: DVT PRIORS: 04/18/2018, demonstrating acute thrombus in the left lower extremity. TECHNIQUE: Bilateral common femoral, femoral, popliteal and posterior tibial, peroneal and great saphenous veins were evaluated. Flow was assessed with color Doppler, compressibility, assessment of phasic flow and augmentation response. Report prepared by STEVO Mcqueen FINDINGS: RIGHT: 1. Common Femoral Vein: 1.1. Compressibility - Fully compressible: Thrombus - None : Flow - Phasic: Augmentation -Normal: Reflux - None. 2. Femoral Vein: 2.1. Compressibility - Fully compressible: Thrombus - None : Flow - Phasic: Augmentation -Normal: Reflux - None. 3. Popliteal Vein: 3.1. Compressibility - Fully compressible: Thrombus - None : Flow - Phasic: Augmentation -Normal: Reflux - None. 4. Posterior Tibial Vein: 4.1. Compressibility - Fully compressible: Thrombus - None: Flow - Phasic: Augmentation -Normal: Reflux - None. 5. Peroneal Vein: 5.1. Compressibility - Fully compressible: Thrombus - None: Flow - Phasic: Augmentation -Normal: Reflux - None. 6. Great Saphenous Vein: 6.1. Compressibility - Fully compressible: Thrombus - None: Flow - Phasic: Augmentation - Normal: Reflux - None. LEFT: 1. Common Femoral Vein: 1.1. Compressibility - Fully compressible: Thrombus - None: Flow - Phasic: Augmentation -Normal: Reflux - None. 2. Femoral Vein: 2.1. Compressibility - Partial: Thrombus - Chronic: Flow - Phasic: Augmentation -Normal: Reflux - None. 3. Popliteal Vein: 3.1. Compressibility - Incompressible: Thrombus- subacute: Flow - Reduced : Augmentation -Normal: Reflux - None. 4. Posterior Tibial Vein: 4.1. Compressibility - Fully compressible: Thrombus - None: Flow - Phasic: Augmentation -Normal: Reflux - None. 5. Peroneal Vein: 5.1. Compressibility - Incompressible: Thrombus - Chronic: Flow - Reduced : Augmentation -Normal: Reflux - None. 6. Great Saphenous Vein: 6.1. Compressibility - Fully compressible: Thrombus - None: Flow - Phasic: Augmentation - Normal: Reflux - None. OTHER FINDINGS: Normal triphasic arterial waveforms noted at bilateral posterior tibial, anterior tibial, peroneal and dorsalis pedis arteries. Please note that this is a limited arterial evaluation. If arterial disease is suspected, dedicated bilateral lower extremity arterial Doppler evaluation should be considered. IMPRESSION: Right: No evidence of deep or superficial vein thrombosis of the right lower extremity. Normal valve function noted of the right side. Left: Subacute deep vein thrombosis of the left mid-distal femoral, popliteal and peroneal veins. Acute component cannot be excluded. Findings were conveyed to [employer] Jesus Manuel at 2:40 pm.
--- NOTE | 2018-04-25 08:22 | CP.PCM.PN ---
Subjective - Date & Time of Evaluation Date of Evaluation: 04/25/18 Time of Evaluation: 08:15 - Subjective Subjective: patient seen and examined Lying comfortably in no acute distress Denies shortness of breath No chest pain Afebrile Objective - Vital Signs/Intake and Output Vital Signs (last 24 hours): Temp Pulse Resp BP Pulse Ox 98.0 F 58 L 20 110/67 96 04/24/18 23:50 04/24/18 23:50 04/24/18 23:50 04/24/18 23:50 04/24/18 23:50 Intake and Output: 04/25/18 04/25/18 06:59 18:59 Output Total 450 Balance -450 - Medications Medications: Current Medications Acetaminophen (Tylenol 325mg Tab) 650 mg PO Q4 PRN PRN Reason: Fever >100.4 F Apixaban (Eliquis) 10 mg PO BID [facility] Last Admin: 04/24/18 17:37 Dose: 10 mg Clopidogrel Bisulfate (Plavix) 75 mg PO DAILY [facility] Last Admin: 04/24/18 10:00 Dose: 75 mg Dextrose (Dextrose 50% Inj) 0 ml IVP .STAT PRN; Protocol PRN Reason: Hypoglycemia Protocol Dextrose (Glutose 15) 0 gm PO .ONCE PRN; Protocol PRN Reason: Hypoglycemia Protocol Docusate Sodium (Colace) 100 mg PO BID [facility] Last Admin: 04/24/18 17:38 Dose: 100 mg Fluticasone/Vilanterol (Breo Ellipta 100-25 Mcg Inh) 1 puff INH RQD [facility] Last Admin: 04/25/18 07:45 Dose: 1 puff Furosemide (Lasix) 20 mg IVP Q12 [facility] Last Admin: 04/24/18 21:07 Dose: 20 mg Glucagon (Glucagen Diagnostic Kit) 0 mg IM .STAT PRN; Protocol PRN Reason: Hypoglycemia Protocol Dextrose (Dextrose 5% In Water 1000 Ml) 1,000 mls @ 0 mls/hr IV .Q0M PRN; Protocol PRN Reason: Hypoglycemia Protocol Insulin Human Regular (Novolin R) 0 unit SC ACHS [facility]; Protocol Last Admin: 04/24/18 21:12 Dose: Not Given Ipratropium [place] (Atrovent) 0.5 mg IH RQ6 [facility] Last Admin: 04/25/18 07:45 Dose: 0.5 mg Pantoprazole Sodium (Protonix Ec Tab) 40 mg PO DAILY [facility] Last Admin: 04/24/18 10:00 Dose: 40 mg Rivastigmine (Exelon 9.5 Mg/24 Hr Patch) 1 patch TD DAILY [facility] Last Admin: 04/24/18 10:00 Dose: 1 patch Rosuvastatin Calcium (Crestor) 2.5 mg PO HS [facility] Last Admin: 04/24/18 21:07 Dose: 2.5 mg Saccharomyces Boulardii (Florastor) 250 mg PO BID [facility] Last Admin: 04/24/18 17:38 Dose: 250 mg Simethicone (Mylicon Chew Tab) 80 mg PO QID PRN PRN Reason: GI distress Last Admin: 04/23/18 08:58 Dose: 80 mg - Labs Labs: 04/24/18 09:00 04/24/18 09:00 PT 13.1 SECONDS (9.7-12.2) H 04/17/18 16:39 INR 1.2 04/17/18 16:39 APTT 49 SECONDS (21-34) H D 04/20/18 06:01 - Head Exam Head Exam: ATRAUMATIC, NORMOCEPHALIC - ENT Exam ENT Exam: Mucous Membranes Moist - Neck Exam Neck Exam: Normal Inspection - Cardiovascular Exam Cardiovascular Exam: Irregular Rhythm - GI/Abdominal Exam GI & Abdominal Exam: Soft, Normal Bowel Sounds Assessment and Plan (1) Pulmonary embolism Assessment & Plan: continue eliquis Repeat CAT scan os outpaent home oxygen Status: Acute (2) COPD (chronic obstructive pulmonary disease) Status: Chronic
[2018-04-25 08:25] LABS: BASO % 0.1 % (0.0-2.0); EOS # 0.3 K/uL (0.0-0.7); EOS % 1.8 % (0.0-4.0); HEMOGLOBIN 11.4 g/dL (11.0-16.0); LYMPH # 1.7 K/uL (1.0-4.3); LYMPH % 11.7 % (20.0-40.0); MEAN CELL VOLUME 82.8 fL (81.0-99.0); MEAN CORPUSCULAR HEMOGLOBIN 27.2 pg (27.0-31.0); MEAN CORPUSCULAR HGB CONC 32.8 g/dL (33.0-37.0); MONO # 1.6 K/uL (0.0-0.8); MONO % 10.9 % (0.0-10.0); NEUT # 10.9 K/uL (1.8-7.0); NEUT % 75.5 % (50.0-75.0); RBC 4.21 Mil/uL (3.80-5.20); RED CELL DISTRIBUTION WIDTH 16.2 % (11.5-14.5); WHITE BLOOD COUNT 14.4 K/uL (4.8-10.8)
[2018-04-25 08:42] LABS: ALBUMIN 3.3 g/dL (3.5-5.0); ALT/SGPT 27 U/L (9-52); AST/SGOT 33 U/L (14-36); BLOOD UREA NITROGEN 46 mg/dL (7-17); CALCIUM 8.4 mg/dl (8.6-10.4); GFR NON-AFRICAN AMERICAN 59
[2018-04-25] MEDS: Saccharomyces Boulardi 250 mg Cap PO SCH ×2 (10:52→17:28)
[2018-04-25] MEDS: Pantoprazole 40 mg EC Tab PO SCH (10:52)
--- NOTE | 2018-04-25 16:21 | CP.PCM.PN ---
<Arpit Doherty - Last Filed: 04/25/18 17:13> Subjective - Date & Time of Evaluation Date of Evaluation: 04/25/18 Time of Evaluation: 07:00 - Subjective Subjective: Arpit Doherty PGY1 Progress Note for Dr. Frandy Clark Pt was examined at bedside this morning. She reported feeling that her shortness of breath is stable, no better, no worse. She denies any chest pain, abdominal pain, nausea, vomiting, diarrhea, dysuria. Objective - Vital Signs/Intake and Output Vital Signs (last 24 hours): Temp Pulse Resp BP Pulse Ox 98.3 F 57 L 18 126/72 92 L 04/25/18 07:00 04/25/18 07:00 04/25/18 13:26 04/25/18 10:51 04/25/18 13:26 Intake and Output: 04/25/18 04/25/18 06:59 18:59 Output Total 450 550 Balance -450 -550 - Medications Medications: Current Medications Acetaminophen (Tylenol 325mg Tab) 650 mg PO Q4 PRN PRN Reason: Fever >100.4 F Apixaban (Eliquis) 10 mg PO BID [facility] Last Admin: 04/25/18 10:52 Dose: 10 mg Clopidogrel Bisulfate (Plavix) 75 mg PO DAILY [facility] Last Admin: 04/25/18 10:52 Dose: 75 mg Dextrose (Dextrose 50% Inj) 0 ml IVP .STAT PRN; Protocol PRN Reason: Hypoglycemia Protocol Dextrose (Glutose 15) 0 gm PO .ONCE PRN; Protocol PRN Reason: Hypoglycemia Protocol Docusate Sodium (Colace) 100 mg PO BID [facility] Last Admin: 04/25/18 10:52 Dose: 100 mg Fluticasone/Vilanterol (Breo Ellipta 100-25 Mcg Inh) 1 puff INH RQD [facility] Last Admin: 04/25/18 07:45 Dose: 1 puff Furosemide (Lasix) 20 mg IVP Q12 [facility] Last Admin: 04/25/18 10:51 Dose: 20 mg Glucagon (Glucagen Diagnostic Kit) 0 mg IM .STAT PRN; Protocol PRN Reason: Hypoglycemia Protocol Dextrose (Dextrose 5% In Water 1000 Ml) 1,000 mls @ 0 mls/hr IV .Q0M PRN; Pr otocol PRN Reason: Hypoglycemia Protocol Insulin Human Regular (Novolin R) 0 unit SC ACHS [facility]; Protocol Last Admin: 04/25/18 13:05 Dose: Not Given Ipratropium [place] (Atrovent) 0.5 mg IH RQ6 [facility] Last Admin: 04/25/18 13:38 Dose: Not Given Pantoprazole Sodium (Protonix Ec Tab) 40 mg PO DAILY [facility] Last Admin: 04/25/18 10:52 Dose: 40 mg Rivastigmine (Exelon 9.5 Mg/24 Hr Patch) 1 patch TD DAILY [facility] Last Admin: 04/25/18 10:52 Dose: 1 patch Rosuvastatin Calcium (Crestor) 2.5 mg PO HS [facility] Last Admin: 04/24/18 21:07 Dose: 2.5 mg Saccharomyces Boulardii (Florastor) 250 mg PO BID [facility] Last Admin: 04/25/18 10:52 Dose: 250 mg Simethicone (Mylicon Chew Tab) 80 mg PO QID PRN PRN Reason: GI distress Last Admin: 04/23/18 08:58 Dose: 80 mg - Labs Labs: 04/25/18 08:12 04/25/18 08:12 PT 13.1 SECONDS (9.7-12.2) H 04/17/18 16:39 INR 1.2 04/17/18 16:39 APTT 49 SECONDS (21-34) H D 04/20/18 06:01 - Additional Findings Additional findings: - Constitutional Appears: No Acute Distress, Chronically Ill - Head Exam Head Exam: ATRAUMATIC, NORMOCEPHALIC - Eye Exam Eye Exam: EOMI, Normal appearance - ENT Exam ENT Exam: Mucous Membranes Moist - Respiratory Exam Respiratory Exam: Decreased Breath Sounds, NORMAL BREATHING PATTERN. absent: Rales, Rhonchi, Wheezes - Cardiovascular Exam Cardiovascular Exam: Bradycardia, REGULAR RHYTHM, +S1, +S2 - GI/Abdominal Exam GI & Abdominal Exam: Soft, Normal Bowel Sounds. absent: Distended, Tenderness - Extremities Exam Extremities Exam: Pedal Edema - Neurological Exam Neurological Exam: Awake. absent: Alert, Oriented x3 Assessment and Plan - Assessment and Plan (Free Text) Assessment: 88 year old female with PMHx of COPD, HTN, HLD, dementia and previous CVA presents to ED with complaint of shortness of breath, admitted for treatment of PE. Plan: PE - w/ R sided HF - CT Chest 04/18: b/l upper and lower lobe pulm a. R>L. R heart strain. cardiomegaly. bibasilar atelectasis (mild) - CXR 04/18: cardiomegaly, mild reticular nodular opacities - Venous doppler: Acute DVT in LLE - eliquis 10mg PO BID - lasix 20mg IV BID - Pulmonary consulted, Dr. Clinton - Cardio consulted, Dr. Chino Elevated Troponin - likely secondary to R heart strain, PE - eliquis 10mg PO BID - ECHO 04/18: nl LV systolic function, diastolic dysfunction, mild AR, MR, TR - Cardio consulted, Dr. Chino H/o CVA - CT head 04/21: diffuse confluent chronic periventricular white matter ischemic changes extending peripherally into deep and subcortical changes. Extension into white matter tracts of both basal nuclei. chronic bilateral basal nuclei lacunar type infarcts. - Plavix 75mg PO daily HLD - crestor 2.5mg PO qHS COPD - CXR (04/23): mild pulmonary venous congestion w/ bibasilar atelectasis. Questionable R sided effusion - Chest xray (04/18): cardiomegaly. mild reticular nodular opacities. - Breo Elliptia inhaled diskus - Atrovent PRN - Bipap PRN - Pulm consulted, Dr. Clinton- recommends 3L [place] for home O2 - noted to desat to 73% upon sitting up as per PT, fluctuating with mobility - 04/25: as per RN, OOB to chair sat 92% on RA Dementia - Rivastigime 1 patch TD daily History of Hypertension - hold norvasc 2.5mg PO daily Leukocytosis - UCx: No growth 04/17 - BCx: no growth 04/20 - ID consulted, Dr. Guerrero, recs appreciated DM - Hba1c 6.7 - Hypoglycemia protocol PPX: DVT: Eliquis 10mg PO BID GI: protonix Dispo: To f/u with [employer] regarding Home O2 criteria for rx upon d/c Case reviewed with Dr. Dave Clark <Akbar Clark - Last Filed: 04/29/18 00:23> Objective - Vital Signs/Intake and Output Vital Signs (last 24 hours): Temp Pulse Resp BP Pulse Ox 97.4 F L 92 H 18 115/76 97 04/27/18 08:42 04/27/18 08:42 04/27/18 08:42 04/27/18 09:38 04/27/18 08:36 - Labs Labs: 04/27/18 10:59 04/27/18 10:59 PT 13.1 SECONDS (9.7-12.2) H 04/17/18 16:39 INR 1.2 04/17/18 16:39 APTT 49 SECONDS (21-34) H D 04/20/18 06:01 Attending/Attestation - Attestation I have personally seen and examined this patient.: Yes I have fully participated in the care of the patient.: Yes I have reviewed all pertinent clinical information, including history, physical exam and plan: Yes Notes (Text): 04/29/18 00:22 This is a late entry. Care of this patient was gone over in detail with resident Dr. Doherty. Akbar Clark D.O.
[2018-04-25] MEDS: Rosuvastatin Calcium 2.5 mg Tab PO SCH (22:11)
[2018-04-26] MEDS: Ipratropium 0.02% Inhal Soln (0.5 mg/2.5 ml) UD IH SCH ×3 (02:35→20:00)
--- NOTE | 2018-04-26 06:03 | CP.PCM.PN ---
Subjective - Date & Time of Evaluation Date of Evaluation: 04/25/18 Time of Evaluation: 12:00 - Subjective Subjective: Patient seen and evaluated No cardiac events noted Stable Objective - Vital Signs/Intake and Output Vital Signs (last 24 hours): Temp Pulse Resp BP Pulse Ox 98.6 F 75 20 125/75 97 04/25/18 23:45 04/25/18 23:45 04/25/18 23:45 04/25/18 23:45 04/25/18 23:45 Intake and Output: 04/25/18 04/26/18 18:59 06:59 Output Total 550 700 Balance -550 -700 - Medications Medications: Current Medications Acetaminophen (Tylenol 325mg Tab) 650 mg PO Q4 PRN PRN Reason: Fever >100.4 F Apixaban (Eliquis) 10 mg PO BID [facility] Last Admin: 04/25/18 17:28 Dose: 10 mg Clopidogrel Bisulfate (Plavix) 75 mg PO DAILY [facility] Last Admin: 04/25/18 10:52 Dose: 75 mg Dextrose (Dextrose 50% Inj) 0 ml IVP .STAT PRN; Protocol PRN Reason: Hypoglycemia Protocol Dextrose (Glutose 15) 0 gm PO .ONCE PRN; Protocol PRN Reason: Hypoglycemia Protocol Docusate Sodium (Colace) 100 mg PO BID [facility] Last Admin: 04/25/18 17:28 Dose: 100 mg Fluticasone/Vilanterol (Breo Ellipta 100-25 Mcg Inh) 1 puff INH RQD [facility] Last Admin: 04/25/18 07:45 Dose: 1 puff Furosemide (Lasix) 20 mg IVP Q12 [facility] Last Admin: 04/25/18 22:15 Dose: 20 mg Glucagon (Glucagen Diagnostic Kit) 0 mg IM .STAT PRN; Protocol PRN Reason: Hypoglycemia Protocol Dextrose (Dextrose 5% In Water 1000 Ml) 1,000 mls @ 0 mls/hr IV .Q0M PRN; Protocol PRN Reason: Hypoglycemia Protocol Insulin Human Regular (Novolin R) 0 unit SC ACHS [facility]; Protocol Last Admin: 04/25/18 22:26 Dose: Not Given Ipratropium [place] (Atrovent) 0.5 mg IH RQ6 [facility] Last Admin: 04/26/18 02:35 Dose: 0.5 mg Pantoprazole Sodium (Protonix Ec Tab) 40 mg PO DAILY [facility] Last Admin: 04/25/18 10:52 Dose: 40 mg Rivastigmine (Exelon 9.5 Mg/24 Hr Patch) 1 patch TD DAILY [facility] Last Admin: 04/25/18 10:52 Dose: 1 patch Rosuvastatin Calcium (Crestor) 2.5 mg PO HS [facility] Last Admin: 04/25/18 22:11 Dose: 2.5 mg Saccharomyces Boulardii (Florastor) 250 mg PO BID [facility] Last Admin: 04/25/18 17:28 Dose: 250 mg Simethicone (Mylicon Chew Tab) 80 mg PO QID PRN PRN Reason: GI distress Last Admin: 04/23/18 08:58 Dose: 80 mg - Labs Labs: 04/25/18 08:12 04/25/18 08:12 PT 13.1 SECONDS (9.7-12.2) H 04/17/18 16:39 INR 1.2 04/17/18 16:39 APTT 49 SECONDS (21-34) H D 04/20/18 06:01
[2018-04-26] MEDS: Fluticasone-Vilanterol 100/25mcg Diskus INH SCH (08:00)
[2018-04-26 08:35] LABS: BASO # 0.1 K/uL (0.0-0.2); BASO % 0.8 % (0.0-2.0); EOS # 0.4 K/uL (0.0-0.7); EOS % 2.6 % (0.0-4.0); HEMOGLOBIN 12.5 g/dL (11.0-16.0); LYMPH # 1.5 K/uL (1.0-4.3); LYMPH % 10.7 % (20.0-40.0); MEAN CELL VOLUME 82.1 fL (81.0-99.0); MEAN CORPUSCULAR HEMOGLOBIN 27.6 pg (27.0-31.0); MEAN CORPUSCULAR HGB CONC 33.6 g/dL (33.0-37.0); MEAN PLATELET VOLUME 7.9 fL (7.2-11.7); MONO # 1.3 K/uL (0.0-0.8); MONO % 8.7 % (0.0-10.0); NEUT # 11.2 K/uL (1.8-7.0); NEUT % 77.2 % (50.0-75.0); RBC 4.52 Mil/uL (3.80-5.20); RED CELL DISTRIBUTION WIDTH 15.9 % (11.5-14.5); WHITE BLOOD COUNT 14.5 K/uL (4.8-10.8)
[2018-04-26] MEDS: (Novolin R) Insulin Human Regular 100 units/ml vial SC SCH ×4 (08:44→21:52)
[2018-04-26 09:34] LABS: ALB/GLOB RATIO 1.1 (1.0-2.1); ALBUMIN 3.6 g/dL (3.5-5.0); ALT/SGPT 24 U/L (9-52); AST/SGOT 33 U/L (14-36); BLOOD UREA NITROGEN 33 mg/dL (7-17); CALCIUM 8.3 mg/dl (8.6-10.4); GFR NON-AFRICAN AMERICAN > 60
[2018-04-26] MEDS: Saccharomyces Boulardi 250 mg Cap PO SCH ×2 (10:36→17:59)
[2018-04-26] MEDS: Pantoprazole 40 mg EC Tab PO SCH (10:39)
--- NOTE | 2018-04-26 12:29 | CP.PCM.PN ---
Subjective - Date & Time of Evaluation Date of Evaluation: 04/26/18 Time of Evaluation: 08:00 - Subjective Subjective: afeb resting off antibiotics Objective - Vital Signs/Intake and Output Vital Signs (last 24 hours): Temp Pulse Resp BP Pulse Ox 98.1 F 68 20 101/64 94 L 04/26/18 07:00 04/26/18 07:00 04/26/18 07:00 04/26/18 10:39 04/26/18 07:00 Intake and Output: 04/26/18 04/26/18 06:59 18:59 Output Total 700 Balance -700 - Medications Medications: Current Medications Acetaminophen (Tylenol 325mg Tab) 650 mg PO Q4 PRN PRN Reason: Fever >100.4 F Apixaban (Eliquis) 10 mg PO BID [facility] Last Admin: 04/26/18 10:39 Dose: 10 mg Clopidogrel Bisulfate (Plavix) 75 mg PO DAILY [facility] Last Admin: 04/26/18 10:39 Dose: 75 mg Dextrose (Dextrose 50% Inj) 0 ml IVP .STAT PRN; Protocol PRN Reason: Hypoglycemia Protocol Dextrose (Glutose 15) 0 gm PO .ONCE PRN; Protocol PRN Reason: Hypoglycemia Protocol Docusate Sodium (Colace) 100 mg PO BID [facility] Last Admin: 04/26/18 10:36 Dose: 100 mg Fluticasone/Vilanterol (Breo Ellipta 100-25 Mcg Inh) 1 puff INH RQD [facility] Last Admin: 04/26/18 08:00 Dose: 1 puff Furosemide (Lasix) 20 mg IVP Q12 [facility] Last Admin: 04/26/18 10:39 Dose: 20 mg Glucagon (Glucagen Diagnostic Kit) 0 mg IM .STAT PRN; Protocol PRN Reason: Hypoglycemia Protocol Dextrose (Dextrose 5% In Water 1000 Ml) 1,000 mls @ 0 mls/hr IV .Q0M PRN; Protocol PRN Reason: Hypoglycemia Protocol Insulin Human Regular (Novolin R) 0 unit SC ACHS [facility]; Protocol Last Admin: 04/26/18 12:23 Dose: 1 unit Ipratropium [place] (Atrovent) 0.5 mg IH RQ6 [facility] Last Admin: 04/26/18 08:00 Dose: 0.5 mg Pantoprazole Sodium (Protonix Ec Tab) 40 mg PO DAILY [facility] Last Admin: 04/26/18 10:39 Dose: 40 mg Rivastigmine (Exelon 9.5 Mg/24 Hr Patch) 1 patch TD DAILY [facility] Last Admin: 04/25/18 10:52 Dose: 1 patch Rosuvastatin Calcium (Crestor) 2.5 mg PO HS [facility] Last Admin: 04/25/18 22:11 Dose: 2.5 mg Saccharomyces Boulardii (Florastor) 250 mg PO BID [facility] Last Admin: 04/26/18 10:36 Dose: 250 mg Simethicone (Mylicon Chew Tab) 80 mg PO QID PRN PRN Reason: GI distress Last Admin: 04/23/18 08:58 Dose: 80 mg - Labs Labs: 04/26/18 08:22 04/26/18 08:22 PT 13.1 SECONDS (9.7-12.2) H 04/17/18 16:39 INR 1.2 04/17/18 16:39 APTT 49 SECONDS (21-34) H D 04/20/18 06:01 - Constitutional Appears: Non-toxic, Chronically Ill - Head Exam Head Exam: NORMOCEPHALIC - Eye Exam Eye Exam: absent: Scleral icterus - ENT Exam ENT Exam: Mucous Membranes Dry - Neck Exam Neck Exam: absent: Lymphadenopathy - Respiratory Exam Respiratory Exam: Decreased Breath Sounds - Cardiovascular Exam Cardiovascular Exam: REGULAR RHYTHM - GI/Abdominal Exam GI & Abdominal Exam: Distended, Soft Assessment and Plan (1) NSTEMI (non-ST elevated myocardial infarction) Status: Acute (2) Pulmonary embolism Status: Acute (3) COPD (chronic obstructive pulmonary disease) Status: Chronic (4) Dementia Status: Chronic
--- NOTE | 2018-04-26 13:44 | CP.PCM.PN ---
<BessyCrystalcassandranenita - Last Filed: 04/26/18 16:54> Subjective - Date & Time of Evaluation Date of Evaluation: 04/26/18 Time of Evaluation: 09:00 - Subjective Subjective: rApit Doherty PGY1 Progress Note for Dr. Frandy Clark Pt was examined at bedside this morning. She reported improvement in her breathing, and denied any chest pain or cough. She denied chills, abdominal pain, nausea, vomiting. Objective - Vital Signs/Intake and Output Vital Signs (last 24 hours): Temp Pulse Resp BP Pulse Ox 98.1 F 68 20 101/64 94 L 04/26/18 07:00 04/26/18 07:00 04/26/18 07:00 04/26/18 10:39 04/26/18 07:00 Intake and Output: 04/26/18 04/26/18 06:59 18:59 Output Total 700 Balance -700 - Medications Medications: Current Medications Acetaminophen (Tylenol 325mg Tab) 650 mg PO Q4 PRN PRN Reason: Fever >100.4 F Apixaban (Eliquis) 10 mg PO BID [facility] Last Admin: 04/26/18 10:39 Dose: 10 mg Clopidogrel Bisulfate (Plavix) 75 mg PO DAILY [facility] Last Admin: 04/26/18 10:39 Dose: 75 mg Dextrose (Dextrose 50% Inj) 0 ml IVP .STAT PRN; Protocol PRN Reason: Hypoglycemia Protocol Dextrose (Glutose 15) 0 gm PO .ONCE PRN; Protocol PRN Reason: Hypoglycemia Protocol Docusate Sodium (Colace) 100 mg PO BID [facility] Last Admin: 04/26/18 10:36 Dose: 100 mg Fluticasone/Vilanterol (Breo Ellipta 100-25 Mcg Inh) 1 puff INH RQD [facility] Last Admin: 04/26/18 08:00 Dose: 1 puff Furosemide (Lasix) 20 mg IVP Q12 [facility] Last Admin: 04/26/18 10:39 Dose: 20 mg Glucagon (Glucagen Diagnostic Kit) 0 mg IM .STAT PRN; Protocol PRN Reason: Hypoglycemia Protocol Dextrose (Dextrose 5% In Water 1000 Ml) 1,000 mls @ 0 mls/hr IV .Q0M PRN; Protocol PRN Reason: Hypoglycemia Protocol Insulin Human Regular (Novolin R) 0 unit SC ACHS [facility]; Protocol Last Admin: 04/26/18 12:23 Dose: 1 unit Ipratropium [place] (Atrovent) 0.5 mg IH RQ6 [facility] Last Admin: 04/26/18 08:00 Dose: 0.5 mg Pantoprazole Sodium (Protonix Ec Tab) 40 mg PO DAILY [facility] Last Admin: 04/26/18 10:39 Dose: 40 mg Rivastigmine (Exelon 9.5 Mg/24 Hr Patch) 1 patch TD DAILY [facility] Last Admin: 04/25/18 10:52 Dose: 1 patch Rosuvastatin Calcium (Crestor) 2.5 mg PO HS [facility] Last Admin: 04/25/18 22:11 Dose: 2.5 mg Saccharomyces Boulardii (Florastor) 250 mg PO BID [facility] Last Admin: 04/26/18 10:36 Dose: 250 mg Simethicone (Mylicon Chew Tab) 80 mg PO QID PRN PRN Reason: GI distress Last Admin: 04/23/18 08:58 Dose: 80 mg - Labs Labs: 04/26/18 08:22 04/26/18 08:22 PT 13.1 SECONDS (9.7-12.2) H 04/17/18 16:39 INR 1.2 04/17/18 16:39 APTT 49 SECONDS (21-34) H D 04/20/18 06:01 - Additional Findings Additional findings: - Constitutional Appears: No Acute Distress, Chronically Ill - Head Exam Head Exam: ATRAUMATIC, NORMOCEPHALIC - Eye Exam Eye Exam: EOMI, Normal appearance - ENT Exam ENT Exam: Mucous Membranes Moist - Respiratory Exam Respiratory Exam: Decreased Breath Sounds, NORMAL BREATHING PATTERN. absent: Rales, Rhonchi, Wheezes - Cardiovascular Exam Cardiovascular Exam: Bradycardia, REGULAR RHYTHM, +S1, +S2 - GI/Abdominal Exam GI & Abdominal Exam: Soft, Normal Bowel Sounds. absent: Distended, Tenderness - Extremities Exam Extremities Exam: Pedal Edema - Neurological Exam Neurological Exam: Awake. absent: Alert, Oriented x3 Assessment and Plan - Assessment and Plan (Free Text) Assessment: 88 year old female with PMHx of COPD, HTN, HLD, dementia and previous CVA pr esents to ED with complaint of shortness of breath, admitted for treatment of PE. Plan: PE - w/R sided HF - CT Chest 04/18: b/l upper and lower lobe pulm a. R>L. R heart strain. cardiomegaly. bibasilar atelectasis (mild) - CXR 04/23: mild pulmonary venous congestion w/ bibasilar atelectasis. Questionable R sided effusion - Venous doppler: Acute DVT in LLE - eliquis 10mg PO BID - lasix 20mg IV BID - Pulmonary consulted, Dr. Clinton - Cardio consulted, Dr. Chino Elevated Troponin - likely secondary to R heart strain, PE - eliquis 10mg PO BID - ECHO 04/18: nl LV systolic function, diastolic dysfunction, mild AR, MR, TR - Cardio consulted, Dr. Chino H/o CVA - CT head 04/21: diffuse confluent chronic periventricular white matter ischemic changes extending peripherally into deep and subcortical changes. Extension into white matter tracts of both basal nuclei. chronic bilateral basal nuclei lacunar type infarcts. - Plavix 75mg PO daily HLD - crestor 2.5mg PO qHS COPD - CXR (04/23): mild pulmonary venous congestion w/ bibasilar atelectasis. Questionable R sided effusion - CXR (04/18): cardiomegaly. mild reticular nodular opacities. - Breo Elliptia inhaled diskus - Atrovent PRN - Bipap PRN - Pulm consulted, Dr. Clinton- recommends 3L NC for home O2 - noted to desat to 73% upon sitting up as per PT, fluctuating with mobility - 04/25: as per RN, OOB to chair sat 92% on RA Dementia - Rivastigime 1 patch TD daily History of Hypertension - hold norvasc 2.5mg PO daily Leukocytosis - UCx: No growth 04/17 - BCx: no growth 04/20 - ID consulted, Dr. Guerrero, recs appreciated DM - Hba1c 6.7 - Hypoglycemia protocol PPX: DVT: Eliquis 10mg PO BID GI: protonix I met with the patient and determined she requires the head of bed to be elevat ed more than 30 degrees most of the time due to COPD. Dispo: Pending home O2 delivery confirmation for d/c. Home PT rx given for d/c Case reviewed with Dr. Dave Clark <Akbar Clark - Last Filed: 04/29/18 00:22> Objective - Vital Signs/Intake and Output Vital Signs (last 24 hours): Temp Pulse Resp BP Pulse Ox 97.4 F L 92 H 18 115/76 97 04/27/18 08:42 04/27/18 08:42 04/27/18 08:42 04/27/18 09:38 04/27/18 08:36 - Labs Labs: 04/27/18 10:59 04/27/18 10:59 PT 13.1 SECONDS (9.7-12.2) H 04/17/18 16:39 INR 1.2 04/17/18 16:39 APTT 49 SECONDS (21-34) H D 04/20/18 06:01 Attending/Attestation - Attestation I have personally seen and examined this patient.: Yes I have fully participated in the care of the patient.: Yes I have reviewed all pertinent clinical information, including history, physical exam and plan: Yes Notes (Text): 04/29/18 00:21 This is a late entry. Care of this patient was gone over in detail with resident Dr. Doherty. Akbar Clark D.O.
--- NOTE | 2018-04-26 16:24 | CP.PCM.PN ---
Subjective - Date & Time of Evaluation Date of Evaluation: 04/26/18 Time of Evaluation: 15:45 - Subjective Subjective: Patient seen and examined, daughter at bedside. Patient resting comfortably, and as per daughter, her symptoms are improving. Afebrile and in no acute distress. Patient will require home oxygen. Objective - Vital Signs/Intake and Output Vital Signs (last 24 hours): Temp Pulse Resp BP Pulse Ox 97.9 F 66 20 107/71 96 04/26/18 15:30 04/26/18 15:30 04/26/18 15:30 04/26/18 15:30 04/26/18 15:30 Intake and Output: 04/26/18 04/26/18 06:59 18:59 Output Total 700 Balance -700 - Medications Medications: Current Medications Acetaminophen (Tylenol 325mg Tab) 650 mg PO Q4 PRN PRN Reason: Fever >100.4 F Apixaban (Eliquis) 10 mg PO BID [facility] Last Admin: 04/26/18 10:39 Dose: 10 mg Clopidogrel Bisulfate (Plavix) 75 mg PO DAILY [facility] Last Admin: 04/26/18 10:39 Dose: 75 mg Dextrose (Dextrose 50% Inj) 0 ml IVP .STAT PRN; Protocol PRN Reason: Hypoglycemia Protocol Dextrose (Glutose 15) 0 gm PO .ONCE PRN; Protocol PRN Reason: Hypoglycemia Protocol Docusate Sodium (Colace) 100 mg PO BID [facility] Last Admin: 04/26/18 10:36 Dose: 100 mg Fluticasone/Vilanterol (Breo Ellipta 100-25 Mcg Inh) 1 puff INH RQD [facility] Last Admin: 04/26/18 08:00 Dose: 1 puff Furosemide (Lasix) 20 mg IVP Q12 [facility] Last Admin: 04/26/18 10:39 Dose: 20 mg Glucagon (Glucagen Diagnostic Kit) 0 mg IM .STAT PRN; Protocol PRN Reason: Hypoglycemia Protocol Dextrose (Dextrose 5% In Water 1000 Ml) 1,000 mls @ 0 mls/hr IV .Q0M PRN; Protocol PRN Reason: Hypoglycemia Protocol Insulin Human Regular (Novolin R) 0 unit SC ACHS [facility]; Protocol Last Admin: 04/26/18 12:23 Dose: 1 unit Ipratropium [place] (Atrovent) 0.5 mg IH RQ6 [facility] Last Admin: 04/26/18 08:00 Dose: 0.5 mg Pantoprazole Sodium (Protonix Ec Tab) 40 mg PO DAILY [facility] Last Admin: 04/26/18 10:39 Dose: 40 mg Rivastigmine (Exelon 9.5 Mg/24 Hr Patch) 1 patch TD DAILY [facility] Last Admin: 04/26/18 14:17 Dose: 1 patch Rosuvastatin Calcium (Crestor) 2.5 mg PO HS [facility] Last Admin: 04/25/18 22:11 Dose: 2.5 mg Saccharomyces Boulardii (Florastor) 250 mg PO BID [facility] Last Admin: 04/26/18 10:36 Dose: 250 mg Simethicone (Mylicon Chew Tab) 80 mg PO QID PRN PRN Reason: GI distress Last Admin: 04/23/18 08:58 Dose: 80 mg - Labs Labs: 04/26/18 08:22 04/26/18 08:22 PT 13.1 SECONDS (9.7-12.2) H 04/17/18 16:39 INR 1.2 04/17/18 16:39 APTT 49 SECONDS (21-34) H D 04/20/18 06:01 Assessment and Plan (1) Pulmonary embolism Status: Acute (2) COPD (chronic obstructive pulmonary disease) Status: Chronic
[2018-04-26] MEDS: Rosuvastatin Calcium 2.5 mg Tab PO SCH (21:55)
[2018-04-27] MEDS: (Novolin R) Insulin Human Regular 100 units/ml vial SC SCH ×2 (07:19→12:04)
[2018-04-27] MEDS: Ipratropium 0.02% Inhal Soln (0.5 mg/2.5 ml) UD IH SCH ×2 (08:00→13:55)
[2018-04-27] MEDS: Fluticasone-Vilanterol 100/25mcg Diskus INH SCH (08:00)
[2018-04-27 08:39] VITALS: RESP 18; O2SAT 97
[2018-04-27 08:45] VITALS: PULSE 92; TEMP 97.4
[2018-04-27] MEDS: Saccharomyces Boulardi 250 mg Cap PO SCH (09:38)
[2018-04-27] MEDS: Pantoprazole 40 mg EC Tab PO SCH (09:38)
[2018-04-27 09:39] VITALS: BP 115/76
[2018-04-27 11:09] LABS: BASO % 0.3 % (0.0-2.0); EOS # 0.8 K/uL (0.0-0.7); EOS % 6.3 % (0.0-4.0); HEMOGLOBIN 13.1 g/dL (11.0-16.0); LYMPH # 1.4 K/uL (1.0-4.3); LYMPH % 10.5 % (20.0-40.0); MEAN CELL VOLUME 82.7 fL (81.0-99.0); MEAN CORPUSCULAR HEMOGLOBIN 27.6 pg (27.0-31.0); MEAN CORPUSCULAR HGB CONC 33.4 g/dL (33.0-37.0); MEAN PLATELET VOLUME 7.8 fL (7.2-11.7); MONO # 1.3 K/uL (0.0-0.8); MONO % 10.2 % (0.0-10.0); NEUT # 9.4 K/uL (1.8-7.0); NEUT % 72.7 % (50.0-75.0); RBC 4.75 Mil/uL (3.80-5.20); RED CELL DISTRIBUTION WIDTH 16.1 % (11.5-14.5); WHITE BLOOD COUNT 12.9 K/uL (4.8-10.8)
[2018-04-27 12:05] LABS: ALBUMIN 3.8 g/dL (3.5-5.0); AST/SGOT 43 U/L (14-36); BLOOD UREA NITROGEN 35 mg/dL (7-17); CALCIUM 8.5 mg/dl (8.6-10.4); GFR NON-AFRICAN AMERICAN 53
[2018-04-27 12:06] LABS: ALT/SGPT 24 U/L (9-52)
[2018-04-27] MEDS ORDERED: Potassium Chloride 20 mEq ER Tab PO ONE (13:00)
--- NOTE | 2018-04-27 15:18 | CP.PCM.DIS ---
<Arpit Doherty - Last Filed: 04/27/18 15:52> Provider - Provider Date of Admission: 04/17/18 19:30 Attending physician: Akbar Clark MD Consults: Pulm - Oz Cardio - Matti ID - [facility] Pall[facility] Time Spent in preparation of Discharge (in minutes): 70 Hospital Course - Lab Results Lab Results: Micro Results 04/20/18 13:19 Blood Blood Culture - Final NO GROWTH AFTER 5 DAYS 04/20/18 13:19 Blood Gram Stain - Final TEST NOT PERFORMED 04/20/18 12:27 Blood Blood Culture - Final NO GROWTH AFTER 5 DAYS 04/20/18 12:27 Blood Gram Stain - Final TEST NOT PERFORMED 04/23/18 15:49 Nose MRSA Culture (Admit) - Final MRSA NOT DETECTED 04/18/18 06:35 Nose MRSA Culture (Admit) - Final MRSA NOT DETECTED 04/17/18 21:16 Urine,Catheterized Urine Culture - Final No Growth (<1,000 CFU/ML) Most Recent Lab Values WBC 12.9 K/uL (4.8-10.8) H 04/27/18 10:59 RBC 4.75 Mil/uL (3.80-5.20) 04/27/18 10:59 Hgb 13.1 g/dL (11.0-16.0) 04/27/18 10:59 Hct 39.3 % (34.0-47.0) 04/27/18 10:59 MCV 82.7 fL (81.0-99.0) 04/27/18 10:59 MCH 27.6 pg (27.0-31.0) 04/27/18 10:59 MCHC 33.4 g/dL (33.0-37.0) 04/27/18 10:59 RDW 16.1 % (11.5-14.5) H 04/27/18 10:59 Plt Count 472 K/uL (130-400) H 04/27/18 10:59 MPV 7.8 fL (7.2-11.7) 04/27/18 10:59 Neut % (Auto) 72.7 % (50.0-75.0) 04/27/18 10:59 Lymph % (Auto) 10.5 % (20.0-40.0) L 04/27/18 10:59 [place] % (Auto) 10.2 % (0.0-10.0) H 04/27/18 10:59 Eos % (Auto) 6.3 % (0.0-4.0) H 04/27/18 10:59 Baso % (Auto) 0.3 % (0.0-2.0) 04/27/18 10:59 Neut # (Auto) 9.4 K/uL (1.8-7.0) H 04/27/18 10:59 Lymph # (Auto) 1.4 K/uL (1.0-4.3) 04/27/18 10:59 [place] # (Auto) 1.3 K/uL (0.0-0.8) H 04/27/18 10:59 Eos # (Auto) 0.8 K/uL (0.0-0.7) H 04/27/18 10:59 Baso # (Auto) 0.0 K/uL (0.0-0.2) 04/27/18 10:59 Neutrophils % (Manual) 85 % (50-75) H 04/24/18 09:00 Band Neutrophils % 1 % (0-2) 04/23/18 05:59 Lymphocytes % (Manual) 7 % (20-40) L 04/24/18 09:00 Monocytes % (Manual) 8 % (0-10) 04/24/18 09:00 Toxic Granulation Present 04/23/18 05:59 Platelet Estimate Normal (NORMAL) 04/24/18 09:00 Large Platelets Present 04/23/18 05:59 Giant Platelets Present 04/23/18 05:59 RBC Morphology Normal 04/21/18 05:56 Polychromasia Slight 04/23/18 05:59 Hypochromasia (manual) Slight 04/23/18 05:59 Poikilocytosis (manual Slight 04/24/18 09:00 Anisocytosis (manual) Slight 04/24/18 09:00 Ovalocytes Slight 04/24/18 09:00 [place] Cells Slight 04/24/18 09:00 Acanthocytes (Spur) Slight 04/24/18 09:00 Schistocytes Slight 04/23/18 05:59 PT 13.1 SECONDS (9.7-12.2) H 04/17/18 16:39 INR 1.2 04/17/18 16:39 APTT 49 SECONDS (21-34) H D 04/20/18 06:01 D-Dimer, Quantitative > 5250 ng/mlDDU (0-243) H 04/17/18 16:39 Sodium 136 mmol/L (132-148) 04/27/18 10:59 Potassium 3.4 mmol/L (3.6-5.2) L 04/27/18 10:59 Chloride 92 mmol/L (98-107) L 04/27/18 10:59 Carbon Dioxide 35 mmol/L (22-30) H 04/27/18 10:59 Anion Gap 12 (10-20) 04/27/18 10:59 BUN 35 mg/dL (7-17) H 04/27/18 10:59 Creatinine 1.0 mg/dL (0.7-1.2) 04/27/18 10:59 Est GFR ( Amer) > 60 04/27/18 10:59 Est GFR (Non-Af Amer) 53 04/27/18 10:59 POC Glucose (mg/dL) 165 mg/dL (65-110) H 04/27/18 11:31 Random Glucose 154 mg/dL (65-105) H 04/27/18 10:59 Hemoglobin A1c 6.7 % (4.2-6.5) H 04/19/18 06:08 Calcium 8.5 mg/dl (8.6-10.4) L 04/27/18 10:59 Phosphorus 3.9 mg/dL (2.5-4.5) 04/27/18 10:59 Magnesium 2.5 mg/dL (1.6-2.3) H 04/27/18 10:59 Total Bilirubin 0.7 mg/dL (0.2-1.3) 04/27/18 10:59 AST 43 U/L (14-36) H D 04/27/18 10:59 ALT 24 U/L (9-52) 04/27/18 10:59 Alkaline Phosphatase 64 U/L (38-126) 04/27/18 10:59 Troponin I 0.2230 ng/mL (0.00-0.120) H* 04/18/18 15:34 NT-Pro-B Natriuret Pep 314 pg/mL (0-900) 04/17/18 16:00 Total Protein 7.5 g/dL (6.3-8.3) 04/27/18 10:59 Albumin 3.8 g/dL (3.5-5.0) 04/27/18 10:59 Globulin 3.7 gm/dL (2.2-3.9) 04/27/18 10:59 Albumin/Globulin Ratio 1.0 (1.0-2.1) 04/27/18 10:59 Triglycerides 119 mg/dL (0-149) 04/19/18 06:08 Cholesterol 148 mg/dL (0-199) 04/19/18 06:08 LDL Cholesterol Direct 90 mg/dL (0-129) 04/19/18 06:08 HDL Cholesterol 30 mg/dL (30-70) 04/19/18 06:08 Procalcitonin 0.13 NG/ML (0.19-0.49) L 04/22/18 13:05 Urine Color Su (YELLOW) 04/17/18 17:09 Urine Clarity Hazy (Clear) 04/17/18 17:09 Urine pH 5.0 (5.0-8.0) 04/17/18 17:09 Ur Specific [place] 1.023 (1.003-1.030) 04/17/18 17:09 Urine Protein 2+ mg/dL (NEGATIVE) H 04/17/18 17:09 Urine Glucose (UA) Normal mg/dL (Normal) 04/17/18 17:09 Urine Ketones Trace mg/dL (NEGATIVE) 04/17/18 17:09 Urine Blood Negative (NEGATIVE) 04/17/18 17:09 Urine Nitrate Negative (NEGATIVE) 04/17/18 17:09 Urine Bilirubin Negative (NEGATIVE) 04/17/18 17:09 Urine Urobilinogen Normal mg/dL (0.2-1.0) 04/17/18 17:09 Ur Leukocyte Esterase 1+ [place]vel[place]/uL (Negative) H 04/17/18 17:09 Urine WBC (Auto) 13 /hpf (0-5) H 04/17/18 17:09 Urine RBC (Auto) 3 /hpf (0-3) 04/17/18 17:09 Ur Squamous Epith Cells 3 /hpf (0-5) 04/17/18 17:09 Urine Bacteria Rare (<OCC) 04/17/18 17:09 Hyaline Casts 11-20 /lpf (0-2) H 04/17/18 17:09 Stool Occult Blood Negative (NEGATIVE) 04/17/18 16:19 Urine Opiates Screen Negative (NEGATIVE) 04/17/18 17:09 Urine Methadone Screen Negative (NEGATIVE) 04/17/18 17:09 Ur Barbiturates Screen Negative (NEGATIVE) 04/17/18 17:09 Ur Phencyclidine Scrn Negative (NEGATIVE) 04/17/18 17:09 Ur Amphetamines Screen Negative (NEGATIVE) 04/17/18 17:09 U Benzodiazepines Scrn Negative (NEGATIVE) 04/17/18 17:09 U Oth Cocaine Metabols Negative (NEGATIVE) 04/17/18 17:09 U Cannabinoids Screen Negative (NEGATIVE) 04/17/18 17:09 Influenza Typ A,B (EIA) Negative for flu a/b (NEGATIVE) 04/17/18 16:13 H.influenzae Type B Ag [employer] Operator 04/19/18 13:59 Ur L.pneumophila Ag Negative (NEGATIVE) 04/19/18 13:59 Mycoplasma pneumon IgM Negative (NEGATIVE) 04/19/18 13:59 N.meningitidis ACY/W135 [employer] Operator 04/19/18 13:59 N.meningi B/E.coli K1 Ag [employer] Operator 04/19/18 13:59 Group B Strep Antigen [employer] Operator 04/19/18 13:59 S. pneumoniae Antigen Negative (NEGATIVE) 04/19/18 13:59 Blood Type O POSITIVE 04/17/18 16:19 Antibody Screen Negative 04/17/18 16:19 - Hospital Course Hospital Course: Upon Admission Pt is a 88 year old female with PMHx of COPD, HTN, HLD, dementia and previous CVA with L sided weakness presents to ED with complaint of shortness of breath worsening for the last 2 days. SOB worsens with talking. Treatment with home nebulizer provided no improvement. Associated symptoms include diaphoresis and lower extremity swelling. Patient noted to be in rapid Afib and v tach en route to ED. On arrival to ED, patient was noted to be hypotensive, which improved with 2L IV fluid. Patient denies chest pain, nausea, vomiting, palpitations, cough, fever, and chills. A CT Angio was obtained which showed a pulmonary embolism. Pt was given IV heparin and admitted for further evaluation and treatment. Hospital Course Venous Dopplers were ordered and showed + DVT in the LLE. CT head showed white matter ischemic changes in b/l hemispheres and central volume loss Abd US showed hepatomegaly and renal 2.2cm anechoic lesion compatible with a cyst. ECHO showed normal LV function, mild AR, MR, and TR. CXR showed mild pulmorary venous congestion with bibasilar atelectasis and a questionable R sided effusion. Pt was restarted on home plavix, breo ellipta, rivastigmine patch, and crestor. Cardiology was consulted and recommended anticoagulation with heparin and then switching to eliquis. Pulmonology was consulted and recommended nebulizer treatments, continuation of breo-ellipta, and home O2 at least 3L upon d/c. ID was consulted for leukocytosis and pt completed 5 days of avelox. Pt was evaluated by PT who recommended [facility] due to desaturation to 73% with walking. Daughter Karin expressed wish to care for pt at home rather than [facility] upon discharge. Pt qualified for Home O2, which was obtained. Upon Discharge Pt was deemed stable for discharge. Home O2 and home PT were coordinated for the patient as well as a hospital bed for home. Pt's daughter Karin was given instructions on medications, and understood. She was instructed to have pt follow up with her PMD within 1 week, and understood and agreed. Discharge Exam - Head Exam Head Exam: ATRAUMATIC, NORMOCEPHALIC - Eye Exam Eye Exam: EOMI, Normal appearance, PERRL Pupil Exam: NORMAL ACCOMODATION - Respiratory Exam Respiratory Exam: Decreased Breath Sounds, NORMAL BREATHING PATTERN. absent: Rales, Rhonchi, Wheezes, Respiratory Distress - Cardiovascular Exam Cardiovascular Exam: REGULAR RHYTHM, +S1, +S2. absent: Gallop, Rubs, Systolic Murmur - GI/Abdominal Exam GI & Abdominal Exam: Normal Bowel Sounds, Soft. absent: Distended, Tenderness - Neurological Exam Neurological exam: Alert, Oriented x3 - Psychiatric Exam Psychiatric exam: Normal Affect, Normal Mood - Skin Skin Exam: Dry Discharge Plan - Discharge Medications Prescriptions: Apixaban [Eliquis] 10 mg PO BID #60 tab Docusate [Colace] 100 mg PO BID #60 cap Fluticasone/Vilanterol 100/25 [Breo Ellipta 100-25 MCG INH] 1 puff INH RQD 30 Days puff Furosemide [Lasix] 20 mg PO BID #60 vial Plavix 75 mg PO DAILY #30 Potassium Chloride [K-Dur 20 mEq ER Tab] 20 meq PO ONCE #30 tab Saccharomyces Boulardi [Florastor] 250 mg PO BID #60 cap Simvastatin 20 mg PO HS #30 - Follow Up Plan Condition: GOOD Disposition: DISCHARGED TO HOME CARE Instructions: Saccharomyces boulardii, Heart Attack (DC), Pulmonary Embolism (Blood Clot in the Lungs) (DC), Low Salt Diet, Exacerbation of COPD (DC), Apixaban, Drugs to Help Lower Your Cholesterol, Hypertension (DC) Additional Instructions: Please take the following medications: Eliquis 10mg 1 tab 2xday (8am and 8pm) Clopidogrel 75mg daily (8am) Colace 100mg 1 tabe 2xday (8am and 8pm) Breo-Ellipta 1 puff inhaled daily (8am) Furosemide 20mg 1 tab 2xday (8am and 8pm) Exelon 1 patch on the skin daily (8am) Simvistatin 20mg 1 tab at night (8pm) Florastor 1 cap 2xday (8am and 8pm) through 05/24/18. Your blood pressure is under control, so please do not take norvasc. Schedule follow up with your PMD Dr. Gonsalves to take place in 7-[address] Gonsalves obtain referrals for Record Label Intern Dr. Chino at [phone] [address] Alumni Relations [address]. Clinton at [phone]. As your blood glucose is relatively under control, you have not been given any diabetes medication. Please drink 3 Ensure Enlives a day. Please take care and be well. <Akbar Clark - Last Filed: 04/29/18 00:21> Provider - Provider Date of Admission: 04/17/18 19:30 Attending physician: Akbar Clark MD Time Spent in preparation of Discharge (in minutes): 40 Hospital Course - Lab Results Lab Results: Micro Results 04/20/18 13:19 Blood Blood Culture - Final NO GROWTH AFTER 5 DAYS 04/20/18 13:19 Blood Gram Stain - Final TEST NOT PERFORMED 04/20/18 12:27 Blood Blood Culture - Final NO GROWTH AFTER 5 DAYS 04/20/18 12:27 Blood Gram Stain - Final TEST NOT PERFORMED 04/23/18 15:49 Nose MRSA Culture (Admit) - Final MRSA NOT DETECTED 04/18/18 06:35 Nose MRSA Culture (Admit) - Final MRSA NOT DETECTED 04/17/18 21:16 Urine,Catheterized Urine Culture - Final No Growth (<1,000 CFU/ML) Most Recent Lab Values WBC 12.9 K/uL (4.8-10.8) H 04/27/18 10:59 RBC 4.75 Mil/uL (3.80-5.20) 04/27/18 10:59 Hgb 13.1 g/dL (11.0-16.0) 04/27/18 10:59 Hct 39.3 % (34.0-47.0) 04/27/18 10:59 MCV 82.7 fL (81.0-99.0) 04/27/18 10:59 MCH 27.6 pg (27.0-31.0) 04/27/18 10:59 MCHC 33.4 g/dL (33.0-37.0) 04/27/18 10:59 RDW 16.1 % (11.5-14.5) H 04/27/18 10:59 Plt Count 472 K/uL (130-400) H 04/27/18 10:59 MPV 7.8 fL (7.2-11.7) 04/27/18 10:59 Neut % (Auto) 72.7 % (50.0-75.0) 04/27/18 10:59 Lymph % (Auto) 10.5 % (20.0-40.0) L 04/27/18 10:59 [place] % (Auto) 10.2 % (0.0-10.0) H 04/27/18 10:59 Eos % (Auto) 6.3 % (0.0-4.0) H 04/27/18 10:59 Baso % (Auto) 0.3 % (0.0-2.0) 04/27/18 10:59 Neut # (Auto) 9.4 K/uL (1.8-7.0) H 04/27/18 10:59 Lymph # (Auto) 1.4 K/uL (1.0-4.3) 04/27/18 10:59 [place] # (Auto) 1.3 K/uL (0.0-0.8) H 04/27/18 10:59 Eos # (Auto) 0.8 K/uL (0.0-0.7) H 04/27/18 10:59 Baso # (Auto) 0.0 K/uL (0.0-0.2) 04/27/18 10:59 Neutrophils % (Manual) 85 % (50-75) H 04/24/18 09:00 Band Neutrophils % 1 % (0-2) 04/23/18 05:59 Lymphocytes % (Manual) 7 % (20-40) L 04/24/18 09:00 Monocytes % (Manual) 8 % (0-10) 04/24/18 09:00 Toxic Granulation Present 04/23/18 05:59 Platelet Estimate Normal (NORMAL) 04/24/18 09:00 Large Platelets Present 04/23/18 05:59 Giant Platelets Present 04/23/18 05:59 RBC Morphology Normal 04/21/18 05:56 Polychromasia Slight 04/23/18 05:59 Hypochromasia (manual) Slight 04/23/18 05:59 Poikilocytosis (manual Slight 04/24/18 09:00 Anisocytosis (manual) Slight 04/24/18 09:00 Ovalocytes Slight 04/24/18 09:00 [place] Cells Slight 04/24/18 09:00 Acanthocytes (Spur) Slight 04/24/18 09:00 Schistocytes Slight 04/23/18 05:59 PT 13.1 SECONDS (9.7-12.2) H 04/17/18 16:39 INR 1.2 04/17/18 16:39 APTT 49 SECONDS (21-34) H D 04/20/18 06:01 D-Dimer, Quantitative > 5250 ng/mlDDU (0-243) H 04/17/18 16:39 Sodium 136 mmol/L (132-148) 04/27/18 10:59 Potassium 3.4 mmol/L (3.6-5.2) L 04/27/18 10:59 Chloride 92 mmol/L (98-107) L 04/27/18 10:59 Carbon Dioxide 35 mmol/L (22-30) H 04/27/18 10:59 Anion Gap 12 (10-20) 04/27/18 10:59 BUN 35 mg/dL (7-17) H 04/27/18 10:59 Creatinine 1.0 mg/dL (0.7-1.2) 04/27/18 10:59 Est GFR ( Amer) > 60 04/27/18 10:59 Est GFR (Non-Af Amer) 53 04/27/18 10:59 POC Glucose (mg/dL) 165 mg/dL (65-110) H 04/27/18 11:31 Random Glucose 154 mg/dL (65-105) H 04/27/18 10:59 Hemoglobin A1c 6.7 % (4.2-6.5) H 04/19/18 06:08 Calcium 8.5 mg/dl (8.6-10.4) L 04/27/18 10:59 Phosphorus 3.9 mg/dL (2.5-4.5) 04/27/18 10:59 Magnesium 2.5 mg/dL (1.6-2.3) H 04/27/18 10:59 Total Bilirubin 0.7 mg/dL (0.2-1.3) 04/27/18 10:59 AST 43 U/L (14-36) H D 04/27/18 10:59 ALT 24 U/L (9-52) 04/27/18 10:59 Alkaline Phosphatase 64 U/L (38-126) 04/27/18 10:59 Troponin I 0.2230 ng/mL (0.00-0.120) H* 04/18/18 15:34 NT-Pro-B Natriuret Pep 314 pg/mL (0-900) 04/17/18 16:00 Total Protein 7.5 g/dL (6.3-8.3) 04/27/18 10:59 Albumin 3.8 g/dL (3.5-5.0) 04/27/18 10:59 Globulin 3.7 gm/dL (2.2-3.9) 04/27/18 10:59 Albumin/Globulin Ratio 1.0 (1.0-2.1) 04/27/18 10:59 Triglycerides 119 mg/dL (0-149) 04/19/18 06:08 Cholesterol 148 mg/dL (0-199) 04/19/18 06:08 LDL Cholesterol Direct 90 mg/dL (0-129) 04/19/18 06:08 HDL Cholesterol 30 mg/dL (30-70) 04/19/18 06:08 Procalcitonin 0.13 NG/ML (0.19-0.49) L 04/22/18 13:05 Urine Color Su (YELLOW) 04/17/18 17:09 Urine Clarity Hazy (Clear) 04/17/18 17:09 Urine pH 5.0 (5.0-8.0) 04/17/18 17:09 Ur Specific [place] 1.023 (1.003-1.030) 04/17/18 17:09 Urine Protein 2+ mg/dL (NEGATIVE) H 04/17/18 17:09 Urine Glucose (UA) Normal mg/dL (Normal) 04/17/18 17:09 Urine Ketones Trace mg/dL (NEGATIVE) 04/17/18 17:09 Urine Blood Negative (NEGATIVE) 04/17/18 17:09 Urine Nitrate Negative (NEGATIVE) 04/17/18 17:09 Urine Bilirubin Negative (NEGATIVE) 04/17/18 17:09 Urine Urobilinogen Normal mg/dL (0.2-1.0) 04/17/18 17:09 Ur Leukocyte Esterase 1+ [place]/uL (Negative) H 04/17/18 17:09 Urine WBC (Auto) 13 /hpf (0-5) H 04/17/18 17:09 Urine RBC (Auto) 3 /hpf (0-3) 04/17/18 17:09 Ur Squamous Epith Cells 3 /hpf (0-5) 04/17/18 17:09 Urine Bacteria Rare (<OCC) 04/17/18 17:09 Hyaline Casts 11-20 /lpf (0-2) H 04/17/18 17:09 Stool Occult Blood Negative (NEGATIVE) 04/17/18 16:19 Urine Opiates Screen Negative (NEGATIVE) 04/17/18 17:09 Urine Methadone Screen Negative (NEGATIVE) 04/17/18 17:09 Ur Barbiturates Screen Negative (NEGATIVE) 04/17/18 17:09 Ur Phencyclidine Scrn Negative (NEGATIVE) 04/17/18 17:09 Ur Amphetamines Screen Negative (NEGATIVE) 04/17/18 17:09 U Benzodiazepines Scrn Negative (NEGATIVE) 04/17/18 17:09 U Oth Cocaine Metabols Negative (NEGATIVE) 04/17/18 17:09 U Cannabinoids Screen Negative (NEGATIVE) 04/17/18 17:09 Influenza Typ A,B (EIA) Negative for flu a/b (NEGATIVE) 04/17/18 16:13 H.influenzae Type B Ag Burring Machine Operator 04/19/18 13:59 Ur L.pneumophila Ag Negative (NEGATIVE) 04/19/18 13:59 Mycoplasma pneumon IgM Negative (NEGATIVE) 04/19/18 13:59 N.meningitidis [id number]/W135 [employer] Operator 04/19/18 13:59 N.meningi B/E.coli K1 Ag [employer]ring [employer] Operator 04/19/18 13:59 Group B Strep Antigen Burring [employer] Operator 04/19/18 13:59 S. pneumoniae Antigen Negative (NEGATIVE) 04/19/18 13:59 Blood Type O POSITIVE 04/17/18 16:19 Antibody Screen Negative 04/17/18 16:19 Attending/Attestation - Attestation I have personally seen and examined this patient.: Yes I have fully participated in the care of the patient.: Yes I have reviewed all pertinent clinical information, including history, physical exam and plan: Yes Notes (Text): 04/29/18 00:20 This is a late entry. Care of this patient and discharge instructions/medications were gone over in detail with resident. Dr. Doherty. Akbar Clark D.O.
--- NOTE | 2018-04-27 17:23 | CP.PCM.PN ---
Subjective - Date & Time of Evaluation Date of Evaluation: 04/27/18 Time of Evaluation: 15:30 - Subjective Subjective: Patient seen and examined at bedside, lying down comfortably. Afebrile and in no acute distress. Denies shortness of breath, chest pain; admits to occasional cough and leg pain. Using NC throughout the day. Patient will require home oxygen. Objective - Vital Signs/Intake and Output Vital Signs (last 24 hours): Temp Pulse Resp BP Pulse Ox 97.4 F L 92 H 18 115/76 97 04/27/18 08:42 04/27/18 08:42 04/27/18 08:42 04/27/18 09:38 04/27/18 08:36 Intake and Output: 04/27/18 04/27/18 06:59 18:59 Intake Total 100 400 Output Total 50 Balance 100 350 - Labs Labs: 04/27/18 10:59 04/27/18 10:59 PT 13.1 SECONDS (9.7-12.2) H 04/17/18 16:39 INR 1.2 04/17/18 16:39 APTT 49 SECONDS (21-34) H D 04/20/18 06:01 Assessment and Plan (1) Pulmonary embolism Status: Acute (2) COPD (chronic obstructive pulmonary disease) Status: Chronic
== END 2018-04-27 16:44 | disposition home health service (06) | DRG 175 ==
LOC: C.ER 15:47 → C.9I 19:30 → C.6T 04-23 17:28
PROVIDERS: ADMIT Family Medicine; ATTEND Family Medicine
DX: I26.99 Other pulmonary embolism without acute cor pulmonale (principal); I21.4 Non-ST elevation (NSTEMI) myocardial infarction; I82.4Z2 Acute embolism and thrombosis of unspecified deep veins of left distal lower extremity; I49.01 Ventricular fibrillation; I69.354 Hemiplegia and hemiparesis following cerebral infarction affecting left non-dominant side; I47.2 Ventricular tachycardia; I82.432 Acute embolism and thrombosis of left popliteal vein; I82.412 Acute embolism and thrombosis of left femoral vein; J98.11 Atelectasis; I11.0 Hypertensive heart disease with heart failure; J44.9 Chronic obstructive pulmonary disease, unspecified; D72.829 Elevated white blood cell count, unspecified; I50.9 Heart failure, unspecified; I95.9 Hypotension, unspecified; I67.2 Cerebral atherosclerosis; I44.7 Left bundle-branch block, unspecified; I48.91 Unspecified atrial fibrillation; E11.51 Type 2 diabetes mellitus with diabetic peripheral angiopathy without gangrene; F03.90 Unspecified dementia, unspecified severity, without behavioral disturbance, psychotic disturbance, mood disturbance, and anxiety; N28.1 Cyst of kidney, acquired; R16.0 Hepatomegaly, not elsewhere classified; E78.5 Hyperlipidemia, unspecified; Z82.5 Family history of asthma and other chronic lower respiratory diseases; Z88.0 Allergy status to penicillin; Z79.01 Long term (current) use of anticoagulants